=== PATIENT | male | born 1960 | race Caucasian/White ===

== ENCOUNTER → 2018-09-20 08:28 | Outpatient (CLI) | payer OTHER, SELFPAY ==
[2018-05-15 09:55] VITALS: BMI 28.8
[2018-09-20 12:30] LABS: Absolute Lymphocyte Count 1.45 X10^3/ul (0.83-4.51); Absolute Neutrophil Count 1.7 X10^3/uL (2.0-7.7); Basophil# 0.02 X10^3/uL; Basophil% 0.5 % (0-1); Eosinophil# 0.24 X10^3/uL; Lymphocyte # 1.45 X10^3/ul (4.0); Lymphocyte % 36.4 % (19-41); Mean Corp Hgb Conc 33.3 g/gl (32-36); Mean Corpuscular Hgb 28.1 pg (27.0-32.0); Mean Corpuscular Volume 84.2 fL (80-94); Mean Platelet Vol. 11.2 fl (6.2-12.0); Monocyte# 0.51 X10^3/uL; Monocyte% 12.8 % (0-10); Neutrophil # 1.74 X10^3/uL (2.7-7.7); Neutrophil % 43.8 % (47-70); Platelet Count 196 K/mm3 (150-450); RBC Distribution Width CV 12.9 % (11.6-14.6); RBC Distribution Width SD 39.2 fl (35.1-43.9); Red Blood Count 4.99 M/mm3 (4.6-6.2)
[2018-09-20 12:51] LABS: POSITIVE COUNT NO; POSITIVE DIFFERENTIAL NO; POSITIVE MORPHOLOGY NO
[2018-09-20 13:06] LABS: ALB/GLOB Ratio 1.2 RATIO (0.9-2.4); AST(SGOT) 30 U/L (15-37); Alanine Aminotransfer ALT/SGPT 55 U/L (16-61); Alkaline Phosphatase 87 U/L (45-117); Anion Gap 6 (5-15); BUN 15 mg/dL (7-18); BUN/Creat Ratio 17.2 RATIO (10-20); Chloride 107 mmol/L (98-107); Cholesterol 136 mg/dL (200); Creatinine, Serum 0.87 mg/dL (0.70-1.30); EST Glomerular Filtration Rate 95 mL/min (>60); Est Glom Filt Rate - Afr Amer 115 mL/min (>60); Free T3 2.6 pg/mL (2.18-3.98); Globulin 3.2 g/dL (2.2-4.2); Glucose 166 mg/dL (74-106); High Density Lipoprotein 31 mg/dL; Potassium 4.2 mmol/L (3.5-5.1); Protein, Total 7.2 g/dL (6.4-8.2); Sodium Level 139 mmol/L (136-145); Thyroid Stim Hormone (TSH) 2.05 uIU/mL (0.358-3.74); Triglycerides 223 mg/dL; Very Low Density Lipoprotein 45 mg/dL (5-40)
[2018-09-23 22:49] LABS: Hemoglobin A1c 8.3 % (4.2-6.3)
== END ==
PROVIDERS: Family Provider Family Medicine; PCP Family Medicine; Visit Provider Family Medicine
DX: I10 Essential (primary) hypertension (principal); E11.9 Type 2 diabetes mellitus without complications; E78.00 Pure hypercholesterolemia, unspecified; R53.83 Other fatigue
CPT/HCPCS: 36415; 80053; 80061; 83036; 84439; 84443; 84481; 85025

== ENCOUNTER → 2019-04-22 07:59 | Outpatient (CLI) | payer OTHER, SELFPAY ==
[2018-05-15 09:55] VITALS: BMI 28.8
[2019-04-22 13:06] LABS: Absolute Neutrophil Count 3.3 X10^3/uL (2.0-7.7); Basophil# 0.03 X10^3/uL; Basophil% 0.5 % (0-1); Eosinophil# 0.24 X10^3/uL; Eosinophils% 4.1 % (0-5); Hematocrit 45.8 % (40-54); Hemoglobin 14.8 g/dL (13.0-16.5); Lymphocyte % 25.9 % (19-41); Mean Corp Hgb Conc 32.3 g/dL (32-36); Mean Corpuscular Hgb 28.4 pg (27.0-32.0); Mean Corpuscular Volume 87.9 fL (80-94); Mean Platelet Vol. 10.4 fl (6.2-12.0); Monocyte# 0.71 X10^3/uL; Monocyte% 12.2 % (0-10); NRBC Flagged by Analyzer 0 % (0-5); Neutrophil # 3.29 X10^3/uL (2.7-7.7); Neutrophil % 56.8 % (47-70); Platelet Count 209 K/mm3 (150-450); RBC Distribution Width CV 12.8 % (11.6-14.6); RBC Distribution Width SD 41.3 fl (35.1-43.9); Red Blood Count 5.21 M/mm3 (4.6-6.2); White Blood Count 5.8 K/mm3 (4.4-11.0)
[2019-04-22 13:36] LABS: Hemoglobin A1c 8.1 % (4.2-6.3)
[2019-04-22 13:40] LABS: AST(SGOT) 29 U/L (15-37); Alanine Aminotransfer ALT/SGPT 62 U/L (16-61); Albumin, Serum 4.2 g/dL (3.2-5.0); Alkaline Phosphatase 85 U/L (45-117); Anion Gap 9 (5-15); BUN 22 mg/dL (7-18); BUN/Creat Ratio 23.1 RATIO (10-20); Calcium,Total 9.8 mg/dL (8.5-10.1); Chloride 107 mmol/L (98-107); Cholesterol 147 mg/dL (200); Creatinine, Serum 0.95 mg/dL (0.70-1.30); EST Glomerular Filtration Rate 86 mL/min (>60); Est Glom Filt Rate - Afr Amer 104 mL/min (>60); Glucose 159 mg/dL (74-106); High Density Lipoprotein 38 mg/dL; PSA,Total - Annual Screen 0.82 ng/mL (0.00-4.00); Potassium 4.5 mmol/L (3.5-5.1); Protein, Total 8.2 g/dL (6.4-8.2); Sodium Level 139 mmol/L (136-145); Triglycerides 209 mg/dL; Very Low Density Lipoprotein 42 mg/dL (5-40)
[2019-04-24 13:07] LABS: Microalbumin,Random Urine 22.3 mg/L (NO RANGE EST.); Microalbumin:Creatinine Ratio 18.9 mg/g CRE (<30 mg/g CRE)
== END ==
LOC: LAB.FUTURE 09:12 → BFHLAB 09:12
PROVIDERS: PCP Family Medicine; Visit Provider Family Medicine
DX: E78.00 Pure hypercholesterolemia, unspecified (principal); E11.9 Type 2 diabetes mellitus without complications; Z12.5 Encounter for screening for malignant neoplasm of prostate
CPT/HCPCS: 36415; 80053; 80061; 82043; 82570; 83036; 84153; 85025; G0103

== ENCOUNTER 2019-05-21 08:19 | Day surgery (SDC) | payer OTHER, SELFPAY ==
[2019-05-06 09:27] VITALS: BMI 27.8
--- NOTE | 2019-05-06 09:52 | HP_ITS ---
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 Is patient in pain?: Yes (abdominal pain) Allergies No Known Allergies Allergy (Verified 05/06/19 09:28) Medications calcium carbonate 200 mg calcium (500 mg) chewable tablet 200 mg PO BID tab 05/15/18 [History Confirmed 05/06/19] omeprazole 20 mg capsule,delayed release 20 mg PO DAILY 05/15/18 [History Confirmed 05/06/19] metformin 500 mg tablet,extended release 24hr 1,000 mg PO BID tab 05/06/19 [History Confirmed 05/06/19] rosuvastatin 40 mg tablet 40 mg PO DAILY 05/06/19 [History Confirmed 05/06/19] PFSH Medical History (Updated 05/06/19 @ 09:15 by Linda Samuels) Diabetes 1.5, managed as type 2 (Acute) Heart attack (Acute) High cholesterol (Acute) History of broken collarbone (Acute) History of torn meniscus of right knee (Acute) Hx of fracture of wrist (Acute) HTN (hypertension) (Chronic) Surgical History S/P right heart catheterization (Acute) Family History Other Breast cancer CVA (cerebral vascular accident) High cholesterol Social History (Updated 05/06/19 @ 09:[address] Andreia Hudson MD) Smoking Status: Never smoker alcohol intake: current alcohol intake frequency: a few times a month substance use type: does not use what type of physical activity do you participate in: walking frequency: 5-6 times per week HPI HPI HPI: IGNACIO ABREU is a 59 M who presents to the office today for HPI HPI Surgical H&P: Yes HPI: IGNACIO ABREU is a 59 M who presents to the office today for epigastric discomfort/bloating/tarry stools about once a month. Patient states she he had been put on metformin 1 pill twice a day once that were changed to 2 pills twice a day he started noticing more epigastric discomfort and abdominal bloating/gas pain rated the pain about 3/10. Patient states that about once a month he will have some tarry stools and it improves. However patient did state that he will occasionally also take Pepto-Bismol during this time. Patient states that he has not actually had any reflux and comes for the last month and thus has not been taking any omeprazole and only takes as needed. Patient last colonoscopy was in 2008- per patient, patient states that his first colonoscopy did have benign polyps which was when he was 40 as his mom had breast cancer and father had a history of polyps. Patient does not think his dad had large polyps warranting more aggressive screening. Patient denies any family history of colon cancer. Patient states he has bowel movements daily denies any blood other than the tarry stools once a month. ROS General General: No weight change or fatigue Gastro Gastrointestinal: Yes abdominal pain, No nausea or vomiting, Yes diarrhea, No constipation, No blood in stool, Yes acid reflux, No hemorrhoids, No ulcers, No gallbladder problem, Yes black,tarry stools Exam Const General: cooperative, comfortable, no acute distress Resp Effort & Inspection: normal respiratory effort Cardio Rate: regular rate GI Inspection: non-distended Palpation: soft, no guarding, nontender Assessment & Plan Problems 1. Epigastric discomfort R10.13 2. Bloating R14.0 3. Tarry stool K92.1 4. Screening for colon cancer Z12.11 Plan Discussed with patient that since he only has reflux symptoms may be couple times a month would recommend him trying Pepcid instead the omeprazole since omeprazole does not work for couple days and may need to take it daily. Did discuss with patient that if he does have reflux symptoms more often about 2-3 times a week would recommend omeprazole daily. I have discussed the above with the patient. I have offered the patient EGD and colonoscopy for evaluation. I have explained the risks/benefits of the procedure and described the procedure. I have discussed the risks with the patient, including but not limited to: infection, bleeding, perforation of the GI tract requiring emergency surgery, inability to complete the procedure, injury to any internal organs, complications of anesthesia, etc. - the patient understands and agrees to proceed. I have answered all the patient's questions to the patient's satisfaction and the patient has no further questions. The patient has been given instructions for the colon cleansing preparation. One day of clears, MiraLAX/Dulcolax split prep Andreia Hudson M.D. Pager: [phone] [facility] [address] [place] [address], [facility], [address] [place] [id number] Office: 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
[2019-05-21 08:47] VITALS: BP 140/79; PULSE 68; RESP 16; TEMP 36.8; O2SAT 97; BMI 28.3
[2019-05-21] MEDS: Lactated Ringers 1,000 ML 100 ML IV (08:58)
[2019-05-21 09:15] LABS: Bedside Glucose 154 mg/dL (70-110)
--- NOTE | 2019-05-21 09:30 | IMM_PTH ---
PATIENT: IGNACIO ABREU LOC: [facility] U#:[id number] AGE/SX: 59/M ROOM: RE05/21/[address]: Dr. Andreia Hudson MD : 1960 BED: DIS: 05/21/2019 SPEC #: [id number] RECD: 05/21/19 12:11 STATUS: DOMINIQUE RETere #: [id number] LEONARD: 05/21/19 09:[address]: Andreia Hudson DEPT: IMMUNOHISTOCHEMISTRY RECD BY: Asia Bridges ENTERED: 05/21/19 12:12 SP TYPE: IMMUNO OTHR DR: Dr. Dodie Bertrand, DO Tissues: A - Stomach, NOS Procedures: H Pylori (initial) PHYSICIAN & INSTITUTION [place] [address] SPECIMEN INFORMATION: Tissue Source: A - Antrum biopsy Clinical Info: Tarry stools, GERD Specimen Number: [id number] CPT code: 13911 METHODOLOGY: Deparaffinized sections of prefer/formalin-fixed tissue or PAP/DQ stained slides are incubated with monoclonal/polyclonal antibodies/oligonucleotide probes. Localization is made via biotin free immunoperoxidase method. Appropriate controls are performed and reacted as expected. Results on target cell population are indicated in the following table: RESULTS: ANTIBODY / CLONE RESULT Block A H Pylori (polyclonal) negative These tests were developed and their performance characteristics determined by [facility]. They may not have been cleared or approved by the U.S. Food and Drug Administration. The FDA has determined that such clearance or approval is not necessary. INTERPRETATION: A. Antrum biopsy: Negative for Helicobacter pylori organisms. AM:nadja 05/22/19
--- NOTE | 2019-05-21 09:30 | EGD_PTH ---
PATIENT: IGNACIO ABREU LOC: [facility] U#:[id number] AGE/SX: 59/M ROOM: RE05/21/[address]: Dr. Andreia Hudson MD : 1960 BED: DIS: 05/21/2019 SPEC #: [id number] RECD: 05/21/19 10:40 STATUS: DOMINIQUE SAURAV #: [id number] LEONARD: 05/21/19 09:[address]: Andreia Hudson DEPT: SURGICAL PATHOLOGY RECD BY: Flavio Camargo ENTERED: 05/21/19 12:06 SP TYPE: EGD BIOPSY FERNANDA DR: Dr. Dodie Bertrand DO Tissues: A - Gastric mucous membrane B - Gastric mucous membrane Procedures: Special Stain Group II Surgery Specimen Level IV Alcian Blue/PAS (control) HEADER OPERATION: Colonoscopy, EGD ([facility]) PRE-OP DIAGNOSIS: Tarry stools, GERD TISSUE SUBMITTED: A - Antrum biopsy for H. pylori and histo, B - GE junction MICROSCOPIC DIAGNOSIS A. Gastric antrum, biopsy: Chronic gastritis. See comment. B. Gastroesophageal junction, biopsy: Focal changes of reflux. Junctional mucosa with mild chronic inflammation. No evidence of intestinal metaplasia. See comment. AM:nadja 05/22/19 COMMENT A. The results of immunohistochemistry for Helicobacter pylori will be reported separately ([id number]). B. Alcian blue/PAS stain with matched control supports the above diagnosis. MICROSCOPIC DESCRIPTION Slides are reviewed. GROSS DESCRIPTION A - Received in fixative is one container labeled with the patient's name and designated antrum biopsy. The specimen consists of one irregular fragment of light garcia soft tissue that measures 0.8 x 0.3 x 0.1 cm. The specimen is totally submitted in one cassette. B - Received in fixative is one container labeled with the patient's name and designated GE junction biopsy. The specimen consists of two irregular fragments of light garcia soft tissue that in aggregate measure 0.5 x 0.3 x 0.1 cm. The specimen is totally submitted in one cassette. / SJ:nadja 05/21/19 TC:3 CPT: 87988 x2, 19457
[2019-05-21 10:10] VITALS: BP 121/79; BP 140/79; TEMP 36.5
--- NOTE | 2019-05-21 10:10 | OP.CCLET_ITS ---
05/21/2019 Dodie Bertrand [address] [facility] [place] [address] Re : Upper GI endoscopy procedure for Amos Larios Dear Dr. Bertrand This procedure was performed on Tuesday, May 21, 2019. My impressions and recommendations are as follows: Impressions : - Z-line irregular, 38 cm from the incisors. Biopsied. - Small hiatal hernia. - Normal examined duodenum. - Erythematous mucosa in the antrum. Biopsied. Recommendations : - Await pathology results. - Discharge patient to home. - Resume previous diet. - Continue present medications. My findings are described in the full procedure note, which is enclosed. If I can be of further assistance, please feel free to contact me at Doctor phone number(s): , Work: . Sincerely, MD Andreia Saldana MD 05/21/2019 10:10:05 AM This report has been signed electronically.
--- NOTE | 2019-05-21 10:10 | OP.EGD_ITS ---
Patient Name: Amos Larios Procedure Date: 05/21/2019 9:24 AM Date of : 1960 Age: 59 Procedure: Upper GI endoscopy Indications: Epigastric abdominal pain, Abdominal bloating Providers: Andreia Hudson MD Referring MD: Dodie Bertrand Medicines: Monitored Anesthesia Care Patient Profile: This is a 59 year old male. Complications: No immediate complications. Procedure: Pre-Anesthesia Assessment: - Prior to the procedure, a History and Physical was performed, and patient medications and allergies were reviewed. The patient's tolerance of previous anesthesia was also reviewed. The risks and benefits of the procedure and the sedation options and risks were discussed with the patient. All questions were answered, and informed consent was obtained. Prior Anticoagulants: The patient has taken no previous anticoagulant or antiplatelet agents. ASA Grade Assessment: II - A patient with mild systemic disease. After reviewing the risks and benefits, the patient was deemed in satisfactory condition to undergo the procedure. After obtaining informed consent, the endoscope was passed under direct vision. Throughout the procedure, the patient's blood pressure, pulse, and oxygen saturations were monitored continuously. The gastroscope was introduced through the mouth, and advanced to the second part of duodenum. The upper GI endoscopy was accomplished without difficulty. The patient tolerated the procedure well. Scope In: 9:36:24 AM Scope Out: 9:44:04 AM Total Procedure Duration Time 0 hours 7 minutes 40 seconds Findings: The Z-line was irregular and was found 38 cm from the incisors. Biopsies were taken with a cold forceps for histology. A small hiatal hernia was present. The examined duodenum was normal. Mildly erythematous mucosa without bleeding was found in the gastric antrum. Biopsies were taken with a cold forceps for histology. Biopsies were taken with a cold forceps for Helicobacter pylori cultures. Impression: - Z-line irregular, 38 cm from the incisors. Biopsied. - Small hiatal hernia. - Normal examined duodenum. - Erythematous mucosa in the antrum. Biopsied. Recommendation: - Await pathology results. - Discharge patient to home. - Resume previous diet. - Continue present medications. Procedure Code(s): --- Professional --- 56742, Esophagogastroduodenoscopy, flexible, transoral; with biopsy, single or multiple Diagnosis Code(s): --- Professional --- K22.8, Other specified diseases of esophagus K44.9, Diaphragmatic hernia without obstruction or gangrene K31.89, Other diseases of stomach and duodenum R10.13, Epigastric pain R14.0, Abdominal distension (gaseous) CPT copyright 2017 [employer]. All rights reserved. The codes documented in this report are preliminary and upon slipper maker review may be revised to meet current compliance requirements. MD Andreia Saldana MD 05/21/2019 10:10:05 AM This report has been signed electronically. Number of Addenda: 0 Note Initiated On: 05/21/2019 9:24 AM
--- NOTE | 2019-05-21 10:13 | OP.COLON_ITS ---
Patient Name: Amos Larios Procedure Date: 05/21/2019 9:44 AM Date of : 1960 Age: 59 Procedure: Colonoscopy Indications: Screening for colorectal malignant neoplasm Providers: Andreia Hudson MD Referring MD: Dodie Bertrand Medicines: Monitored Anesthesia Care Patient Profile: This is a 59 year old male. Last Colonoscopy: more than 10 years ago. Complications: No immediate complications. Procedure: Pre-Anesthesia Assessment: - Prior to the procedure, a History and Physical was performed, and patient medications and allergies were reviewed. The patient's tolerance of previous anesthesia was also reviewed. The risks and benefits of the procedure and the sedation options and risks were discussed with the patient. All questions were answered, and informed consent was obtained. Prior Anticoagulants: The patient has taken no previous anticoagulant or antiplatelet agents. ASA Grade Assessment: II - A patient with mild systemic disease. After reviewing the risks and benefits, the patient was deemed in satisfactory condition to undergo the procedure. After I obtained informed consent, the scope was passed under direct vision. Throughout the procedure, the patient's blood pressure, pulse, and oxygen saturations were monitored continuously. The colonoscope was introduced through the anus and advanced to the cecum, identified by the appendiceal orifice, ileocecal valve and palpation. The colonoscopy was performed without difficulty. The patient tolerated the procedure well. The quality of the bowel preparation was good. Scope In: 9:46:39 AM Scope Withdrawal Time 0 hours 12 minutes 38 seconds Scope Out: 10:05:15 AM Total Procedure Duration Time 0 hours 18 minutes 36 seconds Findings: The perianal and digital rectal examinations were normal. A few small-mouthed diverticula were found in the sigmoid colon and ascending colon. The entire examined colon appeared normal on direct and retroflexion views. Impression: - Diverticulosis in the sigmoid colon and in the ascending colon. - The entire examined colon is normal on direct and retroflexion views. - No specimens collected. Recommendation: - Discharge patient to home. - High fiber diet. - Continue present medications. - Repeat colonoscopy in 10 years for screening purposes. Procedure Code(s): --- Professional --- G0121, PT, Colorectal cancer screening; colonoscopy on individual not meeting criteria for high risk Diagnosis Code(s): --- Professional --- Z12.11, Encounter for screening for malignant neoplasm of colon K57.30, Diverticulosis of large intestine without perforation or abscess without bleeding CPT copyright 2017 [employer]. All rights reserved. The codes documented in this report are preliminary and upon junior manufacturing engineer review may be revised to meet current compliance requirements. MD Andreia Saldana MD 05/21/2019 10:13:26 AM This report has been signed electronically. Number of Addenda: 0 Note Initiated On: 05/21/2019 9:44 AM
--- NOTE | 2019-05-21 10:14 | OP.CCLET_ITS ---
05/21/2019 Dodie Bertrand [address] [place] [address] Re : Colonoscopy procedure for Amos Larios Dear Dr. Bertrand This procedure was performed on Tuesday, May 21, 2019. My impressions and recommendations are as follows: Impressions : - Diverticulosis in the sigmoid colon and in the ascending colon. - The entire examined colon is normal on direct and retroflexion views. - No specimens collected. Recommendations : - Discharge patient to home. - High fiber diet. - Continue present medications. - Repeat colonoscopy in 10 years for screening purposes. My findings are described in the full procedure note, which is enclosed. If I can be of further assistance, please feel free to contact me at Doctor phone number(s): , Work: . Sincerely, MD Andreia Saldana MD 05/21/2019 10:13:26 AM This report has been signed electronically.
[2019-05-21 10:15] VITALS: BP 110/86; BP 140/79; PULSE 70; RESP 16; O2SAT 95
[2019-05-21 10:20] VITALS: BP 115/83; BP 140/79; PULSE 65; RESP 16; O2SAT 96
[2019-05-21 10:25] VITALS: BP 122/80; BP 140/79; PULSE 65; RESP 16; TEMP 37.1; O2SAT 95
[2019-05-21 10:38] VITALS: BP 140/79
== END 2019-05-21 10:55 | disposition home or self-care (01) ==
LOC: EN 08:26 → AC 08:26
PROVIDERS: PCP Family Medicine; Referring Provider Family Medicine; Visit Provider Surgery
PROC: 0DJD8ZZ Inspection of Lower Intestinal Tract, Via Natural or Artificial Opening Endoscopic (ICD-10-PCS; CPT 45378; principal; 2019-05-21 09:25)
DX: Z12.11 Encounter for screening for malignant neoplasm of colon (principal); K57.30 Diverticulosis of large intestine without perforation or abscess without bleeding; K29.50 Unspecified chronic gastritis without bleeding; K44.9 Diaphragmatic hernia without obstruction or gangrene; K22.8 Other specified diseases of esophagus; K31.89 Other diseases of stomach and duodenum; K92.1 Melena; E13.9 Other specified diabetes mellitus without complications; I10 Essential (primary) hypertension; E78.00 Pure hypercholesterolemia, unspecified; K21.9 Gastro-esophageal reflux disease without esophagitis; I25.2 Old myocardial infarction; Z79.84 Long term (current) use of oral hypoglycemic drugs; Z79.899 Other long term (current) drug therapy
CPT/HCPCS: 43239; 45378; 82962; 88305; 88313; 88342; J7120; J2405

== ENCOUNTER → 2019-07-28 07:57 | Outpatient (CLI) | payer OTHER, SELFPAY ==
[2019-07-28 12:32] LABS: ALB/GLOB Ratio 1.2 RATIO (0.9-2.4); AST(SGOT) 28 U/L (15-37); Alanine Aminotransfer ALT/SGPT 60 U/L (16-61); Alkaline Phosphatase 63 U/L (45-117); Anion Gap 6 (5-15); BUN 15 mg/dL (7-18); Calcium,Total 9.2 mg/dL (8.5-10.1); Chloride 109 mmol/L (98-107); Creatinine, Serum 0.88 mg/dL (0.70-1.30); EST Glomerular Filtration Rate 94 mL/min (>60); Est Glom Filt Rate - Afr Amer 114 mL/min (>60); Globulin 3.2 g/dL (2.2-4.2); Glucose 140 mg/dL (74-106); Potassium 4.2 mmol/L (3.5-5.1); Protein, Total 7.2 g/dL (6.4-8.2); Sodium Level 140 mmol/L (136-145)
[2019-07-28 12:43] LABS: Hemoglobin A1c 7.9 % (4.2-6.3)
[2019-07-30 11:55] LABS: Cholesterol 136 mg/dL (200); High Density Lipoprotein 35 mg/dL; Triglycerides 117 mg/dL; Very Low Density Lipoprotein 23 mg/dL (5-40)
== END ==
PROVIDERS: PCP Family Medicine; Visit Provider Family Medicine
DX: E11.9 Type 2 diabetes mellitus without complications (principal); I10 Essential (primary) hypertension
CPT/HCPCS: 36415; 80053; 80061; 83036

== ENCOUNTER → 2019-12-04 08:13 | Outpatient (CLI) | payer OTHER, SELFPAY ==
[2019-12-04 13:30] LABS: Cholesterol 201 mg/dL (200); High Density Lipoprotein 37 mg/dL; Triglycerides 156 mg/dL; Very Low Density Lipoprotein 31 mg/dL (5-40)
== END ==
PROVIDERS: PCP Family Medicine; Visit Provider Family Medicine
DX: E78.00 Pure hypercholesterolemia, unspecified (principal)
CPT/HCPCS: 36415; 80061

== ENCOUNTER → 2019-12-08 10:32 | Outpatient (CLI) | payer OTHER, SELFPAY ==
[2019-12-08 12:45] LABS: Hemoglobin A1c 6.7 % (3.8-5.6)
== END ==
PROVIDERS: PCP Family Medicine; Visit Provider Family Medicine
DX: E11.9 Type 2 diabetes mellitus without complications (principal)
CPT/HCPCS: 36415; 83036

== ENCOUNTER → 2020-06-01 07:29 | Outpatient (CLI) | payer OTHER, SELFPAY ==
[2020-06-01 07:54] LABS: Absolute Neutrophil Count 2.5 X10^3/uL (2.0-7.7); Basophil# 0.04 X10^3/uL; Basophil% 0.7 % (0-1); Eosinophil# 0.16 X10^3/uL; Eosinophils% 2.9 % (0-5); Hematocrit 43.7 % (40-54); Lymphocyte % 36.6 % (19-41); Mean Corpuscular Hgb 28.9 pg (27.0-32.0); Mean Corpuscular Volume 90.1 fL (80-94); Monocyte# 0.73 X10^3/uL; Monocyte% 13.3 % (0-10); NRBC Flagged by Analyzer 0 % (0-5); Neutrophil # 2.52 X10^3/uL (2.7-7.7); Neutrophil % 46.1 % (47-70); Platelet Count 239 K/mm3 (150-450); RBC Distribution Width CV 12.8 % (11.6-14.6); RBC Distribution Width SD 41.8 fl (35.1-43.9); Red Blood Count 4.85 M/mm3 (4.6-6.2); White Blood Count 5.5 K/mm3 (4.4-11.0)
[2020-06-01 08:24] LABS: ALB/GLOB Ratio 1.1 RATIO (0.9-2.4); AST(SGOT) 26 U/L (15-37); Alanine Aminotransfer ALT/SGPT 58 U/L (16-61); Albumin, Serum 4.1 g/dL (3.2-5.0); Alkaline Phosphatase 105 U/L (45-117); Anion Gap 6 (5-15); BUN 24 mg/dL (7-18); BUN/Creat Ratio 26.6 RATIO (10-20); Chloride 106 mmol/L (98-107); Cholesterol 278 mg/dL (200); EST Glomerular Filtration Rate 91 mL/min (>60); Est Glom Filt Rate - Afr Amer 110 mL/min (>60); Globulin 3.8 g/dL (2.2-4.2); Glucose 153 mg/dL (74-106); High Density Lipoprotein 37 mg/dL; Potassium 4.1 mmol/L (3.5-5.1); Protein, Total 7.9 g/dL (6.4-8.2); Sodium Level 139 mmol/L (136-145); Triglycerides 130 mg/dL; Very Low Density Lipoprotein 26 mg/dL (5-40)
[2020-06-01 09:22] LABS: Hemoglobin A1c 7.3 % (3.8-5.6)
== END ==
PROVIDERS: PCP Family Medicine; Referring Provider Family Medicine; Visit Provider Family Medicine
DX: E11.9 Type 2 diabetes mellitus without complications (principal); I10 Essential (primary) hypertension; R53.83 Other fatigue; E78.5 Hyperlipidemia, unspecified
CPT/HCPCS: 36415; 80053; 80061; 83036; 85025

== ENCOUNTER → 2020-11-08 20:00 | Outpatient (CLI) | payer OTHER, SELFPAY | PROVIDERS: PCP Family Medicine; Visit Provider Family Medicine | DX: G47.33 Obstructive sleep apnea (adult) (pediatric) (principal) | CPT/HCPCS: 95811 ==

== ENCOUNTER → 2020-11-22 08:00 | Outpatient (CLI) | payer OTHER, SELFPAY | PROVIDERS: PCP Family Medicine; Referring Provider Family Medicine; Visit Provider Family Medicine | DX: Z46.89 Encounter for fitting and adjustment of other specified devices (principal) ==

== ENCOUNTER → 2021-02-17 12:08 | Outpatient (CLI) | payer OTHER, SELFPAY ==
--- NOTE | 2021-02-17 12:11 | RAD_ITS ---
STUDY: X-RAY - LEFT KNEE REASON FOR EXAM: Male, 60 years old. KNEE PAIN TECHNIQUE: 4 view(s) of the knee. COMPARISON: None. FINDINGS: Normal visualized distal femur. Normal visualized proximal tibia and fibula. Normal proximal tibiofibular articulation. Normal medial femorotibial compartment. Normal lateral femorotibial compartment. Normal patellofemoral articulation. There is no demonstrated joint effusion. The soft tissue structures are unremarkable. RAD/Knee 4 or More Views IMPRESSION: Normal x-ray examination of the knee. Electronically Signed: Dustin Cast MD ([place]) at 12:50 EST , Service support ,
--- NOTE | 2021-02-17 12:15 | RAD_ITS ---
STUDY: X-RAY - RIGHT KNEE REASON FOR EXAM: Male, 60 years old. KNEE PAIN TECHNIQUE: 4 view(s) of the knee. COMPARISON: None. FINDINGS: Normal visualized distal femur. Normal visualized proximal tibia and fibula. Normal proximal tibiofibular articulation. There is mild degenerative arthrosis of the medial femorotibial compartment. Normal lateral femorotibial compartment. Normal patellofemoral articulation. There is no demonstrated joint effusion. The soft tissue structures are unremarkable. RAD/Knee 4 or More Views IMPRESSION: Mild medial compartment degenerative changes. Electronically Signed: Dustin Cast MD ([place]) at 12:51 EST , Service support ,
== END ==
PROVIDERS: PCP Family Medicine; Referring Provider Family Medicine; Visit Provider Family Medicine
DX: M25.561 Pain in right knee (principal); M25.562 Pain in left knee
CPT/HCPCS: 73564

== ENCOUNTER 2021-04-28 06:29 | Outpatient (CLI) | payer OTHER, SELFPAY ==
[2021-04-28 07:38] LABS: Absolute Lymphocyte Count 1.69 X10^3/uL (0.83-4.51); Absolute Neutrophil Count 2.3 X10^3/uL (2.0-7.7); Basophil# 0.04 X10^3/uL; Basophil% 0.8 % (0-1); Eosinophil# 0.24 X10^3/uL; Eosinophils% 4.8 % (0-5); Hematocrit 45.3 % (40-54); Lymphocyte # 1.69 X10^3/ul (0.83-4.51); Lymphocyte % 33.5 % (19-41); Mean Corp Hgb Conc 33.1 g/dL (32-36); Mean Corpuscular Hgb 28.7 pg (27.0-32.0); Mean Corpuscular Volume 86.8 fL (80-94); Mean Platelet Vol. 10.4 fl (6.2-12.0); Monocyte# 0.73 X10^3/uL; Monocyte% 14.5 % (0-10); NRBC Flagged by Analyzer 0 % (0-5); Neutrophil % 45.6 % (47-70); Platelet Count 217 K/mm3 (150-450); RBC Distribution Width CV 12.8 % (11.6-14.6); RBC Distribution Width SD 40.1 fl (35.1-43.9); Red Blood Count 5.22 M/mm3 (4.6-6.2)
[2021-04-28 07:54] LABS: Hemoglobin A1c 7.7 % (3.8-5.6)
[2021-04-28 08:01] LABS: Microalbumin,Random Urine 19.2 mg/L (NO RANGE EST.); Microalbumin:Creatinine Ratio 13.6 mg/g CRE (<30 mg/g CRE)
[2021-04-28 08:10] LABS: ALB/GLOB Ratio 1.1 RATIO (0.9-2.4); AST(SGOT) 38 U/L (15-37); Alanine Aminotransfer ALT/SGPT 59 U/L (16-61); Alkaline Phosphatase 104 U/L (45-117); Anion Gap 5 (5-15); BUN 16 mg/dL (7-18); BUN/Creat Ratio 16.8 RATIO (10-20); Calcium,Total 8.9 mg/dL (8.5-10.1); Chloride 103 mmol/L (98-107); Cholesterol 236 mg/dL (200); Creatinine, Serum 0.96 mg/dL (0.70-1.30); EST Glomerular Filtration Rate 85 mL/min (>60); Est Glom Filt Rate - Afr Amer 103 mL/min (>60); Globulin 3.8 g/dL (2.2-4.2); Glucose 168 mg/dL (74-106); High Density Lipoprotein 35 mg/dL; PSA,Total - Annual Screen 1.21 ng/mL (0.00-4.00); Potassium 4.1 mmol/L (3.5-5.1); Protein, Total 7.8 g/dL (6.4-8.2); Sodium Level 136 mmol/L (136-145); Triglycerides 273 mg/dL; Very Low Density Lipoprotein 55 mg/dL (5-40)
== END 2021-04-28 23:59 | disposition home or self-care (01) ==
LOC: LAB 06:31
PROVIDERS: PCP Family Medicine; Referring Provider Family Medicine; Visit Provider Family Medicine
DX: Z12.5 Encounter for screening for malignant neoplasm of prostate (principal); E11.9 Type 2 diabetes mellitus without complications; E78.00 Pure hypercholesterolemia, unspecified; I10 Essential (primary) hypertension; Z51.81 Encounter for therapeutic drug level monitoring
CPT/HCPCS: 36415; 80053; 80061; 82043; 82570; 83036; 84153; 85025; G0103

== ENCOUNTER → 2021-07-20 | Outpatient (CLI) | payer OTHER, SELFPAY ==
[2021-07-20 08:04] LABS: Hemoglobin A1c 7.3 % (3.8-5.6)
[2021-07-20 08:10] LABS: Anion Gap 6 (5-15); BUN 19 mg/dL (7-18); BUN/Creat Ratio 20.5 RATIO (10-20); Calcium,Total 9.3 mg/dL (8.5-10.1); Chloride 105 mmol/L (98-107); Creatinine, Serum 0.92 mg/dL (0.70-1.30); EST Glomerular Filtration Rate 88 mL/min (>60); Est Glom Filt Rate - Afr Amer 107 mL/min (>60); Glucose 150 mg/dL (74-106); Potassium 4.1 mmol/L (3.5-5.1); Sodium Level 137 mmol/L (136-145); Thyroid Stim Hormone (TSH) 1.83 uIU/mL (0.358-3.74)
== END | disposition home or self-care (01) ==
LOC: LAB 07:03
PROVIDERS: PCP Family Medicine
DX: E11.65 Type 2 diabetes mellitus with hyperglycemia (principal); E04.9 Nontoxic goiter, unspecified
CPT/HCPCS: 36415; 80048; 83036; 84443

== ENCOUNTER → 2021-10-27 | Outpatient (CLI) | payer OTHER, SELFPAY ==
[2021-10-27 08:02] LABS: Anion Gap 5 (5-15); BUN 21 mg/dL (7-18); BUN/Creat Ratio 21.9 RATIO (10-20); Calcium,Total 9.4 mg/dL (8.5-10.1); Chloride 105 mmol/L (98-107); Cholesterol 169 mg/dL (200); Creatinine, Serum 0.96 mg/dL (0.70-1.30); EST Glomerular Filtration Rate 85 mL/min (>60); Est Glom Filt Rate - Afr Amer 103 mL/min (>60); Glucose 154 mg/dL (74-106); High Density Lipoprotein 41 mg/dL; Sodium Level 138 mmol/L (136-145); Triglycerides 99 mg/dL; Very Low Density Lipoprotein 20 mg/dL (5-40)
[2021-10-27 08:18] LABS: Hemoglobin A1c 7.5 % (3.8-5.6)
== END | disposition home or self-care (01) ==
PROVIDERS: PCP Family Medicine
DX: E11.65 Type 2 diabetes mellitus with hyperglycemia (principal); E78.2 Mixed hyperlipidemia
CPT/HCPCS: 36415; 80048; 80061; 83036

== ENCOUNTER → 2022-01-16 | Outpatient (CLI) | payer OTHER, SELFPAY ==
[2022-01-16 08:29] LABS: ALB/GLOB Ratio 1.2 RATIO (0.9-2.4); AST(SGOT) 19 U/L (15-37); Alanine Aminotransfer ALT/SGPT 38 U/L (16-61); Albumin, Serum 4.1 g/dL (3.2-5.0); Alkaline Phosphatase 76 U/L (45-117); Anion Gap 5 (5-15); BUN 14 mg/dL (7-18); BUN/Creat Ratio 16.7 RATIO (10-20); Calcium,Total 9.3 mg/dL (8.5-10.1); Chloride 105 mmol/L (98-107); Cholesterol 185 mg/dL (200); Creatinine, Serum 0.84 mg/dL (0.70-1.30); EST Glomerular Filtration Rate 99 mL/min (>60); Est Glom Filt Rate - Afr Amer 120 mL/min (>60); Globulin 3.5 g/dL (2.2-4.2); Glucose 151 mg/dL (74-106); High Density Lipoprotein 42 mg/dL; Potassium 4.2 mmol/L (3.5-5.1); Protein, Total 7.6 g/dL (6.4-8.2); Sodium Level 137 mmol/L (136-145); Triglycerides 159 mg/dL; Very Low Density Lipoprotein 32 mg/dL (5-40)
[2022-01-16 08:51] LABS: Hemoglobin A1c 6.9 % (3.8-5.6)
== END | disposition home or self-care (01) ==
LOC: LAB 06:48
PROVIDERS: PCP Family Medicine
DX: E11.65 Type 2 diabetes mellitus with hyperglycemia (principal); E78.2 Mixed hyperlipidemia
CPT/HCPCS: 36415; 80053; 80061; 83036

== ENCOUNTER → 2022-04-13 | Outpatient (CLI) | payer OTHER, SELFPAY ==
[2022-04-13 08:48] LABS: Anion Gap 6 (5-15); BUN 18 mg/dL (7-18); BUN/Creat Ratio 19.3 RATIO (10-20); Calcium,Total 9.1 mg/dL (8.5-10.1); Chloride 105 mmol/L (98-107); Creatinine, Serum 0.93 mg/dL (0.70-1.30); EST Glomerular Filtration Rate 87 mL/min (>60); Est Glom Filt Rate - Afr Amer 106 mL/min (>60); Glucose 143 mg/dL (74-106); Potassium 4.4 mmol/L (3.5-5.1); Sodium Level 138 mmol/L (136-145)
[2022-04-13 10:26] LABS: Hemoglobin A1c 7.3 % (3.8-5.6)
[2022-04-13 14:10] LABS: Microalbumin,Random Urine 18.7 mg/L (NO RANGE EST.); Microalbumin:Creatinine Ratio 15.7 mg/g CRE (<30 mg/g CRE)
== END | disposition home or self-care (01) ==
PROVIDERS: PCP Family Medicine; Referring Provider Internal Medicine Endocrinology, Diabetes & Metabolism; Visit Provider Internal Medicine Endocrinology, Diabetes & Metabolism
DX: E11.65 Type 2 diabetes mellitus with hyperglycemia (principal)
CPT/HCPCS: 36415; 80048; 82043; 82570; 83036

== ENCOUNTER → 2022-07-13 | Outpatient (CLI) | payer OTHER, SELFPAY ==
[2022-07-13 08:05] LABS: ALB/GLOB Ratio 1.2 RATIO (0.9-2.4); AST(SGOT) 22 U/L (15-37); Alanine Aminotransfer ALT/SGPT 44 U/L (16-61); Albumin, Serum 3.8 g/dL (3.2-5.0); Alkaline Phosphatase 63 U/L (45-117); Anion Gap 7 (5-15); BUN 18 mg/dL (7-18); Calcium,Total 8.9 mg/dL (8.5-10.1); Chloride 107 mmol/L (98-107); Cholesterol 170 mg/dL (200); EST Glomerular Filtration Rate 91 mL/min (>60); Est Glom Filt Rate - Afr Amer 110 mL/min (>60); Globulin 3.3 g/dL (2.2-4.2); Glucose 182 mg/dL (74-106); High Density Lipoprotein 39 mg/dL; Potassium 4.2 mmol/L (3.5-5.1); Protein, Total 7.1 g/dL (6.4-8.2); Sodium Level 139 mmol/L (136-145); Triglycerides 154 mg/dL; Very Low Density Lipoprotein 31 mg/dL (5-40)
[2022-07-13 09:32] LABS: Hemoglobin A1c 7.9 % (3.8-5.6)
== END | disposition home or self-care (01) ==
LOC: LAB 06:45
PROVIDERS: PCP Family Medicine; Referring Provider Internal Medicine Endocrinology, Diabetes & Metabolism; Visit Provider Internal Medicine Endocrinology, Diabetes & Metabolism
DX: E11.65 Type 2 diabetes mellitus with hyperglycemia (principal); E78.2 Mixed hyperlipidemia
CPT/HCPCS: 36415; 80053; 80061; 83036

== ENCOUNTER → 2022-10-12 | Outpatient (CLI) | payer OTHER, SELFPAY ==
[2022-10-12 08:03] LABS: Hemoglobin A1c 6.6 % (3.8-5.6)
[2022-10-12 08:07] LABS: ALB/GLOB Ratio 1.1 RATIO (0.9-2.4); AST(SGOT) 18 U/L (15-37); Alanine Aminotransfer ALT/SGPT 42 U/L (16-61); Albumin, Serum 3.9 g/dL (3.2-5.0); Alkaline Phosphatase 62 U/L (45-117); Anion Gap 6 (5-15); BUN 18 mg/dL (7-18); BUN/Creat Ratio 22.9 RATIO (10-20); Calcium,Total 9.1 mg/dL (8.5-10.1); Chloride 105 mmol/L (98-107); Creatinine, Serum 0.79 mg/dL (0.70-1.30); EST Glomerular Filtration Rate 106 mL/min (>60); Est Glom Filt Rate - Afr Amer 128 mL/min (>60); Globulin 3.5 g/dL (2.2-4.2); Glucose 146 mg/dL (74-106); Potassium 4.1 mmol/L (3.5-5.1); Protein, Total 7.4 g/dL (6.4-8.2); Sodium Level 138 mmol/L (136-145)
== END | disposition home or self-care (01) ==
LOC: LAB 06:31
PROVIDERS: PCP Family Medicine; Referring Provider Internal Medicine Endocrinology, Diabetes & Metabolism; Visit Provider Internal Medicine Endocrinology, Diabetes & Metabolism
DX: E11.65 Type 2 diabetes mellitus with hyperglycemia (principal)
CPT/HCPCS: 36415; 80053; 83036

== ENCOUNTER → 2023-01-10 | Outpatient (CLI) | payer OTHER, SELFPAY ==
[2023-01-10 09:36] LABS: ALB/GLOB Ratio 1.1 RATIO (0.9-2.4); AST(SGOT) 15 U/L (15-37); Alanine Aminotransfer ALT/SGPT 39 U/L (16-61); Albumin, Serum 3.9 g/dL (3.2-5.0); Alkaline Phosphatase 57 U/L (45-117); Anion Gap 5 (5-15); BUN 17 mg/dL (7-18); BUN/Creat Ratio 17.8 RATIO (10-20); Calcium,Total 9.9 mg/dL (8.5-10.1); Chloride 104 mmol/L (98-107); Creatinine, Serum 0.96 mg/dL (0.70-1.30); EST Glomerular Filtration Rate 85 mL/min (>60); Est Glom Filt Rate - Afr Amer 102 mL/min (>60); Globulin 3.6 g/dL (2.2-4.2); Glucose 167 mg/dL (74-106); Protein, Total 7.5 g/dL (6.4-8.2); Sodium Level 137 mmol/L (136-145)
[2023-01-10 10:45] LABS: Hemoglobin A1c 6.4 % (3.8-5.6)
== END | disposition home or self-care (01) ==
LOC: LAB 08:05
PROVIDERS: PCP Family Medicine; Referring Provider Internal Medicine Endocrinology, Diabetes & Metabolism; Visit Provider Internal Medicine Endocrinology, Diabetes & Metabolism
DX: E11.65 Type 2 diabetes mellitus with hyperglycemia (principal)
CPT/HCPCS: 36415; 80053; 83036

== ENCOUNTER → 2023-03-14 | Outpatient (CLI) | payer OTHER, SELFPAY ==
--- OUTSIDE RECORDS SUMMARY | 2023-03-14 08:17 | XMS RPT_ITS | CCD ---
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, Ora Primary Care Provider UnavailSerjio Tran Primary Care Provider Unavail able Results Test Name Value Interpretation Reference Range Facil ity Encounters Encounter Date Encounter Type Care Provider Facility Start: 10-16-2008 Documentation procedure Gibson Pelayo MD Work Phone: [facility] Start: 10-16-2008 Historic EMR Gibson Pelayo MD Work Phone: [facility] Procedures Date Procedure Procedure Detail Performing Clinician Start: 06-17-2016 Lipid 1996 panel - S brigido or Plasma Gibson Pelayo MD Work Phone: Start: 10-16-2008 SURGICAL PATHOLOGY, CONVERTED Gibson Pelayo MD Work Phone: Plan of Treatment Date Care Activity Detail Author Start: 11-10-2022 Influenza vaccination Influenza Vacc ine (#1) [facility] Start: 03-12-2022 Depression Assessment Depression Ass essment [facility] Start: 06-17-2021 Lipid 1996 panel - S brigido or Plasma Lipid Screening [facility] Start: 06-17-2021 Prostate Cancer Scre ening Discussion Prostate Cancer Screening Discussion [facility] Start: 06-18-2019 Diabetes Screening Diabetes Screenin g [facility] Start: 2010 Shingrix Vaccine (1 of 2) Shingrix V accine (1 of 2) [facility] Start: 2005 Cologuard (FIT-DNA) Cologuard (FIT-D NA) [facility] Start: 2005 Colonoscopy Colonoscopy [facility] Start: 2005 Colorectal Cancer Screening Colorectal Cancer Screening [facility] Start: [address] COLONOGRAPHY [facility] Start: 2005 Fecal Occult Blood Fecal Occult Bloo d [facility] Start: 2005 SIGMOIDOSCOPY SIGMOIDOSCOPY [facility] Start: 1979 Urine microalbumin profile DTa P,Tdap,Td Vaccine (1 - Tdap) [facility] Start: 1978 Hepatitis C Screening Hepatitis C Sc reening [facility] Start: 1978 HIV Screening HIV Screening [facility] Start: 1960 Covid-19 Vaccine (#1) Covid-19 Vacci ne (#1) [facility] Social History Date Type Detail Facility Tobacco smoking stat us NHIS Tobacco smoking consumption unknown [facility] Start: 02-19-2020 End: 05-27-2020 History of Social function [facility] Start: 02-19-2020 End: 05-27-2020 Tobacco use panel [facility] National Score (1-10 0), lower number is lower risk Not on file [facility] Start: 1960 Sex Assigned At Not on file [facility] Start: 04-27-2020 End: 05-27-2020 Exposure to SARS-CoV-2 (event) Not sure [facility] Progress note 05-27-2020 Note Date & Type Note Facility 05-27-2020 Note HNO ID: [id number] Author: Andrés (Code Number Stamper) Martin Service: ? Author Type: Nurse Practitioner Type: Progress Notes Filed: 05/27/2020 7:42 AM Note Text: Subjective HPI Nontoxic-appearing male presents urgent care chief complaint eye irritation. Duration of symptoms 2 to 3 days. Associated symptoms bilateral eye irritation, itching and drainage. Denies any OTC medication use. Patient states he did irrigate eyes few times of saline that did help for short amount of time. Denies any sick contacts. Denies any pain. Denies any trauma, visual changes, visual disturbances, floaters, foreign body sensation, headache, fevers, contact use or ocular history. .Patient presents with: Eye Problem: bilateral eye irritation x 2-3 days History reviewed. No pertinent past medical history. History reviewed. No pertinent surgical history. ALLERGIES Patient has no known allergies. MEDICATIONS metFORMIN (GLUCOPHAGE) 500 mg tablet Take 500 mg by mouth twice daily with meals. omeprazole (PRILOSEC) 20 mg capsule Take 20 mg by mouth once daily. albuterol HFA (PROAIR HFA) 90 mcg/actuation inhaler Inhale 2 Puffs as instructed every 4 hours as needed. ROSUVASTATIN CALCIUM (CRESTOR ORAL) Take by mouth. benzonatate (TESSALON PERLE) 100 mg capsule Take 1-2 capsules by mouth three times daily as needed. METOPROLOL SUCCINATE ORAL Take by mouth. LISINOPRIL ORAL Take by mouth. albuterol HFA (VENTOLIN HFA) 90 mcg/actuation inhaler Inhale 2 Puffs as instructed every 4 hours as needed for Wheezing/Shortness of Breath. fluticasone (FLONASE) 50 mcg/actuation nasal spray Use 2 Sprays in each nostril once daily. Rinse mouth after use. History reviewed. No pertinent family history. Social History Tobacco Use - Smoking status: Never Smoker - Smokeless tobacco: Never Used Substance Use Topics - Alcohol use: Not on file - Drug use: Not on file BP 138/80 Pulse 72 Temp 36.5 ?C (97.7 ?F) (Tympanic) Resp 16 Wt 94 kg (207 lb 3.2 oz) Review of Systems Constitutional: Negative for chills, fever and malaise/fatigue. HENT: Negative for congestion, ear discharge, ear pain, sinus pain and sore throat. Eyes: Positive for discharge and redness. Negative for blurred vision, double vision, photophobia and pain. Respiratory: Negative for cough, sputum production, shortness of breath and wheezing. Cardiovascular: Negative for chest pain. Gastrointestinal: Negative for abdominal pain, diarrhea, nausea and vomiting. Musculoskeletal: Negative for myalgias. Skin: Negative for itching and rash. Neurological: Negative for dizziness and headaches. Objective Physical Exam Constitutional: He is oriented to person, place, and time and well-developed, well-nourished, and in no distress. No distress. Eyes: Pupils are equal, round, and reactive to light. EOM are normal. Right eye exhibits discharge. Right eye exhibits no chemosis, no exudate and no hordeolum. No foreign body present in the right eye. Left eye exhibits discharge. Left eye exhibits no chemosis, no exudate and no hordeolum. No foreign body present in the left eye. Right conjunctiva is injected. Left conjunctiva is injected. Limbus is clear visual acuity unchanged via bedside examination. Cardiovascular: Normal rate and regular rhythm. Pulmonary/Chest: Effort normal and breath sounds normal. No accessory muscle usage. No tachypnea. No respiratory distress. Abdominal: Soft. There is no abdominal tenderness. Musculoskeletal: Cervical back: Normal range of motion and neck supple. Lymphadenopathy: He has no cervical adenopathy. Neurological: He is alert and oriented to person, place, and time. Gait normal. Skin: Skin is warm and dry. He is not diaphoretic. ASSESSMENT/PLAN: 1. Acute conjunctivitis of both eyes, unspecified acute conjunctivitis type - ICD9: 372.00, ICD10: H10.33 Symptoms suspicious of allergic conjunctivitis. Patient was instructed to use ocular antihistamine saline rinse. Safety net antibiotic sent to pharmacy. Patient will not fill this prescription until Sunday symptoms are not improving. 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 Patient was educated on supportive therapies. Patient will follow up with primary care provider as needed. Patient was instructed to immediately proceed to emergency room for any new, worsening, or symptoms lasting longer than anticipated. The patient's clinical presentation is otherwise unremarkable at this time. Based on exam and clinical finding, the patient is stable for discharge. Plan of care was discussed with patient. Patient verbalizes understanding and agrees to plan of care. This note was generated using [employer] software. It may contain errors in wording, punctuation, or spelling. Andrés Salazar APRN.[facility] Summary Purpose Family History No Family History Records Found Advance Directives No Advanced Directives Records Found Additional Source Comments (unrecognized sect ion and content) No Status Records Found INFORMATION SOURCE (unrecogn ized section and content) Source Comments (unrecognize d section and content) In the event this informatio n is protected by the Federal Confidentiality of Alcohol and Drug Abuse Patient Records regulations: The Federal rules restrict any use of the information to criminally investigate or prosecute any alcohol or drug abuse patient.[facility] Care Teams (unrecognized sec tion and content) FOR RECORDS PERTAINING TO PATIENTS WHO ARE OR HAVE BEEN ENROLLED IN A CHEMICAL DEPENDENCY/SUBSTANCEABUSE PROGRAM, SOME INFORMATION MAY BE OMITTED. This clinical summary was aggregated from multiple sources. Caution should be exercised in using it in the provision of clinical care. This summary normalizes information from multiple sources, and as a consequence, information in this document may materially change the coding, format and clinical context of patient data. In addition, data may be omitted in some cases. CLINICAL DECISIONS SHOULD BE BASED ON THE PRIMARY CLINICAL RECORDS. [facility]. provides no warranty or guarantee of the accuracy or completeness of information in this document.
[2023-03-14 09:58] LABS: ALB/GLOB Ratio 1.2 RATIO (0.9-2.4); AST(SGOT) 18 U/L (15-37); Alanine Aminotransfer ALT/SGPT 35 U/L (16-61); Albumin, Serum 3.8 g/dL (3.2-5.0); Alkaline Phosphatase 69 U/L (45-117); Anion Gap 5 (5-15); BUN 17 mg/dL (7-18); BUN/Creat Ratio 17.5 RATIO (10-20); Calcium,Total 9.6 mg/dL (8.5-10.1); Chloride 108 mmol/L (98-107); Creatinine, Serum 0.97 mg/dL (0.70-1.30); EST Glomerular Filtration Rate 83 mL/min (>60); Est Glom Filt Rate - Afr Amer 101 mL/min (>60); Globulin 3.3 g/dL (2.2-4.2); Glucose 221 mg/dL (74-106); Protein, Total 7.1 g/dL (6.4-8.2); Sodium Level 140 mmol/L (136-145)
[2023-03-14 10:13] LABS: Hemoglobin A1c 6.6 % (3.8-5.6)
[2023-03-14 11:49] LABS: Microalbumin:Creatinine Ratio 192.1 mg/g CRE (<30 mg/g CRE)
== END | disposition home or self-care (01) ==
LOC: LAB 07:56
PROVIDERS: PCP Family Medicine; Referring Provider Internal Medicine Endocrinology, Diabetes & Metabolism; Visit Provider Internal Medicine Endocrinology, Diabetes & Metabolism
DX: E11.65 Type 2 diabetes mellitus with hyperglycemia (principal)
CPT/HCPCS: 36415; 80053; 82043; 82570; 83036

== ENCOUNTER → 2023-06-13 | Outpatient (CLI) | payer OTHER, SELFPAY ==
[2023-06-13 08:02] LABS: ALB/GLOB Ratio 1.2 RATIO (0.9-2.4); AST(SGOT) 19 U/L (15-37); Alanine Aminotransfer ALT/SGPT 32 U/L (16-61); Albumin, Serum 4.1 g/dL (3.2-5.0); Alkaline Phosphatase 65 U/L (45-117); Anion Gap 6 (5-15); BUN 17 mg/dL (7-18); BUN/Creat Ratio 19.4 RATIO (10-20); Calcium,Total 9.3 mg/dL (8.5-10.1); Chloride 104 mmol/L (98-107); Creatinine, Serum 0.88 mg/dL (0.70-1.30); EST Glomerular Filtration Rate 93 mL/min (>60); Est Glom Filt Rate - Afr Amer 113 mL/min (>60); Globulin 3.4 g/dL (2.2-4.2); Glucose 139 mg/dL (74-106); Potassium 3.9 mmol/L (3.5-5.1); Protein, Total 7.5 g/dL (6.4-8.2); Sodium Level 137 mmol/L (136-145)
[2023-06-13 08:23] LABS: Hemoglobin A1c 6.9 % (3.8-5.6)
[2023-06-13 10:15] LABS: Microalbumin,Random Urine 9.9 mg/L (NO RANGE EST.); Microalbumin:Creatinine Ratio 15.9 mg/g CRE (<30 mg/g CRE)
== END | disposition home or self-care (01) ==
LOC: LAB 07:09
PROVIDERS: PCP Family Medicine; Referring Provider Internal Medicine Endocrinology, Diabetes & Metabolism; Visit Provider Internal Medicine Endocrinology, Diabetes & Metabolism
DX: E11.65 Type 2 diabetes mellitus with hyperglycemia (principal)
CPT/HCPCS: 36415; 80053; 82043; 82570; 83036

== ENCOUNTER → 2023-10-17 | Outpatient (CLI) | payer OTHER, SELFPAY ==
[2023-10-17 07:20] LABS: ALB/GLOB Ratio 1.1 RATIO (0.9-2.4); AST(SGOT) 20 U/L (15-37); Alanine Aminotransfer ALT/SGPT 32 U/L (16-61); Albumin, Serum 3.8 g/dL (3.2-5.0); Alkaline Phosphatase 74 U/L (45-117); Anion Gap 3 (5-15); BUN 16 mg/dL (7-18); BUN/Creat Ratio 19.2 RATIO (10-20); Chloride 112 mmol/L (98-107); Cholesterol 167 mg/dL (200); Creatinine, Serum 0.83 mg/dL (0.70-1.30); EST Glomerular Filtration Rate 99 mL/min (>60); Est Glom Filt Rate - Afr Amer 120 mL/min (>60); Globulin 3.4 g/dL (2.2-4.2); Glucose 140 mg/dL (74-106); High Density Lipoprotein 41 mg/dL; Potassium 4.3 mmol/L (3.5-5.1); Protein, Total 7.2 g/dL (6.4-8.2); Sodium Level 140 mmol/L (136-145); Triglycerides 161 mg/dL; Very Low Density Lipoprotein 32 mg/dL (5-40)
[2023-10-17 07:58] LABS: Hemoglobin A1c 6.7 % (3.8-5.6)
== END | disposition home or self-care (01) ==
LOC: LAB 06:29
PROVIDERS: PCP Family Medicine; Referring Provider Internal Medicine Endocrinology, Diabetes & Metabolism; Visit Provider Internal Medicine Endocrinology, Diabetes & Metabolism
DX: E11.65 Type 2 diabetes mellitus with hyperglycemia (principal); E78.2 Mixed hyperlipidemia
CPT/HCPCS: 36415; 80053; 80061; 83036

== ENCOUNTER 2024-02-18 06:27 | Outpatient (CLI) | payer OTHER, SELFPAY ==
--- NOTE | 2024-02-18 06:30 | EKG12_ITS ---
Test Reason : PRE OP Blood Pressure : */* mmHG Vent. Rate : 74 BPM Atrial Rate : 74 BPM P-R Int : 164 ms QRS Dur : 90 ms QT Int : 376 ms P-R-T Axes : 61 26 68 degrees QTcB Int : 417 ms Normal sinus rhythm Normal ECG Confirmed by RESHMA PINEDA, DEBBIE ([id number]), video effects editor BRIAN SPENCER ([id number]) on 02/18/2024 2:11:16 PM Referred By: Charles Peres Confirmed By: DEBBIE JUSTICE MD
[2024-02-18 07:56] LABS: ALB/GLOB Ratio 1.3 RATIO (0.9-2.4); AST(SGOT) 23 U/L (15-37); Alanine Aminotransfer ALT/SGPT 30 U/L (16-61); Albumin, Serum 4.3 g/dL (3.2-5.0); Alkaline Phosphatase 71 U/L (45-117); Anion Gap 6 (5-15); BUN 19 mg/dL (7-18); BUN/Creat Ratio 21.9 RATIO (10-20); Calcium,Total 9.9 mg/dL (8.5-10.1); Chloride 107 mmol/L (98-107); Cholesterol 190 mg/dL (200); Creatinine, Serum 0.87 mg/dL (0.70-1.30); EST Glomerular Filtration Rate 95 mL/min (>60); Est Glom Filt Rate - Afr Amer 114 mL/min (>60); Globulin 3.2 g/dL (2.2-4.2); Glucose 146 mg/dL (74-106); High Density Lipoprotein 41 mg/dL; Potassium 4.2 mmol/L (3.5-5.1); Protein, Total 7.5 g/dL (6.4-8.2); Sodium Level 140 mmol/L (136-145); Triglycerides 233 mg/dL; Very Low Density Lipoprotein 47 mg/dL (5-40)
[2024-02-18 09:49] LABS: Hemoglobin A1c 6.4 % (3.8-5.6)
[2024-02-18 10:39] LABS: Microalbumin,Random Urine 17.9 mg/L (NO RANGE EST.); Microalbumin:Creatinine Ratio 21.2 mg/g CRE (<30 mg/g CRE)
== END 2024-02-18 23:59 | disposition home or self-care (01) ==
PROVIDERS: Internal Medicine Endocrinology, Diabetes & Metabolism; PCP Family Medicine; Referring Provider Orthopaedic Surgery; Visit Provider Orthopaedic Surgery
DX: E11.65 Type 2 diabetes mellitus with hyperglycemia (principal); E78.2 Mixed hyperlipidemia
CPT/HCPCS: 36415; 80053; 80061; 82043; 82570; 83036; 93005

== ENCOUNTER → 2024-06-18 | Outpatient (CLI) | payer OTHER, SELFPAY ==
--- NOTE | 2024-06-18 06:07 | RAD_ITS ---
PROCEDURE: L/S SPINE W BEND MIN 6 VW 06/18/2024 REASON FOR EXAM: LOW BACK PAIN TECHNIQUE: 6 views of the lumbar spine COMPARISON: None available FINDINGS: Curvature: Preserved lordosis of the lumbar spine. Other findings: Vertebral body heights are well preserved. Mild loss of intervertebral disc height at L4-L5, and L5-S1. Facet arthropathy within the lower lumbar spine. Other: RAD/L/S Spine w Bend Min 6 Vw IMPRESSION: 1. Degenerative changes within the lower lumbar spine. 2. No acute fracture or traumatic malalignment. Reading Location: [id number]
== END | disposition home or self-care (01) ==
LOC: RAD 06:03
PROVIDERS: PCP Family Medicine; Referring Provider Family Medicine; Visit Provider Family Medicine
DX: M54.41 Lumbago with sciatica, right side (principal); M54.42 Lumbago with sciatica, left side
CPT/HCPCS: 72114

== ENCOUNTER → 2024-06-26 | Outpatient (CLI) | payer OTHER, SELFPAY ==
[2024-06-26 09:15] LABS: Hemoglobin A1c 7.2 % (<=5.6)
[2024-06-26 09:38] LABS: ALB/GLOB Ratio 1.6 RATIO (0.9-2.4); AST(SGOT) 22 U/L (<=37); Alanine Aminotransfer ALT/SGPT 25 U/L (<=46); Albumin, Serum 4.4 g/dL (3.4-4.8); Alkaline Phosphatase 75 U/L (40-129); Anion Gap 12 (5-15); BUN 16 mg/dL (4-19); BUN/Creat Ratio 19.2 RATIO (10-20); Calcium,Total 9.5 mg/dL (7.6-11.0); Carbon Dioxide 23.9 mmol/L (21.0-32.0); Chloride 103 mmol/L (98-108); Cholesterol 174 mg/dL (<=200); Creatinine, Serum 0.85 mg/dL (0.70-1.20); EST Glomerular Filtration Rate 97 (>60); Globulin 2.8 g/dL (2.2-4.2); Glucose 150 mg/dL (70-99); High Density Lipoprotein 44 mg/dL; Low Density Lipoprotein Calc. 106 mg/dL; Potassium 4.1 mmol/L (3.3-5.1); Protein, Total 7.2 g/dL (5.9-8.4); Sodium Level 140 mmol/L (133-145); Total Bilirubin 0.59 mg/dL (0.00-1.30); Triglycerides 118 mg/dL; Very Low Density Lipoprotein 24 mg/dL (5-40); cholesterol:hdl ratio screen 3.95
[2024-06-26 10:56] LABS: Iron 88 ug/dL (65-175); Vitamin B12 528 pg/mL (180-914); Vitamin D,25 Hydroxy 21.4 ng/mL (30-100)
== END | disposition home or self-care (01) ==
LOC: LAB 07:13
PROVIDERS: PCP Family Medicine; Referring Provider Internal Medicine Endocrinology, Diabetes & Metabolism; Visit Provider Internal Medicine Endocrinology, Diabetes & Metabolism
DX: E11.65 Type 2 diabetes mellitus with hyperglycemia (principal); E78.2 Mixed hyperlipidemia; E55.9 Vitamin D deficiency, unspecified; D50.9 Iron deficiency anemia, unspecified; D51.9 Vitamin B12 deficiency anemia, unspecified
CPT/HCPCS: 36415; 80053; 80061; 82306; 82607; 83036; 83540

== ENCOUNTER → 2024-09-26 | Outpatient (CLI) | payer OTHER, SELFPAY ==
--- OUTSIDE RECORDS SUMMARY | 2024-09-26 06:54 | XMS RPT_ITS | CCD ---
Author Organization [facility] Care Team Providers Care Access Control Officer Name Role Phone Pcp Ora SALDAÑA Primary Care Provider Unavailabl e Serjio Mitchell Primary Care Provider Unavail able Elza MAGANA, Dr. Stoll Primary Care Provider Elza MAGANA, Dr. Stoll Attending Provider Elza MAGANA, Dr. Stoll Referring Provider Miky PINEDA, Dr. Rush Attending Provider Miky PINEDA, Dr. Rush Referring Provider [phone] Adri Bolaños Consulting Unavailable Larisa, Charles Attending Unavailable Larisa, Charles Referring Unavailable Malys, Dodie Primary Care Unavailable Runer, Adri Attending Unavailable Runer, Adri Referring Unavailable Malys, Dodie Primary Care Unavailable RunerAdri Attending Unavailable Runer, Adri Referring Unavailable Malys, Dodie Primary Care Unavailable Malys, Dodie Attending Unavailable Malys, Dodie Referring Unavailable Malys, Dodie Primary Care Unavailable Silviano Lucero Attending Unavailable Larisa, Charles Referring Unavailable Malys, Dodie Primary Care Unavailable Serjio Mitchell Primary Care Provider Unavail able ROSO, HOMAR Referring Unavailable SERJIO MITCHELL Primary Care Unavailable YAZ ACUNA Attending Unavailable ROSO, HOMAR Referring Unavailable SERJIO MITCHELL Primary Care Unavailable YAZ ACUNA Attending Unavailable ROSO, HOMAR Referring Unavailable SERJIO MITCHELL Primary Care Unavailable YAZ ACUNA Attending Unavailable ROSO, HOMAR Referring Unavailable SERJIO MITCHELL Primary Care Unavailable YAZ ACUNA Attending Unavailable ROSO, HOMAR Referring Unavailable SERJIO MITCHELL Primary Care Unavailable YAZ ACUNA Attending Unavailable Medications Current Medications Medication Drug Class(es) Dates Sig (Normalized) Sig (Original) [id number] 200 actuat albuterol 0.09 mg/actuat metered dose inhaler (10 sources) beta2-Adrenergic Agonist Start: 01-30-2016 take 2 puff(s) by inhalation every four hours as needed albuterol HFA (PROAIR HFA) 90 mcg/actuation inhaler Inhale 2 Puffs as instructed every 4 hours as needed. 1 Inhaler 05/10/2018 Active benzonatate 100 mg oral capsule (5 sources) Non-narcotic Antitussive Start: 02-28-2017 take 1 capsule by mouth three times daily as needed benzonatate (TESSALON PERLE) 100 mg capsule Indications: Influenza-like illness Take 1-2 capsules by mouth three times daily as needed. 30 capsule 02/28/2017 Active calcium carbonate 500 mg chewable tablet (9 sources) Start: 05-15-2018 take 1 tablet by mouth twice daily Calcium Carbonate (Antacid (Calcium Carbonate)) 200 mg calcium (500 mg) tablet,chewable Active 200 mg PO TWICE A DAY May 15, 2018 1:00am cholecalciferol 0.025 mg oral tablet (9 sources) Vitamin D Start: 05-19-2019 take 1 tablet by mouth once daily Cholecalciferol (Vitamin D3) 1,000 UNIT tablet Active 1000 U PO DAILY May 19, 2019 12:00am fluticasone propionate 0.05 mg/actuat metered dose nasal spray (5 sources) Corticosteroid Start: 01-30-2016 take 2 spray(s) by mouth once daily fluticasone (FLONASE) 50 mcg/actuation nasal spray Use 2 Sprays in each nostril once daily. Rinse mouth after use. 1 Bottle 2 01/30/2016 Active Lisinopril (5 sources) Angiotensin Converting Enzyme Inhibitor LISINOPRIL ORAL Take by mouth. Active osmotic 24 hr metFORMIN hydrochloride 500 mg extended release oral tablet (20 sources) Biguanide Start: 05-06-2019 take 1 tablet by mouth twice daily Metformin 500 mg tablet extended release 24hr Active 1000 mg PO TWICE A DAY May 06, 2019 10:16am Start: 05-06-2019 take 1000 mg by mout h twice daily Metformin Active 1000 MG PO TWICE A DAY May 06, 2019 10:16am Start: 05-15-2018 End: 05-06-2019 take 1 tablet by mouth once daily in the evening Metformin 500 mg tablet extended release 24hr Discontinued 500 mg PO EVERY EVENING May 15, 2018 1:00am May 06, 2019 10:16am take 1 tablet by haroon th twice daily at mealtime metFORMIN (GLUCOPHAGE) 500 mg tablet Take 500 mg by mouth twice daily with meals. Active Metoprolol (5 sources) beta-Adrenergic Ryanne METOPROL OL SUCCINATE ORAL Take by mouth. Active omeprazole 20 mg delayed release oral capsule (14 sources) Proton Pump Inhibitor Start: 05-16-19 19 Omeprazole 20 mg capsule,delayed release(DR/EC) Active 20 mg PO NEEDED as needed for GERD May 15, 2018 1:00am rosuvastatin calcium 40 mg oral tablet (14 sources) HMG-CoA Reductase Inhibitor Start: 05-06-19 take 1 tablet by mouth once daily Rosuvastatin 40 mg tablet Active 40 mg PO DAILY May 06, 2019 1:00am ROSUVASTATIN MARIBETH CIUM (CRESTOR ORAL) Take by mouth. Active Problems Problem Classification Problem Date Documented Da te Episodic/Chronic Diabetes mellitus with complications (1 source) Type 2 diabetes mellitus with hyperglycemia; Translations: [Type 2 diabetes mellitus with hyperglycemia] Onset: 07-01-2024 Chronic Other bone disease and musculoskeletal deformities (20 sources) Segmental and somatic dysfunction; Translations: [Segmental and somatic dysfunction of cervical region] 05-23-2018 Episodic Spondylosis; intervertebral disc disorders; other back problems (9 sources) Degeneration of lumbar intervertebral disc; Translations: [Degeneration of intervertebral disc of lumbar region with discogenic back pain and lower extremity pain] Onset: 08-08-2024 08-08-2024 Chronic Spondylosis; intervertebral disc disorders; other back problems (20 sources) Lumbosacral radiculopathy; Translations: [Radiculopathy, lumbosacral region] Onset: 06-24-2024 01-22-2019 Episodic Unclassified (1 source) Degeneration of intervertebral disc of lumbar region with discogenic back pain and lower extremity pain; Translations: [Degeneration of intervertebral disc of lumbar region with discogenic back pain and lower extremity pain] Onset: 08-08-2024 Results Test Name Value Interpretation Reference Range Facility [facility] 09-09-2024 CNTHERAPY OT/PT/Speech Visit (PTWS) ---- IGNACIO LARIOS ([id number]) 1960 M Date Time Provider Department 09/09/24 7:45 AM YAZ ACUNA PTWS Date Time Provider Department [place] 09/09/2024 7:45 AM [id number], COREY PTWS Ladonna Aquino Reason for Visit: PT Discharge [752] Primary Visit Diagnosis:Lumbar radiculopathy [M54.16] Other Visit Diagnosis:Degenerat ion of intervertebral disc of lumbar region with discogenic back pain and lower extremity pain [M51.362] Allergies As of Date: 09/09/2024 (No Known Allergies) Date Reviewed: 05/27/2020 Reviewed by: Andrés Salazar ([facility]) - Fully Assessed Prescriptions as of 09/09/2024 - metFORMIN (GLUCOPHAGE) 500 mg tablet Take 500 mg by mouth twice daily with meals. - omeprazole (PRILOSEC) 20 mg capsule Take 20 mg by mouth once daily. - albuterol HFA (PROAIR HFA) 90 mcg/actuation inhaler Inhale 2 Puffs as instructed every 4 hours as needed. - benzonatate (TESSALON PERLE) 100 mg capsule Take 1-2 capsules by mouth three times daily as needed. - ROSUVASTATIN CALCIUM (CRESTOR ORAL) Take by mouth. - METOPROLOL SUCCINATE ORAL Take by mouth. - LISINOPRIL ORAL Take by mouth. - albuterol HFA (VENTOLIN HFA) 90 mcg/actuation inhaler Inhale 2 Puffs as instructed every 4 hours as needed for Wheezing/Shortness of Breath. - fluticasone (FLONASE) 50 mcg/actuation nasal spray Use 2 Sprays in each nostril once daily. Rinse mouth after use. Normal [facility] CNTHERAPYon 09-02-2024 CNTHERAPY OT/PT/Speech Visit (PTWS) ---- IGNACIO LARIOS ([id number]) 1960 M Date Time Provider Department 09/02/24 7:45 AM YAZ CAUNA PTWS Date Time Provider Department Center 09/02/2024 7:45 AM [id number], COREY PTWS Ladonna Aquino Reason for Visit: Physical Therapy [503] Primary Visit Diagnosis:Lumbar radiculopathy [M54.16] Allergies As of Date: 09/02/2024 (No Known Allergies) Date Reviewed: 05/27/2020 Reviewed by: Andrés Salazar ([facility]) - Fully Assessed Prescriptions as of 09/02/2024 - metFORMIN (GLUCOPHAGE) 500 mg tablet Take 500 mg by mouth twice daily with meals. - omeprazole (PRILOSEC) 20 mg capsule Take 20 mg by mouth once daily. - albuterol HFA (PROAIR HFA) 90 mcg/actuation inhaler Inhale 2 Puffs as instructed every 4 hours as needed. - benzonatate (TESSALON PERLE) 100 mg capsule Take 1-2 capsules by mouth three times daily as needed. - ROSUVASTATIN CALCIUM (CRESTOR ORAL) Take by mouth. - METOPROLOL SUCCINATE ORAL Take by mouth. - LISINOPRIL ORAL Take by mouth. - albuterol HFA (VENTOLIN HFA) 90 mcg/actuation inhaler Inhale 2 Puffs as instructed every 4 hours as needed for Wheezing/Shortness of Breath. - fluticasone (FLONASE) 50 mcg/actuation nasal spray Use 2 Sprays in each nostril once daily. Rinse mouth after use. Normal [facility] CNTHERAPYon 08-26-2024 CNTHERAPY OT/PT/Speech Visit (PTWS) ---- IGNACIO LARIOS ([id number]) 1960 M Date Time Provider Department 08/26/24 7:45 AM YAZ ACUNA PTWS Date Time Provider Department [place] 08/26/2024 7:45 AM [id number], COREY PTWS Ladonna Miles Reason for Visit: Physical Therapy [503] Primary Visit Diagnosis:Lumbar radiculopathy [M54.16] Other Visit Diagnosis:Degenerat ion of intervertebral disc of lumbar region with discogenic back pain and lower extremity pain [M51.362] Allergies As of Date: 08/26/2024 (No Known Allergies) Date Reviewed: 05/27/2020 Reviewed by: Andrés Salazar ([facility]) - Fully Assessed Prescriptions as of 08/26/2024 - metFORMIN (GLUCOPHAGE) 500 mg tablet Take 500 mg by mouth twice daily with meals. - omeprazole (PRILOSEC) 20 mg capsule Take 20 mg by mouth once daily. - albuterol HFA (PROAIR HFA) 90 mcg/actuation inhaler Inhale 2 Puffs as instructed every 4 hours as needed. - benzonatate (TESSALON PERLE) 100 mg capsule Take 1-2 capsules by mouth three times daily as needed. - ROSUVASTATIN CALCIUM (CRESTOR ORAL) Take by mouth. - METOPROLOL SUCCINATE ORAL Take by mouth. - LISINOPRIL ORAL Take by mouth. - albuterol HFA (VENTOLIN HFA) 90 mcg/actuation inhaler Inhale 2 Puffs as instructed every 4 hours as needed for Wheezing/Shortness of Breath. - fluticasone (FLONASE) 50 mcg/actuation nasal spray Use 2 Sprays in each nostril once daily. Rinse mouth after use. Normal [facility] CNTHERAPYon 08-19-2024 CNTHERAPY OT/PT/Speech Visit (PTWS) ---- IGNACIO LARIOS ([id number]) 1960 Date Time Provider Department 08/19/24 7:00 AM YAZ ACUNA PTWS Date Time Provider Department [place] 08/19/2024 7:00 AM [id number], COREY PTWS Ladonna Aquino Reason for Visit: Physical Therapy [503] Primary Visit Diagnosis:Degenerat ion of intervertebral disc of lumbar region with discogenic back pain and lower extremity pain [M51.362] Other Visit Diagnosis:Lumbar radiculopathy [M54.16] Allergies As of Date: 08/19/2024 (No Known Allergies) Date Reviewed: 05/27/2020 Reviewed by: Andrés Salazar ([facility]) - Fully Assessed Prescriptions as of 08/19/2024 - metFORMIN (GLUCOPHAGE) 500 mg tablet Take 500 mg by mouth twice daily with meals. - omeprazole (PRILOSEC) 20 mg capsule Take 20 mg by mouth once daily. - albuterol HFA (PROAIR HFA) 90 mcg/actuation inhaler Inhale 2 Puffs as instructed every 4 hours as needed. - benzonatate (TESSALON PERLE) 100 mg capsule Take 1-2 capsules by mouth three times daily as needed. - ROSUVASTATIN CALCIUM (CRESTOR ORAL) Take by mouth. - METOPROLOL SUCCINATE ORAL Take by mouth. - LISINOPRIL ORAL Take by mouth. - albuterol HFA (VENTOLIN HFA) 90 mcg/actuation inhaler Inhale 2 Puffs as instructed every 4 hours as needed for Wheezing/Shortness of Breath. - fluticasone (FLONASE) 50 mcg/actuation nasal spray Use 2 Sprays in each nostril once daily. Rinse mouth after use. Normal [facility] CNTHERAPYon 08-08-2024 CNTHERAPY OT/PT/Speech Visit (PTWS) ---- IGNACIO LARIOS ([id number]) 1960 M Date Time Provider Department 08/08/24 8:00 AM YAZ ACUNA PTWS Date Time Provider Department [place] 08/08/2024 8:00 AM [id number], COREY PTWS [facility] Reason for Visit: PT Bob [747] Primary Visit Diagnosis:Degenerat ion of intervertebral disc of lumbar region with discogenic back pain and lower extremity pain [M51.362] Other Visit Diagnosis:Lumbar radiculopathy [M54.16] Allergies As of Date: 08/08/2024 (No Known Allergies) Date Reviewed: 05/27/2020 Reviewed by: Andrés Salazar ([facility]) - Fully Assessed Prescriptions as of 08/08/2024 - metFORMIN (GLUCOPHAGE) 500 mg tablet Take 500 mg by mouth twice daily with meals. - omeprazole (PRILOSEC) 20 mg capsule Take 20 mg by mouth once daily. - albuterol HFA (PROAIR HFA) 90 mcg/actuation inhaler Inhale 2 Puffs as instructed every 4 hours as needed. - benzonatate (TESSALON PERLE) 100 mg capsule Take 1-2 capsules by mouth three times daily as needed. - ROSUVASTATIN CALCIUM (CRESTOR ORAL) Take by mouth. - METOPROLOL SUCCINATE ORAL Take by mouth. - LISINOPRIL ORAL Take by mouth. - albuterol HFA (VENTOLIN HFA) 90 mcg/actuation inhaler Inhale 2 Puffs as instructed every 4 hours as needed for Wheezing/Shortness of Breath. - fluticasone (FLONASE) 50 mcg/actuation nasal spray Use 2 Sprays in each nostril once daily. Rinse mouth after use. Normal [facility] Anion gap in Serum or Plasma Ordered By: Ardi Bolaños on 06-26-2024 Anion gap [Moles/Vol] 12 mmol/L 5-15 [facility] BUN/creatinine ratioOrdered By: Adri Bolaños on 06-26-2024 Urea nitrogen/Creatinine [Mass ratio] 19.2 mg/mg 10- Bilirubin, totalOrdered By: Adri Bolaños on 06-26-2024 Bilirubin [Mass/Vol] 0.59 mg/dL 0.00-1.30 [facility] Calculated very low density lipoprotein (VLDL) cholesterol measurementOrdered By: Adri Bolaños on 06-26-2024 VLDL Cholesterol 24 mg/dL 5-40 Carbon dioxide, total [Moles /volume] in Central venous bloodOrdered By: Adri Bolaños on 06-26-2024 CO2 [Moles/Vol] 23.9 mmol/L 21.0-32.0 Chloride assayOrdered By: Devora Bolaños on 06-26-2024 Chloride [Moles/Vol] 103 mmol/L 98-108 [facility] Comprehensive Metabolic Prof ilon 06-26-2024 Albumin [Mass/Vol] 4.4 g/dL Normal 3.4-4.8 [facility] Comment on above: Performed By: #### L 500.4050, L503.0106, L506.1001, L503.6150, L501.9985, L500.4100 #### Laboratory [address] [place], [address] Albumin/Globulin [Mass ratio] 1.6 {ratio} Normal 0.9-2.4 Comment on above: Performed By: #### L 500.4050, L503.0106, L506.1001, L503.6150, L501.9985, L500.4100 #### Laboratory [address] [place], [address] ALK PHOS 75 U/L Normal 40-129 Comment on above: Performed By: #### L 500.4050, L503.0106, L506.1001, L503.6150, L501.9985, L500.4100 #### Laboratory [address] [place], [address] ALT [Catalytic activity/Vol] 25 U/L Normal <=46 Comment on above: Performed By: #### L 500.4050, L503.0106, L506.1001, L503.6150, L501.9985, L500.4100 #### Laboratory [address] [place], [address] AST [Catalytic activity/Vol] 22 U/L Normal <=37 Comment on above: Performed By: #### L 500.4050, L503.0106, L506.1001, L503.6150, L501.9985, L500.4100 #### Laboratory [address] [place], [address] Bilirubin [Mass/Vol] 0.59 mg/dL Normal 0.00-1.30 [facility] Comment on above: Performed By: #### L 500.4050, L503.0106, L506.1001, L503.6150, L501.9985, L500.4100 #### Laboratory [address] [place], [address] BUN/CRE 19.2 RATIO Normal 10-20 Comment on above: Performed By: #### L 500.4050, L503.0106, L506.1001, L503.6150, L501.9985, L500.4100 #### Laboratory [address] [place], [address] Calcium [Mass/Vol] 9.5 mg/dL Normal 7.6-11.0 [facility] Comment on above: Performed By: #### L 500.4050, L503.0106, L506.1001, L503.6150, L501.9985, L500.4100 #### Laboratory [address] [place], [address] Chloride [Moles/Vol] 103 mmol/L Normal 98-108 [facility] Comment on above: Performed By: #### L 500.4050, L503.0106, L506.1001, L503.6150, L501.9985, L500.4100 #### Laboratory [address] [place], [address] CO2 [Moles/Vol] 23.9 mmol/L Normal 21.0-32.0 Comment on above: Performed By: #### L 500.4050, L503.0106, L506.1001, L503.6150, L501.9985, L500.4100 #### Laboratory [address] [place], [address] Creatinine [Mass/Vol] 0.85 mg/dL Normal 0.70-1.20 [facility] Comment on above: Performed By: #### L 500.4050, L503.0106, L506.1001, L503.6150, L501.9985, L500.4100 #### Laboratory [address] [place], [address] GAP 12 Normal 5-15 Comment on above: Performed By: #### L 500.4050, L503.0106, L506.1001, L503.6150, L501.9985, L500.4100 #### Laboratory [address] [place], [address] GFR/1.73 sq M.predicted among non-blacks MDRD (S/P/Bld) [Vol rate/Area] 97 mL/min/{1.73_m2} Normal >60 Comment on above: Result Comment: mL/m in/1.73m2 CKD-EPI Creatinine Equation (2020) Performed By: #### L 500.4050, L503.0106, L506.1001, L503.6150, L501.9985, L500.4100 #### Laboratory [address] [place], [address] Globulin (S) [Mass/Vol] 2.8 g/dL Normal 2.2-4.2 [facility] Comment on above: Performed By: #### L 500.4050, L503.0106, L506.1001, L503.6150, L501.9985, L500.4100 #### Laboratory [address] [place], [address] Glucose [Mass/Vol] 150 mg/dL High 70-99 [facility] Comment on above: Performed By: #### L 500.4050, L503.0106, L506.1001, L503.6150, L501.9985, L500.4100 #### Laboratory [address] [place], [address] Potassium [Moles/Vol] 4.1 mmol/L Normal 3.3-5.1 [facility] Comment on above: Performed By: #### L 500.4050, L503.0106, L506.1001, L503.6150, L501.9985, L500.4100 #### Laboratory [address] [place], [address] Sodium [Moles/Vol] 140 mmol/L Normal 133-145 [facility] Comment on above: Performed By: #### L 500.4050, L503.0106, L506.1001, L503.6150, L501.9985, L500.4100 #### Laboratory [address] [place], [address] T PROT 7.2 g/dL Normal 5.9-8.4 Comment on above: Performed By: #### L 500.4050, L503.0106, L506.1001, L503.6150, L501.9985, L500.4100 #### Laboratory [address] [place], [address] Urea nitrogen [Mass/Vol] 16 mg/dL Normal 4-19 Comment on above: Performed By: #### L 500.4050, L503.0106, L506.1001, L503.6150, L501.9985, L500.4100 #### Laboratory [address] [place], [address] GFR/1.73 sq M.predicted wolfgang g non-blacks MDRD (S/P/Bld) [Vol rate/Area]Ordered By: Adri Bolaños on 06-26-2024 Estimated GFR (MDRD) Non-Af Amer 97 >60 Comment on above: mL/min/1.73m2 CKD-EP I Creatinine Equation (2020) Hemoglobin A1con 06-26-2024 HbA1c (Bld) [Mass fraction] 7.2 % High <=5.6 Comment on above: Result Comment: Norm al < 5.7 % Prediabetic 5.7 - 6.4 % Diabetic >or= 6.5 % Please note range changes. Performed By: #### L 500.4050, L503.0106, L506.1001, L503.6150, L501.9985, L500.4100 #### Laboratory [address] [place], [address] Hemoglobin A1c percentageOrd ered By: Adri Bolañso on 06-26-2024 HbA1c (Bld) [Mass fraction] 7.2 % High <5.7 Comment on above: Normal < 5.7 % Predi abetic 5.7 - 6.4 % Diabetic >or= 6.5 % Please note range changes. Ironon 06-26-2024 Iron [Mass/Vol] 88 ug/dL Normal 65-175 Comment on above: Performed By: #### L 500.4050, L503.0106, L506.1001, L503.6150, L501.9985, L500.4100 #### Laboratory [address] [place], [address] Iron (Unsp spec) [Mass/Mass] Ordered By: Adri Bolaños on 06-26-2024 Iron [Mass/Vol] 88 ug/dL 65-175 LDL calc ser/plasOrdered By: Adri Bolaños on 06-26-2024 LDL Cholesterol, Calculated 106 mg/dL Comment on above: Etbdygoicv=097-969 m g/dL & Higher Egzz=001 mg/dL or greater Laboratory - Chemistry and C hemistry - challengeOrdered By: Adri Bolaños on 06-26-2024 AST [Catalytic activity/Vol] 22 U/L <38 Lipid Profileon 06-26-2024 CHOL:HDL 3.95 Normal Comment on above: Performed By: #### L 500.4050, L503.0106, L506.1001, L503.6150, L501.9985, L500.4100 #### Laboratory [address] [place], [address] Cholesterol [Mass/Vol] 174 mg/dL Normal <=200 [facility] Comment on above: Result Comment: Chol esterol level, Desirable <200 mg/dL Borderline high cholesterol 200-239 mg/dL High cholesterol >=240 mg/dL Recommendations of the NCEP Adult Treatment Panel for the following risk-cutoff thresholds for the [place] population. Performed By: #### L 500.4050, L503.0106, L506.1001, L503.6150, L501.9985, L500.4100 #### Laboratory [address] [place], [address] Cholesterol in HDL [Mass/Vol] 44 mg/dL Normal Comment on above: Result Comment: Karely onal Cholesterol Education Program (NCEP) guidelines: <40 mg/dL: Low HDL-cholesterol (major risk factor for CHD) >= 60 mg/dL: High HDL-cholesterol (negative risk factor for CHD) HDL-cholesterol is affected by a number of factors, e.g. smoking, exercise, hormones, sex and age. Performed By: #### L 500.4050, L503.0106, L506.1001, L503.6150, L501.9985, L500.4100 #### Laboratory [address] [place], [address] Cholesterol in LDL [Mass/Vol] 106 mg/dL Normal Comment on above: Result Comment: Bord gqjgjh=423-435 mg/dL Higher Lcmm=182 mg/dL or greater Performed By: #### L 500.4050, L503.0106, L506.1001, L503.6150, L501.9985, L500.4100 #### Laboratory [address] [place], [address] Cholesterol in VLDL [Mass/Vol] 24 mg/dL Normal 5-40 Comment on above: Performed By: #### L 500.4050, L503.0106, L506.1001, L503.6150, L501.9985, L500.4100 #### Laboratory [address] [place], [address] Triglyceride [Mass/Vol] 118 mg/dL Normal [facility] Comment on above: Result Comment: The drugs N-Acetylcysteine and Metamizole may falsely depress this assay. Normal range: <150 mg/dL Borderline High: 150-199 mg/dL High: 200-499 mg/dL Very High: >500 mg/dL Performed By: #### L 500.4050, L503.0106, L506.1001, L503.6150, L501.9985, L500.4100 #### Laboratory [address] [place], [address] Potassium (Unsp spec) [Mass/ Vol]Ordered By: Adri Bolaños on 06-26-2024 Potassium [Moles/Vol] 4.1 mmol/L 3.3-5.1 [facility] Screening total cholesterol/ high density lipoprotein (HDL) cholesterol ratioOrdered By: Adri Bolaños on 06-26-2024 Cholesterol.total/Korina sterol in HDL [Mass ratio] 3.95 {ratio} Serum creatinine measurement (mass/volume)Ordered By: Adri Bolaños on 06-26-2024 Creatinine [Mass/Vol] 0.85 mg/dL 0.70-1.20 [facility] Serum globulin measurementOr dered By: Adri Bolaños on 06-26-2024 Globulin (S) [Mass/Vol] 2.8 g/dL 2.2-4.2 [facility] Serum glucose measurement (m ass/volume)Ordered By: Adri Bolaños on 06-26-2024 Glucose [Mass/Vol] 150 mg/dL High 70-99 [facility] Serum or plasma alanine mandel otransferase (ALT) measurementOrdered By: Adri Bolaños on 06-26-2024 ALT [Catalytic activity/Vol] 25 U/L <47 Serum or plasma albumin nohemy urement (mass/volume)Ordered By: Adri Bolaños on 06-26-2024 Albumin [Mass/Vol] 4.4 g/dL 3.4-4.8 [facility] Serum or plasma albumin/glob ulin mass ratioOrdered By: Adri Bolaños on 06-26-2024 Albumin/Globulin [Mass ratio] 1.6 {ratio} 0.9-2.4 Serum or plasma alkaline gilma sphatase measurementOrdered By: Adri Bolaños on 06-26-2024 ALP [Catalytic activity/Vol] 75 U/L 40-129 Serum or plasma calcium nohemy urement (mass/volume)Ordered By: Adri Bolaños on 06-26-2024 Calcium [Mass/Vol] 9.5 mg/dL 7.6-11.0 [facility] Serum or plasma cholesterol in HDL measurement (mass/volume)Ordered By: Adri Bolaños on 06-26-2024 Cholesterol in HDL [Mass/Vol] 44 mg/dL >40 Comment on above: National Cholesterol Education Program (NCEP) guidelines:<40 mg/dL: Low HDL-cholesterol (major risk factor for CHD)>= 60 mg/dL: High HDL-cholesterol (negative risk factor for CHD)HDL-cholesterol is affected by a number of factors, e.g. smoking, exercise, hormones, sex and age. Serum or plasma cholesterol measurement (mass/volume)Ordered By: Adri Bolaños on 06-26-2024 Cholesterol [Mass/Vol] 174 mg/dL <201 [facility] Comment on above: Cholesterol level, D esirable <200 mg/dLBorderline high cholesterol 200-239 mg/dLHigh cholesterol >=240 mg/dLRecommendations of the NCEP Adult Treatment Panel for the following risk-cutoff thresholds for the [place] population. Serum or plasma urea nitroge n measurement (mass/volume)Ordered By: Adri Bolaños on 06-26-2024 Urea nitrogen [Mass/Vol] 16 mg/dL 4-19 Sodium levelOrdered By: Sea Bolaños on 06-26-2024 Sodium [Moles/Vol] 140 mmol/L 133-145 [facility] Total proteinOrdered By: Ivonne Bolaños on 06-26-2024 Protein [Mass/Vol] 7.2 g/dL 5.9-8.4 [facility] Triglycerides measurementOrd ered By: Adri Bolaños on 06-26-2024 Triglyceride [Mass/Vol] 118 mg/dL <199 [facility] Comment on above: The drugs N-Acetylcy steine and Metamizole may falsely depress this assay. Normal range: <150 mg/dLBorderline High: 150-199 mg/dLHigh: 200-499 mg/dLVery High: >500 mg/dL Vitamin B12on 06-26-2024 Cobalamin (Vitamin B12) [Mass/Vol] 528 pg/mL Normal 180-914 Comment on above: Performed By: #### L 500.4050, L503.0106, L506.1001, L503.6150, L501.9985, L500.4100 #### Laboratory [address] [place], [address] Vitamin B12 ser/plasOrdered By: Adri Bolaños on 06-26-2024 Cobalamin (Vitamin B12) [Mass/Vol] 528 pg/mL 180-914 Vitamin D, 25-hydroxyOrdered By: Adri Bolaños on 06-26-2024 Vitamin D 25-Hydroxy 21.4 ng/mL Low 30-100 [facility] Comment on above: Vitamin D StatusDefi ciency: <20 ng/mL (50nmol/L)Insufficiency: 20-30 ng/mL (50-75 nmol/L)Sufficiency: 30-100 ng/mL (75-250 nmol/L)Toxicity: >100 ng/mL (>250 nmol/L) Vitamin D,25 Hydroxyon 06-26 Vitamin D 25-OH 21.4 ng/mL Low 30-100 Comment on above: Result Comment: Carmen min D Status Deficiency: <20 ng/mL (50nmol/L) Insufficiency: 20-30 ng/mL (50-75 nmol/L) Sufficiency: 30-100 ng/mL (75-250 nmol/L) Toxicity: >100 ng/mL (>250 nmol/L) Performed By: #### L 500.4050, L503.0106, L506.1001, L503.6150, L501.9985, L500.4100 #### Laboratory [address] [facility] [place], [address] L/S Spine w Bend Min 6 Vwon 06-18-2024 L/S Spine w Bend Min 6 Vw [facility] [address] [place] [address] L/S Spine w Bend Min 6 Vw MR#: [id number] Acct: [id number] Name: IGNACIO LARIOS Rep #: [id number] : 1960 M 64 From: Jessica Fairbanks MD PCP: Dr. Dodie Bertrand DO Status: REG CLI Study: L/S Spine w Bend Min 6 Vw Date of Exam: Exam# [id number] Ordering Dr: Dodie Bertrand DO PROCEDURE: L/S SPINE W BEND MIN 6 VW 06/18/2024 REASON FOR EXAM: LOW BACK PAIN TECHNIQUE: 6 views of the lumbar spine COMPARISON: None available FINDINGS: Curvature: Preserved lordosis of the lumbar spine. Other findings: Vertebral body heights are well preserved. Mild loss of intervertebral disc height at L4-L5, and L5-S1. Facet arthropathy within the lower lumbar spine. Other: RAD/L/S Spine w Bend Min 6 Vw IMPRESSION: 1. Degenerative changes within the lower lumbar spine. 2. No acute fracture or traumatic malalignment. Reading Location: [facility] CC: Dr. Dodie Bertrand DO Casualty Claim Adjuster: Signed Normal 12 Lead EKGon 02-18-2024 12 Lead EKG [facility] [address] [place] [address] 12 Lead EKG 02/18/24 0649 MR#: [id number] Acct: [id number] Name: IGNACIO LARIOS Rep #: [id number] : 1960 63 From: Silviano Lucero MD Attending Dr: Dr. Charles Peres MD Status: REG CLI Ordering Dr: Charles Peres MD Date: 02/18/24 Location: PSN Sex: M C Admitted: Test Reason : PRE OP Blood Pressure : */* mmHG Vent. Rate : 74 BPM Atrial Rate : 74 BPM P-R Int : 164 ms QRS Dur : 90 ms QT Int : 376 ms P-R-T Axes : 61 26 68 degrees QTcB Int : 417 ms Normal sinus rhythm Normal ECG Confirmed by RESHMA PINEDA, SILVIANO ([id number]), editor department BRIAN SPENCER ([id number]) on 02/18/2024 2:11:16 PM Referred By: Charles Peres Confirmed By: SILVIANO LUCERO MD 02/18/24 1411 Date Silviano Lucero MD CC: Dr. Dodie Bertrand DO; Dr. Charles Peres MD Signed Normal Comprehensive Metabolic Prof ilon 02-18-2024 Albumin [Mass/Vol] 4.3 g/dL Normal 3.2-5.0 [facility] Comment on above: Order Comment: DR.SH FOSTER ORDERED A BMP Performed By: #### L 500.4050, L503.0106, L506.1001, L503.6150, L501.9985, L500.4100 #### Laboratory [address] [place], [address] Albumin/Globulin [Mass ratio] 1.3 {ratio} Normal 0.9-2.4 Comment on above: Order Comment: DR.SH FOSTER ORDERED A BMP Performed By: #### L 500.4050, L503.0106, L506.1001, L503.6150, L501.9985, L500.4100 #### Laboratory [address] [place], [address] ALK P 71 U/L Normal 45-117 Comment on above: Order Comment: DR.SH FOSTER ORDERED A BMP Performed By: #### L 500.4050, L503.0106, L506.1001, L503.6150, L501.9985, L500.4100 #### Laboratory [address] [place], [address] ALT [Catalytic activity/Vol] 30 U/L Normal 16-61 Comment on above: Order Comment: DR.SH FOSTER ORDERED A BMP Performed By: #### L 500.4050, L503.0106, L506.1001, L503.6150, L501.9985, L500.4100 #### Laboratory [address] [place], [address] AST [Catalytic activity/Vol] 23 U/L Normal 15-37 Comment on above: Order Comment: DR.SH FOSTER ORDERED A BMP Performed By: #### L 500.4050, L503.0106, L506.1001, L503.6150, L501.9985, L500.4100 #### Laboratory [address] [place], [address] Bilirubin [Mass/Vol] 0.60 mg/dL Normal 0.20-1.00 [facility] Comment on above: Order Comment: DR.SH FOSTER ORDERED A BMP Result Comment: For patients on eltrombopag therapy, use of Dimension [place] TBIL is not recommended. Performed By: #### L 500.4050, L503.0106, L506.1001, L503.6150, L501.9985, L500.4100 #### Laboratory [address] [place], [address] BUN/CRE 21.9 RATIO High 10-20 Comment on above: Order Comment: DR.SH FOSTER ORDERED A BMP Performed By: #### L 500.4050, L503.0106, L506.1001, L503.6150, L501.9985, L500.4100 #### Laboratory [address] [place], [address] CA,Total 9.9 mg/dL Normal 8.5-10.1 Comment on above: Order Comment: DR.SH FOSTER ORDERED A BMP Performed By: #### L 500.4050, L503.0106, L506.1001, L503.6150, L501.9985, L500.4100 #### Laboratory [address] [place], [address] Chloride [Moles/Vol] 107 mmol/L Normal 98-107 [facility] Comment on above: Order Comment: DR.SH FOSTER ORDERED A BMP Performed By: #### L 500.4050, L503.0106, L506.1001, L503.6150, L501.9985, L500.4100 #### Laboratory [address] [place], [address] CO2 [Moles/Vol] 27.0 mmol/L Normal 21.0-32.0 Comment on above: Order Comment: DR.SH FOSTER ORDERED A BMP Performed By: #### L 500.4050, L503.0106, L506.1001, L503.6150, L501.9985, L500.4100 #### Laboratory [address] [place], [address] Creatinine [Mass/Vol] 0.87 mg/dL Normal 0.70-1.30 [facility] Comment on above: Order Comment: DR.SH FOSTER ORDERED A BMP Result Comment: The validity of the calculated GFR GFRAA in patients over 70 years has not been determined. Clinical correlation is essential. Performed By: #### L 500.4050, L503.0106, L506.1001, L503.6150, L501.9985, L500.4100 #### Laboratory [address] [place], [address] EST GFR - AA 114 mL/min Normal >60 Comment on above: Order Comment: DR.SH FOSTER ORDERED A BMP Result Comment: Afri can Syrian GFR Calc Performed By: #### L 500.4050, L503.0106, L506.1001, L503.6150, L501.9985, L500.4100 #### Laboratory [address] [place], [address] GAP 6 Normal 5-15 Comment on above: Order Comment: DR.SH FOSTER ORDERED A BMP Performed By: #### L 500.4050, L503.0106, L506.1001, L503.6150, L501.9985, L500.4100 #### Laboratory [address] [place], [address] GFR/1.73 sq M.predicted among non-blacks MDRD (S/P/Bld) [Vol rate/Area] 95 mL/min/{1.73_m2} Normal >60 Comment on above: Order Comment: DR.SH FOSTER ORDERED A BMP Result Comment: Non- GFR Calc Performed By: #### L 500.4050, L503.0106, L506.1001, L503.6150, L501.9985, L500.4100 #### Laboratory [address] [place], [address] Globulin (S) [Mass/Vol] 3.2 g/dL Normal 2.2-4.2 [facility] Comment on above: Order Comment: DR.SH FOSTER ORDERED A BMP Performed By: #### L 500.4050, L503.0106, L506.1001, L503.6150, L501.9985, L500.4100 #### Laboratory [address] [place], [address] Glucose [Mass/Vol] 146 mg/dL High 74-106 [facility] Comment on above: Order Comment: DR.SH FOSTER ORDERED A BMP Result Comment: Fast ing Glucose result greater than or equal to 126 mg/dL suggests DIABETES MELLITUS per A.D.A. criteria. Performed By: #### L 500.4050, L503.0106, L506.1001, L503.6150, L501.9985, L500.4100 #### Laboratory [address] [place], [address] Potassium [Moles/Vol] 4.2 mmol/L Normal 3.5-5.1 [facility] Comment on above: Order Comment: DR.SH FOSTER ORDERED A BMP Performed By: #### L 500.4050, L503.0106, L506.1001, L503.6150, L501.9985, L500.4100 #### Laboratory [address] [place], [address] Sodium [Moles/Vol] 140 mmol/L Normal 136-145 [facility] Comment on above: Order Comment: DR.SH FOSTER ORDERED A BMP Performed By: #### L 500.4050, L503.0106, L506.1001, L503.6150, L501.9985, L500.4100 #### Laboratory [address] [place], [address] T PROT 7.5 g/dL Normal 6.4-8.2 Comment on above: Order Comment: DR.SH FOSTER ORDERED A BMP Performed By: #### L 500.4050, L503.0106, L506.1001, L503.6150, L501.9985, L500.4100 #### Laboratory [address] [place], [address] Urea nitrogen [Mass/Vol] 19 mg/dL High 7-18 Comment on above: Order Comment: DR.SH FOSTER ORDERED A BMP Performed By: #### L 500.4050, L503.0106, L506.1001, L503.6150, L501.9985, L500.4100 #### Laboratory [address] [place], [address] Hemoglobin A1con 02-18-2024 HbA1c (Bld) [Mass fraction] 6.4 % High 3.8-5.6 Comment on above: Result Comment: Norm al < 5.7 % Prediabetic 5.7 - 6.4 % Diabetic >or= 6.5 % Please note range changes. Performed By: #### L 500.4050, L503.0106, L506.1001, L503.6150, L501.9985, L500.4100 #### Laboratory [address] [place], [address] Lipid Profileon 02-18-2024 Cholesterol [Mass/Vol] 190 mg/dL Normal 200 [facility] Comment on above: Order Comment: DR.SH FOSTER ORDERED A BMP Result Comment: <200 mg/dL Desirable 200-240 mg/dL Borderline >240 mg/dL High Risk Performed By: #### L 500.4050, L503.0106, L506.1001, L503.6150, L501.9985, L500.4100 #### Laboratory [address] [place], [address] Cholesterol in HDL [Mass/Vol] 41 mg/dL Normal Comment on above: Order Comment: DR.SH FOSTER ORDERED A BMP Result Comment: The drugs N-Acetylcysteine and Metamizole may falsely depress this assay. Reference Range HDL <40 mg/dL Low HDL Cholesterol HDL >or= 60 mg/dL High HDL Cholesterol Performed By: #### L 500.4050, L503.0106, L506.1001, L503.6150, L501.9985, L500.4100 #### Laboratory [address] [place], [address] Cholesterol in LDL [Mass/Vol] 102 mg/dL Normal 0-130 Comment on above: Order Comment: DR.SH FOSTER ORDERED A BMP Performed By: #### L 500.4050, L503.0106, L506.1001, L503.6150, L501.9985, L500.4100 #### Laboratory [address] [place], [address] Cholesterol in VLDL [Mass/Vol] 47 mg/dL High 5-40 Comment on above: Order Comment: DR.SH FOSTER ORDERED A BMP Performed By: #### L 500.4050, L503.0106, L506.1001, L503.6150, L501.9985, L500.4100 #### Laboratory [address] [place], [address] Triglyceride [Mass/Vol] 233 mg/dL High [facility] Comment on above: Order Comment: DR.SH FOSTER ORDERED A BMP Result Comment: The drugs N-Acetylcysteine and Metamizole may falsely depress this assay. Serum Triglycerides Reference Interval Normal <150 mg/dL Borderline high 150 - 199 mg/dL High 200 - 499 mg/dL Very High > or = 500 mg/dL Performed By: #### L 500.4050, L503.0106, L506.1001, L503.6150, L501.9985, L500.4100 #### Laboratory [address] [place], [address] Microalb:Creat Ratio,Random URon 02-18-2024 Creatinine [Mass/Vol] 84.40 mg/dL Normal NO RANGE EST. Comment on above: Performed By: #### L 500.4050, L503.0106, L506.1001, L503.6150, L501.9985, L500.4100 #### Laboratory [address] [place], [address] MALB:CRE 21.2 mg/g CRE Normal <30 mg/g CRE Comment on above: Performed By: #### L 500.4050, L503.0106, L506.1001, L503.6150, L501.9985, L500.4100 #### Laboratory [address] [place], [address] MICROALBUMIN,UR 17.9 mg/L Normal NO RANGE EST. [facility] Comment on above: Performed By: #### L 500.4050, L503.0106, L506.1001, L503.6150, L501.9985, L500.4100 #### Laboratory [address] [place], [address] Comprehensive Metabolic Prof ilon 10-17-2023 Albumin [Mass/Vol] 3.8 g/dL Normal 3.2-5.0 [facility] Comment on above: Performed By: #### L 501.9985, L500.4050, L500.4100 #### Laboratory [address] [place], [address] Albumin/Globulin [Mass ratio] 1.1 {ratio} Normal 0.9-2.4 Comment on above: Performed By: #### L 501.9985, L500.4050, L500.4100 #### Laboratory [address] [place], [address] ALK P 74 U/L Normal 45-117 Comment on above: Performed By: #### L 501.9985, L500.4050, L500.4100 #### Laboratory [address] [place], [address] ALT [Catalytic activity/Vol] 32 U/L Normal 16-61 Comment on above: Performed By: #### L 501.9985, L500.4050, L500.4100 #### Laboratory [address] [place], [address] AST [Catalytic activity/Vol] 20 U/L Normal 15-37 Comment on above: Performed By: #### L 501.9985, L500.4050, L500.4100 #### Laboratory [address] [place], [address] Bilirubin [Mass/Vol] 0.40 mg/dL Normal 0.20-1.00 [facility] Comment on above: Result Comment: For patients on eltrombopag therapy, use of Dimension [place] TBIL is not recommended. Performed By: #### L 501.9985, L500.4050, L500.4100 #### Laboratory [address] [place], [address] BUN/CRE 19.2 RATIO Normal 10-20 Comment on above: Performed By: #### L 501.9985, L500.4050, L500.4100 #### Laboratory [address] [place], [address] CA,Total 9.0 mg/dL Normal 8.5-10.1 Comment on above: Performed By: #### L 501.9985, L500.4050, L500.4100 #### Laboratory [address] [place], [address] Chloride [Moles/Vol] 112 mmol/L High 98-107 [facility] Comment on above: Performed By: #### L 501.9985, L500.4050, L500.4100 #### Laboratory [address] [place], [address] CO2 [Moles/Vol] 25.0 mmol/L Normal 21.0-32.0 Comment on above: Performed By: #### L 501.9985, L500.4050, L500.4100 #### Laboratory [address] [place], [address] Creatinine [Mass/Vol] 0.83 mg/dL Normal 0.70-1.30 [facility] Comment on above: Result Comment: The validity of the calculated GFR GFRAA in patients over 70 years has not been determined. Clinical correlation is essential. Performed By: #### L 501.9985, L500.4050, L500.4100 #### Laboratory [address] [place], [address] EST GFR - AA 120 mL/min Normal >60 Comment on above: Result Comment: Afri can Syrian GFR Calc Performed By: #### L 501.9985, L500.4050, L500.4100 #### Laboratory [address] [place], [address] GAP 3 Low 5-15 Comment on above: Performed By: #### L 501.9985, L500.4050, L500.4100 #### Laboratory [address] [place], [address] GFR/1.73 sq M.predicted among non-blacks MDRD (S/P/Bld) [Vol rate/Area] 99 mL/min/{1.73_m2} Normal >60 Comment on above: Result Comment: Non- GFR Calc Performed By: #### L 501.9985, L500.4050, L500.4100 #### Laboratory [address] [place], [address] Globulin (S) [Mass/Vol] 3.4 g/dL Normal 2.2-4.2 [facility] Comment on above: Performed By: #### L 501.9985, L500.4050, L500.4100 #### Laboratory [address] [place], [address] Glucose [Mass/Vol] 140 mg/dL High 74-106 [facility] Comment on above: Result Comment: Fast ing Glucose result greater than or equal to 126 mg/dL suggests DIABETES MELLITUS per A.D.A. criteria. Performed By: #### L 501.9985, L500.4050, L500.4100 #### Laboratory [address] [place], [address] Potassium [Moles/Vol] 4.3 mmol/L Normal 3.5-5.1 [facility] Comment on above: Performed By: #### L 501.9985, L500.4050, L500.4100 #### Laboratory [address] [place], [address] Sodium [Moles/Vol] 140 mmol/L Normal 136-145 [facility] Comment on above: Performed By: #### L 501.9985, L500.4050, L500.4100 #### Laboratory [address] [place], [address] T PROT 7.2 g/dL Normal 6.4-8.2 Comment on above: Performed By: #### L 501.9985, L500.4050, L500.4100 #### Laboratory [address] [place], [address] Urea nitrogen [Mass/Vol] 16 mg/dL Normal 7-18 Comment on above: Performed By: #### L 501.9985, L500.4050, L500.4100 #### Laboratory [address] [place], [address] Hemoglobin A1con 10-17-2023 HbA1c (Bld) [Mass fraction] 6.7 % High 3.8-5.6 Comment on above: Result Comment: Norm al < 5.7 % Prediabetic 5.7 - 6.4 % Diabetic >or= 6.5 % Please note range changes. Performed By: #### L 501.9985, L500.4050, L500.4100 #### Laboratory [address] [place], [address] Lipid Profileon 10-17-2023 Cholesterol [Mass/Vol] 167 mg/dL Normal 200 [facility] Comment on above: Result Comment: <200 mg/dL Desirable 200-240 mg/dL Borderline >240 mg/dL High Risk Performed By: #### L 501.9985, L500.4050, L500.4100 #### Laboratory [address] [place], [address] Cholesterol in HDL [Mass/Vol] 41 mg/dL Normal Comment on above: Result Comment: The drugs N-Acetylcysteine and Metamizole may falsely depress this assay. Reference Range HDL <40 mg/dL Low HDL Cholesterol HDL >or= 60 mg/dL High HDL Cholesterol Performed By: #### L 501.9985, L500.4050, L500.4100 #### Laboratory [address] [place], [address] Cholesterol in LDL [Mass/Vol] 94 mg/dL Normal 0-130 Comment on above: Performed By: #### L 501.9985, L500.4050, L500.4100 #### Laboratory [address] [place], [address] Cholesterol in VLDL [Mass/Vol] 32 mg/dL Normal 5-40 Comment on above: Performed By: #### L 501.9985, L500.4050, L500.4100 #### Laboratory [address] [place], [place], [address] Triglyceride [Mass/Vol] 161 mg/dL Normal [facility] Comment on above: Result Comment: The drugs N-Acetylcysteine and Metamizole may falsely depress this assay. Serum Triglycerides Reference Interval Normal <150 mg/dL Borderline high 150 - 199 mg/dL High 200 - 499 mg/dL Very High > or = 500 mg/dL Performed By: #### L 501.9985, L500.4050, L500.4100 #### Laboratory [address] [facility] [address] [place], [place], [address] Basophil percentageOrdered B y: Adri Bolaños on 06-13-2023 Bilirubin [Mass/Vol] 0.60 mg/dL 0.20-1.00 [facility] Comment on above: For patients on eltr ombopag therapy, use of Dimension [place] TBIL is not recommended. Chloride [Moles/Vol] 104 mmol/L 98-107 [facility] Glucose [Mass/Vol] 139 mg/dL 74-106 [facility] Comment on above: Fasting Glucose resu lt greater than or equal to 126 mg/dL suggests DIABETES MELLITUS per A.D.A. criteria. Potassium [Moles/Vol] 3.9 mmol/L 3.5-5.1 [facility] Protein [Mass/Vol] 7.5 g/dL 6.4-8.2 [facility] Sodium [Moles/Vol] 137 mmol/L 136-145 [facility] Laboratory - Chemistry and C hemistry - challengeOrdered By: Adri Bolaños on 06-13-2023 Albumin/Globulin [Mass ratio] 1.2 {ratio} 0.9-2.4 ALP [Catalytic activity/Vol] 65 U/L 45-117 ALT [Catalytic activity/Vol] 32 U/L 16-61 CO2 [Moles/Vol] 27.0 mmol/L 21.0-32.0 Globulin (S) [Mass/Vol] 3.4 g/dL 2.2-4.2 [facility] Urea nitrogen/Creatinine [Mass ratio] 19.4 mg/mg 10-20 No Panel InformationOrdered By: Adri Bolaños on 06-13-2023 Estimated GFR (MDRD) Amer 113 mL/min >60 Comment on above: GFR Calc Estimated GFR (MDRD) Non-Af Amer 93 mL/min >60 Comment on above: Non- GFR Calc Urine Microalbumin/Creatinine Ratio 15.9 mg/g CRE <30 Serum or plasma calcium nohemy urement (mass/volume)Ordered By: Adri Bolaños on 06-13-2023 Calcium [Mass/Vol] 9.3 mg/dL 8.5-10.1 [facility] Serum or plasma creatinine m easurement (mass/volume)Ordered By: Adri Bolaños on 06-13-2023 Creatinine [Mass/Vol] 0.88 mg/dL 0.70-1.30 [facility] Comment on above: The validity of the calculated GFR & GFRAA in patients over 70 years has not been determined. Clinical correlation is essential. Serum or plasma urea nitroge n measurement (mass/volume)Ordered By: Adri Bolaños on 06-13-2023 Urea nitrogen [Mass/Vol] 17 mg/dL 7-18 Thin prep Papanicolaou smear with manual screeningOrdered By: Adri Bolaños on 06-13-2023 Thin prep Papanicolaou smear with manual screening 4.1 g/dL 3.2-5.0 Thin prep Papanicolaou smear with manual screening 19 U/L 15-37 Thin prep Papanicolaou smear with manual screening 6 5-15 Thin prep Papanicolaou smear with manual screening 9.9 mg/L NO RANGE EST. Urine creatinine measurement (mass/volume)Ordered By: Adri Bolaños on 06-13-2023 Creatinine (U) [Mass/Vol] 62.70 mg/dL NO RANGE EST. Whole blood hemoglobin A1c/t otal hemoglobin ratio (mass fraction)Ordered By: Adri Bolaños on 06-13-2023 HbA1c (Bld) [Mass fraction] 6.9 % 3.8-5.6 Comment on above: Normal < 5.7 % Predi abetic 5.7 - 6.4 % Diabetic >or= 6.5 % Please note range changes. Basophil percentageOrdered B y: Adri Bolaños on 03-14-2023 Bilirubin [Mass/Vol] 0.40 mg/dL 0.20-1.00 [facility] Comment on above: For patients on eltr ombopag therapy, use of Dimension [place] TBIL is not recommended. Chloride [Moles/Vol] 108 mmol/L 98-107 [facility] Glucose [Mass/Vol] 221 mg/dL 74-106 [facility] Comment on above: Glucose result great er than or equal to 200 mg/dLsuggests DIABETES MELLITUS per A.D.A. criteria. Potassium [Moles/Vol] 4.0 mmol/L 3.5-5.1 [facility] Protein [Mass/Vol] 7.1 g/dL 6.4-8.2 [facility] Sodium [Moles/Vol] 140 mmol/L 136-145 [facility] Laboratory - Chemistry and C hemistry - challengeOrdered By: Adri Bolaños on 03-14-2023 ALP [Catalytic activity/Vol] 69 U/L 45-117 ALT [Catalytic activity/Vol] 35 U/L 16-61 CO2 [Moles/Vol] 27.0 mmol/L 21.0-32.0 Globulin (S) [Mass/Vol] 3.3 g/dL 2.2-4.2 [facility] Urea nitrogen/Creatinine [Mass ratio] 17.5 mg/mg 10-20 No Panel InformationOrdered By: Adri Bolaños on 03-14-2023 Estimated GFR (MDRD) Amer 101 mL/min >60 Comment on above: GFR Calc Estimated GFR (MDRD) Non-Af Amer 83 mL/min >60 Comment on above: Non- GFR Calc Urine Microalbumin/Creatinine Ratio 192.1 mg/g CRE <30 Serum or plasma albumin nohemy urement (mass/volume)Ordered By: Adri Bolaños on 03-14-2023 Albumin [Mass/Vol] 3.8 g/dL 3.2-5.0 [facility] Serum or plasma albumin/glob ulin mass ratioOrdered By: Adri Bolaños on 03-14-2023 Albumin/Globulin [Mass ratio] 1.2 {ratio} 0.9-2.4 Serum or plasma calcium nohemy urement (mass/volume)Ordered By: Adri Bolaños on 03-14-2023 Calcium [Mass/Vol] 9.6 mg/dL 8.5-10.1 [facility] Serum or plasma creatinine m easurement (mass/volume)Ordered By: Adri Bolaños on 03-14-2023 Creatinine [Mass/Vol] 0.97 mg/dL 0.70-1.30 [facility] Comment on above: The validity of the calculated GFR & GFRAA in patients over 70 years has not been determined. Clinical correlation is essential. Serum or plasma urea nitroge n measurement (mass/volume)Ordered By: Adri Bolaños on 03-14-2023 Urea nitrogen [Mass/Vol] 17 mg/dL 7-18 Thin prep Papanicolaou smear with manual screeningOrdered By: Adri Bolaños on 03-14-2023 Thin prep Papanicolaou smear with manual screening 18 U/L 15-37 Thin prep Papanicolaou smear with manual screening 5 5-15 Thin prep Papanicolaou smear with manual screening 181.0 mg/L NO RANGE EST. Urine creatinine measurement (mass/volume)Ordered By: Adri Bolaños on 03-14-2023 Creatinine (U) [Mass/Vol] 94.20 mg/dL NO RANGE EST. Whole blood hemoglobin A1c/t otal hemoglobin ratio (mass fraction)Ordered By: Adri Bolaños on 03-14-2023 HbA1c (Bld) [Mass fraction] 6.6 % 3.8-5.6 Comment on above: Normal < 5.7 % Predi abetic 5.7 - 6.4 % Diabetic >or= 6.5 % Please note range changes. Basophil percentageOrdered B y: Adri Bolaños on 01-10-2023 Bilirubin [Mass/Vol] 0.50 mg/dL 0.20-1.00 [facility] Comment on above: For patients on eltr ombopag therapy, use of Dimension [place] TBIL is not recommended. Chloride [Moles/Vol] 104 mmol/L 98-107 [facility] Glucose [Mass/Vol] 167 mg/dL 74-106 [facility] Comment on above: Fasting Glucose resu lt greater than or equal to 126 mg/dL suggests DIABETES MELLITUS per A.D.A. criteria. Potassium [Moles/Vol] 4.0 mmol/L 3.5-5.1 [facility] Protein [Mass/Vol] 7.5 g/dL 6.4-8.2 [facility] Sodium [Moles/Vol] 137 mmol/L 136-145 [facility] Laboratory - Chemistry and C hemistry - challengeOrdered By: Adri Bolaños on 01-10-2023 ALP [Catalytic activity/Vol] 57 U/L 45-117 ALT [Catalytic activity/Vol] 39 U/L 16-61 CO2 [Moles/Vol] 28.0 mmol/L 21.0-32.0 Globulin (S) [Mass/Vol] 3.6 g/dL 2.2-4.2 [facility] Urea nitrogen/Creatinine [Mass ratio] 17.8 mg/mg 10-20 No Panel InformationOrdered By: Adri Bolaños on 01-10-2023 Estimated GFR (MDRD) Amer 102 mL/min >60 Comment on above: GFR Calc Estimated GFR (MDRD) Non-Af Amer 85 mL/min >60 Comment on above: Non- GFR Calc Serum or plasma albumin nohemy urement (mass/volume)Ordered By: Adri Bolaños on 01-10-2023 Albumin [Mass/Vol] 3.9 g/dL 3.2-5.0 [facility] Serum or plasma albumin/glob ulin mass ratioOrdered By: Adri Bolaños on 01-10-2023 Albumin/Globulin [Mass ratio] 1.1 {ratio} 0.9-2.4 Serum or plasma calcium nohemy urement (mass/volume)Ordered By: Adri Bolaños on 01-10-2023 Calcium [Mass/Vol] 9.9 mg/dL 8.5-10.1 [facility] Serum or plasma creatinine m easurement (mass/volume)Ordered By: Adri Bolaños on 01-10-2023 Creatinine [Mass/Vol] 0.96 mg/dL 0.70-1.30 [facility] Comment on above: The validity of the calculated GFR & GFRAA in patients over 70 years has not been determined. Clinical correlation is essential. Serum or plasma urea nitroge n measurement (mass/volume)Ordered By: Adri Bolaños on 01-10-2023 Urea nitrogen [Mass/Vol] 17 mg/dL 7-18 Thin prep Papanicolaou smear with manual screeningOrdered By: Adri Bolaños on 01-10-2023 Thin prep Papanicolaou smear with manual screening 15 U/L 15-37 Thin prep Papanicolaou smear with manual screening 5 5-15 Whole blood hemoglobin A1c/t otal hemoglobin ratio (mass fraction)Ordered By: Adri Bolaños on 01-10-2023 HbA1c (Bld) [Mass fraction] 6.4 % 3.8-5.6 Comment on above: Normal < 5.7 % Predi abetic 5.7 - 6.4 % Diabetic >or= 6.5 % Please note range changes. Basophil percentageOrdered B y: Adri Bolaños on 10-12-2022 Bilirubin [Mass/Vol] 0.50 mg/dL 0.20-1.00 [facility] Comment on above: For patients on eltr ombopag therapy, use of Dimension [place] TBIL is not recommended. Chloride [Moles/Vol] 105 mmol/L 98-107 [facility] Glucose [Mass/Vol] 146 mg/dL 74-106 [facility] Comment on above: Fasting Glucose resu lt greater than or equal to 126 mg/dL suggests DIABETES MELLITUS per A.D.A. criteria. Potassium [Moles/Vol] 4.1 mmol/L 3.5-5.1 [facility] Protein [Mass/Vol] 7.4 g/dL 6.4-8.2 [facility] Sodium [Moles/Vol] 138 mmol/L 136-145 [facility] Laboratory - Chemistry and C hemistry - challengeOrdered By: Adri Bolaños on 10-12-2022 ALP [Catalytic activity/Vol] 62 U/L 45-117 ALT [Catalytic activity/Vol] 42 U/L 16-61 CO2 [Moles/Vol] 27.0 mmol/L 21.0-32.0 Globulin (S) [Mass/Vol] 3.5 g/dL 2.2-4.2 [facility] Urea nitrogen/Creatinine [Mass ratio] 22.9 mg/mg 10-20 No Panel InformationOrdered By: Adri Bolaños on 10-12-2022 Estimated GFR (MDRD) Amer 128 mL/min >60 Comment on above: GFR Calc Estimated GFR (MDRD) Non-Af Amer 106 mL/min >60 Comment on above: Non- GFR Calc Serum or plasma albumin nohemy urement (mass/volume)Ordered By: Adri Bolaños on 10-12-2022 Albumin [Mass/Vol] 3.9 g/dL 3.2-5.0 [facility] Serum or plasma albumin/glob ulin mass ratioOrdered By: Adri Bolaños on 10-12-2022 Albumin/Globulin [Mass ratio] 1.1 {ratio} 0.9-2.4 Serum or plasma calcium nohemy urement (mass/volume)Ordered By: Adri Bolaños on 10-12-2022 Calcium [Mass/Vol] 9.1 mg/dL 8.5-10.1 [facility] Serum or plasma creatinine m easurement (mass/volume)Ordered By: Adri Bolaños on 10-12-2022 Creatinine [Mass/Vol] 0.79 mg/dL 0.70-1.30 [facility] Comment on above: The validity of the calculated GFR & GFRAA in patients over 70 years has not been determined. Clinical correlation is essential. Serum or plasma urea nitroge n measurement (mass/volume)Ordered By: Adri Bolaños on 10-12-2022 Urea nitrogen [Mass/Vol] 18 mg/dL 7-18 Thin prep Papanicolaou smear with manual screeningOrdered By: Adri Bolaños on 10-12-2022 Thin prep Papanicolaou smear with manual screening 18 U/L 15-37 Thin prep Papanicolaou smear with manual screening 6 5-15 Whole blood hemoglobin A1c/t otal hemoglobin ratio (mass fraction)Ordered By: Adri Bolaños on 10-12-2022 HbA1c (Bld) [Mass fraction] 6.6 % 3.8-5.6 Comment on above: Normal < 5.7 % Predi abetic 5.7 - 6.4 % Diabetic >or= 6.5 % Please note range changes. Basophil percentageOrdered B y: Dr. Bolaños on 07-13-2022 Bilirubin [Mass/Vol] 0.40 mg/dL 0.20-1.00 [facility] Comment on above: For patients on eltr ombopag therapy, use of Dim[place] TBIL is not recommended. Chloride [Moles/Vol] 107 mmol/L 98-107 [facility] Cholesterol [Mass/Vol] 170 mg/dL <200 [facility] Comment on above: <200 mg/dL Desirable 200-240 mg/dL Borderline >240 mg/dL High Risk Glucose [Mass/Vol] 182 mg/dL 74-106 [facility] Comment on above: Fasting Glucose resu lt greater than or equal to 126 mg/dL suggests DIABETES MELLITUS per A.D.A. criteria. Potassium [Moles/Vol] 4.2 mmol/L 3.5-5.1 [facility] Protein [Mass/Vol] 7.1 g/dL 6.4-8.2 [facility] Sodium [Moles/Vol] 139 mmol/L 136-145 [facility] Triglyceride [Mass/Vol] 154 mg/dL <199 [facility] Comment on above: The drugs N-Acetylcy steine and Metamizole may falsely depress this assay.Serum Triglycerides Reference Interval Normal <150 mg/dL Borderline high 150 - 199 mg/dL High 200 - 499 mg/dL Very High > or = 500 mg/dL Laboratory - Chemistry and C hemistry - challengeOrdered By: Dr. Bolaños on 07-13-2022 ALP [Catalytic activity/Vol] 63 U/L 45-117 ALT [Catalytic activity/Vol] 44 U/L 16-61 CO2 [Moles/Vol] 25.0 mmol/L 21.0-32.0 Globulin (S) [Mass/Vol] 3.3 g/dL 2.2-4.2 [facility] Urea nitrogen/Creatinine [Mass ratio] 20.0 mg/mg 10-20 No Panel InformationOrdered By: Dr. Bolaños on 07-13-2022 Estimated GFR (MDRD) Amer 110 mL/min >60 Comment on above: GFR Calc Estimated GFR (MDRD) Non-Af Amer 91 mL/min >60 Comment on above: Non- GFR Calc Serum or plasma albumin nohemy urement (mass/volume)Ordered By: Dr. Bolaños on 07-13-2022 Albumin [Mass/Vol] 3.8 g/dL 3.2-5.0 [facility] Serum or plasma albumin/glob ulin mass ratioOrdered By: Dr. Bolaños on 07-13-2022 Albumin/Globulin [Mass ratio] 1.2 {ratio} 0.9-2.4 Serum or plasma calcium nohemy urement (mass/volume)Ordered By: Dr. Bolaños on 07-13-2022 Calcium [Mass/Vol] 8.9 mg/dL 8.5-10.1 [facility] Serum or plasma cholesterol in HDL measurement (mass/volume)Ordered By: Dr. Bolaños on 07-13-2022 Cholesterol in HDL [Mass/Vol] 39 mg/dL >40 Comment on above: The drugs N-Acetylcy steine and Metamizole may falsely depress this assay. Reference Range HDL <40 mg/dL Low HDL Cholesterol HDL >or= 60 mg/dL High HDL Cholesterol Serum or plasma cholesterol in VLDL measurement (mass/volume)Ordered By: Dr. Bolaños on 07-13-2022 Cholesterol in VLDL [Mass/Vol] 31 mg/dL 5-40 Serum or plasma creatinine m easurement (mass/volume)Ordered By: Dr. Bolaños on 07-13-2022 Creatinine [Mass/Vol] 0.90 mg/dL 0.70-1.30 [facility] Comment on above: The validity of the calculated GFR & GFRAA in patients over 70 years has not been determined. Clinical correlation is essential. Serum or plasma low density lipoprotein (LDL) cholesterol measurement (mass/volume)Ordered By: Dr. Bolaños on 07-13-2022 Cholesterol in LDL [Mass/Vol] 100 mg/dL 0-130 Serum or plasma urea nitroge n measurement (mass/volume)Ordered By: Dr. Bolaños on 07-13-2022 Urea nitrogen [Mass/Vol] 18 mg/dL 7-18 Thin prep Papanicolaou smear with manual screeningOrdered By: Dr. Bolaños on 07-13-2022 Thin prep Papanicolaou smear with manual screening 22 U/L 15-37 Thin prep Papanicolaou smear with manual screening 7 5-15 Whole blood hemoglobin A1c/t otal hemoglobin ratio (mass fraction)Ordered By: Dr. Bolaños on 07-13-2022 HbA1c (Bld) [Mass fraction] 7.9 % 3.8-5.6 Comment on above: Normal < 5.7 % Predi abetic 5.7 - 6.4 % Diabetic >or= 6.5 % Please note range changes. Basophil percentageOrdered B y: Dr. Bolaños on 04-13-2022 Chloride [Moles/Vol] 105 mmol/L 98-107 [facility] Glucose [Mass/Vol] 143 mg/dL 74-106 [facility] Comment on above: Fasting Glucose resu lt greater than or equal to 126 mg/dL suggests DIABETES MELLITUS per A.D.A. criteria. Potassium [Moles/Vol] 4.4 mmol/L 3.5-5.1 [facility] Sodium [Moles/Vol] 138 mmol/L 136-145 [facility] Laboratory - Chemistry and C hemistry - challengeOrdered By: Dr. Bolaños on 04-13-2022 CO2 [Moles/Vol] 27.0 mmol/L 21.0-32.0 Urea nitrogen/Creatinine [Mass ratio] 19.3 mg/mg 10-20 No Panel InformationOrdered By: Dr. Bolaños on 04-13-2022 Estimated GFR (MDRD) Amer 106 mL/min >60 Comment on above: GFR Calc Estimated GFR (MDRD) Non-Af Amer 87 mL/min >60 Comment on above: Non- GFR Calc Urine Microalbumin/Creatinine Ratio 15.7 mg/g CRE <30 Serum or plasma calcium nohemy urement (mass/volume)Ordered By: Dr. Bolaños on 04-13-2022 Calcium [Mass/Vol] 9.1 mg/dL 8.5-10.1 [facility] Serum or plasma creatinine m easurement (mass/volume)Ordered By: Dr. Bolaños on 04-13-2022 Creatinine [Mass/Vol] 0.93 mg/dL 0.70-1.30 [facility] Comment on above: The validity of the calculated GFR & GFRAA in patients over 70 years has not been determined. Clinical correlation is essential. Serum or plasma urea nitroge n measurement (mass/volume)Ordered By: Dr. Bolaños on 04-13-2022 Urea nitrogen [Mass/Vol] 18 mg/dL 7-18 Thin prep Papanicolaou smear with manual screeningOrdered By: Dr. Bolaños on 04-13-2022 Thin prep Papanicolaou smear with manual screening 6 5-15 Thin prep Papanicolaou smear with manual screening 18.7 mg/L NO RANGE EST. Urine creatinine measurement (mass/volume)Ordered By: Dr. Bolaños on 04-13-2022 Creatinine (U) [Mass/Vol] 119.00 mg/dL NO RANGE EST. Whole blood hemoglobin A1c/t otal hemoglobin ratio (mass fraction)Ordered By: Dr. Bolaños on 04-13-2022 HbA1c (Bld) [Mass fraction] 7.3 % 3.8-5.6 Comment on above: Normal < 5.7 % Predi abetic 5.7 - 6.4 % Diabetic >or= 6.5 % Please note range changes. Basophil percentageon 2021 Bilirubin [Mass/Vol] 0.70 mg/dL 0.20-1.00 [facility] Work Phone: Comment on above: For patients on eltr ombopag therapy, use of Dimension [place] TBIL is not recommended. Chloride [Moles/Vol] 105 mmol/L 98-107 [facility] Work Phone: Cholesterol [Mass/Vol] 185 mg/dL <200 [facility] Work Phone: Comment on above: <200 mg/dL Desirable 200-240 mg/dL Borderline >240 mg/dL High Risk Glucose [Mass/Vol] 151 mg/dL 74-106 [facility] Work Phone: Comment on above: Fasting Glucose resu lt greater than or equal to 126 mg/dL suggests DIABETES MELLITUS per A.D.A. criteria. Potassium [Moles/Vol] 4.2 mmol/L 3.5-5.1 [facility] Work Phone: Protein [Mass/Vol] 7.6 g/dL 6.4-8.2 [facility] Work Phone: Sodium [Moles/Vol] 137 mmol/L 136-145 [facility] Work Phone: Triglyceride [Mass/Vol] 159 mg/dL <199 [facility] Work Phone: Comment on above: The drugs N-Acetylcy steine and Metamizole may falsely depress this assay.Serum Triglycerides Reference Interval Normal <150 mg/dL Borderline high 150 - 199 mg/dL High 200 - 499 mg/dL Very High > or = 500 mg/dL Laboratory - Chemistry and C hemistry - challengeon 01-16-2022 ALP [Catalytic activity/Vol] 76 U/L 45-117 Work Phone: ALT [Catalytic activity/Vol] 38 U/L 16-61 Work Phone: CO2 [Moles/Vol] 27.0 mmol/L 21.0-32.0 Work Phone: Globulin (S) [Mass/Vol] 3.5 g/dL 2.2-4.2 [facility] Work Phone: Urea nitrogen/Creatinine [Mass ratio] 16.7 mg/mg 10-20 Work Phone: No Panel Informationon 01-16 Estimated GFR (MDRD) Amer 120 mL/min >60 Work Phone: Comment on above: GFR Calc Estimated GFR (MDRD) Non-Af Amer 99 mL/min >60 Work Phone: Comment on above: Non- GFR Calc Serum or plasma albumin nohemy urement (mass/volume)on 01-16-2022 Albumin [Mass/Vol] 4.1 g/dL 3.2-5.0 [facility] Work Phone: Serum or plasma albumin/glob ulin mass ratioon 01-16-2022 Albumin/Globulin [Mass ratio] 1.2 {ratio} 0.9-2.4 Work Phone: Serum or plasma calcium nohemy urement (mass/volume)on 01-16-2022 Calcium [Mass/Vol] 9.3 mg/dL 8.5-10.1 [facility] Work Phone: Serum or plasma cholesterol in HDL measurement (mass/volume)on 01-16-2022 Cholesterol in HDL [Mass/Vol] 42 mg/dL >40 Work Phone: Comment on above: The drugs N-Acetylcy steine and Metamizole may falsely depress this assay. Reference Range HDL <40 mg/dL Low HDL Cholesterol HDL >or= 60 mg/dL High HDL Cholesterol Serum or plasma cholesterol in VLDL measurement (mass/volume)on 01-16-2022 Cholesterol in VLDL [Mass/Vol] 32 mg/dL 5-40 Work Phone: Serum or plasma creatinine m easurement (mass/volume)on 01-16-2022 Creatinine [Mass/Vol] 0.84 mg/dL 0.70-1.30 [facility] Work Phone: Comment on above: The validity of the calculated GFR & GFRAA in patients over 70 years has not been determined. Clinical correlation is essential. Serum or plasma low density lipoprotein (LDL) cholesterol measurement (mass/volume)on 01-16-2022 Cholesterol in LDL [Mass/Vol] 111 mg/dL 0-130 Work Phone: Serum or plasma urea nitroge n measurement (mass/volume)on 01-16-2022 Urea nitrogen [Mass/Vol] 14 mg/dL 7-18 Work Phone: Thin prep Papanicolaou smear with manual screeningon 01-16-2022 Thin prep Papanicolaou smear with manual screening 19 U/L 15-37 Work Phone: Thin prep Papanicolaou smear with manual screening 5 5-15 Work Phone: Whole blood hemoglobin A1c/t otal hemoglobin ratio (mass fraction)on 01-16-2022 HbA1c (Bld) [Mass fraction] 6.9 % 3.8-5.6 Work Phone: Comment on above: Normal < 5.7 % Predi abetic 5.7 - 6.4 % Diabetic >or= 6.5 % Please note range changes. Basophil percentageon 2021 Chloride [Moles/Vol] 105 mmol/L 98-107 [facility] Work Phone: Cholesterol [Mass/Vol] 169 mg/dL <200 [facility] Work Phone: Comment on above: <200 mg/dL Desirable 200-240 mg/dL Borderline >240 mg/dL High Risk Glucose [Mass/Vol] 154 mg/dL 74-106 [facility] Work Phone: Comment on above: Fasting Glucose resu lt greater than or equal to 126 mg/dL suggests DIABETES MELLITUS per A.D.A. criteria. Potassium [Moles/Vol] 4.0 mmol/L 3.5-5.1 [facility] Work Phone: Sodium [Moles/Vol] 138 mmol/L 136-145 [facility] Work Phone: Triglyceride [Mass/Vol] 99 mg/dL <199 [facility] Work Phone: Comment on above: The drugs N-Acetylcy steine and Metamizole may falsely depress this assay.Serum Triglycerides Reference Interval Normal <150 mg/dL Borderline high 150 - 199 mg/dL High 200 - 499 mg/dL Very High > or = 500 mg/dL Laboratory - Chemistry and C hemistry - challengeon 10-27-2021 CO2 [Moles/Vol] 28.0 mmol/L 21.0-32.0 Work Phone: Urea nitrogen/Creatinine [Mass ratio] 21.9 mg/mg 10-20 Work Phone: No Panel Informationon 10-27 Estimated GFR (MDRD) Amer 103 mL/min >60 Work Phone: Comment on above: GFR Calc Estimated GFR (MDRD) Non-Af Amer 85 mL/min >60 Work Phone: Comment on above: Non- GFR Calc Serum or plasma calcium nohemy urement (mass/volume)on 10-27-2021 Calcium [Mass/Vol] 9.4 mg/dL 8.5-10.1 [facility] Work Phone: Serum or plasma cholesterol in HDL measurement (mass/volume)on 10-27-2021 Cholesterol in HDL [Mass/Vol] 41 mg/dL >40 Work Phone: Comment on above: The drugs N-Acetylcy steine and Metamizole may falsely depress this assay. Reference Range HDL <40 mg/dL Low HDL Cholesterol HDL >or= 60 mg/dL High HDL Cholesterol Serum or plasma cholesterol in VLDL measurement (mass/volume)on 10-27-2021 Cholesterol in VLDL [Mass/Vol] 20 mg/dL 5-40 Work Phone: Serum or plasma creatinine m easurement (mass/volume)on 10-27-2021 Creatinine [Mass/Vol] 0.96 mg/dL 0.70-1.30 [facility] Work Phone: Comment on above: The validity of the calculated GFR & GFRAA in patients over 70 years has not been determined. Clinical correlation is essential. Serum or plasma low density lipoprotein (LDL) cholesterol measurement (mass/volume)on 10-27-2021 Cholesterol in LDL [Mass/Vol] 108 mg/dL 0-130 Work Phone: Serum or plasma urea nitroge n measurement (mass/volume)on 10-27-2021 Urea nitrogen [Mass/Vol] 21 mg/dL 7-18 Work Phone: Thin prep Papanicolaou smear with manual screeningon 10-27-2021 Thin prep Papanicolaou smear with manual screening 5 5-15 Work Phone: Whole blood hemoglobin A1c/t otal hemoglobin ratio (mass fraction)on 10-27-2021 HbA1c (Bld) [Mass fraction] 7.5 % 3.8-5.6 Work Phone: Comment on above: Normal < 5.7 % Predi abetic 5.7 - 6.4 % Diabetic >or= 6.5 % Please note range changes. SURGICAL PATHOLOGY, [place]VER[place] Don 10-16-2008 [facility] Encounters Encounter Date Encounter Type Care Provider Facility Start: 09-09-2024 End: 09-09-2024 ambulatory Yaz Acuna PT Work Phone: [facility] Comment on above: Lumbar radiculopathy (Primary Dx); Degeneration of intervertebral disc of lumbar region with discogenic back pain and lower extremity pain Start: 09-02-2024 End: 09-02-2024 ambulatory Yaz Acuna PT Work Phone: [facility] Comment on above: Lumbar radiculopathy (Primary Dx) Start: 08-26-2024 End: 08-26-2024 ambulatory Yaz Acuna PT Work Phone: [facility] Comment on above: Lumbar radiculopathy (Primary Dx); Degeneration of intervertebral disc of lumbar region with discogenic back pain and lower extremity pain Start: 08-19-2024 End: 08-19-2024 ambulatory Yaz Acuna PT Work Phone: [facility] Comment on above: Degeneration of inte rvertebral disc of lumbar region with discogenic back pain and lower extremity pain (Primary Dx); Lumbar radiculopathy Start: 08-08-2024 End: 08-08-2024 ambulatory Yaz Acuna PT Work Phone: [facility] Comment on above: Degeneration of inte rvertebral disc of lumbar region with discogenic back pain and lower extremity pain (Primary Dx); Lumbar radiculopathy Start: 06-26-2024 End: 06-26-[address] Dodie Bertrand DO Work Phone: Work Phone: Start: 06-26-2024 End: 06-26-[address] Adri Bolaños MD -Laboratory Work Phone: Start: 06-26-2024 End: 06-26-2024 ambulatory [facility] Facility: Start: 06-18-2024 End: 06-18-[address] Dodie Bertrand DO Work Phone: Work Phone: Start: 06-18-2024 End: 06-18-[address] Dodie Bertrand DO -Radiology, [facility] Work Phone: Start: 06-18-2024 End: 06-18-2024 ambulatory Dodie Bertrand Facility: Start: 02-18-2024 End: 02-18-2024 ambulatory Adri Bolaños Facility: Start: 10-17-2023 End: 10-17-2023 ambulatory Adri Runer Facility: Start: 06-13-2023 End: 06-13-2023 ambulatory Work Phone: Start: 06-13-2023 End: 06-13-2023 Patient encounter procedure [facility] Work Phone: Start: 03-14-2023 End: 03-14-2023 ambulatory Work Phone: Start: 03-14-2023 End: 03-14-2023 Patient encounter procedure -Laboratory Work Phone: Start: 01-10-2023 End: 01-10-2023 ambulatory Work Phone: Start: 01-10-2023 End: 01-10-2023 Patient encounter procedure -Laboratory Work Phone: Start: 10-12-2022 End: 10-12-2022 ambulatory Work Phone: Start: 10-12-2022 End: 10-12-2022 Patient encounter procedure -Laboratory Work Phone: Start: 07-13-2022 End: 07-13-2022 ambulatory Work Phone: Start: 07-13-2022 End: 07-13-2022 Patient encounter procedure [facility] Start: 04-13-2022 End: 04-13-2022 Patient encounter procedure -Laboratory Start: 01-16-2022 End: 01-16-2022 ambulatory Work Phone: Start: 01-16-2022 End: 01-16-2022 Patient encounter procedure [facility] Start: 10-27-2021 End: 10-27-2021 ambulatory Work Phone: Start: 10-27-2021 End: 10-27-2021 Patient encounter procedure -Laboratory Start: 10-16-2008 Documentation procedure Gibson Pelayo MD Work Phone: [facility] Start: 10-16-2008 Historic EMR Gibson Pelayo MD Work Phone: [facility] Procedures Date Procedure Procedure Detail Performing Clinician Start: 06-18-2024 Complete x-ray serie s of lumbar spine with bending views Dr. Dodie Bertrand DO Work Phone: Start: 06-17-2016 Lipid 1996 panel - S brigido or Plasma Gibson Pelayo MD Work Phone: Start: 10-16-2008 SURGICAL PATHOLOGY, CONVERTED Gibson Pelayo MD Work Phone: Plan of Treatment Date Care Activity Detail Author Start: 2035 RSV Vaccine (1 - 1-d ose 75+ series) RSV Vaccine (1 - 1-dose 75+ series) [facility] Start: 10-24-2025 Urine microalbumin profile DTaP,Tdap,Td Vaccine (2 - Td or Tdap) [facility] Start: 11-10-2024 Influenza vaccination [facility] Start: 09-09-2024 End: 09-09-2024 ambulatory 09/09/2024 7:45 AM EDT OT/PT/Speech Visit [facility] [address] [place] [address] Yaz Acuna, PT [address] [place], [place] [phone] BACK PAIN [facility] Comment on above: BACK PAIN Start: 09-02-2024 End: 09-02-2024 ambulatory 09/02/2024 7:45 AM EDT OT/PT/Speech Visit [facility] [address] [place] [address] Yaz Acuna, PT [address], [place] [phone] BACK PAIN [facility] Comment on above: BACK PAIN Start: 08-26-2024 End: 08-26-2024 ambulatory 08/26/2024 7:45 AM EDT OT/PT/Speech Visit [facility] [address] [place] [address] Yaz Acuna, PT [address] [place] [address] BACK PAIN [facility] Comment on above: BACK PAIN Start: 08-19-2024 End: 08-19-2024 ambulatory 08/19/2024 7:00 AM EDT OT/PT/Speech Visit [facility] [address] [place] [address] Yaz Acuna, PT [address] [place] [id number] BACK PAIN [facility] Comment on above: BACK PAIN Start: 11-11-2023 Covid-19 Vaccine () Covid-19 Vaccine () [facility] Start: 11-10-2022 Influenza vaccination Influenza Vacc ine (#1) [facility] Start: 03-12-2022 Depression Assessment Depression Ass essment [facility] Start: 06-17-2021 Lipid 1996 panel - S brigido or Plasma Lipid Screening [facility] Start: 06-17-2021 Lipid panel Lipid Screening [facility] Start: 06-17-2021 Prostate Cancer Screening Discussion Prostate Cancer Screening Discussion [facility] Start: 06-17-2021 Prostate specific antigen measurement Prostate Cancer Screening Discussion [facility] Start: 06-18-2019 Diabetes Screening Diabetes Screenin g [facility] Start: 2010 Pneumococcal Vaccine : 50+ (1 of 1 - PCV) Pneumococcal Vaccine: 50+ (1 of 1 - PCV) [facility] Start: 2010 Shingrix Vaccine (1 of 2) Shingrix Vaccine (1 of 2) [facility] Start: 2005 Cologuard (FIT-DNA) Cologuard (FIT-D NA) [facility] Start: 2005 Colonoscopy Colonoscopy [facility] Start: 2005 Colorectal Cancer Screening Colorectal Cancer Screening [facility] Start: [address] [facility] Start: 2005 Fecal Occult Blood Fecal Occult Bloo d [facility] Start: 2005 Screening for malign ant neoplasm of colon [facility] Start: 2005 SIGMOIDOSCOPY SIGMOIDOSCOPY [facility] Start: 1979 Urine microalbumin profile DTaP,Tdap,Td Vaccine (1 - Tdap) [facility] Start: 1978 Anxiety Screening Anxiety Screening [facility] Start: 1978 Depression Screening Depression Scre leenaing [facility] Start: 1978 Hepatitis C Screening Hepatitis C [facility] Start: 1978 Hepatitis C screening Hepatitis C [facility] Start: 1978 HIV Screening HIV Screening [facility] Start: 1978 HIV screening HIV Screening [facility] Start: 1960 Covid-19 Vaccine (#1) Covid-19 Vacci ne (#1) [facility] Immunizations Immunization Date Immunization Notes Care Provider Fa vicente 02-20-2022 influenza virus vacc ine, unspecified formulation Yaz Acuna PT Work Phone: [facility] Payers Date Payer Category Payer Self-pay [id number] 2021 Private Health Insurance M[employer] PPO [id number] 2021 Unknown [id number] Unknown [employer] [id number] Unknown [id number] Unknown [id number] Unknown [id number] Unknown [id number] Social History Date Type Detail Facility Start: 05-19-2019 End: 05-19-2019 Tobacco smoking status [facility] Unknown if ever smoked Start: 05-19-2019 Non-smoker [facility] Start: 1960 Sex Assigned At Male [facility] Start: 05-27-2020 End: 08-19-2024 History of Social function [facility] Start: 05-27-2020 End: 08-19-2024 Tobacco use panel [facility] National Score (1-10 0), lower number is lower risk Not on file [facility] Start: 1960 Sex Assigned At Not on file [facility] Start: 04-27-2020 End: 05-27-2020 Exposure to SARS-CoV-2 (event) Not sure [facility] Start: 02-28-2017 End: 05-19-2019 Tobacco smoking status NHIS Never smoked tobacco (finding) Start: 06-24-2024 End: 07-01-2024 Sex Male (finding) Start: 02-28-2017 Tobacco use and exposure Smokeless tobacco non-user [facility] Start: 05-27-2020 Alcoholic beverage intake Not Asked [facility] Goals Date Patient Goal Desired Activity /State Clinical Notes 06-19-2024 to 09-09-2024 Yaz Acuna, PT - 09/09/2024 7:56 AM Yaz Jain PT - 09/02/2024 7:46 AM Yaz Jain, PT - 08/26/2024 7:43 AM Yaz Jain, PT - 08/19/2024 7:03 AM EDT Note Date & Type Note Facility 09-09-2024 Note HNO ID: [id number] Author: ARMAND, YAZ, PT Service: ? Author Type: Physical Therapist Type: Progress Notes Filed: 09/09/2024 08:19 Note Text: Episode Visit Count: 5 Therapist That Will Accept/Oversee The Plan Of Care: Yaz Acuna PT Start of Care Date: 08/08/24 Onset Date: 03/21/24 REHABILITATION AND SPORTS THERAPY PHYSICAL THERAPY DISCONTINUANCE OF CARE PLAN OF CARE UPDATE: Assessment: Ignacio Larios is discontinued from Physical Therapy services due to maximal benefit.. Patient was seen for 5 visits from Start of Care Date: 08/08/24 to 09/09/2024 and treatment included: Therapeutic exercise and Manual therapy. Goals for Episode of Care: established 08/08/24 Independent in home exercises. - Met Patient will decrease pain rating by 2 points to meet minimal clinical important difference for numeric pain rating scale. - Met Pt will be able to stay bend over at work without pain for 2 hours or greater in 4 weeks - Met Sit 2 hours without pain/symptoms to allow for ease of driving and getting out of the car after long trips- progressed Pt Patient Goals: Get rid of the symptoms SUBJECTIVE: Pt feels 80% better. Still has some stiffness. stiffness in the knee right now. Stiffness in the back is worse in the mornings. Prior Level of Function: Independent without limitations Intake Information: Prescription present Pain: Pain Pain Location: Low Back/Lumbar Spine - Right, Low Back/Lumbar Spine - Left PROMIS Scales 08/08/2024 Higher is Better Self-Eff Symptom - T Score 48 (Average) Self-Eff Symptom - Percentile 42 08/08/2024 Lower is Better Pain Interference - T Score 57 (mild) Pain Interference - Percentile 24 T-scores: mean of general population = 50. 5 points is clinically meaningfully difference Percentiles provide an indication of how the patient's score ranks in relation to the general population. Higher percentile rankings indicate better function/quality of life. 50th percentile is the average of the general population and indicates half of respondents had a worse score. OBJECTIVE MEASURES WITH LEVEL OF FUNCTION: Lumbar Spine AROM Lumbar Flexion: Normal Lumbar Extension: Normal Lumbar R Side-Bend: Normal Lumbar L Side-Bend: Normal Lumbar R Rotation: Normal Lumbar L Rotation: Normal Thoracic Spine AROM Thoracic Rotation Right: Normal Thoracic Rotation Left: Normal LE Flexibility Flexibility: Hamstring Flexibility R Hamstring Flexibility: WNL L Hamstring Flexibility: WNL Gait Gait Observation: WNL TREATMENT: Therapeutic Exercise: 1: All objective measures taken 2: Standing Lat stretch on wall x 30 sec 3: Seated Lat stretch bilaterally, on stool 3 x 30 sec Skilled Intervention: Patient was educated in proper exercise technique and purpose for exercises. Correct performance of therapeutic exercises was facilitated with verbal cuing. Billing Therapeutic Exercise Treatment Minutes: 27 Skilled Treatment Time Minutes (timed and untimed codes): 27 Total Session Time (minutes): 27 Session Start Time : 750 Session Stop Time : 817 Yaz Acuna PT [facility] 09-09-2024 History of Present illness Narrative Images from the original note were not included. Episode Visit Count: 5 Therapist That Will Accept/Oversee The Plan Of Care: Yaz Acuna PT Start of Care Date: 08/08/24 Onset Date: 03/21/24 REHABILITATION AND SPORTS THERAPY PHYSICAL THERAPY DISCONTINUANCE OF CARE PLAN OF CARE UPDATE: Assessment: Ignacio Larios is discontinued from Physical Therapy services due to maximal benefit.. Patient was seen for 5 visits from Start of Care Date: 08/08/24 to 09/09/2024 and treatment included: Therapeutic exercise and Manual therapy. Goals for Episode of Care: established 08/08/24 Independent in home exercises. - Met Patient will decrease pain rating by 2 points to meet minimal clinical important difference for numeric pain rating scale. - Met Pt will be able to stay bend over at work without pain for 2 hours or greater in 4 weeks - Met Sit 2 hours without pain/symptoms to allow for ease of driving and getting out of the car after long trips- progressed Pt Patient Goals: Get rid of the symptoms SUBJECTIVE: Pt feels 80% better. Still has some stiffness. stiffness in the knee right now. Stiffness in the back is worse in the mornings. Prior Level of Function: Independent without limitations Intake Information: Prescription present Pain: Pain Pain Location: Low Back/Lumbar Spine - Right, Low Back/Lumbar Spine - Left PROMIS Scales 08/08/2024 Higher is Better Self-Eff Symptom - T Score 48 (Average) Self-Eff Symptom - Percentile 42 08/08/2024 Lower is Better Pain Interference - T Score 57 (mild) Pain Interference - Percentile 24 T-scores: mean of general population = 50. 5 points is clinically meaningfully difference Percentiles provide an indication of how the patient's score ranks in relation to the general population. Higher percentile rankings indicate better function/quality of life. 50th percentile is the average of the general population and indicates half of respondents had a worse score. OBJECTIVE MEASURES WITH LEVEL OF FUNCTION: Lumbar Spine AROM Lumbar Flexion: Normal Lumbar Extension: Normal Lumbar R Side-Bend: Normal Lumbar L Side-Bend: Normal Lumbar R Rotation: Normal Lumbar L Rotation: Normal Thoracic Spine AROM Thoracic Rotation Right: Normal Thoracic Rotation Left: Normal LE Flexibility Flexibility: Hamstring Flexibility R Hamstring Flexibility: WNL L Hamstring Flexibility: WNL Gait Gait Observation: WNL TREATMENT: Therapeutic Exercise: 1: All objective measures taken 2: Standing Lat stretch on wall x 30 sec 3: Seated Lat stretch bilaterally, on stool 3 x 30 sec Skilled Intervention: Patient was educated in proper exercise technique and purpose for exercises. Correct performance of therapeutic exercises was facilitated with verbal cuing. Billing Therapeutic Exercise Treatment Minutes: 27 Skilled Treatment Time Minutes (timed and untimed codes): 27 Total Session Time (minutes): Session Start Time : 750 Session Stop Time : 817 Yaz Acuna PT documented in this encounter [facility] 09-02-2024 Note HNO ID: [id number] Author: YAZ ACUNA PT Service: ? Author Type: Physical Therapist Type: Progress Notes Filed: 09/02/2024 08:26 Note Text: Episode Visit Count: 4 Therapist That Will Accept/Oversee The Plan Of Care: Yaz Acuna PT Start of Care Date: 08/08/24 Onset Date: 03/21/24 Patient Identified by Name and Date of : Yes REHABILITATION AND SPORTS THERAPY PHYSICAL THERAPY TREATMENT NOTE ASSESSMENT: Ignacio Larios tolerated the session with expected muscle soreness. He demonstrated good form with all therapeutic exercises. The patient will continue to benefit from ongoing skilled physical therapy to progress toward set goals. PLAN FOR NEXT VISIT: Possible DC SUBJECTIVE: Dug footers and has been outside in the heat. Still stiff in the mornings. Overall it is better. Pain: Pain Pain Location: Low Back/Lumbar Spine - Right, Low Back/Lumbar Spine - Left OBJECTIVE MEASURES WITH LEVEL OF FUNCTION: TREATMENT: Therapeutic Exercise: 1: Stationary bike x 5 min (1:1 time spent and continuous motion encouraged) 2: Standing thoracic rotation against wall x 10 R and x 10 L 3: Seated figure 4 glute stretch 3 x 30 sec RLE and 3 x 30 sec LLE 4: Seated RLE Hs stretch 3 x 30 sec and LLE 3 x 30 sec 5: Child's pose x 30 sec x 5 Skilled Intervention: Patient was educated in proper exercise technique and purpose for exercises. Correct performance of therapeutic exercises was facilitated with verbal and visual cuing. Billing Therapeutic Exercise Treatment Minutes: 40 Skilled Treatment Time Minutes (timed and untimed codes): 40 Total Session Time (minutes): 40 Session Start Time : 745 Session Stop Time : 825 Yaz Acuna PT [facility] 09-02-2024 History of Present illness Narrative Episode Visit Count: 4 Therapist That Will Accept/Oversee The Plan Of Care: Yaz Acuna PT Start of Care Date: 08/08/24 Onset Date: 03/21/24 Patient Identified by Name and Date of : Yes REHABILITATION AND SPORTS THERAPY PHYSICAL THERAPY TREATMENT NOTE ASSESSMENT: Ignacio Larios tolerated the session with expected muscle soreness. He demonstrated good form with all therapeutic exercises. The patient will continue to benefit from ongoing skilled physical therapy to progress toward set goals. PLAN FOR NEXT VISIT: Possible DC SUBJECTIVE: Dug footers and has been outside in the heat. Still stiff in the mornings. Overall it is better. Pain: Pain Pain Location: Low Back/Lumbar Spine - Right, Low Back/Lumbar Spine - Left OBJECTIVE MEASURES WITH LEVEL OF FUNCTION: TREATMENT: Therapeutic Exercise: 1: Stationary bike x 5 min (1:1 time spent and continuous motion encouraged) 2: Standing thoracic rotation against wall x 10 R and x 10 L 3: Seated figure 4 glute stretch 3 x 30 sec RLE and 3 x 30 sec LLE 4: Seated RLE Hs stretch 3 x 30 sec and LLE 3 x 30 sec 5: Child's pose x 30 sec x 5 Skilled Intervention: Patient was educated in proper exercise technique and purpose for exercises. Correct performance of therapeutic exercises was facilitated with verbal and visual cuing. Billing Therapeutic Exercise Treatment Minutes: 40 Skilled Treatment Time Minutes (timed and untimed codes): 40 Total Session Time (minutes): 40 Session Start Time : 745 Session Stop Time : 825 Yaz Acuna PT documented in this encounter [facility] 08-26-2024 Note HNO ID: [id number] Author: YAZ ACUAN PT Service: ? Author Type: Physical Therapist Type: Progress Notes Filed: 08/26/2024 08:24 Note Text: Episode Visit Count: 3 Therapist That Will Accept/Oversee The Plan Of Care: Yaz Aucna PT Start of Care Date: 08/08/24 Onset Date: 03/21/24 Patient Identified by Name and Date of : Yes REHABILITATION AND SPORTS THERAPY PHYSICAL THERAPY TREATMENT NOTE ASSESSMENT: Ignacio Larios tolerated the session with expected muscle soreness. He demonstrated good form with all therapeutic exercises. The patient will continue to benefit from ongoing skilled physical therapy to progress toward set goals. PLAN FOR NEXT VISIT: HS stretching, lumbar paraspinal stretching. SUBJECTIVE: The knees and back feel great, but he is dealing with a lot. His brother passed very recently. Pain: Pain Pain Level: 0 Pain Location: Low Back/Lumbar Spine - Right, Low Back/Lumbar Spine - Left Post Treatment Pain Post Treatment Pain Level: No Change Post Treatment Pain Location: Low Back/Lumbar Spine - Left, Low Back/Lumbar Spine - Right OBJECTIVE MEASURES WITH LEVEL OF FUNCTION: TREATMENT: Therapeutic Exercise: 1: Child's pose x 10 2: Child's pose offset to the L x 10 3: Child's pose offset to the R x 10 4: DKTC x 10 5: Hooklying LTR x 10 R and x 10 L 6: Seated R HS stretch 4 x 30 sec 7: Seated L HS stretch 4 x 30 sec 8: Seated figure 4 glute stretch 4 x 30 sec RLE then 4 x 30 sec LLE Skilled Intervention: Patient was educated in proper exercise technique and purpose for exercises. Correct performance of therapeutic exercises was facilitated with verbal cuing. Billing Therapeutic Exercise Treatment Minutes: 41 Skilled Treatment Time Minutes (timed and untimed codes): 41 Total Session Time (minutes): 41 Session Start Time : 742 Session Stop Time : 823 Yaz Acuna PT [facility] 08-26-2024 History of Present illness Narrative Episode Visit Count: 3 Therapist That Will Accept/Oversee The Plan Of Care: Yaz Acuna PT Start of Care Date: 08/08/24 Onset Date: 03/21/24 Patient Identified by Name and Date of : Yes REHABILITATION AND SPORTS THERAPY PHYSICAL THERAPY TREATMENT NOTE ASSESSMENT: Ignacio Larios tolerated the session with expected muscle soreness. He demonstrated good form with all therapeutic exercises. The patient will continue to benefit from ongoing skilled physical therapy to progress toward set goals. PLAN FOR NEXT VISIT: HS stretching, lumbar paraspinal stretching. SUBJECTIVE: The knees and back feel great, but he is dealing with a lot. His brother passed very recently. Pain: Pain Pain Level: 0 Pain Location: Low Back/Lumbar Spine - Right, Low Back/Lumbar Spine - Left Post Treatment Pain Post Treatment Pain Level: No Change Post Treatment Pain Location: Low Back/Lumbar Spine - Left, Low Back/Lumbar Spine - Right OBJECTIVE MEASURES WITH LEVEL OF FUNCTION: TREATMENT: Therapeutic Exercise: 1: Child's pose x 10 2: Child's pose offset to the L x 10 3: Child's pose offset to the R x 10 4: DKTC x 10 5: Hooklying LTR x 10 R and x 10 L 6: Seated R HS stretch 4 x 30 sec 7: Seated L HS stretch 4 x 30 sec 8: Seated figure 4 glute stretch 4 x 30 sec RLE then 4 x 30 sec LLE Skilled Intervention: Patient was educated in proper exercise technique and purpose for exercises. Correct performance of therapeutic exercises was facilitated with verbal cuing. Billing Therapeutic Exercise Treatment Minutes: 41 Skilled Treatment Time Minutes (timed and untimed codes): 41 Total Session Time (minutes): 41 Session Start Time : 742 Session Stop Time : 823 Yaz Acuna PT documented in this encounter [facility] 08-19-2024 Note HNO ID: [id number] Author: YAZ ACUNA PT Service: ? Author Type: Physical Therapist Type: Progress Notes Filed: 08/19/2024 07:48 Note Text: Episode Visit Count: 2 Therapist That Will Accept/Oversee The Plan Of Care: Yaz Acuna PT Start of Care Date: 08/08/24 Onset Date: 03/21/24 Patient Identified by Name and Date of : Yes REHABILITATION AND SPORTS THERAPY PHYSICAL THERAPY TREATMENT NOTE ASSESSMENT: Ignacio Larios tolerated the session with no issues. He demonstrated good form with all therapeutic exercises. The patient will continue to benefit from ongoing skilled physical therapy to progress toward set goals. PLAN FOR NEXT VISIT: Assess lumbar extensor strength SUBJECTIVE: Pt has been very busy. The knees get sore in the back after the stretches. Pain: Pain Pain Level: 0 Pain Location: Low Back/Lumbar Spine - Right, Low Back/Lumbar Spine - Left Post Treatment Pain Post Treatment Pain Level: No Change Post Treatment Pain Location: Low Back/Lumbar Spine - Left, Low Back/Lumbar Spine - Right OBJECTIVE MEASURES WITH LEVEL OF FUNCTION: Lumbar flexion WNL without pain Lumbar extension ROM WNL without pain Lumbar SB stiff in the muscles per pt report PA of L1-5 is WNL TREATMENT: Therapeutic Exercise: 1: Hooklying LTR x 10 to the R 2: Hooklying LTR to L x 10 3: DKTC x 10 Skilled Intervention: Patient was educated in proper exercise technique and purpose for exercises. Correct performance of therapeutic exercises was facilitated with verbal cuing. Manual Therapy: 1: IASTM over lumbar paraspinals 2: Bowstringing paraspinals of the lumbar spine Skilled Intervention: Manual skills to improve joint mobility, ROM, and decrease pain. Utilized anatomy knowledge of the clinician, and assessment of patient's response to intervention. Billing Therapeutic Exercise Treatment Minutes: 15 Manual TherapyTreatment Minutes: 25 Skilled Treatment Time Minutes (timed and untimed codes): 40 Total Session Time (minutes): 40 Session Start Time : 702 Session Stop Time : 742 Yaz Acuna PT [facility] 08-19-2024 History of Present illness Narrative Episode Visit Count: 2 Therapist That Will Accept/Oversee The Plan Of Care: Yaz Acuna PT Start of Care Date: 08/08/24 Onset Date: 03/21/24 Patient Identified by Name and Date of : Yes REHABILITATION AND SPORTS THERAPY PHYSICAL THERAPY TREATMENT NOTE ASSESSMENT: Ignacio Larios tolerated the session with no issues. He demonstrated good form with all therapeutic exercises. The patient will continue to benefit from ongoing skilled physical therapy to progress toward set goals. PLAN FOR NEXT VISIT: Assess lumbar extensor strength SUBJECTIVE: Pt has been very busy. The knees get sore in the back after the stretches. Pain: Pain Pain Level: 0 Pain Location: Low Back/Lumbar Spine - Right, Low Back/Lumbar Spine - Left Post Treatment Pain Post Treatment Pain Level: No Change Post Treatment Pain Location: Low Back/Lumbar Spine - Left, Low Back/Lumbar Spine - Right OBJECTIVE MEASURES WITH LEVEL OF FUNCTION: Lumbar flexion WNL without pain Lumbar extension ROM WNL without pain Lumbar SB stiff in the muscles per pt report PA of L1-5 is WNL TREATMENT: Therapeutic Exercise: 1: Hooklying LTR x 10 to the R 2: Hooklying LTR to L x 10 3: DKTC x 10 Skilled Intervention: Patient was educated in proper exercise technique and purpose for exercises. Correct performance of therapeutic exercises was facilitated with verbal cuing. Manual Therapy: 1: IASTM over lumbar paraspinals 2: Bowstringing paraspinals of the lumbar spine Skilled Intervention: Manual skills to improve joint mobility, ROM, and decrease pain. Utilized anatomy knowledge of the clinician, and assessment of patient's response to intervention. Billing Therapeutic Exercise Treatment Minutes: 15 Manual TherapyTreatment Minutes: 25 Skilled Treatment Time Minutes (timed and untimed codes): 40 Total Session Time (minutes): 40 Session Start Time : 702 Session Stop Time : 742 Yaz Acuna PT documented in this encounter [facility] 08-08-2024 Note HNO ID: [id number] Author: YAZ ACUNA PT Service: ? Author Type: Physical Therapist Type: Progress Notes Filed: 08/08/2024 10:24 Note Text: Episode Visit Count: Visit count could not be calculated. Make sure you are using a visit which is associated with an episode. Therapist That Will Accept/Oversee The Plan Of Care: Yaz Acuna PT Start of Care Date: 08/08/24 Onset Date: 03/21/24 Patient Identified by Name and Date of : Yes REHABILITATION AND SPORTS THERAPY PHYSICAL THERAPY EVALUATION PLAN OF CARE: Assessment: Ignacio Larios presents with chief complaint of LBP that interferes with bending . The patient presents with impairments in ADL's, flexibility, independence in exercise, and tissue tenderness. PROMIS? (Patient-Reported Outcomes Measurement Information System) scores were reviewed and identified as a rehabilitation concern. Prognosis for therapy is Good due to: current objective clinical presentation . The patient will benefit from skilled therapy services to meet the goals established for this plan of care as noted below. Classification Pain Mechanism Classification: Nociceptive Low Back Pain Classification: Functional Optimization Goals for Episode of Care: established 08/08/24 Independent in home exercises. Patient will decrease pain rating by 2 points to meet minimal clinical important difference for numeric pain rating scale. Pt will be able to stay bend over at work without pain for 2 hours or greater in 4 weeks Sit 2 hours without pain/symptoms to allow for ease of driving and getting out of the car after long trips Pt Patient Goals: Get rid of the symptoms Time Frame for Goals and Treatment : 09/05/24 Planned Interventions, Frequency, and Duration: Current Frequency: 1x/week Duration: 4 weeks Total Number of Visits Planned: 4 Planned Treatment Interventions: Therapeutic exercise (31897), Neuromuscular re-education (32045), Manual therapy (20382), Therapeutic activities (35729), Patient/Family/Caregiver Education PLAN FOR NEXT VISIT: Increase Lumbar extensor flexibility Patient demonstrates good understanding of plan of care and treatment. The above goals and plan of care were discussed and agreed upon by patient/family. 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 Broke bones in the hands, the L clavicle, and has had some strains. Pt has a difficult time sitting still. Has a [employer]. 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 Goes to the chiropractor who said that it is better that he see a specialist for his back. Took some steroids and the back is getting better. Does have a gym in the basement. Uses and inversion table and TENS unit. When he wakes up he feels stiff and it feels like a lower back ache across the low back. If he is on his knees for awhile the back gets stiff and aches. Initially he had pain down both legs to the knees but that is gone now. Patient Goals: Get rid of the symptoms Functional Limitations: bending Prior Level of Function: Independent without limitations Relevant History Past Relevant Surgical Conditions: Comments (Meniscal surgery on the L knee) Intake Information: Prescription present Previous Treatment: NSAIDs Pain: Pain Pain Level: 1 (4/10 on average) Pain Location: Low Back/Lumbar Spine - Right, Low Back/Lumbar Spine - Left Description: Aching OBJECTIVE MEASURES WITH LEVEL OF FUNCTION: Posture / Alignment Posture: Rounded shoulders, Forward head (Min to mod in degree) Lumbar Spine AROM Lumbar Flexion: Minimal limitation (stretching felt in the lower lumbar spinal muscles) Lumbar Extension: Normal (cacking audible once) Lumbar R Side-Bend: Normal Lumbar L Side-Bend: Normal LE Flexibility Flexibility: Hamstring Flexibility R Hamstring Flexibility: WNL L Hamstring Flexibility: WNL Spine Joint Mobility Spine Joint Mobility : Lumbar/Thoracic Joint Mobility - T12: WNL Joint Mobility - L1: WNL Joint Mobility - L2: WNL Joint Mobility - L3: WNL Joint Mobility - L4: WNL Joint Mobility - L5: WNL Joint Mobility - S1: WNL Gait Gait Observation: WNL Education: Education Learning Preferences: Demonstration, Explanation, Performance, Printed Materials Barriers: None Learning/educational needs: Home exercise program, Plan of Care, Changes in Plan of Care Education Provided: Yes, see treatment interventions for education provided Education Provided To: Patient Education Mode/Type: Demonstration, Explanation/Discussion, Literature/Printed Materials, Performance Response to Education/Teach Back: States/Identifies, Return Demonstration TREATMENT: PT Treatment Interventions: Therapeutic Exercise Evaluation Therapeutic Exercise: 1: Discussed exam findings, purpose of the HEP and the HEP handout was provided to the pt. HEP discussed in detail with how to safely and properly perform each therapeutic exercise. 2: Mishel pose down F 3 x 30 sec 3: (more content not included)... [facility] 08-08-2024 History of Present illness Narrative Episode Visit Count: Visit count could not be calculated. Make sure you are using a visit which is associated with an episode. Therapist That Will Accept/Oversee The Plan Of Care: Yaz Acuna PT Start of Care Date: 08/08/24 Onset Date: 03/21/24 Patient Identified by Name and Date of : Yes REHABILITATION AND SPORTS THERAPY PHYSICAL THERAPY EVALUATION PLAN OF CARE: Assessment: Ignacio Larios presents with chief complaint of LBP that interferes with bending . The patient presents with impairments in ADL's, flexibility, independence in exercise, and tissue tenderness. PROMIS (Patient-Reported Outcomes Measurement Information System) scores were reviewed and identified as a rehabilitation concern. Prognosis for therapy is Good due to: current objective clinical presentation . The patient will benefit from skilled therapy services to meet the goals established for this plan of care as noted below. Classification Pain Mechanism Classification: Nociceptive Low Back Pain Classification: Functional Optimization Goals for Episode of Care: established 08/08/24 Independent in home exercises. Patient will decrease pain rating by 2 points to meet minimal clinical important difference for numeric pain rating scale. Pt will be able to stay bend over at work without pain for 2 hours or greater in 4 weeks Sit 2 hours without pain/symptoms to allow for ease of driving and getting out of the car after long trips Pt Patient Goals: Get rid of the symptoms Time Frame for Goals and Treatment : 09/05/24 Planned Interventions, Frequency, and Duration: Current Frequency: 1x/week Duration: 4 weeks Total Number of Visits Planned: 4 Planned Treatment Interventions: Therapeutic exercise (34991), Neuromuscular re-education (67161), Manual therapy (72510), Therapeutic activities (07880), Patient/Family/Caregiver Education PLAN FOR NEXT VISIT: Increase Lumbar extensor flexibility Patient demonstrates good understanding of plan of care and treatment. The above goals and plan of care were discussed and agreed upon by patient/family. 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 Broke bones in the hands, the L clavicle, and has had some strains. Pt has a difficult time sitting still. Has a ReplyBuy. 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 Goes to the chiropractor who said that it is better that he see a specialist for his back. Took some steroids and the back is getting better. Does have a gym in the basement. Uses and inversion table and TENS unit. When he wakes up he feels stiff and it feels like a lower back ache across the low back. If he is on his knees for awhile the back gets stiff and aches. Initially he had pain down both legs to the knees but that is gone now. Patient Goals: Get rid of the symptoms Functional Limitations: bending Prior Level of Function: Independent without limitations Relevant History Past Relevant Surgical Conditions: Comments (Meniscal surgery on the L knee) Intake Information: Prescription present Previous Treatment: NSAIDs Pain: Pain Pain Level: 1 (4/10 on average) Pain Location: Low Back/Lumbar Spine - Right, Low Back/Lumbar Spine - Left Description: Aching OBJECTIVE MEASURES WITH LEVEL OF FUNCTION: Posture / Alignment Posture: Rounded shoulders, Forward head (Min to mod in degree) Lumbar Spine AROM Lumbar Flexion: Minimal limitation (stretching felt in the lower lumbar spinal muscles) Lumbar Extension: Normal (cacking audible once) Lumbar R Side-Bend: Normal Lumbar L Side-Bend: Normal LE Flexibility Flexibility: Hamstring Flexibility R Hamstring Flexibility: WNL L Hamstring Flexibility: WNL Spine Joint Mobility Spine Joint Mobility : Lumbar/Thoracic Joint Mobility - T12: WNL Joint Mobility - L1: WNL Joint Mobility - L2: WNL Joint Mobility - L3: WNL Joint Mobility - L4: WNL Joint Mobility - L5: WNL Joint Mobility - S1: WNL Gait Gait Observation: WNL Education: Education Learning Preferences: Demonstration, Explanation, Performance, Printed Materials Barriers: None Learning/educational needs: Home exercise program, Plan of Care, Changes in Plan of Care Education Provided: Yes, see treatment interventions for education provided Education Provided To: Patient Education Mode/Type: Demonstration, Explanation/Discussion, Literature/Printed Materials, Performance Response to Education/Teach Back: States/Identifies, Return Demonstration TREATMENT: PT Treatment Interventions: Therapeutic Exercise Evaluation Therapeutic Exercise: 1: Discussed exam findings, purpose of the HEP and the HEP handout was provided to the pt. HEP discussed in detail with how to safely and properly perform each therapeutic exercise. 2: Mishel pose down F 3 x 30 sec 3: Child's pose offset to R 3 x 30 sec 4: Mishel pose offset to the L 3 x 30 Skilled Intervention: Patient was educated in proper exercise technique and purpose for exercises. Correct performance of therapeutic exercises was facilitated with verbal and visual cuing. Billing * Evaluation Low Complexity: 1 Unit Therapeutic Exercise Treatment Minutes: 24 Total Session Time (minutes): 49 Session Start Time : 0750 Session Stop Time : 0839 Yaz Acuna PT documented in this encounter [facility] 06-19-2024 Radiology Diagnostic study note [facility] [address] [place], [place] [id number] L/S Spine w Bend Min 6 Vw MR#: [id number] Acct: [id number] Name: IGNACIO LARIOS Rep #: [id number] : [id number] M [id number] From: Ethan Miranda MD PCP: Dr. Dodie Bertrand DO Status: REG CLI Study:L/S Spine w Bend Min 6 Vw Date of Exam: 06/18/24 Exam# [id number] Ordering Dr: Stefani Bertrand sa, DO PROCEDURE: L/S SPINE W BEND MIN 6 VW 06/18/2024 REASON FOR EXAM: LOW BACK PAIN TECHNIQUE: 6 views of the lumbar spine COMPARISON: None available FINDINGS: Curvature: Preserved lordosis of the lumbar spine. Other findings: Vertebral body heights are well preserved. Mild loss of intervertebral disc height at L4-L5, and L5-S1. Facet arthropathy within the lower lumbar spine. Other: RAD/L/S Spine w Bend Min 6 Vw IMPRESSION: 1. Degenerative changes within the lower lumbar spine. 2. No acute fracture or traumatic malalignment. Reading Location: [facility] CC: Dr. Dodie Bertrand, DO ~ Casualty Claim Adjuster: Signed Evaluation note No assessment inform ation available Work Phone: Evaluation note Diagnosis Degeneration of intervertebral disc of lumbar region with discogenic back pain and lower extremity pain- Primary Lumbar radiculopathy Thoracic or lumbosacral neuritis or radiculitis, unspecified documented [facility] Diagnosis Degeneration of intervertebral disc of lumbar region with discogenic back pain and lower extremity pain- Primary Lumbar radiculopathy Thoracic or lumbosacral neuritis or radiculitis, unspecified [facility] Diagnosis Lumbar radiculopathy- Primary Thoracic or lumbosacral neuritis or radiculitis, unspecified Degeneration of intervertebral disc of lumbar region with discogenic back pain and lower extremity pain [facility] Diagnosis Lumbar radiculopathy- Primary Thoracic or lumbosacral neuritis or radiculitis, unspecified [facility] Diagnosis Lumbar radiculopathy- Primary Thoracic or lumbosacral neuritis or radiculitis, unspecified Degeneration of intervertebral disc of lumbar region with discogenic back pain and lower extremity pain documented in this encounter [facility] (narrative)No reason for referral information availableWOhioHealth Work Phone: Family History No Family History Records Found Relationship Condition Age at Onset Recorded Date/T danny Not Specified High blood cholesterol Unknown Malignant neoplasm of breast Unknown Cerebrovascular accident (CVA) Unknown Advance Directives No Advanced Directives Records Found Advance Directive Response Recorded Date/ Time Living Will Yes May 19, 2019 8:36am Power of [employer] Yes May 18 0 8:36am Advance Directive Response Recorded Date/ Time Living Will Yes May 19, 2019 9:36am Power of [employer] Yes May 18 9:36am Summary Purpose Additional Source Comments Care Teams (unrecognized sec tion and content) Team Status: Active Member Role Status Dates Dr. Dodie Bertrand DO Family Provider Active Dr. Dodie Bertrand DO Primary Care Provider Active Team Status: Inactive Member Role Status Dates Dr. Dodie Bertrand DO Primary Care Provider Active Dr. Adri Bolaños MD Attending Provider, Referring Pr ovider Active Access Control Officer Relationship Specialty Start Date End Date Pcp, No, [employer] PCP - General 01/30/16 08/09/16 Serjio Mitchell PCP - General Family Medicine 01/22/17 Team Status: Inactive Member Role Status Dates Dr. Dodie Bertrand DO Primary Care Provider Active Start: June 18, 2024 End: June 18, 2024 Dr. Dodie Bertrand DO Attending Provider Active St art: June 18, 2024 End: June 18, 2024 Dr. Dodie Bertrand DO Referring Provider Active St art: June 18, 2024 End: June 18, 2024 Team Status: Inactive Member Role Status Dates Dr. Dodie Bertrand DO Primary Care Provider Active Start: June 26, 2024 End: June 26, 2024 Dr. Adri Bolaños MD Attending Provider Active Start: June 26, 2024 End: June 26, 2024 Dr. Adri Bolaños MD Referring Provider Active Start: June 26, 2024 End: June 26, 2024 Access Control Officer Relationship Specialty Start Date End Date Serjio Mitchell PCP - General Family Medicine 01/22/17 Access Control Officer Relationship Specialty Start Date End Date Serjio Mitchell PCP - General Family Medicine 01/22/17 Access Control Officer Relationship Specialty Start Date End Date Serjio Mitchell PCP - General Family Medicine 01/22/17 Access Control Officer Relationship Specialty Start Date End Date Serjio Mitchell PCP - General Family Medicine 01/22/17 Source Comments (unrecognize d section and content) In the event this informatio n is protected by the [facility] Confidentiality of Alcohol and Drug Abuse Patient Records regulations: The Federal rules restrict any use of the information to criminally investigate or prosecute any alcohol or drug abuse patient.[facility] the event this information is protected by the Federal Confidentiality of Alcohol and Drug Abuse Patient Records regulations: The Federal rules restrict any use of the information to criminally investigate or prosecute any alcohol or drug abuse patient.[facility] the event this information is protected by the Federal Confidentiality of Alcohol and Drug Abuse Patient Records regulations: The Federal rules restrict any use of the information to criminally investigate or prosecute any alcohol or drug abuse patient.[facility] the event this information is protected by the Federal Confidentiality of Alcohol and Drug Abuse Patient Records regulations: The Federal rules restrict any use of the information to criminally investigate or prosecute any alcohol or drug abuse patient.[facility] the event this information is protected by the Federal Confidentiality of Alcohol and Drug Abuse Patient Records regulations: The Federal rules restrict any use of the information to criminally investigate or prosecute any alcohol or drug abuse patient.[facility] the event this information is protected by the Federal Confidentiality of Alcohol and Drug Abuse Patient Records regulations: The Federal rules restrict any use of the information to criminally investigate or prosecute any alcohol or drug abuse patient.[facility] (unrecognized sect ion and content) No Status Records FoundNo Status Records Found INFORMATION SOURCE (unrecogn ized section and content) DATE CREATED AUTHOR 07/04/2024 [facility] DATE CREATED AUTHOR AUTHOR'S ORGANIZ ATION 09/10/2024 [facility] Reason for Visit (unrecogniz ed section and content) Reason Comments PT Discharge Specialty Diagnoses / Procedures Referred By Nayla t Referred To Contact Physical Therapy / PHYSICAL THERAPY Diagnoses BACK PAIN Procedures PHYSICAL THERAPY EVALUATION HIGH COMPLEX 45 MINS NEW RS PT SPINE Homar Latif PA-C [address] [place] [address] Phone: tel: fax: Yaz Acuna, PT [address] [place] [address] Phone: tel: Referral ID Status Reason Start Date Expiration Date V isits Requested Visits Authorized [id number] Authorized 03/12/2024 03/11/2025 99 99 Reason Comments Physical Therapy Reason Comments PT Eval FOR RECORDS PERTAINING TO PATIENTS WHO ARE [...] BE BASED ON THE PRIMARY CLINICAL RECORDS. [facility]. provides no warranty or guarantee of the accuracy or completeness of information in this document.
[2024-09-26 08:07] LABS: AST(SGOT) 23 U/L (<=37); Alanine Aminotransfer ALT/SGPT 26 U/L (<=46); Albumin, Serum 4.4 g/dL (3.4-4.8); Alkaline Phosphatase 66 U/L (40-129); Anion Gap 11 (5-15); BUN 15 mg/dL (4-19); BUN/Creat Ratio 21.0 RATIO (10-20); Calcium,Total 9.4 mg/dL (7.6-11.0); Carbon Dioxide 22.3 mmol/L (21.0-32.0); Chloride 106 mmol/L (98-108); Cholesterol 138 mg/dL (<=200); Globulin 2.6 g/dL (2.2-4.2); Glucose 109 mg/dL (70-99); Low Density Lipoprotein Calc. 70 mg/dL; Potassium 4.1 mmol/L (3.3-5.1); Triglycerides 71 mg/dL; Very Low Density Lipoprotein 14 mg/dL (5-40); cholesterol:hdl ratio screen 2.56
== END | disposition home or self-care (01) ==
LOC: LAB 06:46
PROVIDERS: PCP Family Medicine; Referring Provider Internal Medicine Endocrinology, Diabetes & Metabolism; Visit Provider Internal Medicine Endocrinology, Diabetes & Metabolism
DX: E11.65 Type 2 diabetes mellitus with hyperglycemia (principal); E78.2 Mixed hyperlipidemia
CPT/HCPCS: 36415; 80053; 80061; 83036

== ENCOUNTER → 2024-10-24 | Outpatient (CLI) | payer OTHER, SELFPAY ==
--- OUTSIDE RECORDS SUMMARY | 2024-10-24 07:20 | XMS RPT_ITS | CCD ---
Author Organization [facility] Care Team Providers Care Coach Operator Name Role Phone Pcp FINE ARTIST, No Primary Care Provider Unavailabl e Serjio Mitchell Primary Care Provider Unavail able Elza MAGANA, Dr. Stoll Primary Care Provider Elza MAGANA, Dr. Stoll Attending Provider Elza MAGANA, Dr. Stoll Referring Provider Miky PINEDA, Dr. Rush Attending Provider Miky PINEDA, Dr. Rush Referring Provider Serjio Mitchell Primary Care Provider Unavail able ROSO, HOMAR Referring Unavailable STEPHEN, SERJIO Mendoza Primary Care Unavailable ARMAND, YAZ Attending Unavailable ROSO, HOMAR Referring Unavailable SERJIO MITCHELL Primary Care Unavailable ARMAND, YAZ Attending Unavailable ROSO, HOMAR Referring Unavailable STEPHEN, SERJIO Mendoza Primary Care Unavailable ARMAND, YAZ Attending Unavailable ROSO, HOMAR Referring Unavailable SERJIO MITCHELL Primary Care Unavailable ARMAND, YAZ Attending Unavailable ROSO, HOMAR Referring Unavailable STEPHEN, SERJIO Mendoza Primary Care Unavailable ARMAND, YAZ Attending Unavailable Runer, Adri Attending Unavailable Malys, Dodie Primary Care Unavailable Runer, Adri Referring Unavailable Malys, Dodie Primary Care Unavailable Malys, Dodie Referring Unavailable Malys, Dodie Attending Unavailable Runer, Adri Attending Unavailable Malys, Dodie Primary Care Unavailable Runer, Adri Referring Unavailable Malys, Dodie Primary Care Unavailable Malys, Dodie Referring Unavailable Malys, Dodie Attending Unavailable Malys, Dodie Primary Care Unavailable Larisa, Charles Referring Unavailable Silviano Lucero Attending Unavailable Larisa, Charles Referring Unavailable Larisa, Charles Attending Unavailable Runer, Adri Consulting Unavailable Malys, Dodie Primary Care Unavailable Dodie Bertrand Primary Care Unavailable Adri Bolaños Referring Unavailable Adri Bolaños Attending Unavailable Medications Current Medications Medication Drug Class(es) Dates Sig (Normalized) Sig (Original) [id number] 200 actuat albuterol 0.09 mg/actuat metered dose [...] Active calcium carbonate 500 mg chewable tablet (10 sources) Start: 05-15-2018 take 1 tablet by mouth twice daily Calcium Carbonate (Antacid (Calcium Carbonate)) 200 mg calcium (500 mg) tablet,chewable Active 200 mg PO TWICE A DAY May 15, 2018 1:00am cholecalciferol 0.025 mg oral tablet (10 sources) Vitamin D Start: 05-19-2019 take 1 [...] omeprazole 20 mg delayed release oral capsule (15 sources) Proton Pump Inhibitor Start: 05-16-19 19 Omeprazole 20 mg capsule,delayed release(DR/EC) Active 20 mg PO NEEDED as needed for GERD May 15, 2018 1:00am rosuvastatin calcium 40 mg oral tablet (15 sources) HMG-CoA Reductase Inhibitor Start: 05-06-19 take 1 tablet by mouth once daily Rosuvastatin 40 mg tablet Active 40 mg PO DAILY May 06, 2019 1:00am ROSUVASTATIN MARIBETH CIUM (CRESTOR ORAL) Take by mouth. Active Problems Active Problems Problem Classification Problem Date Documented Da te Episodic/Chronic Diabetes mellitus with complications (1 source) Type 2 diabetes mellitus with hyperglycemia; Translations: [Type 2 diabetes mellitus with hyperglycemia] Onset: 10-02-2024 Chronic Other bone disease and musculoskeletal deformities (20 sources) Segmental and somatic dysfunction; Translations: [Segmental and somatic dysfunction of cervical region] 05-23-2018 Episodic Residual codes; unclassified (1 source) Family history of ischemic heart disease and other diseases of the circulatory system; Translations: [Family history of ischemic heart disease and other diseases of the circulatory system] Onset: 10-10-2024 Episodic Spondylosis; intervertebral disc disorders; other back problems (9 sources) Degeneration of lumbar intervertebral disc; Translations: [Degeneration of intervertebral disc of lumbar region with discogenic back pain and lower extremity pain] Onset: 08-08-2024 08-08-2024 Chronic Unclassified (1 source) Degeneration of intervertebral disc of lumbar region with discogenic back pain and lower extremity pain; Translations: [Degeneration of intervertebral disc of lumbar region with discogenic back pain and lower extremity pain] Onset: 08-08-2024 Past or Other Problems Problem Classification Problem Date Documented Da te Episodic/Chronic Spondylosis; intervertebral disc disorders; other back problems (20 sources) Lumbosacral radiculopathy; Translations: [Radiculopathy, lumbosacral region] Onset: 06-24-2024 01-22-2019 Episodic Results Test Name Value Interpretation Reference Range Facility Anion gap in Serum or Plasma Ordered By: Adri Bolaños on 09-26-2024 Anion gap [Moles/Vol] 11 mmol/L 5-15 [facility] BUN/creatinine ratioOrdered By: Adri Bolaños on 09-26-2024 Urea nitrogen/Creatinine [Mass ratio] 21.0 mg/mg High 10-20 [facility] Bilirubin, totalOrdered By: Adri Bolaños on 09-26-2024 Bilirubin [Mass/Vol] 0.38 mg/dL 0.00-1.30 [facility] Calculated very low density lipoprotein (VLDL) cholesterol measurementOrdered By: Adri Bolaños on 09-26-2024 Calculated very low density lipoprotein (VLDL) cholesterol measurement 14 mg/dL 5-40 [facility] Carbon dioxide, total [Moles /volume] in Central venous bloodOrdered By: Adri Bolaños on 09-26-2024 CO2 [Moles/Vol] 22.3 mmol/L 21.0-32.0 [facility] Chloride assayOrdered By: Devora Bolaños on 09-26-2024 Chloride [Moles/Vol] 106 mmol/L 98-108 [facility] Comprehensive Metabolic Prof ilon 09-26-2024 Albumin [Mass/Vol] 4.4 g/dL Normal 3.4-4.8 [facility] Comment on above: Order Comment: LIPID Performed By: #### L 500.4100, L501.9985, L500.4050 #### [facility] Laboratory [address] [place], [place], [id number] Albumin/Globulin [Mass ratio] 1.7 {ratio} Normal 0.9-2.4 [facility] Comment on above: Order Comment: LIPID Performed By: #### L 500.4100, L501.9985, L500.4050 #### [facility] Laboratory [address] [place], [address] ALK PHOS 66 U/L Normal 40-129 [facility] Comment on above: Order Comment: LIPID Performed By: #### L 500.4100, L501.9985, L500.4050 #### [facility] Laboratory [address] [place], [address] ALT [Catalytic activity/Vol] 26 U/L Normal <=46 [facility] Comment on above: Order Comment: LIPID Performed By: #### L 500.4100, L501.9985, L500.4050 #### [facility] Laboratory [address] [place], [address] AST [Catalytic activity/Vol] 23 U/L Normal <=37 [facility] Comment on above: Order Comment: LIPID Performed By: #### L 500.4100, L501.9985, L500.4050 #### [facility] Laboratory [address] [place], [address] Bilirubin [Mass/Vol] 0.38 mg/dL Normal 0.00-1.30 [facility] Comment on above: Order Comment: LIPID Performed By: #### L 500.4100, L501.9985, L500.4050 #### [facility] Laboratory [address] [place], [address] BUN/CRE 21.0 RATIO High 10-20 [facility] Comment on above: Order Comment: LIPID Performed By: #### L 500.4100, L501.9985, L500.4050 #### [facility] Laboratory [address] [place], [address] Calcium [Mass/Vol] 9.4 mg/dL Normal 7.6-11.0 [facility] Comment on above: Order Comment: LIPID Performed By: #### L 500.4100, L501.9985, L500.4050 #### [facility] Laboratory [address] [place], [address] Chloride [Moles/Vol] 106 mmol/L Normal 98-108 [facility] Comment on above: Order Comment: LIPID Performed By: #### L 500.4100, L501.9985, L500.4050 #### [facility] Laboratory [address] [place], [address] CO2 [Moles/Vol] 22.3 mmol/L Normal 21.0-32.0 [facility] Comment on above: Order Comment: LIPID Performed By: #### L 500.4100, L501.9985, L500.4050 #### [facility] Laboratory [address] [place], [address] Creatinine [Mass/Vol] 0.72 mg/dL Normal 0.70-1.20 [facility] Comment on above: Order Comment: LIPID Performed By: #### L 500.4100, L501.9985, L500.4050 #### [facility] Laboratory [address] [place], [address] GAP 11 Normal 5-15 [facility] Comment on above: Order Comment: LIPID Performed By: #### L 500.4100, L501.9985, L500.4050 #### [facility] Laboratory [address] [place], [address] GFR/1.73 sq M.predicted among non-blacks MDRD (S/P/Bld) [Vol rate/Area] 102 mL/min/{1.73_m2} Normal >60 [facility] Comment on above: Order Comment: LIPID Result Comment: mL/m in/1.73m2 CKD-EPI Creatinine Equation (2020) Performed By: #### L 500.4100, L501.9985, L500.4050 #### [facility] Laboratory [address] [place], [address] Globulin (S) [Mass/Vol] 2.6 g/dL Normal 2.2-4.2 [facility] Comment on above: Order Comment: LIPID Performed By: #### L 500.4100, L501.9985, L500.4050 #### [facility] Laboratory [address] [place], [address] Glucose [Mass/Vol] 109 mg/dL High 70-99 [facility] Comment on above: Order Comment: LIPID Performed By: #### L 500.4100, L501.9985, L500.4050 #### [facility] Laboratory [address] [place], [address] Potassium [Moles/Vol] 4.1 mmol/L Normal 3.3-5.1 [facility] Comment on above: Order Comment: LIPID Performed By: #### L 500.4100, L501.9985, L500.4050 #### [facility] Laboratory [address] [place], [address] Sodium [Moles/Vol] 140 mmol/L Normal 133-145 [facility] Comment on above: Order Comment: LIPID Performed By: #### L 500.4100, L501.9985, L500.4050 #### [facility] Laboratory [address] [place], [address] T PROT 7.0 g/dL Normal 5.9-8.4 [facility] Comment on above: Order Comment: LIPID Performed By: #### L 500.4100, L501.9985, L500.4050 #### [facility] Laboratory [address] [place], [address] Urea nitrogen [Mass/Vol] 15 mg/dL Normal 4-19 [facility] Comment on above: Order Comment: LIPID Performed By: #### L 500.4100, L501.9985, L500.4050 #### [facility] Laboratory [address] [place], [address] Glomerular filtration rate ( GFR) estimation/1.73 sq m using serum, plasma, or whole bOrdered By: Adri Bolaños on 09-26-2024 GFR/1.73 sq M.predicted among non-blacks MDRD (S/P/Bld) [Vol rate/Area] 102 mL/min/{1.73_m2} >60 [facility] Comment on above: mL/min/1.73m2 CKD-EP I Creatinine Equation (2020) Hemoglobin A1con 09-26-2024 HbA1c (Bld) [Mass fraction] 6.3 % High <=5.6 [facility] Comment on above: Result Comment: Norm al < 5.7 % Prediabetic 5.7 - 6.4 % Diabetic >or= 6.5 % Please note range changes. Performed By: #### L 500.4100, L501.9985, L500.4050 #### [facility] Laboratory [address] [place], [place], [id number] Hemoglobin A1c percentageOrd ered By: Adri Bolaños on 09-26-2024 HbA1c (Bld) [Mass fraction] 6.3 % High <5.7 [facility] Comment on above: Normal < 5.7 % Predi abetic 5.7 - 6.4 % Diabetic >or= 6.5 % Please note range changes. LDL calc ser/plasOrdered By: Adri Bolaños on 09-26-2024 Cholesterol in LDL [Mass/Vol] 70 mg/dL [facility] Comment on above: Deysbqsmvg=293-895 m g/dL & Higher Tiur=394 mg/dL or greater Laboratory - Chemistry and C hemistry - challengeOrdered By: Adri Bolaños on 09-26-2024 AST [Catalytic activity/Vol] 23 U/L <38 [facility] Lipid Profileon 09-26-2024 CHOL:HDL 2.56 Normal [facility] Comment on above: Performed By: #### L 500.4100, L501.9985, L500.4050 #### [facility] Laboratory [address] [place], [place], [id number] Cholesterol [Mass/Vol] 138 mg/dL Normal <=200 [facility] Comment on above: Result Comment: Chol esterol level, Desirable <200 mg/dL Borderline high cholesterol 200-239 mg/dL High cholesterol >=240 mg/dL Recommendations of the NCEP Adult Treatment Panel for the following risk-cutoff thresholds for the [place] population. Performed By: #### L 500.4100, L501.9985, L500.4050 #### [facility] Laboratory [address] [place], [address] Cholesterol in HDL [Mass/Vol] 54 mg/dL Normal [facility] Comment on above: Result Comment: Karely onal Cholesterol Education Program (NCEP) guidelines: <40 mg/dL: Low HDL-cholesterol (major risk factor for CHD) >= 60 mg/dL: High HDL-cholesterol (negative risk factor for CHD) HDL-cholesterol is affected by a number of factors, e.g. smoking, exercise, hormones, sex and age. Performed By: #### L 500.4100, L501.9985, L500.4050 #### [facility] Laboratory [address] [place], [address] Cholesterol in LDL [Mass/Vol] 70 mg/dL Normal [facility] Comment on above: Result Comment: Bord debqvb=259-681 mg/dL Higher Bsqt=708 mg/dL or greater Performed By: #### L 500.4100, L501.9985, L500.4050 #### [facility] Laboratory [address] [place], [address] Cholesterol in VLDL [Mass/Vol] 14 mg/dL Normal 5-40 [facility] Comment on above: Performed By: #### L 500.4100, L501.9985, L500.4050 #### [facility] Laboratory [address] [place], [address] Triglyceride [Mass/Vol] 71 mg/dL Normal [facility] Comment on above: Result Comment: The drugs N-Acetylcysteine and Metamizole may falsely depress this assay. Normal range: <150 mg/dL Borderline High: 150-199 mg/dL High: 200-499 mg/dL Very High: >500 mg/dL Performed By: #### L 500.4100, L501.9923, L500.4050 #### [facility] Laboratory [address] [place], [address] Potassium measurement (mass/ volume)Ordered By: Adri Bolaños on 09-26-2024 Potassium (Unsp spec) [Mass/Vol] 4.1 mmol/L 3.3-5.1 [facility] Screening total cholesterol/ high density lipoprotein (HDL) cholesterol ratioOrdered By: Adir Bolaños on 09-26-2024 Cholesterol.total/Korina sterol in HDL [Mass ratio] 2.56 {ratio} [facility] Serum creatinine measurement (mass/volume)Ordered By: Adri Bolaños on 09-26-2024 Creatinine [Mass/Vol] 0.72 mg/dL 0.70-1.20 [facility] Serum globulin measurementOr dered By: Adri Bolaños on 09-26-2024 Globulin (S) [Mass/Vol] 2.6 g/dL 2.2-4.2 [facility] Serum glucose measurement (m ass/volume)Ordered By: Adri Bolaños on 09-26-2024 Glucose [Mass/Vol] 109 mg/dL High 70-99 [facility] Serum or plasma alanine mandel otransferase (ALT) measurementOrdered By: Adri Bolaños on 09-26-2024 ALT [Catalytic activity/Vol] 26 U/L <47 [facility] Serum or plasma albumin nohemy urement (mass/volume)Ordered By: Adri Bolaños on 09-26-2024 Albumin [Mass/Vol] 4.4 g/dL 3.4-4.8 [facility] Serum or plasma albumin/glob ulin mass ratioOrdered By: Adri Bolaños on 09-26-2024 Albumin/Globulin [Mass ratio] 1.7 {ratio} 0.9-2.4 [facility] Serum or plasma alkaline gilma sphatase measurementOrdered By: Adri Bolaños on 09-26-2024 ALP [Catalytic activity/Vol] 66 U/L 40-129 [facility] Serum or plasma calcium nohemy urement (mass/volume)Ordered By: Adri Bolaños on 09-26-2024 Calcium [Mass/Vol] 9.4 mg/dL 7.6-11.0 [facility] Serum or plasma cholesterol in HDL measurement (mass/volume)Ordered By: Adri Bolaños on 09-26-2024 Cholesterol in HDL [Mass/Vol] 54 mg/dL >40 [facility] Comment on above: National Cholesterol Education Program (NCEP) guidelines:<40 mg/dL: Low HDL-cholesterol (major risk factor for CHD)>= 60 mg/dL: High HDL-cholesterol (negative risk factor for CHD)HDL-cholesterol is affected by a number of factors, e.g. smoking, exercise, hormones, sex and age. Serum or plasma cholesterol measurement (mass/volume)Ordered By: Adri Bolaños on 09-26-2024 Cholesterol [Mass/Vol] 138 mg/dL <201 [facility] Comment on above: Cholesterol level, D esirable <200 mg/dLBorderline high cholesterol 200-239 mg/dLHigh cholesterol >=240 mg/dLRecommendations of the NCEP Adult Treatment Panel for the following risk-cutoff thresholds for the [place] population. Serum or plasma urea nitroge n measurement (mass/volume)Ordered By: Adri Bolaños on 09-26-2024 Urea nitrogen [Mass/Vol] 15 mg/dL 4-19 [facility] Sodium levelOrdered By: Sea Bolaños on 09-26-2024 Sodium [Moles/Vol] 140 mmol/L 133-145 [facility] Total proteinOrdered By: Ivonne Bolaños on 09-26-2024 Protein [Mass/Vol] 7.0 g/dL 5.9-8.4 [facility] Triglycerides measurementOrd ered By: Adri Bolaños on 09-26-2024 Triglyceride [Mass/Vol] 71 mg/dL <199 [facility] Comment on above: The drugs N-Acetylcy steine and Metamizole may falsely depress this assay. Normal range: <150 mg/dLBorderline High: 150-199 mg/dLHigh: 200-499 mg/dLVery High: >500 mg/dL CNTHERAPYon 09-09-2024 CNTHERAPY OT/PT/Speech Visit (PTWS) ---- IGNACIO LARIOS ([id number]) 1960 M Date Time Provider Department 09/09/24 7:45 AM YAZ ACUNA PTWS Date Time Provider Department Center 09/09/2024 7:45 AM [id number], COREY PTWS [place] Aquino Reason for Visit: PT Discharge [752] Primary Visit Diagnosis:Lumbar radiculopathy [M54.16] Other Visit Diagnosis:Degenerat ion of intervertebral disc of lumbar region with discogenic back pain and lower extremity pain [M51.362] Allergies As of Date: 09/09/2024 (No Known Allergies) Date Reviewed: 05/27/2020 Reviewed by: Andrés Salazar ([facility]) - Fully Assessed Prescriptions as of [...] once daily. Rinse mouth after use. Normal [facility] CNTHERAPYon 09-02-2024 CNTHERAPY OT/PT/Speech Visit (PTWS) ---- IGNACIO LARIOS ([id number]) 1960 M Date Time Provider Department 09/02/24 7:45 AM YAZ ACUNA PTMARIA VICTORIA Date Time Provider Department [place] 09/02/2024 7:45 AM [id number], COREY PTMARIA VICTORIA Aquino Reason for Visit: Physical Therapy [503] Primary Visit Diagnosis:Lumbar radiculopathy [M54.16] Allergies As of Date: 09/02/2024 (No Known Allergies) Date Reviewed: 05/27/2020 Reviewed by: Andrés Salazar ([facility]) - Fully Assessed Prescriptions as of [...] once daily. Rinse mouth after use. Normal [facility] CNTHERAPYon 08-26-2024 CNTHERAPY OT/PT/Speech Visit (PTWS) ---- IGNACIO LARIOS ([id number]) 1960 M Date Time Provider Department 08/26/24 7:45 AM YAZ ACUNA PTWS Date Time Provider Department Center 08/26/2024 7:45 AM [id number], COREY PTWS [place] Aquino Reason for Visit: Physical Therapy [503] Primary Visit Diagnosis:Lumbar radiculopathy [M54.16] Other Visit Diagnosis:Degenerat ion of intervertebral disc of lumbar region with discogenic back pain and lower extremity pain [M51.362] Allergies As of Date: 08/26/2024 (No Known Allergies) Date Reviewed: 05/27/2020 Reviewed by: Andrés Salazar ([facility]) - Fully Assessed Prescriptions as of [...] once daily. Rinse mouth after use. Normal [facility] CNTHERAPYon 08-19-2024 CNTHERAPY OT/PT/Speech Visit (PTWS) ---- IGNACIO LARIOS ([id number]) 1960 M Date Time Provider Department 08/19/24 7:00 AM YAZ ACUNA PTWS Date Time Provider Department [place] 08/19/2024 7:00 AM [id number], COREY PTWS [place] Aquino Reason for Visit: Physical Therapy [503] Primary Visit Diagnosis:Degenerat ion of intervertebral disc of lumbar region with discogenic back pain and lower extremity pain [M51.362] Other Visit Diagnosis:Lumbar radiculopathy [M54.16] Allergies As of Date: 08/19/2024 (No Known Allergies) Date Reviewed: 05/27/2020 Reviewed by: Andrés Salazar ([facility]) - Fully Assessed Prescriptions as of [...] once daily. Rinse mouth after use. Normal [facility] CNTHERAPYon 08-08-2024 CNTHERAPY OT/PT/Speech Visit (PTWS) ---- IGNACIO LARIOS ([id number]) 1960 M Date Time Provider Department 08/08/24 8:00 AM YAZ ACUNA PTWS Date Time Provider Department Center 08/08/2024 8:00 AM [id number], COREY PTWS [facility] Reason for Visit: PT Eval [747] Primary Visit Diagnosis:Degenerat ion of intervertebral disc of lumbar region with discogenic back pain and lower extremity pain [M51.362] Other Visit Diagnosis:Lumbar radiculopathy [M54.16] Allergies As of Date: 08/08/2024 (No Known Allergies) Date Reviewed: 05/27/2020 Reviewed by: Andrés Salazar ([facility]) - Fully Assessed Prescriptions as of [...] once daily. Rinse mouth after use. Normal [facility] Anion gap in Serum or Plasma Ordered By: Adri Bolaños on 06-26-2024 Anion gap [Moles/Vol] 12 mmol/L - [facility] BUN/creatinine ratioOrdered By: Adri Bolaños on 06-26-2024 Urea nitrogen/Creatinine [Mass ratio] 19.2 mg/mg 12-29 [facility] Bilirubin, totalOrdered By: Adri Bolaños on 06-26-2024 Bilirubin [Mass/Vol] 0.59 mg/dL 0.00-1.30 [facility] Calculated very low density lipoprotein (VLDL) cholesterol measurementOrdered By: Adri Bolaños on 06-26-2024 Calculated very low density lipoprotein (VLDL) cholesterol measurement 24 mg/dL 5-40 [facility] VLDL Cholesterol 24 mg/dL 5-40 [facility] Carbon dioxide, total [Moles /volume] in Central venous bloodOrdered By: Adri Bolaños on 06-26-2024 CO2 [Moles/Vol] 23.9 mmol/L 21.0-32.0 [facility] Chloride assayOrdered By: Devora Bolaños on 06-26-2024 Chloride [Moles/Vol] 103 mmol/L 98-108 [facility] Comprehensive Metabolic Prof ilon 06-26-2024 Albumin [Mass/Vol] 4.4 g/dL Normal 3.4-4.8 [facility] Comment on above: Performed By: #### L 500.4100, L501.9985, L500.4050 #### [facility] [facility] [place] [facility] [address] [place], [address] Albumin/Globulin [Mass ratio] 1.6 {ratio} Normal 0.9-2.4 [facility] [place] Comment on above: Performed By: #### L 500.4100, L501.9985, L500.4050 #### [facility] [place] [facility] [address] [place], [address] ALK PHOS 75 U/L Normal 40-129 [facility] [place] Comment on above: Performed By: #### L 500.4100, L501.9985, L500.4050 #### [facility] [place] [facility] [address] [place], [address] ALT [Catalytic activity/Vol] 25 U/L Normal <=46 [facility] [place] Comment on above: Performed By: #### L 500.4100, L501.9985, L500.4050 #### [facility] [place] [facility] [address] [place], [address] AST [Catalytic activity/Vol] 22 U/L Normal <=37 [facility] [place] Comment on above: Performed By: #### L 500.4100, L501.9985, L500.4050 #### [facility] [place] [facility] [address] [place], [address] Bilirubin [Mass/Vol] 0.59 mg/dL Normal 0.00-1.30 [facility] Comment on above: Performed By: #### L 500.4100, L501.9985, L500.4050 #### [facility] [place] [facility] [address] [place], [address] BUN/CRE 19.2 RATIO Normal 10-20 [facility] [place] Comment on above: Performed By: #### L 500.4100, L501.9985, L500.4050 #### [facility] [place] [facility] [address] [place], [address] Calcium [Mass/Vol] 9.5 mg/dL Normal 7.6-11.0 [facility] Comment on above: Performed By: #### L 500.4100, L501.9985, L500.4050 #### [facility] [place] [facility] [address] [place], [address] Chloride [Moles/Vol] 103 mmol/L Normal 98-108 [facility] Comment on above: Performed By: #### L 500.4100, L501.9985, L500.4050 #### [facility] [place] [address] [place], [address] CO2 [Moles/Vol] 23.9 mmol/L Normal 21.0-32.0 [facility] [place] Comment on above: Performed By: #### L 500.4100, L501.9985, L500.4050 #### [facility] [place] [facility] [address] [place], [address] Creatinine [Mass/Vol] 0.85 mg/dL Normal 0.70-1.20 [facility] Comment on above: Performed By: #### L 500.4100, L501.9985, L500.4050 #### [facility] [place] [facility] [address] [place], [address] GAP 12 Normal 5-15 [facility] [place] Comment on above: Performed By: #### L 500.4100, L501.9985, L500.4050 #### [facility] [place] [facility] [address] [place], [address] GFR/1.73 sq M.predicted among non-blacks MDRD (S/P/Bld) [Vol rate/Area] 97 mL/min/{1.73_m2} Normal >60 [facility] [place] Comment on above: Result Comment: mL/m in/1.73m2 CKD-EPI Creatinine Equation (2020) Performed By: #### L 500.4100, L501.9985, L500.4050 #### [facility] [place] [facility] [address] [place], [address] Globulin (S) [Mass/Vol] 2.8 g/dL Normal 2.2-4.2 [facility] Comment on above: Performed By: #### L 500.4100, L501.9985, L500.4050 #### [facility] [place] [facility] [address] [place], [address] Glucose [Mass/Vol] 150 mg/dL High 70-99 [facility] Comment on above: Performed By: #### L 500.4100, L501.9985, L500.4050 #### [facility] [place] [facility] [address] [place], [address] Potassium [Moles/Vol] 4.1 mmol/L Normal 3.3-5.1 [facility] Comment on above: Performed By: #### L 500.4100, L501.9985, L500.4050 #### [facility] [place] [facility] [address] [place], [address] Sodium [Moles/Vol] 140 mmol/L Normal 133-145 [facility] Comment on above: Performed By: #### L 500.4100, L501.9985, L500.4050 #### [facility] [place] [facility] [address] [place], [address] T PROT 7.2 g/dL Normal 5.9-8.4 [facility] [place] Comment on above: Performed By: #### L 500.4100, L501.9985, L500.4050 #### [facility] [place] [facility] [address] [place], [address] Urea nitrogen [Mass/Vol] 16 mg/dL Normal 4-19 [facility] [place] Comment on above: Performed By: #### L 500.4100, L501.9985, L500.4050 #### [facility] [place] [facility] [address] [place], [address] GFR/1.73 sq M.predicted wolfgang g non-blacks MDRD (S/P/Bld) [Vol rate/Area]Ordered By: Adri Bolaños on 06-26-2024 Estimated GFR (MDRD) Non-Af Amer 97 >60 [facility] [place] Comment on above: mL/min/1.73m2 CKD-EP I Creatinine Equation (2020) Glomerular filtration rate ( GFR) estimation/1.73 sq m using serum, plasma, or whole bOrdered By: Adri Bolaños on 06-26-2024 GFR/1.73 sq M.predicted among non-blacks MDRD (S/P/Bld) [Vol rate/Area] 97 mL/min/{1.73_m2} >60 [facility] [place] Comment on above: mL/min/1.73m2 CKD-EP I Creatinine Equation (2020) Hemoglobin A1con 06-26-2024 HbA1c (Bld) [Mass fraction] 7.2 % High <=5.6 [facility] [place] Comment on above: Result Comment: Norm al < 5.7 % Prediabetic 5.7 - 6.4 % Diabetic >or= 6.5 % Please note range changes. Performed By: #### L 500.4100, L501.9985, L500.4050 #### [facility] [place] [facility] [address] [place], [place], [address] Hemoglobin A1c percentageOrd ered By: Adri Bolaños on 06-26-2024 HbA1c (Bld) [Mass fraction] 7.2 % High <5.7 [facility] [place] Comment on above: Normal < 5.7 % Predi abetic 5.7 - 6.4 % Diabetic >or= 6.5 % Please note range changes. Ironon 06-26-2024 Iron [Mass/Vol] 88 ug/dL Normal 65-175 [facility] [place] Comment on above: Performed By: #### L 500.4100, L501.9985, L500.4050 #### [facility] [address] [place], [place], [address] Iron (Unsp spec) [Mass/Mass] Ordered By: Adri Bolaños on 06-26-2024 Iron [Mass/Vol] 88 ug/dL 65-175 [facility] [place] Iron measurement (mass/mass) Ordered By: Adri Bolaños on 06-26-2024 Iron (Unsp spec) [Mass/Mass] 88 ug/dL 65-175 [facility] [place] LDL calc ser/plasOrdered By: Adri Bolaños on 06-26-2024 Cholesterol in LDL [Mass/Vol] 106 mg/dL [facility] [place] Comment on above: Hgymxuhffb=747-137 m g/dL & Higher Vflf=736 mg/dL or greater LDL Cholesterol, Calculated 106 mg/dL [facility] [place] Comment on above: Bjcigedksm=751-082 m g/dL & Higher Urpg=803 mg/dL or greater Laboratory - Chemistry and C hemistry - challengeOrdered By: Adri Bolaños on 06-26-2024 AST [Catalytic activity/Vol] 22 U/L <38 [facility] [place] Lipid Profileon 06-26-2024 CHOL:HDL 3.95 Normal [facility] [place] Comment on above: Performed By: #### L 500.4100, L501.9985, L500.4050 #### [facility] [place] [facility] [address] [place], [address] Cholesterol [Mass/Vol] 174 mg/dL Normal <=200 [facility] Comment on above: Result Comment: Chol esterol level, Desirable <200 mg/dL Borderline high cholesterol 200-239 mg/dL High cholesterol >=240 mg/dL Recommendations of the NCEP Adult Treatment Panel for the following risk-cutoff thresholds for the [place] population. Performed By: #### L 500.4100, L501.9985, L500.4050 #### [facility] [place] [address] [place], [address] Cholesterol in HDL [Mass/Vol] 44 mg/dL Normal [facility] [place] Comment on above: Result Comment: Karely onal Cholesterol Education Program (NCEP) guidelines: <40 mg/dL: Low HDL-cholesterol (major risk factor for CHD) >= 60 mg/dL: High HDL-cholesterol (negative risk factor for CHD) HDL-cholesterol is affected by a number of factors, e.g. smoking, exercise, hormones, sex and age. Performed By: #### L 500.4100, L501.9985, L500.4050 #### [facility] [address] [place], [address] Cholesterol in LDL [Mass/Vol] 106 mg/dL Normal [facility] [place] Comment on above: Result Comment: Bord tayndu=326-213 mg/dL Higher Jmga=573 mg/dL or greater Performed By: #### L 500.4100, L501.9985, L500.4050 #### [facility] [place] [facility] [address] [place], [address] Cholesterol in VLDL [Mass/Vol] 24 mg/dL Normal 5-40 [facility] [place] Comment on above: Performed By: #### L 500.4100, L501.9985, L500.4050 #### [facility] [place] [address] [place], [address] Triglyceride [Mass/Vol] 118 mg/dL Normal [facility] Comment on above: Result Comment: The drugs N-Acetylcysteine and Metamizole may falsely depress this assay. Normal range: <150 mg/dL Borderline High: 150-199 mg/dL High: 200-499 mg/dL Very High: >500 mg/dL Performed By: #### L 500.4100, L501.9985, L500.4050 #### [facility] [address] [place], [place], [address] Potassium (Unsp spec) [Mass/ Vol]Ordered By: Adri Bolaños on 06-26-2024 Potassium [Moles/Vol] 4.1 mmol/L 3.3-5.1 [facility] Potassium measurement (mass/ volume)Ordered By: Adri Bolaños on 06-26-2024 Potassium (Unsp spec) [Mass/Vol] 4.1 mmol/L 3.3-5.1 [facility] [place] Screening total cholesterol/ high density lipoprotein (HDL) cholesterol ratioOrdered By: Adri Bolaños on 06-26-2024 Cholesterol.total/Korina sterol in HDL [Mass ratio] 3.95 {ratio} [facility] [place] Serum creatinine measurement (mass/volume)Ordered By: Adri Bolaños on 06-26-2024 Creatinine [Mass/Vol] 0.85 mg/dL 0.70-1.20 [facility] Serum globulin measurementOr dered By: Adri Bolaños on 06-26-2024 Globulin (S) [Mass/Vol] 2.8 g/dL 2.2-4.2 [facility] Serum glucose measurement (m ass/volume)Ordered By: Adri Bolaños on 06-26-2024 Glucose [Mass/Vol] 150 mg/dL High 70-99 [facility] Serum or plasma alanine mandel otransferase (ALT) measurementOrdered By: Adri Bolaños on 06-26-2024 ALT [Catalytic activity/Vol] 25 U/L <47 [facility] [place] Serum or plasma albumin nohemy urement (mass/volume)Ordered By: Adri Bolaños on 06-26-2024 Albumin [Mass/Vol] 4.4 g/dL 3.4-4.8 [facility] Serum or plasma albumin/glob ulin mass ratioOrdered By: Adri Bolaños on 06-26-2024 Albumin/Globulin [Mass ratio] 1.6 {ratio} 0.9-2.4 [facility] [place] Serum or plasma alkaline gilma sphatase measurementOrdered By: Adri Bolaños on 06-26-2024 ALP [Catalytic activity/Vol] 75 U/L 40-129 [facility] [place] Serum or plasma calcium nohemy urement (mass/volume)Ordered By: Adri Bolaños on 06-26-2024 Calcium [Mass/Vol] 9.5 mg/dL 7.6-11.0 [facility] Serum or plasma cholesterol in HDL measurement (mass/volume)Ordered By: Adri Bolaños on 06-26-2024 Cholesterol in HDL [Mass/Vol] 44 mg/dL >40 [facility] [place] Comment on above: National Cholesterol Education Program (NCEP) guidelines:<40 mg/dL: Low HDL-cholesterol (major risk factor for CHD)>= 60 mg/dL: High HDL-cholesterol (negative risk factor for CHD)HDL-cholesterol is affected by a number of factors, e.g. smoking, exercise, hormones, sex and age. Serum or plasma cholesterol measurement (mass/volume)Ordered By: Adri Bolaños on 06-26-2024 Cholesterol [Mass/Vol] 174 mg/dL <201 [facility] Comment on above: Cholesterol level, D esirable <200 mg/dLBorderline high cholesterol 200-239 mg/dLHigh cholesterol >=240 mg/dLRecommendations of the NCEP Adult Treatment Panel for the following risk-cutoff thresholds for the [place] population. Serum or plasma urea nitroge n measurement (mass/volume)Ordered By: Adri Bolaños on 06-26-2024 Urea nitrogen [Mass/Vol] 16 mg/dL 4-19 [facility] [place] Sodium levelOrdered By: Sea Bolaños on 06-26-2024 Sodium [Moles/Vol] 140 mmol/L 133-145 [facility] Total proteinOrdered By: Ivonne Bolaños on 06-26-2024 Protein [Mass/Vol] 7.2 g/dL 5.9-8.4 [facility] Triglycerides measurementOrd ered By: Adri Bolaños on 06-26-2024 Triglyceride [Mass/Vol] 118 mg/dL <199 [facility] Comment on above: The drugs N-Acetylcy steine and Metamizole may falsely depress this assay. Normal range: <150 mg/dLBorderline High: 150-199 mg/dLHigh: 200-499 mg/dLVery High: >500 mg/dL Vitamin B12on 06-26-2024 Cobalamin (Vitamin B12) [Mass/Vol] 528 pg/mL Normal 180-914 [facility] [place] Comment on above: Performed By: #### L 500.4100, L501.9985, L500.4050 #### [facility] [place] [facility] [address] [place], [address] Vitamin B12 ser/plasOrdered By: Adri Bolaños on 06-26-2024 Cobalamin (Vitamin B12) [Mass/Vol] 528 pg/mL 180-914 [facility] [place] Vitamin D, 25-hydroxyOrdered By: Adri Bolaños on 06-26-2024 Vitamin D 25-Hydroxy 21.4 ng/mL Low 30-100 [facility] Comment on above: Vitamin D StatusDefi ciency: <20 ng/mL (50nmol/L)Insufficiency: 20-30 ng/mL (50-75 nmol/L)Sufficiency: 30-100 ng/mL (75-250 nmol/L)Toxicity: >100 ng/mL (>250 nmol/L) Vitamin D,25 Hydroxyon 06-26 Vitamin D 25-OH 21.4 ng/mL Low 30-100 [facility] [place] Comment on above: Result Comment: Carmen min D Status Deficiency: <20 ng/mL (50nmol/L) Insufficiency: 20-30 ng/mL (50-75 nmol/L) Sufficiency: 30-100 ng/mL (75-250 nmol/L) Toxicity: >100 ng/mL (>250 nmol/L) Performed By: #### L 500.4100, L501.9985, L500.4050 #### [facility] [address] [place], [address] L/S Spine w Bend Min 6 Vwon 06-18-2024 L/S Spine w Bend Min 6 Vw [facility] Services [address] [place] [address] L/S Spine w Bend Min 6 Vw MR#: [id number] Acct: [id number] Name: IGNACIO LARIOS Rep #: [id number] : 1960 M 64 From: Jessica Fairbanks MD PCP: Dr. Dodie Bertrand DO Status: REG CLI Study: L/S Spine w Bend Min 6 Vw Date of Exam: Exam# [id number] Ordering Dr: Dodie Bertrand DO PROCEDURE: L/S [...] acute fracture or traumatic malalignment. Reading Location: [facility] CC: Dr. 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 Charles Peres MD Status: REG CLI Ordering Dr: Charles Peres MD Date: 02/18/24 Location: N Sex: M C Admitted: Test Reason : PRE OP Blood Pressure : */* mmHG Vent. Rate : 74 BPM Atrial Rate : 74 BPM P-R Int : 164 ms QRS Dur : 90 ms QT Int : 376 ms P-R-T Axes : 61 26 68 degrees QTcB Int : 417 ms Normal sinus rhythm Normal ECG Confirmed by RESHMA PINEDA, SILVIANO ([id number]), loan expeditor BRIAN SPENCER ([id number]) on 02/18/2024 2:11:16 PM Referred By: Charles Peres Confirmed By: SILVIANO LUCERO MD 02/18/24 1411 Date Silviano Lucero MD CC: Dr. Dodie Bertrand DO; Dr. Charles Peres MD Signed Normal [facility] [place] Comprehensive Metabolic Prof ilon 02-18-2024 Albumin [Mass/Vol] 4.3 g/dL Normal 3.2-5.0 [facility] Comment on above: Order Comment: DR.SH FOSTER ORDERED A BMP Performed By: #### L 500.4050, L502.0250, L501.9985, L500.4100 #### [facility] [place] [facility] [address] [place], [address] Albumin/Globulin [Mass ratio] 1.3 {ratio} Normal 0.9-2.4 [facility] [place] Comment on above: Order Comment: DR.SH FOSTER ORDERED A BMP Performed By: #### L 500.4050, L502.0250, L501.9985, L500.4100 #### [facility] [place] [facility] [address] [place], [address] ALK P 71 U/L Normal 45-117 [facility] [place] Comment on above: Order Comment: DR.SH FOSTER ORDERED A BMP Performed By: #### L 500.4050, L502.0250, L501.9985, L500.4100 #### [facility] [place] [facility] [address] [place], [address] ALT [Catalytic activity/Vol] 30 U/L Normal 16-61 [facility] [place] Comment on above: Order Comment: DR.SH FOSTER ORDERED A BMP Performed By: #### L 500.4050, L502.0250, L501.9985, L500.4100 #### [facility] [place] [facility] [address] [place], [address] AST [Catalytic activity/Vol] 23 U/L Normal 15-37 [facility] [place] Comment on above: Order Comment: DR.SH FOSTER ORDERED A BMP Performed By: #### L 500.4050, L502.0250, L501.9985, L500.4100 #### [facility] [facility] [address] [place], [address] Bilirubin [Mass/Vol] 0.60 mg/dL Normal 0.20-1.00 [facility] Comment on above: Order Comment: DR.SH FOSTER ORDERED A BMP Result Comment: For patients on eltrombopag therapy, use of Dimension [place] TBIL is not recommended. Performed By: #### L 500.4050, L502.0250, L501.9985, L500.4100 #### [facility] [address] [place], [address] BUN/CRE 21.9 RATIO High 10-20 [facility] [place] Comment on above: Order Comment: DR.SH FOSTER ORDERED A BMP Performed By: #### L 500.4050, L502.0250, L501.9985, L500.4100 #### [facility] [place] [facility] [address] [place], [address] CA,Total 9.9 mg/dL Normal 8.5-10.1 [facility] [place] Comment on above: Order Comment: DR.SH FOSTER ORDERED A BMP Performed By: #### L 500.4050, L502.0250, L501.9985, L500.4100 #### [facility] [address] [place], [address] Chloride [Moles/Vol] 107 mmol/L Normal 98-107 [facility] Comment on above: Order Comment: DR.SH FOSTER ORDERED A BMP Performed By: #### L 500.4050, L502.0250, L501.9985, L500.4100 #### [facility] [place] [address] [place], [address] CO2 [Moles/Vol] 27.0 mmol/L Normal 21.0-32.0 [facility] [place] Comment on above: Order Comment: DR.SH FOSTER ORDERED A BMP Performed By: #### L 500.4050, L502.0250, L501.9985, L500.4100 #### [facility] [facility] [address] [place], [address] Creatinine [Mass/Vol] 0.87 mg/dL Normal 0.70-1.30 [facility] Comment on above: Order Comment: DR.SH FOSTER ORDERED A BMP Result Comment: The validity of the calculated GFR GFRAA in patients over 70 years has not been determined. Clinical correlation is essential. Performed By: #### L 500.4050, L502.0250, L501.9985, L500.4100 #### [facility] [address] [place], [address] EST GFR - AA 114 mL/min Normal >60 [facility] [place] Comment on above: Order Comment: DR.SH FOSTER ORDERED A BMP Result Comment: Afri can [place] GFR Calc Performed By: #### L 500.4050, L502.0250, L501.9985, L500.4100 #### [facility] [address] [place], [address] GAP 6 Normal 5-15 [facility] [place] Comment on above: Order Comment: DR.SH FOSTER ORDERED A BMP Performed By: #### L 500.4050, L502.0250, L501.9985, L500.4100 #### [facility] [facility] [address] [place], [address] GFR/1.73 sq M.predicted among non-blacks MDRD (S/P/Bld) [Vol rate/Area] 95 mL/min/{1.73_m2} Normal >60 [facility] Comment on above: Order Comment: DR.SH FOSTER ORDERED A BMP Result Comment: Non- GFR Calc Performed By: #### L 500.4050, L502.0250, L501.9985, L500.4100 #### [facility] [place] [facility] [address] [place], [address] Globulin (S) [Mass/Vol] 3.2 g/dL Normal 2.2-4.2 [facility] Comment on above: Order Comment: DR.SH FOSTER ORDERED A BMP Performed By: #### L 500.4050, L502.0250, L501.9985, L500.4100 #### [facility] [facility] [address] [place], [address] Glucose [Mass/Vol] 146 mg/dL High 74-106 [facility] Comment on above: Order Comment: DR.SH FOSTER ORDERED A BMP Result Comment: Fast ing Glucose result greater than or equal to 126 mg/dL suggests DIABETES MELLITUS per A.D.A. criteria. Performed By: #### L 500.4050, L502.0250, L501.9985, L500.4100 #### [facility] [place] [facility] [address] [place], [address] Potassium [Moles/Vol] 4.2 mmol/L Normal 3.5-5.1 [facility] Comment on above: Order Comment: DR.SH FOSTER ORDERED A BMP Performed By: #### L 500.4050, L502.0250, L501.9985, L500.4100 #### [facility] [place] [facility] [address] [place], [address] Sodium [Moles/Vol] 140 mmol/L Normal 136-145 [facility] Comment on above: Order Comment: DR.SH FOSTER ORDERED A BMP Performed By: #### L 500.4050, L502.0250, L501.9985, L500.4100 #### [facility] [address] [place], [address] T PROT 7.5 g/dL Normal 6.4-8.2 [facility] Comment on above: Order Comment: DR.SH FOSTER ORDERED A BMP Performed By: #### L 500.4050, L502.0250, L501.9985, L500.4100 #### [facility] [facility] [place] [facility] [address] [place], [address] Urea nitrogen [Mass/Vol] 19 mg/dL High 7-18 [facility] [place] Comment on above: Order Comment: DR.SH FOSTER ORDERED A BMP Performed By: #### L 500.4050, L502.0250, L501.9985, L500.4100 #### [facility] [address] [place], [address] Hemoglobin A1con 02-18-2024 HbA1c (Bld) [Mass fraction] 6.4 % High 3.8-5.6 [facility] Comment on above: Result Comment: Norm al < 5.7 % Prediabetic 5.7 - 6.4 % Diabetic >or= 6.5 % Please note range changes. Performed By: #### L 500.4100, L501.9985, L500.4050 #### [facility] [address] [place], [address] Lipid Profileon 02-18-2024 Cholesterol [Mass/Vol] 190 mg/dL Normal 200 [facility] Comment on above: Order Comment: DR.SH FOSTER ORDERED A BMP Result Comment: <200 mg/dL Desirable 200-240 mg/dL Borderline >240 mg/dL High Risk Performed By: #### L 500.4050, L502.0250, L501.9985, L500.4100 #### [facility] [address] [place], [address] Cholesterol in HDL [Mass/Vol] 41 mg/dL Normal [facility] Comment on above: Order Comment: DR.SH FOSTER ORDERED A BMP Result Comment: The drugs N-Acetylcysteine and Metamizole may falsely depress this assay. Reference Range HDL <40 mg/dL Low HDL Cholesterol HDL >or= 60 mg/dL High HDL Cholesterol Performed By: #### L 500.4050, L502.0250, L501.9985, L500.4100 #### [facility] [address] [place], [address] Cholesterol in LDL [Mass/Vol] 102 mg/dL Normal 0-130 [facility] [place] Comment on above: Order Comment: DR.SH FOSTER ORDERED A BMP Performed By: #### L 500.4050, L502.0250, L501.9985, L500.4100 #### [facility] [address] [place], [address] Cholesterol in VLDL [Mass/Vol] 47 mg/dL High 5-40 [facility] Comment on above: Order Comment: DR.SH FOSTER ORDERED A BMP Performed By: #### L 500.4050, L502.0250, L501.9985, L500.4100 #### [facility] [address] [place], [address] Triglyceride [Mass/Vol] 233 mg/dL High [facility] Comment on above: Order Comment: DR.SH FOSTER ORDERED A BMP Result Comment: The drugs N-Acetylcysteine and Metamizole may falsely depress this assay. Serum Triglycerides Reference Interval Normal <150 mg/dL Borderline high 150 - 199 mg/dL High 200 - 499 mg/dL Very High > or = 500 mg/dL Performed By: #### L 500.4050, L502.0250, L501.9985, L500.4100 #### [facility] [address] [place], [address] Microalb:Creat Ratio,Random URon 12-09-2024 Creatinine [Mass/Vol] 84.40 mg/dL Normal NO RANGE EST. [facility] Comment on above: Performed By: #### L 500.4100, L501.9985, L500.4050 #### [facility] [address] [place], [address] MALB:CRE 21.2 mg/g CRE Normal <30 mg/g CRE [facility] Comment on above: Performed By: #### L 500.4100, L501.9985, L500.4050 #### [facility] [address] [place], [address] MICROALBUMIN,UR 17.9 mg/L Normal NO RANGE EST. [facility] Comment on above: Performed By: #### L 500.4100, L501.9985, L500.4050 #### [facility] [address] [place], [address] Comprehensive Metabolic [facility] 10-17-2023 Albumin [Mass/Vol] 3.8 g/dL Normal 3.2-5.0 [facility] Comment on above: Performed By: #### L 501.9985, L500.4050, L500.4100 #### [facility] [address] [place], [address] Albumin/Globulin [Mass ratio] 1.1 {ratio} Normal 0.9-2.4 [facility] Comment on above: Performed By: #### L 501.9985, L500.4050, L500.4100 #### [facility] [address] [place], [address] ALK P 74 U/L Normal 45-117 [facility] Comment on above: Performed By: #### L 501.9985, L500.4050, L500.4100 #### [facility] [address] [place], [address] ALT [Catalytic activity/Vol] 32 U/L Normal 16-61 [facility] Comment on above: Performed By: #### L 501.9985, L500.4050, L500.4100 #### [facility] [address] [place], [address] AST [Catalytic activity/Vol] 20 U/L Normal 15-37 [facility] Comment on above: Performed By: #### L 501.9985, L500.4050, L500.4100 #### [facility] [address] [place], [address] Bilirubin [Mass/Vol] 0.40 mg/dL Normal 0.20-1.00 [facility] Comment on above: Result Comment: For patients on eltrombopag therapy, use of Dimension [place] TBIL is not recommended. Performed By: #### L 501.9985, L500.4050, L500.4100 #### [facility] [address] [place], [address] BUN/CRE 19.2 RATIO Normal 10-20 [facility] Comment on above: Performed By: #### L 501.9985, L500.4050, L500.4100 #### [facility] [address] [place], [address] CA,Total 9.0 mg/dL Normal 8.5-10.1 [facility] Comment on above: Performed By: #### L 501.9985, L500.4050, L500.4100 #### [facility] [address] [place], [address] Chloride [Moles/Vol] 112 mmol/L High 98-107 [facility] Comment on above: Performed By: #### L 501.9985, L500.4050, L500.4100 #### [facility] [address] [place], [address] CO2 [Moles/Vol] 25.0 mmol/L Normal 21.0-32.0 [facility] Comment on above: Performed By: #### L 501.9985, L500.4050, L500.4100 #### [facility] [address] [place], [address] Creatinine [Mass/Vol] 0.83 mg/dL Normal 0.70-1.30 [facility] Comment on above: Result Comment: The validity of the calculated GFR GFRAA in patients over 70 years has not been determined. Clinical correlation is essential. Performed By: #### L 501.9985, L500.4050, L500.4100 #### [facility] [address] [place], [address] EST GFR - AA 120 mL/min Normal >60 [facility] Comment on above: Result Comment: Afri can [place] GFR Calc Performed By: #### L 501.9985, L500.4050, L500.4100 #### [facility] [address] [place], [address] GAP 3 Low 5-15 [facility] Comment on above: Performed By: #### L 501.9985, L500.4050, L500.4100 #### [facility] [address] [place], [address] GFR/1.73 sq M.predicted among non-blacks MDRD (S/P/Bld) [Vol rate/Area] 99 mL/min/{1.73_m2} Normal >60 [facility] Comment on above: Result Comment: Non- GFR Calc Performed By: #### L 501.9985, L500.4050, L500.4100 #### [facility] [address] [place], [address] Globulin (S) [Mass/Vol] 3.4 g/dL Normal 2.2-4.2 [facility] Comment on above: Performed By: #### L 501.9985, L500.4050, L500.4100 #### [facility] [address] [place], [address] Glucose [Mass/Vol] 140 mg/dL High 74-106 [facility] Comment on above: Result Comment: Fast ing Glucose result greater than or equal to 126 mg/dL suggests DIABETES MELLITUS per A.D.A. criteria. Performed By: #### L 501.9985, L500.4050, L500.4100 #### [facility] [address] [place], [address] Potassium [Moles/Vol] 4.3 mmol/L Normal 3.5-5.1 [facility] Comment on above: Performed By: #### L 501.9985, L500.4050, L500.4100 #### [facility] [address] [place], [address] Sodium [Moles/Vol] 140 mmol/L Normal 136-145 [facility] Comment on above: Performed By: #### L 501.9985, L500.4050, L500.4100 #### [facility] [address] [place], [address] T PROT 7.2 g/dL Normal 6.4-8.2 [facility] Comment on above: Performed By: #### L 501.9985, L500.4050, L500.4100 #### [facility] [address] [place], [address] Urea nitrogen [Mass/Vol] 16 mg/dL Normal 7-18 [facility] Comment on above: Performed By: #### L 501.9985, L500.4050, L500.4100 #### [facility] [address] [place], [address] Hemoglobin A1con 10-17-2023 HbA1c (Bld) [Mass fraction] 6.7 % High 3.8-5.6 [facility] Comment on above: Result Comment: Norm al < 5.7 % Prediabetic 5.7 - 6.4 % Diabetic >or= 6.5 % Please note range changes. Performed By: #### L 501.9985, L500.4050, L500.4100 #### [facility] [address] [place], [address] Lipid Profileon 10-17-2023 Cholesterol [Mass/Vol] 167 mg/dL Normal 200 [facility] Comment on above: Result Comment: <200 mg/dL Desirable 200-240 mg/dL Borderline >240 mg/dL High Risk Performed By: #### L 501.9985, L500.4050, L500.4100 #### [facility] [address] [place], [address] Cholesterol in HDL [Mass/Vol] 41 mg/dL Normal [facility] Comment on above: Result Comment: The drugs N-Acetylcysteine and Metamizole may falsely depress this assay. Reference Range HDL <40 mg/dL Low HDL Cholesterol HDL >or= 60 mg/dL High HDL Cholesterol Performed By: #### L 501.9985, L500.4050, L500.4100 #### [facility] [address] [place], [address] Cholesterol in LDL [Mass/Vol] 94 mg/dL Normal 0-130 [facility] Comment on above: Performed By: #### L 501.9985, L500.4050, L500.4100 #### [facility] [address] [place], [address] Cholesterol in VLDL [Mass/Vol] 32 mg/dL Normal 5-40 [facility] Comment on above: Performed By: #### L 501.9985, L500.4050, L500.4100 #### [facility] [address] [place], [address] Triglyceride [Mass/Vol] 161 mg/dL Normal [facility] Comment on above: Result Comment: The drugs N-Acetylcysteine and Metamizole may falsely depress this assay. Serum Triglycerides Reference Interval Normal <150 mg/dL Borderline high 150 - 199 mg/dL High 200 - 499 mg/dL Very High > or = 500 mg/dL Performed By: #### L 501.9993, L500.4050, L500.4100 #### [facility] [address] [place], [address] Basophil percentageOrdered B y: Adri Bolaños on 06-13-2023 Bilirubin [Mass/Vol] 0.60 mg/dL 0.20-1.00 [facility] Comment on above: For patients on eltr ombopag therapy, use of Dimension [place] TBIL is not recommended. Chloride [Moles/Vol] 104 mmol/L 98-107 [facility] Glucose [Mass/Vol] 139 mg/dL 74-106 [facility] Comment on above: Fasting Glucose resu lt greater than or equal to 126 mg/dL suggests DIABETES MELLITUS per A.D.A. criteria. Potassium [Moles/Vol] 3.9 mmol/L 3.5-5.1 [facility] Protein [Mass/Vol] 7.5 g/dL 6.4-8.2 [facility] Sodium [Moles/Vol] 137 mmol/L 136-145 [facility] Laboratory - Chemistry and C hemistry - challengeOrdered By: Adri Bolaños on 06-13-2023 Albumin/Globulin [Mass ratio] 1.2 {ratio} 0.9-2.4 [facility] ALP [Catalytic activity/Vol] 65 U/L 45-117 [facility] ALT [Catalytic activity/Vol] 32 U/L 16-61 [facility] CO2 [Moles/Vol] 27.0 mmol/L 21.0-32.0 [facility] Globulin (S) [Mass/Vol] 3.4 g/dL 2.2-4.2 [facility] Urea nitrogen/Creatinine [Mass ratio] 19.4 mg/mg 10-20 [facility] No Panel InformationOrdered By: Adri Bolaños on 06-13-2023 Estimated GFR (MDRD) Amer 113 mL/min >60 [facility] Comment on above: GFR Calc Estimated GFR (MDRD) Non-Af Amer 93 mL/min >60 [facility] Comment on above: Non- GFR Calc Urine Microalbumin/Creatinine Ratio 15.9 mg/g CRE <30 [facility] Serum or plasma calcium nohemy urement (mass/volume)Ordered By: Adri Bolaños on 06-13-2023 Calcium [Mass/Vol] 9.3 mg/dL 8.5-10.1 [facility] Serum or plasma creatinine m easurement (mass/volume)Ordered By: Adri Bolaños on 06-13-2023 Creatinine [Mass/Vol] 0.88 mg/dL 0.70-1.30 [facility] Comment on above: The validity of the calculated GFR & GFRAA in patients over 70 years has not been determined. Clinical correlation is essential. Serum or plasma urea nitroge n measurement (mass/volume)Ordered By: Adri Bolaños on 06-13-2023 Urea nitrogen [Mass/Vol] 17 mg/dL 7-18 [facility] Thin prep Papanicolaou smear with manual screeningOrdered By: Adri Bolaños on 06-13-2023 Thin prep Papanicolaou smear with manual screening 4.1 g/dL 3.2-5.0 [facility] Thin prep Papanicolaou smear with manual screening 19 U/L 15-37 [facility] [place] Thin prep Papanicolaou smear with manual screening 6 5-15 [facility] Thin prep Papanicolaou smear with manual screening 9.9 mg/L NO RANGE EST. [facility] Urine creatinine measurement (mass/volume)Ordered By: Adri Boalños on 06-13-2023 Creatinine (U) [Mass/Vol] 62.70 mg/dL NO RANGE EST. [facility] Whole blood hemoglobin A1c/t otal hemoglobin ratio (mass fraction)Ordered By: Adri Bolaños on 06-13-2023 HbA1c (Bld) [Mass fraction] 6.9 % 3.8-5.6 [facility] Comment on above: Normal < 5.7 % Predi abetic 5.7 - 6.4 % Diabetic >or= 6.5 % Please note range changes. Basophil percentageOrdered B y: Adri Bolaños on 03-14-2023 Bilirubin [Mass/Vol] 0.40 mg/dL 0.20-1.00 [facility] Comment on above: For patients on eltr ombopag therapy, use of Dimension [place] TBIL is not recommended. Chloride [Moles/Vol] 108 mmol/L 98-107 [facility] Glucose [Mass/Vol] 221 mg/dL 74-106 [facility] Comment on above: Glucose result great er than or equal to 200 mg/dLsuggests DIABETES MELLITUS per A.D.A. criteria. Potassium [Moles/Vol] 4.0 mmol/L 3.5-5.1 [facility] Protein [Mass/Vol] 7.1 g/dL 6.4-8.2 [facility] Sodium [Moles/Vol] 140 mmol/L 136-145 [facility] Laboratory - Chemistry and C hemistry - challengeOrdered By: Adri Bolaños on 03-14-2023 ALP [Catalytic activity/Vol] 69 U/L 45-117 [facility] ALT [Catalytic activity/Vol] 35 U/L 16-61 [facility] CO2 [Moles/Vol] 27.0 mmol/L 21.0-32.0 [facility] Globulin (S) [Mass/Vol] 3.3 g/dL 2.2-4.2 [facility] Urea nitrogen/Creatinine [Mass ratio] 17.5 mg/mg 10-20 [facility] No Panel InformationOrdered By: Adri Bolaños on 03-14-2023 Estimated GFR (MDRD) Amer 101 mL/min >60 [facility] Comment on above: GFR Calc Estimated GFR (MDRD) Non-Af Amer 83 mL/min >60 [facility] Comment on above: Non- GFR Calc Urine Microalbumin/Creatinine Ratio 192.1 mg/g CRE <30 [facility] Serum or plasma albumin nohemy urement (mass/volume)Ordered By: Adri Bolaños on 03-14-2023 Albumin [Mass/Vol] 3.8 g/dL 3.2-5.0 [facility] Serum or plasma albumin/glob ulin mass ratioOrdered By: Adri Bolaños on 03-14-2023 Albumin/Globulin [Mass ratio] 1.2 {ratio} 0.9-2.4 [facility] Serum or plasma calcium nohemy urement (mass/volume)Ordered By: Adri Bolaños on 03-14-2023 Calcium [Mass/Vol] 9.6 mg/dL 8.5-10.1 [facility] Serum or plasma creatinine m easurement (mass/volume)Ordered By: Adri Bolaños on 03-14-2023 Creatinine [Mass/Vol] 0.97 mg/dL 0.70-1.30 [facility] Comment on above: The validity of the calculated GFR & GFRAA in patients over 70 years has not been determined. Clinical correlation is essential. Serum or plasma urea nitroge n measurement (mass/volume)Ordered By: Adri Bolaños on 03-14-2023 Urea nitrogen [Mass/Vol] 17 mg/dL 7-18 [facility] Thin prep Papanicolaou smear with manual screeningOrdered By: Adri Bolaños on 03-14-2023 Thin prep Papanicolaou smear with manual screening 18 U/L 15-37 [facility] Thin prep Papanicolaou smear with manual screening 5 5-15 [facility] Thin prep Papanicolaou smear with manual screening 181.0 mg/L NO RANGE EST. [facility] Urine creatinine measurement (mass/volume)Ordered By: Adri Bolaños on 03-14-2023 Creatinine (U) [Mass/Vol] 94.20 mg/dL NO RANGE EST. [facility] Whole blood hemoglobin A1c/t otal hemoglobin ratio (mass fraction)Ordered By: Adri Bolaños on 03-14-2023 HbA1c (Bld) [Mass fraction] 6.6 % 3.8-5.6 [facility] Comment on above: Normal < 5.7 % Predi abetic 5.7 - 6.4 % Diabetic >or= 6.5 % Please note range changes. Basophil percentageOrdered B y: Adri Bolaños on 01-10-2023 Bilirubin [Mass/Vol] 0.50 mg/dL 0.20-1.00 [facility] Comment on above: For patients on eltr ombopag therapy, use of Dimension [place] TBIL is not recommended. Chloride [Moles/Vol] 104 mmol/L 98-107 [facility] Glucose [Mass/Vol] 167 mg/dL 74-106 [facility] Comment on above: Fasting Glucose resu lt greater than or equal to 126 mg/dL suggests DIABETES MELLITUS per A.D.A. criteria. Potassium [Moles/Vol] 4.0 mmol/L 3.5-5.1 [facility] Protein [Mass/Vol] 7.5 g/dL 6.4-8.2 [facility] Sodium [Moles/Vol] 137 mmol/L 136-145 [facility] Laboratory - Chemistry and C hemistry - challengeOrdered By: Adri Bolaños on 01-10-2023 ALP [Catalytic activity/Vol] 57 U/L 45-117 [facility] ALT [Catalytic activity/Vol] 39 U/L 16-61 [facility] CO2 [Moles/Vol] 28.0 mmol/L 21.0-32.0 [facility] Globulin (S) [Mass/Vol] 3.6 g/dL 2.2-4.2 [facility] Urea nitrogen/Creatinine [Mass ratio] 17.8 mg/mg 10-20 [facility] No Panel InformationOrdered By: Adri Bolaños on 01-10-2023 Estimated GFR (MDRD) Amer 102 mL/min >60 [facility] Comment on above: GFR Calc Estimated GFR (MDRD) Non-Af Amer 85 mL/min >60 [facility] Comment on above: Non- GFR Calc Serum or plasma albumin nohemy urement (mass/volume)Ordered By: Adri Bolaños on 01-10-2023 Albumin [Mass/Vol] 3.9 g/dL 3.2-5.0 [facility] Serum or plasma albumin/glob ulin mass ratioOrdered By: Adri Bolaños on 01-10-2023 Albumin/Globulin [Mass ratio] 1.1 {ratio} 0.9-2.4 [facility] Serum or plasma calcium nohemy urement (mass/volume)Ordered By: Adri Bolaños on 01-10-2023 Calcium [Mass/Vol] 9.9 mg/dL 8.5-10.1 [facility] Serum or plasma creatinine m easurement (mass/volume)Ordered By: Adri Bolaños on 01-10-2023 Creatinine [Mass/Vol] 0.96 mg/dL 0.70-1.30 [facility] Comment on above: The validity of the calculated GFR & GFRAA in patients over 70 years has not been determined. Clinical correlation is essential. Serum or plasma urea nitroge n measurement (mass/volume)Ordered By: Adri Bolaños on 01-10-2023 Urea nitrogen [Mass/Vol] 17 mg/dL 7-18 [facility] Thin prep Papanicolaou smear with manual screeningOrdered By: Adri Bolaños on 01-10-2023 Thin prep Papanicolaou smear with manual screening 15 U/L 15-37 [facility] Thin prep Papanicolaou smear with manual screening 5 5-15 [facility] Whole blood hemoglobin A1c/t otal hemoglobin ratio (mass fraction)Ordered By: Adri Bolaños on 01-10-2023 HbA1c (Bld) [Mass fraction] 6.4 % 3.8-5.6 [facility] Comment on above: Normal < 5.7 % Predi abetic 5.7 - 6.4 % Diabetic >or= 6.5 % Please note range changes. Basophil percentageOrdered B y: Adri Bolaños on 10-12-2022 Bilirubin [Mass/Vol] 0.50 mg/dL 0.20-1.00 [facility] Comment on above: For patients on eltr ombopag therapy, use of Dimension [place] TBIL is not recommended. Chloride [Moles/Vol] 105 mmol/L 98-107 [facility] Glucose [Mass/Vol] 146 mg/dL 74-106 [facility] Comment on above: Fasting Glucose resu lt greater than or equal to 126 mg/dL suggests DIABETES MELLITUS per A.D.A. criteria. Potassium [Moles/Vol] 4.1 mmol/L 3.5-5.1 [facility] Protein [Mass/Vol] 7.4 g/dL 6.4-8.2 [facility] Sodium [Moles/Vol] 138 mmol/L 136-145 [facility] Laboratory - Chemistry and C hemistry - challengeOrdered By: Adri Bolaños on 10-12-2022 ALP [Catalytic activity/Vol] 62 U/L 45-117 [facility] [place] ALT [Catalytic activity/Vol] 42 U/L 16-61 [facility] [place] CO2 [Moles/Vol] 27.0 mmol/L 21.0-32.0 [facility] [place] Globulin (S) [Mass/Vol] 3.5 g/dL 2.2-4.2 [facility] Urea nitrogen/Creatinine [Mass ratio] 22.9 mg/mg 10-20 [facility] [place] No Panel InformationOrdered By: Adri Bolaños on 10-12-2022 Estimated GFR (MDRD) Amer 128 mL/min >60 [facility] [place] Comment on above: GFR Calc Estimated GFR (MDRD) Non-Af Amer 106 mL/min >60 [facility] [place] Comment on above: Non- GFR Calc Serum or plasma albumin nohemy urement (mass/volume)Ordered By: Adri Bolaños on 10-12-2022 Albumin [Mass/Vol] 3.9 g/dL 3.2-5.0 [facility] Serum or plasma albumin/glob ulin mass ratioOrdered By: Adri Bolaños on 10-12-2022 Albumin/Globulin [Mass ratio] 1.1 {ratio} 0.9-2.4 [facility] [place] Serum or plasma calcium nohemy urement (mass/volume)Ordered By: Adri Bolaños on 10-12-2022 Calcium [Mass/Vol] 9.1 mg/dL 8.5-10.1 [facility] Serum or plasma creatinine m easurement (mass/volume)Ordered By: Adri Bolaños on 10-12-2022 Creatinine [Mass/Vol] 0.79 mg/dL 0.70-1.30 [facility] Comment on above: The validity of the calculated GFR & GFRAA in patients over 70 years has not been determined. Clinical correlation is essential. Serum or plasma urea nitroge n measurement (mass/volume)Ordered By: Adri Bolaños on 10-12-2022 Urea nitrogen [Mass/Vol] 18 mg/dL 7-18 [facility] [place] Thin prep Papanicolaou smear with manual screeningOrdered By: Adri Bolaños on 10-12-2022 Thin prep Papanicolaou smear with manual screening 18 U/L 15-37 [facility] [place] Thin prep Papanicolaou smear with manual screening 6 5-15 [facility] [place] Whole blood hemoglobin A1c/t otal hemoglobin ratio (mass fraction)Ordered By: Adri Bolaños on 10-12-2022 HbA1c (Bld) [Mass fraction] 6.6 % 3.8-5.6 [facility] [place] Comment on above: Normal < 5.7 % Predi abetic 5.7 - 6.4 % Diabetic >or= 6.5 % Please note range changes. Basophil percentageOrdered B y: Dr. Bolaños on 07-13-2022 Bilirubin [Mass/Vol] 0.40 mg/dL 0.20-1.00 [facility] Comment on above: For patients on eltr ombopag therapy, use of Dimension [place] TBIL is not recommended. Chloride [Moles/Vol] 107 mmol/L 98-107 [facility] Cholesterol [Mass/Vol] 170 mg/dL <200 [facility] Comment on above: <200 mg/dL Desirable 200-240 mg/dL Borderline >240 mg/dL High Risk Glucose [Mass/Vol] 182 mg/dL 74-106 [facility] Comment on above: Fasting Glucose resu lt greater than or equal to 126 mg/dL suggests DIABETES MELLITUS per A.D.A. criteria. Potassium [Moles/Vol] 4.2 mmol/L 3.5-5.1 [facility] Protein [Mass/Vol] 7.1 g/dL 6.4-8.2 [facility] Sodium [Moles/Vol] 139 mmol/L 136-145 [facility] Triglyceride [Mass/Vol] 154 mg/dL <199 [facility] Comment on above: The drugs N-Acetylcy steine and Metamizole may falsely depress this assay.Serum Triglycerides Reference Interval Normal <150 mg/dL Borderline high 150 - 199 mg/dL High 200 - 499 mg/dL Very High > or = 500 mg/dL Laboratory - Chemistry and C hemistry - challengeOrdered By: Dr. Bolaños on 07-13-2022 ALP [Catalytic activity/Vol] 63 U/L 45-117 [facility] [place] ALT [Catalytic activity/Vol] 44 U/L 16-61 [facility] [place] CO2 [Moles/Vol] 25.0 mmol/L 21.0-32.0 [facility] [place] Globulin (S) [Mass/Vol] 3.3 g/dL 2.2-4.2 [facility] Urea nitrogen/Creatinine [Mass ratio] 20.0 mg/mg 10-20 [facility] [place] No Panel InformationOrdered By: Dr. Bolaños on 07-13-2022 Estimated GFR (MDRD) Amer 110 mL/min >60 [facility] [place] Comment on above: GFR Calc Estimated GFR (MDRD) Non-Af Amer 91 mL/min >60 [facility] [place] Comment on above: Non- GFR Calc Serum or plasma albumin nohemy urement (mass/volume)Ordered By: Dr. Bolaños on 07-13-2022 Albumin [Mass/Vol] 3.8 g/dL 3.2-5.0 [facility] Serum or plasma albumin/glob ulin mass ratioOrdered By: Dr. Bolaños on 07-13-2022 Albumin/Globulin [Mass ratio] 1.2 {ratio} 0.9-2.4 [facility] [place] Serum or plasma calcium nohemy urement (mass/volume)Ordered By: Dr. Bolaños on 07-13-2022 Calcium [Mass/Vol] 8.9 mg/dL 8.5-10.1 [facility] Serum or plasma cholesterol in HDL measurement (mass/volume)Ordered By: Dr. Bolaños on 07-13-2022 Cholesterol in HDL [Mass/Vol] 39 mg/dL >40 [facility] [place] Comment on above: The drugs N-Acetylcy steine and Metamizole may falsely depress this assay. Reference Range HDL <40 mg/dL Low HDL Cholesterol HDL >or= 60 mg/dL High HDL Cholesterol Serum or plasma cholesterol in VLDL measurement (mass/volume)Ordered By: Dr. Bolaños on 07-13-2022 Cholesterol in VLDL [Mass/Vol] 31 mg/dL 5-40 [facility] [place] Serum or plasma creatinine m easurement (mass/volume)Ordered By: Dr. Bolaños on 07-13-2022 Creatinine [Mass/Vol] 0.90 mg/dL 0.70-1.30 [facility] Comment on above: The validity of the calculated GFR & GFRAA in patients over 70 years has not been determined. Clinical correlation is essential. Serum or plasma low density lipoprotein (LDL) cholesterol measurement (mass/volume)Ordered By: Dr. Bolaños on 07-13-2022 Cholesterol in LDL [Mass/Vol] 100 mg/dL 0-130 [facility] [place] Serum or plasma urea nitroge n measurement (mass/volume)Ordered By: Dr. Bolaños on 07-13-2022 Urea nitrogen [Mass/Vol] 18 mg/dL 7-18 [facility] [place] Thin prep Papanicolaou smear with manual screeningOrdered By: Dr. Bolaños on 07-13-2022 Thin prep Papanicolaou smear with manual screening 22 U/L 15-37 [facility] [place] Thin prep Papanicolaou smear with manual screening 7 5-15 [facility] [place] Whole blood hemoglobin A1c/t otal hemoglobin ratio (mass fraction)Ordered By: Dr. Bolaños on 07-13-2022 HbA1c (Bld) [Mass fraction] 7.9 % 3.8-5.6 [facility] [place] Comment on above: Normal < 5.7 % Predi abetic 5.7 - 6.4 % Diabetic >or= 6.5 % Please note range changes. Basophil percentageOrdered B y: Dr. Bolaños on 04-13-2022 Chloride [Moles/Vol] 105 mmol/L 98-107 [facility] Glucose [Mass/Vol] 143 mg/dL 74-106 [facility] Comment on above: Fasting Glucose resu lt greater than or equal to 126 mg/dL suggests DIABETES MELLITUS per A.D.A. criteria. Potassium [Moles/Vol] 4.4 mmol/L 3.5-5.1 [facility] Sodium [Moles/Vol] 138 mmol/L 136-145 [facility] Laboratory - Chemistry and C hemistry - challengeOrdered By: Dr. Bolaños on 04-13-2022 CO2 [Moles/Vol] 27.0 mmol/L 21.0-32.0 [facility] [place] Urea nitrogen/Creatinine [Mass ratio] 19.3 mg/mg 10-20 [facility] [place] No Panel InformationOrdered By: Dr. Bolaños on 04-13-2022 Estimated GFR (MDRD) Amer 106 mL/min >60 [facility] [place] Comment on above: GFR Calc Estimated GFR (MDRD) Non-Af Amer 87 mL/min >60 [facility] [place] Comment on above: Non- GFR Calc Urine Microalbumin/Creatinine Ratio 15.7 mg/g CRE <30 [facility] [place] Serum or plasma calcium nohemy urement (mass/volume)Ordered By: Dr. Bolaños on 04-13-2022 Calcium [Mass/Vol] 9.1 mg/dL 8.5-10.1 [facility] Serum or plasma creatinine m easurement (mass/volume)Ordered By: Dr. Bolaños on 04-13-2022 Creatinine [Mass/Vol] 0.93 mg/dL 0.70-1.30 [facility] Comment on above: The validity of the calculated GFR & GFRAA in patients over 70 years has not been determined. Clinical correlation is essential. Serum or plasma urea nitroge n measurement (mass/volume)Ordered By: Dr. Bolaños on 04-13-2022 Urea nitrogen [Mass/Vol] 18 mg/dL 7-18 [facility] [place] Thin prep Papanicolaou smear with manual screeningOrdered By: Dr. Bolaños on 04-13-2022 Thin prep Papanicolaou smear with manual screening 6 5-15 [facility] [place] Thin prep Papanicolaou smear with manual screening 18.7 mg/L NO RANGE EST. [facility] [place] Urine creatinine measurement (mass/volume)Ordered By: Dr. Bolaños on 04-13-2022 Creatinine (U) [Mass/Vol] 119.00 mg/dL NO RANGE EST. [facility] [place] Whole blood hemoglobin A1c/t otal hemoglobin ratio (mass fraction)Ordered By: Dr. Bolaños on 04-13-2022 HbA1c (Bld) [Mass fraction] 7.3 % 3.8-5.6 [facility] [place] Comment on above: Normal < 5.7 % Predi abetic 5.7 - 6.4 % Diabetic >or= 6.5 % Please note range changes. Basophil percentageon 2021 Bilirubin [Mass/Vol] 0.70 mg/dL 0.20-1.00 [facility] Work Phone: Comment on above: For patients on eltr ombopag therapy, use of Dimension [place] TBIL is not recommended. Chloride [Moles/Vol] 105 mmol/L 98-107 [facility] Work Phone: Cholesterol [Mass/Vol] 185 mg/dL <200 [facility] Work Phone: Comment on above: <200 mg/dL Desirable 200-240 mg/dL Borderline >240 mg/dL High Risk Glucose [Mass/Vol] 151 mg/dL 74-106 [facility] Work Phone: Comment on above: Fasting Glucose resu lt greater than or equal to 126 mg/dL suggests DIABETES MELLITUS per A.D.A. criteria. Potassium [Moles/Vol] 4.2 mmol/L 3.5-5.1 [facility] Work Phone: Protein [Mass/Vol] 7.6 g/dL 6.4-8.2 [facility] Work Phone: Sodium [Moles/Vol] 137 mmol/L 136-145 [facility] Work Phone: Triglyceride [Mass/Vol] 159 mg/dL <199 [facility] Work Phone: Comment on above: The drugs N-Acetylcy steine and Metamizole may falsely depress this assay.Serum Triglycerides Reference Interval Normal <150 mg/dL Borderline high 150 - 199 mg/dL High 200 - 499 mg/dL Very High > or = 500 mg/dL Laboratory - Chemistry and C hemistry - challengeon 01-16-2022 ALP [Catalytic activity/Vol] 76 U/L 45-117 [facility] [place] Work Phone: ALT [Catalytic activity/Vol] 38 U/L 16-61 [facility] [place] Work Phone: CO2 [Moles/Vol] 27.0 mmol/L 21.0-32.0 [facility] [place] Work Phone: Globulin (S) [Mass/Vol] 3.5 g/dL 2.2-4.2 [facility] Work Phone: Urea nitrogen/Creatinine [Mass ratio] 16.7 mg/mg 10-20 [facility] [place] Work Phone: No Panel Informationon 01-16 Estimated GFR (MDRD) Amer 120 mL/min >60 [facility] [place] Work Phone: Comment on above: GFR Calc Estimated GFR (MDRD) Non-Af Amer 99 mL/min >60 [facility] [place] Work Phone: Comment on above: Non- GFR Calc Serum or plasma albumin nohemy urement (mass/volume)on 01-16-2022 Albumin [Mass/Vol] 4.1 g/dL 3.2-5.0 [facility] Work Phone: Serum or plasma albumin/glob ulin mass ratioon 01-16-2022 Albumin/Globulin [Mass ratio] 1.2 {ratio} 0.9-2.4 [facility] [place] Work Phone: Serum or plasma calcium nohemy urement (mass/volume)on 01-16-2022 Calcium [Mass/Vol] 9.3 mg/dL 8.5-10.1 [facility] Work Phone: Serum or plasma cholesterol in HDL measurement (mass/volume)on 01-16-2022 Cholesterol in HDL [Mass/Vol] 42 mg/dL >40 [facility] [place] Work Phone: Comment on above: The drugs N-Acetylcy steine and Metamizole may falsely depress this assay. Reference Range HDL <40 mg/dL Low HDL Cholesterol HDL >or= 60 mg/dL High HDL Cholesterol Serum or plasma cholesterol in VLDL measurement (mass/volume)on 01-16-2022 Cholesterol in VLDL [Mass/Vol] 32 mg/dL 5-40 [facility] [place] Work Phone: Serum or plasma creatinine m easurement (mass/volume)on 01-16-2022 Creatinine [Mass/Vol] 0.84 mg/dL 0.70-1.30 [facility] Work Phone: Comment on above: The validity of the calculated GFR & GFRAA in patients over 70 years has not been determined. Clinical correlation is essential. Serum or plasma low density lipoprotein (LDL) cholesterol measurement (mass/volume)on 01-16-2022 Cholesterol in LDL [Mass/Vol] 111 mg/dL 0-130 [facility] [place] Work Phone: Serum or plasma urea nitroge n measurement (mass/volume)on 01-16-2022 Urea nitrogen [Mass/Vol] 14 mg/dL 7-18 [facility] [place] Work Phone: Thin prep Papanicolaou smear with manual screeningon 01-16-2022 Thin prep Papanicolaou smear with manual screening 19 U/L 15-37 [facility] [place] Work Phone: Thin prep Papanicolaou smear with manual screening 5 5-15 [facility] [place] Work Phone: Whole blood hemoglobin A1c/t otal hemoglobin ratio (mass fraction)on 01-16-2022 HbA1c (Bld) [Mass fraction] 6.9 % 3.8-5.6 [facility] [place] Work Phone: Comment on above: Normal < 5.7 % Predi abetic 5.7 - 6.4 % Diabetic >or= 6.5 % Please note range changes. Basophil percentageon 2021 Chloride [Moles/Vol] 105 mmol/L 98-107 [facility] Work Phone: Cholesterol [Mass/Vol] 169 mg/dL <200 [facility] Work Phone: Comment on above: <200 mg/dL Desirable 200-240 mg/dL Borderline >240 mg/dL High Risk Glucose [Mass/Vol] 154 mg/dL 74-106 [facility] Work Phone: Comment on above: Fasting Glucose resu lt greater than or equal to 126 mg/dL suggests DIABETES MELLITUS per A.D.A. criteria. Potassium [Moles/Vol] 4.0 mmol/L 3.5-5.1 [facility] Work Phone: Sodium [Moles/Vol] 138 mmol/L 136-145 [facility] Work Phone: Triglyceride [Mass/Vol] 99 mg/dL <199 [facility] Work Phone: Comment on above: The drugs N-Acetylcy steine and Metamizole may falsely depress this assay.Serum Triglycerides Reference Interval Normal <150 mg/dL Borderline high 150 - 199 mg/dL High 200 - 499 mg/dL Very High > or = 500 mg/dL Laboratory - Chemistry and C hemistry - challengeon 10-27-2021 CO2 [Moles/Vol] 28.0 mmol/L 21.0-32.0 [facility] [place] Work Phone: Urea nitrogen/Creatinine [Mass ratio] 21.9 mg/mg 10-20 [facility] [place] Work Phone: No Panel Informationon 10-27 Estimated GFR (MDRD) Amer 103 mL/min >60 [facility] [place] Work Phone: Comment on above: GFR Calc Estimated GFR (MDRD) Non-Af Amer 85 mL/min >60 [facility] [place] Work Phone: Comment on above: Non- GFR Calc Serum or plasma calcium nohemy urement (mass/volume)on 10-27-2021 Calcium [Mass/Vol] 9.4 mg/dL 8.5-10.1 [facility] Work Phone: Serum or plasma cholesterol in HDL measurement (mass/volume)on 10-27-2021 Cholesterol in HDL [Mass/Vol] 41 mg/dL >40 [facility] [place] Work Phone: Comment on above: The drugs N-Acetylcy steine and Metamizole may falsely depress this assay. Reference Range HDL <40 mg/dL Low HDL Cholesterol HDL >or= 60 mg/dL High HDL Cholesterol Serum or plasma cholesterol in VLDL measurement (mass/volume)on 10-27-2021 Cholesterol in VLDL [Mass/Vol] 20 mg/dL 5-40 [facility] [place] Work Phone: Serum or plasma creatinine m easurement (mass/volume)on 10-27-2021 Creatinine [Mass/Vol] 0.96 mg/dL 0.70-1.30 [facility] Work Phone: Comment on above: The validity of the calculated GFR & GFRAA in patients over 70 years has not been determined. Clinical correlation is essential. Serum or plasma low density lipoprotein (LDL) cholesterol measurement (mass/volume)on 10-27-2021 Cholesterol in LDL [Mass/Vol] 108 mg/dL 0-130 [facility] [place] Work Phone: Serum or plasma urea nitroge n measurement (mass/volume)on 10-27-2021 Urea nitrogen [Mass/Vol] 21 mg/dL - [facility] [place] Work Phone: Thin prep Papanicolaou smear with manual screeningon 10-27-2021 Thin prep Papanicolaou smear with manual screening 5 5-15 [facility] [place] Work Phone: Whole blood hemoglobin A1c/t otal hemoglobin ratio (mass fraction)on 10-27-2021 HbA1c (Bld) [Mass fraction] 7.5 % 3.8-5.6 [facility] [place] Work Phone: Comment on above: Normal < 5.7 % Predi abetic 5.7 - 6.4 % Diabetic >or= 6.5 % Please note range changes. SURGICAL PATHOLOGY, [place] Don 10-16-2008 [facility] Encounters Encounter Date Encounter Type Care Provider Facility Start: 10-24-2024 ambulatory Dodie Bertrand Facility:[facility] Start: 09-26-2024 End: 09-26-[address] Dodie Bertrand DO Work Phone: -Laboratory Start: 09-26-2024 End: 09-26-[address] Adri Bolaños MD -Laboratory Work Phone: Start: 09-26-2024 End: 09-26-2024 ambulatory Adri Bolaños Facility:[facility] [place] Start: 09-09-2024 End: 09-09-2024 ambulatory Yaz Acuna PT Work Phone: [facility] Comment on above: Lumbar radiculopathy (Primary Dx); Degeneration of intervertebral disc of lumbar region with discogenic back pain and lower extremity pain Start: 09-02-2024 End: 09-02-2024 ambulatory Yaz Acuna PT Work Phone: [facility] Comment on above: Lumbar radiculopathy (Primary Dx) Start: 08-26-2024 End: 08-26-2024 ambulatory Yaz Acuna PT Work Phone: [facility] Comment on above: Lumbar radiculopathy (Primary Dx); Degeneration of intervertebral disc of lumbar region with discogenic back pain and lower extremity pain Start: 08-19-2024 End: 08-19-2024 ambulatory Yaz Acuna PT Work Phone: [facility] Comment on above: Degeneration of inte rvertebral disc of lumbar region with discogenic back pain and lower extremity pain (Primary Dx); Lumbar radiculopathy Start: 08-08-2024 End: 08-08-2024 ambulatory Yaz Acuna PT Work Phone: [facility] Comment on above: Degeneration of inte rvertebral disc of lumbar region with discogenic back pain and lower extremity pain (Primary Dx); Lumbar radiculopathy Start: 06-26-2024 End: 06-26-[address] Dodie Bertrand DO Work Phone: [facility] [place] Work Phone: Start: 06-26-2024 End: 06-26-[address] Adri Bolaños MD -Laboratory Work Phone: Start: 06-26-2024 End: 06-26-2024 ambulatory Adri Bolaños Facility:[facility] [place] Start: 06-18-2024 End: 06-18-[address] Dodie Bertrand DO Work Phone: [facility] [place] Work Phone: Start: 06-18-2024 End: 06-18-[address] Dodie Bertrand DO -Radiology, [facility] Work Phone: Start: 06-18-2024 End: 06-18-2024 ambulatory Dodie Bertrand Facility:[facility] [place] Start: 02-18-2024 End: 02-18-2024 ambulatory Charles Peres Facility:[facility] [place] Start: 10-17-2023 End: 10-17-2023 ambulatory Dodie Bertrand Facility:[facility] [place] Start: 06-13-2023 End: 06-13-2023 ambulatory [facility] [place] Work Phone: Start: 06-13-2023 End: 06-13-2023 Patient encounter procedure [facility] [place]-Laboratory Work Phone: Start: 03-14-2023 End: 03-14-2023 ambulatory [facility] [place] Work Phone: Start: 03-14-2023 End: 03-14-2023 Patient encounter procedure [facility] [place]-Laboratory Work Phone: Start: 01-10-2023 End: 01-10-2023 ambulatory [facility] [place] Work Phone: Start: 01-10-2023 End: 01-10-2023 Patient encounter procedure [facility] [place]-Laboratory Work Phone: Start: 10-12-2022 End: 10-12-2022 ambulatory [facility] [place] Work Phone: Start: 10-12-2022 End: 10-12-2022 Patient encounter procedure [facility] [place]-Laboratory Work Phone: Start: 07-13-2022 End: 07-13-2022 ambulatory [facility] [place] Work Phone: Start: 07-13-2022 End: 07-13-2022 Patient encounter procedure [facility] [place]-Laboratory Start: 04-13-2022 End: 04-13-2022 Patient encounter procedure [facility] [place]-Laboratory Start: 01-16-2022 End: 01-16-2022 ambulatory [facility] [place] Work Phone: Start: 01-16-2022 End: 01-16-2022 Patient encounter procedure [facility] [place]-Laboratory Start: 10-27-2021 End: 10-27-2021 ambulatory [facility] [place] Work Phone: Start: 10-27-2021 End: 10-27-2021 Patient encounter procedure [facility] [place]-Laboratory Start: 10-16-2008 Documentation procedure Gibson Pelayo MD Work Phone: [facility] Start: 10-16-2008 Historic EMR Gibson Pelayo MD Work Phone: [facility] Procedures Date Procedure Procedure Detail Performing Clinician Start: 06-26-2024 Vitamin D, 25-hydrox y measurement Dr. Dodie Bertrand DO Work Phone: Comment on above: Vitamin D StatusDefi ciency: <20 ng/mL (50nmol/L)Insufficiency: 20-30 ng/mL (50-75 nmol/L)Sufficiency: 30-100 ng/mL (75-250 nmol/L)Toxicity: >100 ng/mL (>250 nmol/L) Start: 06-18-2024 Complete x-ray serie s of [...] RSV Vaccine (1 - 1-dose 75+ series) [facility] Start: 10-24-2025 Urine microalbumin profile DTaP,Tdap,Td Vaccine (2 - Td or Tdap) [facility] Start: 11-10-2024 Influenza vaccination C [facility] Start: 09-09-2024 End: 09-09-2024 ambulatory 09/09/2024 7:45 AM EDT OT/PT/Speech Visit [facility] [address] [place] [address] Yaz Acuna, PT [address] [facility] [place] [place] [id number] BACK PAIN [facility] Comment on above: BACK PAIN Start: 09-02-2024 End: 09-02-2024 ambulatory 09/02/2024 7:45 AM EDT OT/PT/Speech Visit [facility] [address] [place] [address] Yaz Acuna, PT [address] [facility] [place] [address] BACK PAIN [facility] Comment on above: BACK PAIN Start: 08-26-2024 End: 08-26-2024 ambulatory 08/26/2024 7:45 AM EDT OT/PT/Speech Visit [facility] [address] [place] [address] Yaz Acuna, PT [address] [facility] [place] [address] BACK PAIN [facility] Comment on above: BACK PAIN Start: 08-19-2024 End: 08-19-2024 ambulatory 08/19/2024 7:00 AM EDT OT/PT/Speech Visit [facility] [address] [place] [address] Yaz Acuna, PT [address] [facility] [place] [address] BACK PAIN [facility] Comment on above: BACK PAIN Start: 11-11-2023 Covid-19 Vaccine ( season) Covid-19 Vaccine () [facility] Start: 11-10-2022 Influenza vaccination Influenza Vacc ine (#1) [facility] Start: 03-12-2022 Depression Assessment Depression Ass essment [facility] Start: 06-17-2021 Lipid 1996 panel - S brigido or Plasma Lipid Screening [facility] Start: 06-17-2021 Lipid panel Lipid Screening [facility] Start: 06-17-2021 Prostate Cancer Screening Discussion Prostate Cancer Screening Discussion [facility] Start: 06-17-2021 Prostate specific antigen measurement Prostate Cancer Screening Discussion [facility] Start: 06-18-2019 Diabetes Screening Diabetes Screenin g [facility] Start: 2010 Pneumococcal Vaccine : 50+ (1 of 1 - PCV) Pneumococcal Vaccine: 50+ (1 of 1 - PCV) [facility] Start: 2010 Shingrix Vaccine (1 of 2) Shingrix Vaccine (1 of 2) [facility] Start: 2005 Cologuard (FIT-DNA) Cologuard (FIT-D NA) [facility] Start: 2005 Colonoscopy Colonoscopy [facility] Start: 2005 Colorectal Cancer Screening Colorectal Cancer Screening [facility] Start: [address] COLONOGRAPHY [facility] Start: 2005 Fecal Occult Blood Fecal Occult Bloo d [facility] Start: 2005 Screening for malign ant neoplasm of colon [facility] Start: 2005 SIGMOIDOSCOPY SIGMOIDOSCOPY [facility] Start: 1979 Urine microalbumin profile DTaP,Tdap,Td Vaccine (1 - Tdap) [facility] Start: 1978 Anxiety Screening Anxiety Screening [facility] Start: 1978 Depression Screening Depression Scre ening [facility] Start: 1978 Hepatitis C Screening Hepatitis C [facility] Start: 1978 Hepatitis C screening Hepatitis C [facility] Start: 1978 HIV Screening HIV Screening [facility] Start: 1978 HIV screening HIV Screening [facility] Start: 1960 Covid-19 Vaccine (#1) Covid-19 Vacci ne (#1) [facility] Immunizations Immunization Date Immunization Notes Care Provider Fa vicente 02-20-2022 influenza virus vacc ine, unspecified formulation Yaz Acuna PT Work Phone: [facility] Payers Date Payer Category Payer Self-pay [id number] 2021 Private Health Insurance MMO [employer] PPO [id number] 2021 [id number] Unknown [id number] Unknown [id number] Unknown [id number] Unknown [id number] Unknown [id number] Unknown [id number] Unknown [id number] Social History Date Type Detail Facility Start: 05-19-2019 End: 05-19-2019 Tobacco smoking status NJIS Unknown if ever smoked [facility] Start: 05-19-2019 Non-smoker [facility] Start: 1960 Sex Assigned At Male [facility] Start: 05-27-2020 End: 08-19-2024 History of Social function [facility] Start: 05-27-2020 End: 08-19-2024 Tobacco use panel [facility] National Score (1-10 0), lower number is lower risk Not on file [facility] Start: 1960 Sex Assigned At Not on file [facility] Start: 04-27-2020 End: 05-27-2020 Exposure to SARS-CoV-2 (event) Not sure [facility] Start: 02-28-2017 End: 05-19-2019 Tobacco smoking status NHIS Never smoked tobacco (finding) [facility] Start: 06-24-2024 End: 07-01-2024 Sex Male (finding) [facility] Start: 02-28-2017 Tobacco use and exposure Smokeless tobacco non-user [facility] Start: 05-27-2020 Alcoholic beverage intake Not Asked [facility] Goals Date Patient Goal Desired Activity /State Clinical Notes 06-19-2024 to 09-09-2024 Yaz Acuna, PT - 09/09/2024 7:56 AM Yaz Jain, PT - 09/02/2024 7:46 AM Yaz Jain, PT - 08/26/2024 7:43 AM EDYaz Sandoval, PT - 08/19/2024 7:03 AM EDT Note Date & Type Note Facility 09-09-2024 Note HNO ID: [id number] Author: YAZ ACUNA PT Service: ? Author [...] Time (minutes): 27 Session Start Time : 075 Session Stop Time : 817 Yaz Acuna PT [facility] 09-09-2024 History of Present illness Narrative [...] Yaz Acuna PT documented in this encounter [facility] 09-02-2024 Note HNO ID: [id number] Author: YAZ ACUNA PT Service: ? Author [...] Stop Time : 825 Yaz Acuna PT [facility] 09-02-2024 History of Present illness Narrative [...] Yaz Acuna PT documented in this encounter [facility] 08-26-2024 Note HNO ID: [id number] Author: YAZ ACUNA PT Service: ? Author [...] Stop Time : 823 Yaz Acuna PT [facility] 08-26-2024 History of Present illness Narrative [...] Yaz Acuna PT documented in this encounter [facility] 08-19-2024 Note HNO ID: [id number] Author: YAZ ACUNA PT Service: ? Author [...] Stop Time : 742 Yaz Acuna PT [facility] 08-19-2024 History of Present illness Narrative [...] Yaz Acuna PT documented in this encounter [facility] 08-08-2024 Note HNO ID: [id number] Author: YAZ ACUNA PT Service: ? Author [...] Planned: 4 Planned Treatment Interventions: Therapeutic exercise (83427), Neuromuscular re-education (41164), Manual therapy (70856), Therapeutic activities (87342), Patient/Family/Caregiver Education PLAN FOR NEXT VISIT: Increase Lumbar extensor flexibility Patient demonstrates good understanding of plan of care and treatment. The above goals and plan of care were discussed and agreed upon by patient/family. 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 Broke bones in the hands, the L clavicle, and has had some strains. Pt has a difficult time sitting still. Has a [employer] company. X-rays showed some degeneration of the [...] 30 sec 3: (more content not included)... [facility] 08-08-2024 History of Present illness Narrative [...] Planned: 4 Planned Treatment Interventions: Therapeutic exercise (48724), Neuromuscular re-education (35499), Manual therapy (59046), Therapeutic activities (35981), Patient/Family/Caregiver Education PLAN FOR NEXT VISIT: Increase Lumbar extensor flexibility Patient demonstrates good understanding of plan of care and treatment. The above goals and plan of care were discussed and agreed upon by patient/family. 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 Broke bones in the hands, the L clavicle, and has had some strains. Pt has a difficult time sitting still. Has a [employer] company. X-rays showed some degeneration of the [...] Time : 0750 Session Stop Time : 08 Yaz Acuna PT documented in this encounter [facility] 06-19-2024 Radiology Diagnostic study note [facility] Imaging Services [address] [place] [address] L/S Spine w Bend Min 6 Vw MR#: [id number] Acct: [id number] Name: IGNACIO LARIOS Rep #: [id number] : [id number] M 64 From: Ethan Miranda MD PCP: Dr. Dodie Bertrand DO Status: REG CLI Study:L/S Spine w Bend Min 6 Vw Date of Exam: 06/18/24 Exam# [id number] Ordering Dr: Stefani Bertrand sa, DO PROCEDURE: [...] acute fracture or traumatic malalignment. Reading Location: [facility] CC: Dr. 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 [facility] Evaluation note No assessment inform ation available [facility] Work Phone: Evaluation note Diagnosis Degeneration of intervertebral disc of lumbar region with discogenic back pain and lower extremity pain- Primary Lumbar radiculopathy Thoracic or lumbosacral neuritis or radiculitis, unspecified [facility] Diagnosis Degeneration of intervertebral disc of lumbar region with discogenic back pain and lower extremity pain- Primary Lumbar radiculopathy Thoracic or lumbosacral neuritis or radiculitis, unspecified [facility] Diagnosis Lumbar radiculopathy- Primary Thoracic or lumbosacral neuritis or radiculitis, unspecified Degeneration of intervertebral disc of lumbar region with discogenic back pain and lower extremity pain documented [facility]* Diagnosis Lumbar radiculopathy- Primary Thoracic or lumbosacral neuritis or radiculitis, unspecified [facility]* Diagnosis Lumbar radiculopathy- Primary Thoracic or lumbosacral neuritis or radiculitis, unspecified Degeneration of intervertebral disc of lumbar region with discogenic back pain and lower extremity pain documented in this encounter [facility] (narrative)No reason for [facility] Work Phone: Family History No Family History Records Found Relationship Condition Age at Onset Recorded Date/T danny Not Specified High blood cholesterol Unknown Malignant neoplasm of breast Unknown Cerebrovascular accident (CVA) Unknown Advance Directives No Advanced Directives Records Found Advance Directive Response Recorded Date/ Time Living Will Yes May 19, 2019 8:36am Power of Prn Physical Therapist Yes May 18 0 8:36am Advance Directive Response Recorded Date/ Time Living Will Yes May 19, 2019 9:36am Power of Prn Physical Therapist Yes May 18 0 9:36am Summary Purpose Additional Source Comments Care Teams (unrecognized sec tion and content) Team Status: Active Member Role Status Dates Dr. Dodie Bertrand DO Family Provider Active Dr. Dodie Bertrand DO Primary Care Provider Active Team Status: Inactive Member Role Status Dates Dr. Dodie Bertrand DO Primary Care Provider Active Dr. Adri Bolaños MD Attending Provider, Referring Pr [facility] Active Coach Operator Relationship Specialty Start Date End Date Pcp, PIPER Payan PCP - General 01/30/16 08/09/16 Serjio Mitchell [...] June 26, 2024 End: June 26, 2024 Coach Operator Relationship Specialty Start Date End Date Serjio Mitchell PCP - General [facility] Medicine 01/22/17 Coach Operator Relationship Specialty Start Date End Date Serjio Mitchell PCP - [facility] Medicine 01/22/17 Coach Operator Relationship Specialty Start Date End Date Serjio Mitchell PCP - General [facility] Medicine 01/22/17 Coach Operator Relationship Specialty Start Date End Date Serjio Mitchell PCP - [facility] Medicine 01/22/17 Team Status: Active Member Role/Relationship Status Dates Dr. Dodie Bertrand DO Family Provider Active Dr. Dodie Bertrand DO Primary Care Provider Active Team Status: Inactive Member Role/Relationship Status Dates Dr. Dodie Bertrand DO Primary Care Provider Active Start: June 18, 2024 End: June 18, 2024 Dr. Dodei Bertrand DO Attending Provider Active St art: June 18, 2024 End: June 18, 2024 Dr. Dodie Bertrand DO Referring Provider Active St art: June 18, 2024 End: June 18, 2024 Team Status: Inactive Member Role/Relationship Status Dates Dr. Dodie Bertrand DO Primary Care Provider Active Start: June 26, 2024 End: June 26, 2024 Dr. Adri Bolaños MD Attending Provider Active Start: June 26, 2024 End: June 26, 2024 Dr. Adri Bolaños MD Referring Provider Active Start: June 26, 2024 End: June 26, 2024 Team Status: Inactive Member Role/Relationship Status Dates Dr. Dodie Bertrand DO Primary Care Provider Active Start: September 26, 2024 End: September 26, 2024 Dr. Adri Bolaños MD Attending Provider Active Start: September 26, 2024 End: September 26, 2024 Dr. Adri Bolaños MD Referring Provider Active Start: September 26, 2024 End: September 26, 2024 Source Comments (unrecognize d section and content) In the event this informatio n is protected by the [facility] Confidentiality of Alcohol and Drug Abuse Patient Records regulations: The Federal rules restrict any use of the information to criminally investigate or prosecute any alcohol or drug abuse patient.[facility] the event this information is protected by the Federal Confidentiality of Alcohol and Drug Abuse Patient Records regulations: The Federal rules restrict any use of the information to criminally investigate or prosecute any alcohol or drug abuse patient.[facility] Hospital[facility] the event this information is protected by the Federal Confidentiality of Alcohol and Drug Abuse Patient Records regulations: The Federal rules restrict any use of the information to criminally investigate or prosecute any alcohol or drug abuse patient.[facility] Hospital[facility] the event this information is protected by the Federal Confidentiality of Alcohol and Drug Abuse Patient Records regulations: The Federal rules restrict any use of the information to criminally investigate or prosecute any alcohol or drug abuse patient.[facility] Hospital[facility] the event this information is protected by the Federal Confidentiality of Alcohol and Drug Abuse Patient Records regulations: The Federal rules restrict any use of the information to criminally investigate or prosecute any alcohol or drug abuse patient.[facility] Hospital[facility] the event this information is protected by the Federal Confidentiality of Alcohol and Drug Abuse Patient Records regulations: The Federal rules restrict any use of the information to criminally investigate or prosecute any alcohol or drug abuse patient.[facility] Reason for Visit (unrecogniz ed section and content) Reason Comments PT Discharge Specialty Diagnoses / Procedures Referred By Contac t Referred To Contact Physical Therapy / PHYSICAL THERAPY Diagnoses BACK PAIN Procedures PHYSICAL THERAPY EVALUATION HIGH COMPLEX 45 MINS NEW RS PT SPINE Homar Latif PA-C [address] [place] [address] Phone: tel: fax: Yaz Acuna, PT [address] [place] [address] Phone: tel: Referral ID Status Reason Start Date Expiration Date V isits Requested Visits Authorized [id number] Authorized 03/12/2024 03/11/2025 99 99 Reason Comments Physical Therapy Reason Comments PT Eval (unrecognized sect ion and content) No Status Records FoundNo Status Records Found INFORMATION SOURCE (unrecogn ized section and content) DATE CREATED AUTHOR 09/10/2024 [facility] DATE CREATED AUTHOR AUTHOR'S ORGANIZ ATION 10/13/2024 [facility] FOR RECORDS PERTAINING TO PATIENTS WHO ARE [...] BE BASED ON THE PRIMARY CLINICAL RECORDS. [facility], [facility]. provides no warranty or guarantee of the accuracy or completeness of information in this document.
[2024-10-24 07:50] LABS: Free T3 2.9 pg/mL (2.18-3.98)
== END | disposition home or self-care (01) ==
LOC: LAB 07:02
PROVIDERS: PCP Family Medicine; Referring Provider Family Medicine; Visit Provider Family Medicine
DX: E03.9 Hypothyroidism, unspecified (principal)
CPT/HCPCS: 36415; 84439; 84443; 84481

== ENCOUNTER → 2024-12-04 | Outpatient (CLI) | payer OTHER, SELFPAY ==
--- NOTE | 2024-12-04 09:56 | AAAS_ITS ---
Reason For Study Reason For Study: HTN, FH AAA Aorta Measurements Aorta Doppler Measurements Proximal aorta measures1.90x1.71cm. in cross-sectional axis.Peak systolic flow velocities within the proximal aorta Proximal aorta measures1.95cm. in longitudinal axis. measure 68.7 cm/sec. Mid aorta measures1.69x1.72cm. in cross-sectional axis. Peak systolic flow velocities within the mid aorta measure Mid aorta measures1.88cm. in longitudinal axis. 94.1 cm/sec. Distal aorta measures1.72x1.89cm. in cross-sectional axis. Peak systolic flow velocities within the distal aorta Distal aorta measures1.58cm. in longitudinal axis. measure 108.6 cm/sec. Left Iliac Artery Left iliac artery measures 1.19x1.23 cm. in the cross-sectional axis. Left iliac artery measures 1.14 cm. in the longitudinal axis. Peak systolic velocity in the left iliac artery measures 95.9 cm/sec. Right Iliac Artery Right iliac artery measures 1.26x1.27 cm. in the cross-sectional axis. Right iliac artery measures 1.08 cm. in the longitudinal axis. Peak systolic velocity in the right iliac artery measures 90.4 cm/sec. Procedure Aorta IVC Iliac vasculature or bypass grafts 90828. Exam performed in department. VL/AAA Screening Interpretation Summary Aorta patent, normal caliber Right iliac artery patent with ectasia to 1.27 cm Left iliac artery patent with ectasia to 1.23 cm Ordering Physician: Mika Ross Referring Physician: Dodie Bertrand DO Performed By: Magalis Camara RVT
--- NOTE | 2024-12-04 13:14 | STRESSREP ---
Stress Test Report Date: 12/04/2024 Procedure: Exercise tolerance test Indications: Dyspnea Consent: Per the patient Procedure: The patient exercised on a Du protocol for 9 minutes achieving a peak heart rate of 151 bpm (96% predicted maximal heart rate) with a peak blood pressure 200/82 mmHg and a peak MET capacity of approximately 10.1 MET's. The baseline ECG demonstrated sinus rhythm. The peak exercise ECG showed sinus tachycardia with flat ST depressions in inferior and lateral leads, suggestive of ischemia. These persisted into recovery. There were no cardiac dysrhythmias pretest, during exercise, or recovery. The functional capacity was considered very good. The patient had no complaints of chest discomfort during exercise or recovery. He did complain of shortness of breath with exercise. The examination was discontinued secondary to target heart rate being achieved. Impression: 1. Technically adequate (percent predicted maximal heart rate greater than 85%) exercise tolerance test. Exaggerated blood pressure response to exercise. 2. Peak exercise ECG with ischemic ST changes in inferolateral leads. 3. There were no cardiac dysrhythmias during exercise or recovery This note was generated with [employer] software. It may contain incorrect words, spelling, and punctuation that were not noted in checking the note before signing.
== END | disposition home or self-care (01) ==
LOC: CVS 09:45
PROVIDERS: PCP Family Medicine; Referring Provider Internal Medicine Cardiovascular Disease; Visit Provider Internal Medicine Cardiovascular Disease
DX: R06.09 Other forms of dyspnea (principal); R06.02 Shortness of breath; I10 Essential (primary) hypertension
CPT/HCPCS: 76706; 93017

== ENCOUNTER 2024-12-26 10:07 | Observation (INO) | payer OTHER, SELFPAY ==
--- NOTE | 2024-12-15 07:45 | RAD_ITS ---
PROCEDURE: CHEST PA AND LATERAL 12/15/2024 REASON FOR EXAM: PRE OP HEART CATH TECHNIQUE: Procedure Code: RADCXR Modality: DX Procedure: CHEST PA AND LATERAL COMPARISON: None FINDINGS: The lungs are clear. The heart borders mediastinum and pulmonary vascular pattern are normal. The upper abdominal bowel gas pattern is normal. There are no significant bony abnormalities of the chest. RAD/Chest PA and Lateral IMPRESSION: No evidence of acute cardiopulmonary pathology. Reading Location: [id number]
[2024-12-15 08:55] LABS: Hematocrit 42.3 % (40-54); Hemoglobin 14.0 g/dL (13.0-16.5); Immature Granulocytes Count 0.020 X10^3/uL (0.0-0.0); Mean Corp Hgb Conc 33.1 g/dL (32-36); Mean Corpuscular Volume 91.0 fL (80-94); Mean Platelet Vol. 9.9 fl (6.2-12.0); NRBC Flagged by Analyzer 0 % (0-5); Platelet Count 190 K/mm3 (150-450); RBC Distribution Width CV 13.2 % (11.6-14.6); RBC Distribution Width SD 43.8 fl (35.1-43.9); Red Blood Count 4.65 M/mm3 (4.6-6.2); White Blood Count 5.4 K/mm3 (4.4-11.0)
[2024-12-15 09:09] LABS: Prothrombin Time (Protime)PT. 12.6 SECONDS (11.7-14.9)
[2024-12-15 09:38] LABS: Anion Gap 13 (5-15); BUN 17 mg/dL (4-19); BUN/Creat Ratio 23.8 RATIO (10-20); Calcium,Total 9.6 mg/dL (7.6-11.0); Carbon Dioxide 23.1 mmol/L (21.0-32.0); Chloride 106 mmol/L (98-108); Glucose 133 mg/dL (70-99); Potassium 4.0 mmol/L (3.3-5.1)
[2024-12-25 13:50] VITALS: BMI 26.4
[2024-12-26] VITALS (11 sets, daily range): BP systolic 113–156; BP diastolic 73–101; PULSE 64–78; RESP 14–18; TEMP 36.5–36.7; O2SAT 97–99
--- OUTSIDE RECORDS SUMMARY | 2024-12-26 06:52 | XMS RPT_ITS | CCD ---
Author Organization [facility] Care Team Providers Care Tetryl Wringer Operator Name Role Phone Pcp PIPER, Ora Primary Care Provider Unavailabl e Serjio Mitchell Primary Care Provider Unavail able Elza MAGANA, Dr. Stoll Primary Care Provider Elza MAGANA, Dr. Stoll Attending Provider Elza MAGANA, Dr. Stoll Referring Provider Miky PINEDA, Dr. Rush Attending Provider [phone] Miky PINEDA, Dr. Rush Referring Provider [phone] Serjio Mitchell Primary Care Provider Unavail able Elza MAGANA, Dr. Stoll Primary Care Provider Dr. Adri Bolaños MD Attending Provider [phone] Adri Bolaños MD Referring Provider Dr. Dodie Bertrand DO Attending Provider Dr. Dodie Bertrand DO Referring Provider Dodie Bertrand DO Primary Care Provider [phone] RIGOBERTO ACUNA Attending Unavailable SERJIO MITCHELL Primary Care Unavailable ROSO, CLAYTON Referring Unavailable DODIE BERTRAND Primary Care Unavailable JENNIFER CATALAN Attending Unavailable ROSO, CLAYTON Referring Unavailable RIGOBERTO ACUNA Attending Unavailable SERJIO MITCHELL Primary Care Unavailable ROSO, CLAYTON Referring Unavailable RIGOBERTO ACUNA Attending Unavailable SERJIO MITCHELL Primary Care Unavailable ROSO, CLAYTON Referring Unavailable RIGOBERTO ACUNA Attending Unavailable SERJIO MITCHELL Primary Care Unavailable RIGOBERTO ACUNA Attending Unavailable SERJIO MITCHELL Primary Care Unavailable ROSO, CLAYTON Referring Unavailable Nic PINEDA, Dr. Shore Attending Provider Vandana PINEDA, Dr. Brennan Attending Provider Elza MAGANA, Dr. Stoll Primary Care Physician Miky PINEDA, Dr. Rush Attending Physician Elza MAGANA, Dr. Stoll Attending Physician Nic PINEDA, Dr. Shore Attending Physician Vandana PINEDA, Dr. Brennan Attending Physician Vandana PINEDA, Dr. Brennan Referring Provider Marek PINEDA, Dr. Chavez Attending Physician [phone] Vandana PINEDA, Dr. Brennan Nurse Practitioner Rigo PINEDA, Dr. Ng Attending Physician Malys, Dodie Primary Care Unavailable Hernandez Sierra Attending Unavailable Mika Ross Consulting Unavailable Mika Ross Referring Unavailable Malys, Dodie Primary Care Unavailable Malys, Dodie Referring Unavailable Mika Ross Attending Unavailable Malys, Dodie Primary Care Unavailable Nic, Silviano Referring Unavailable Nic, Silviano Attending Unavailable Malys, Dodie Primary Care Unavailable Mika Ross Referring Unavailable Mika Ross Attending Unavailable Malys, Dodie Primary Care Unavailable Mika Ross Referring Unavailable Vandana, Mika Attending Unavailable Larisa, Charles Referring Unavailable Larisa, Charles Attending Unavailable Runer, Ardi Consulting Unavailable Malys, Dodie Primary Care Unavailable Malys, Dodie Primary Care Unavailable Malys, Dodie Referring Unavailable Malys, Dodie Attending Unavailable Malys, Dodie Primary Care Unavailable Malys, Dodie Referring Unavailable Malys, Dodie Attending Unavailable Malys, Dodie Primary Care Unavailable Runer, Adri Attending Unavailable Runer, Adri Referring Unavailable Larisa, Charles Referring Unavailable Nic, Silviano Attending Unavailable Malys, Dodie Primary Care Unavailable Malys, Dodie Primary Care Unavailable Malys, Dodie Referring Unavailable Ross, Mika Attending Unavailable Malys, Dodie Primary Care Unavailable Malys, Dodie Referring Unavailable Nic, Silviano Attending Unavailable Malys, Dodie Primary Care Unavailable Runer, Adri Referring Unavailable Runer, Adri Attending Unavailable Malys, Dodie Primary Care Unavailable Malys, Dodie Referring Unavailable Dodie Bertrand Attending Unavailable Dodie Bertrand Primary Care Unavailable Scott Jara Attending Unavailable Medications Current Medications Medication Drug Class(es) Dates Sig (Normalized) Sig (Original) [id number] 200 actuat albuterol 0.09 mg/actuat metered dose inhaler (12 sources) beta2-Adrenergic Agonist Start: 01-30-2016 take 2 puff(s) by inhalation every four hours as needed albuterol HFA (PROAIR HFA) 90 mcg/actuation inhaler Inhale 2 Puffs as instructed every 4 hours as needed. 1 Inhaler 05/10/2018 Active aspirin 81 mg chewable tablet (2 sources) Platelet Aggregation Inhibitor, Nonsteroidal Anti-inflammatory Drug Start: 12-10-2024 take 1 tablet by mouth once daily Aspirin 81 mg tablet,chewable Active 81 mg PO daily 08 02December 10, 2024 12:00am Complies with drug therapy atorvastatin 20 mg oral tablet (4 sources) HMG-CoA Reductase Inhibitor Start: 11-17-2024 take 1 tablet by mouth once daily Atorvastatin (Lipitor) 20 mg tablet Active 20 mg PO daily November 17, 2024 12:00am Complies with drug therapy atorvastatin (LI PITOR) 20 mg tablet Active benzonatate 100 mg oral capsule (6 sources) Non-narcotic Antitussive Start: 02-28-2017 take 1 capsule by mouth three times daily as needed benzonatate (TESSALON PERLE) 100 mg capsule Indications: Influenza-like illness Take 1-2 capsules by mouth three times daily as needed. 30 capsule 02/28/2017 Active cefdinir 300 mg oral capsule (1 source) Cephalosporin Antibacterial Start: 11-05-2024 End: 11-12-2024 take 1 capsule by mouth twice daily cefdinir (OMNICEF) 300 mg capsule Take 1 capsule by mouth two times a day for 7 days. 14 capsule 11/05/2024 11/12/2024 Active cholecalciferol 0.025 mg oral tablet (15 sources) Vitamin D Start: 05-19-2019 cholecalciferol (VITAMIN D3) 1,000 unit tab tablet Cholecalciferol (Vitamin D3) 1,000 UNIT tablet Active 1000 U PO DAILY May 19, 2019 12:00am 05/19/2019 Active Start: 05-19-2019 take 1 tablet by haroon th once daily Cholecalciferol (Vitamin D3) 1,000 UNIT tablet Active 1000 U PO DAILY May 19, 2019 12:00am Complies with drug therapy empagliflozin 25 mg oral tablet (4 sources) Sodium-Glucose Cotransporter 2 Inhibitor Start: 11-17-2024 take 1 tablet by mouth once daily Empagliflozin (Jardiance) 25 mg tablet Active 25 mg PO daily November 17, 2024 12:00am Complies with drug therapy JARDIANCE 25 mg tablet Active fluticasone propionate 0.05 mg/actuat metered dose nasal spray (6 sources) Corticosteroid Start: 01-30-2016 take 2 spray(s) by mouth once daily fluticasone (FLONASE) 50 mcg/actuation nasal spray Use 2 Sprays in each nostril once daily. Rinse mouth after use. 1 Bottle 2 01/30/2016 Active Lisinopril (6 sources) Angiotensin Converting Enzyme Inhibitor LISINOPRIL ORAL Take by mouth. Active Metoprolol (6 sources) beta-Adrenergic Ryanne METOPROLOL SUCCINATE ORAL Take by mouth. Active metroNIDAZOLE 500 mg oral tablet (1 source) Nitroimidazole Antimicrobial Start: 11-05-2024 End: 11-12-2024 take 1 tablet by mouth every eight hours metroNIDAZOLE (FLAGYL) 500 mg tablet Take 1 tablet by mouth every 8 hours for 7 days. 21 tablet 11/05/2024 11/12/2024 Active OZEMPIC 2 mg/dose (8 mg/3 mL) pen injector (1 source) Start: 10-27-2024 inject 2 mg by subcutaneous injection every week OZEMPIC 2 mg/dose (8 mg/3 mL) pen injector inject 2mg subcutaneously once weekly 10/27/2024 Active pioglitazone 15 mg oral tablet (4 sources) Peroxisome Proliferator Receptor alpha Agonist, Peroxisome Proliferator Receptor gamma Agonist, Thiazolidinedione Start: 11-17-2024 take 1 tablet by mouth once daily Pioglitazone 15 mg tablet Active 15 mg PO daily November 17, 2024 12:00am Complies with drug therapy pioglitazone (AC TOS) 15 mg tablet Active Semaglutide (3 sources) Start: 11-17-2024 Semaglutide (O zempic) 1 mg/dose (4 mg/3 mL) pen injector Active 1 mg SC EVERY WEEK November 17, 2024 12:00am Complies with drug therapy Start: 11-17-2024 Semaglutide (O zempic) 1 mg/dose (4 mg/3 mL) pen injector Active 1 mg SC EVERY WEEK November 17, 2024 12:00am Completed/Discontinued Medications Medication Drug Class(es) Dates Sig (Normalized) Sig (Original) calcium carbonate 500 mg chewable tablet (14 sources) Start: 05-15-2018 End: 11-20-2024 take 1 tablet by mouth twice daily Calcium Carbonate (Antacid (Calcium Carbonate)) 200 mg calcium (500 mg) tablet,chewable Discontinued 200 mg PO TWICE A DAY May 15, 2018 1:00am November 20, 2024 1:13pm celecoxib 200 mg oral capsule (4 sources) Nonsteroidal Anti-inflammatory Drug Start: 11-17-2024 End: 11-20-2024 take 1 capsule by mouth twice daily Celecoxib (Celebrex) 200 mg capsule Discontinued 200 mg PO TWICE A DAY November 17, 2024 12:00am November 20, 2024 1:13pm Start: 10-09-2024 take 1 capsule by [facility] twice daily at mealtime celecoxib (CELEBREX) 200 mg capsule take 1 capsule by mouth 2 times a day with food 10/09/2024 Active diclofenac sodium 0.01 mg/mg topical gel (3 sources) Nonsteroidal Anti-inflammatory Drug Start: 11-17-2024 End: 11-20-2024 apply 4 g topically four times daily Diclofenac Sodium 1 % gel Discontinued 4 g TOPICAL 4 TIMES DAILY November 17, 2024 12:00am November 20, 2024 1:13pm apply to single knee, ankle, foot; for foot includes sole/toes/top of foot meloxicam 15 mg oral tablet (3 sources) Nonsteroidal Anti-inflammatory Drug Start: 11-20-2024 End: 12-10-2024 take 1 tablet by mouth once daily Meloxicam 15 mg tablet Discontinued 15 mg PO daily November 20, 2024 12:00am December 10, 2024 9:53am osmotic 24 hr metFORMIN hydrochloride 500 mg extended release oral tablet (20 sources) Biguanide Start: 05-06-2019 End: 11-20-2024 take 1 tablet by mouth twice daily Metformin 500 mg tablet extended release 24hr Discontinued 1000 mg PO TWICE A DAY May 06, 2019 10:16am November 20, 2024 1:11pm Start: 05-06-2019 take 1000 mg by mout [...] by mouth twice daily with meals. Active omeprazole 20 mg delayed release oral capsule (20 sources) Proton Pump Inhibitor Start: 05-15-2018 End: 11-20-2024 take 1 capsule by mouth once daily Omeprazole 20 mg capsule,delayed release(DR/EC) Discontinued 20 mg PO daily November 17, 2024 8:36am November 20, 2024 1:11pm GERD rosuvastatin calcium 40 mg oral tablet (20 sources) HMG-CoA Reductase Inhibitor Start: 05-06-2019 End: 11-20-2024 take 1 tablet by mouth once daily Rosuvastatin 40 mg tablet Discontinued 40 mg PO DAILY May 06, 2019 1:00am November 20, 2024 1:11pm ROSUVASTATIN MARIBETH CIUM (CRESTOR ORAL) Take by mouth. Active Problems Active Problems Problem Classification Problem Date Documented Da te Episodic/Chronic Abdominal pain (2 sources) Lower abdominal pain; Translations: [Lower abdominal pain, unspecified] Onset: 11-05-2024 11-05-2024 Episodic Coronary atherosclerosis and other heart disease (10 sources) Calcification of coronary artery; Translations: [Atherosclerotic heart disease of [place] coronary artery without angina pectoris] Onset: 12-10-2024 11-20-2024 Chronic Diabetes mellitus with complications (1 source) Type 2 diabetes mellitus with hyperglycemia; Translations: [Type 2 diabetes mellitus with hyperglycemia] Onset: 10-02-2024 Chronic Diabetes mellitus without complication (6 sources) Latent autoimmune diabetes mellitus in adult; Translations: [Other specified diabetes mellitus without complications] 11-20-2024 Chronic Disorders of lipid metabolism (4 sources) Hypercholesterolemia ; Translations: [Pure hypercholesterolemia , unspecified] 11-20-2024 Chronic Essential hypertension (10 sources) Hypertensive disorder; Translations: [Essential (primary) hypertension] Onset: 11-20-2024 11-20-2024 Chronic Other bone disease and musculoskeletal deformities (20 sources) Segmental and somatic dysfunction; Translations: [Segmental and somatic dysfunction of cervical region] 05-23-2018 Episodic Other gastrointestinal disorders (1 source) Diarrhea; Translations: [Diarrhea, unspecified] 11-05-2024 Episodic Other gastrointestinal disorders (1 source) Diarrhea, unspecified; Translations: [Diarrhea, unspecified type] Onset: 11-05-2024 Episodic Other lower respiratory disease (2 sources) Other forms of dyspnea; Translations: [Other forms of dyspnea] Onset: 12-16-2024 Episodic Other screening for suspected conditions (not mental disorders or infectious disease) (5 sources) Echocardiogram abnormal; Translations: [Abnormal result of other cardiovascular function study] Onset: 12-10-2024 12-10-2024 Episodic Residual codes; unclassified (1 source) Family history of ischemic heart disease and other diseases of the circulatory system; Translations: [Family history of ischemic heart disease and other diseases of the circulatory system] Onset: 10-24-2024 Episodic Spondylosis; intervertebral disc disorders; other back problems (10 sources) Degeneration of lumbar intervertebral disc; Translations: [Degeneration of intervertebral disc of lumbar region with discogenic back pain and lower extremity pain] Onset: 08-08-2024 08-08-2024 Chronic Thyroid disorders (1 source) Hypothyroidism, unspecified; Translations: [Hypothyroidism, unspecified] Onset: 11-05-2024 Chronic Unclassified (1 source) Degeneration of intervertebral [...] Test Name Value Interpretation Reference Range Facility Basic Metabolic Profile (BMP )on 12-15-2024 BUN/CRE 23.8 RATIO High 12-29 [facility] Comment on above: Performed By: #### L 500.2500, L100.0100, L300.3900 ####[facility] [address] [place], [address] Calcium [Mass/Vol] 9.6 mg/dL Normal 7.6-11.0 [facility] Comment on above: Performed By: #### L 500.2500, L100.0100, L300.3900 ####[facility] [address] [place], [address] Chloride [Moles/Vol] 106 mmol/L Normal 98-108 [facility] Comment on above: Performed By: #### L 500.2500, L100.0100, L300.3900 ####[facility] [address] [place], [address] CO2 [Moles/Vol] 23.1 mmol/L Normal 21.0-32.0 [facility] Comment on above: Performed By: #### L 500.2500, L100.0100, L300.3900 ####[facility] [address] [place], [address] Creatinine [Mass/Vol] 0.71 mg/dL Normal 0.70-1.20 [facility] Comment on above: Performed By: #### L 500.2500, L100.0100, L300.3900 ####[facility] [address] [place], [address] GAP 13 Normal 5-15 [facility] Comment on above: Performed By: #### L 500.2500, L100.0100, L300.3900 ####[facility] [address] [place], [address] GFR/1.73 sq M.predicted among non-blacks MDRD (S/P/Bld) [Vol rate/Area] 102 mL/min/{1.73_m2} Normal >60 [facility] Comment on above: Result Comment: mL/m in/1.73m2 CKD-EPI Creatinine Equation (2020) Performed By: #### L 500.2500, L100.0100, L300.3900 ####[facility] [address] [place], [address] Glucose [Mass/Vol] 133 mg/dL High 70-99 [facility] Comment on above: Performed By: #### L 500.2500, L100.0100, L300.3900 ####[facility] [address] [place], [address] Potassium [Moles/Vol] 4.0 mmol/L Normal 3.3-5.1 [facility] Comment on above: Performed By: #### L 500.2500, L100.0100, L300.3900 ####[facility] [address] [place], [address] Sodium [Moles/Vol] 141 mmol/L Normal 133-145 [facility] Comment on above: Performed By: #### L 500.2500, L100.0100, L300.3900 ####[facility] [address] [place], [address] Urea nitrogen [Mass/Vol] 17 mg/dL Normal 4-19 [facility] Comment on above: Performed By: #### L 500.2500, L100.0100, L300.3900 ####[facility] [address] [place], [address] CBC W/Diff, Automatedon 10-0 -2024 Absolute Lymph 1.49 X10 3/uL Normal 0.83-4.51 [facility] Comment on above: Performed By: #### L 500.2500, L100.0100, L300.3900 ####[facility] [address] [place], [address] Absolute Neut 2.8 X10 3/uL Normal 2.0-7.7 [facility] Comment on above: Performed By: #### L 500.2500, L100.0100, L300.3900 ####[facility] [address] [place], [address] Basophils/100 WBC (Bld) 0.6 % Normal 0-1 [facility] Comment on above: Performed By: #### L 500.2500, L100.0100, L300.3900 ####[facility] [address] [place], [address] Eosinophils/100 WBC (Bld) 4.7 % Normal 0-5 [facility] Comment on above: Performed By: #### L 500.2500, L100.0100, L300.3900 ####[facility] [address] [place], [address] Erythrocyte distribution width (RBC) [Ratio] 13.2 % Normal 11.6-14.6 [facility] Comment on above: Performed By: #### L 500.2500, L100.0100, L300.3900 ####[facility] [address] [place], [address] Hematocrit (Bld) [Volume fraction] 42.3 % Normal 40-54 [facility] Comment on above: Performed By: #### L 500.2500, L100.0100, L300.3900 ####[facility] [address] [place], [address] Hemoglobin (Bld) [Mass/Vol] 14.0 g/dL Normal 13.0-16.5 [facility] Comment on above: Performed By: #### L 500.2500, L100.0100, L300.3900 ####[facility] [address] [place], [address] IG% 0.400 Normal 0.0-0.9 [facility] Comment on above: Result Comment: IG% - Immature Granulocytes (promyelocytes, myelocytes and metamyelocytes) > 1% indicates that a LEFT SHIFT is Present. Performed By: #### L 500.2500, L100.0100, L300.3900 ####[facility] [address] [place], [address] Lymphocytes/100 WBC (Bld) 27.7 % Normal 19-41 [facility] Comment on above: Performed By: #### L 500.2500, L100.0100, L300.3900 ####[facility] [address] [place], [address] MCH (RBC) [Entitic mass] 30.1 pg Normal 27.0-32.0 [facility] Comment on above: Performed By: #### L 500.2500, L100.0100, L300.3900 ####[facility] [address] [place], [address] MCHC (RBC) [Mass/Vol] 33.1 g/dL Normal 32-36 [facility] Comment on above: Performed By: #### L 500.2500, L100.0100, L300.3900 ####[facility] [address] [place], [address] MCV (RBC) [Entitic vol] 91.0 fL Normal 80-94 [facility] Comment on above: Performed By: #### L 500.2500, L100.0100, L300.3900 ####[facility] [address] [place], [address] Monocytes/100 WBC (Bld) 14.2 % High 0-10 [facility] Comment on above: Performed By: #### L 500.2500, L100.0100, L300.3900 ####[facility] [address] [place], [address] Neutrophils/100 WBC (Bld) 52.4 % Normal 47-70 [facility] Comment on above: Performed By: #### L 500.2500, L100.0100, L300.3900 ####[facility] [address] [place], [address] Nucleated RBC (Bld) [#/Vol] 0 10*3/uL Normal 0-5 [facility] Comment on above: Performed By: #### L 500.2500, L100.0100, L300.3900 ####[facility] [address] [place], [address] Platelet mean volume (Bld) [Entitic vol] 9.9 fL Normal 6.2-12.0 [facility] Comment on above: Performed By: #### L 500.2500, L100.0100, L300.3900 ####[facility] [address] [place], [address] Platelets (Bld) [#/Vol] 190 10*3/uL Normal 150-450 [facility] Comment on above: Performed By: #### L 500.2500, L100.0100, L300.3900 ####[facility] [address] [place], [address] RBC (Bld) [#/Vol] 4.65 10*6/uL Normal 4.6-6.2 [facility] Comment on above: Performed By: #### L 500.2500, L100.0100, L300.3900 ####[facility] [address] [place], [address] RDW SD 43.8 fl Normal 35.1-43.9 [facility] Comment on above: Performed By: #### L 500.2500, L100.0100, L300.3900 ####[facility] [address] [place], [address] WBC (Bld) [#/Vol] 5.4 10*3/uL Normal 4.4-11.0 [facility] Comment on above: Performed By: #### L 500.2500, L100.0100, L300.3900 ####[facility] [address] [place], [address] Chest PA and Lateralon 12-15 Chest PA and Lateral [facility] Imaging Services [address] [place] [address] Chest PA and Lateral MR#: [id number] Acct: [id number] Name: AMOS LARIOS Rep #: [id number] : 1960 M 64 From: Arnold Rose MD PCP: Dr. Dodie Bertrand DO Status: PRE [facility] Study: Chest PA and Lateral Date of Exam: 12/15/24 Exam# [id number] Ordering Dr: Mika Ross MD PROCEDURE: CHEST PA AND LATERAL 12/15/2024 REASON FOR EXAM: PRE OP HEART CATH TECHNIQUE: Procedure Code: RADCXR Modality: DX Procedure: CHEST PA AND LATERAL COMPARISON: None FINDINGS: The lungs are clear. The heart borders mediastinum and pulmonary vascular pattern are normal. The upper abdominal bowel gas pattern is normal. There are no significant bony abnormalities of the chest. RAD/Chest PA and Lateral IMPRESSION: No evidence of acute cardiopulmonary pathology. Reading Location: [id number] CC: Dr. Dodie Bertrand DO; Dr. Mika Ross MD Tumbler Plater: Signed Normal [facility] Prothrombin Time w/INRon INR Coag (PPP) [Relative time] 0.9 {INR} Normal [facility] Comment on above: Performed By: #### L 500.2500, L100.0100, L300.3900 ####[facility] [address] [place], [address] PT Coag (PPP) [Time] 12.6 s Normal 11.7-14.9 [facility] Comment on above: Performed By: #### L 500.2500, L100.0100, L300.3900 ####[facility] [address] [place], [address] Cardiology Visit Reporton Cardiology Visit Report [facility] [address] [place] [address] OFFICE VISIT Date of Service: 12/10/24 MR#: [id number] Acct: [id number] Name: AMOS LARIOS Rep #: [id number] : [id number] Provider: Dr. Mika colindres MD Age/Sex: 64/M Location: [facility] [place] Status: Signed HPI HPI History of Present Illness Details: Patient is a very pleasant 64-year-old white male that comes in today to discuss results of his stress test. The patient did a good level of exercise on his ECG stress he got greater than 85% of age-predicted heart rate his blood pressure did go up and was exaggerated with exercise at peak exercise ECG had ischemic ST changes in the inferior lateral leads there was no cardiac arrhythmias during exercise or recovery. The patient had normal ECG at rest. The stress test was done due to the patient complaining of fatigability that occurs daily after noon time. He denied any chest tightness or squeezing denied any syncope or near syncope denies any significant dyspnea on exertion he is just wiped out afternoon. 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 This has been going on for the last 6 months. He had a calcium score done October 24, 2024 which the total score was 468 LAD was 309 circumflex 76 and right coronary 82. He also had abdominal aortic screening done the aorta was normal in caliber there was mild ectasia in both iliac arteries. Given the patient's abnormal stress test and his high calcium score along with his history of diabetes hypertension and hyperlipidemia I feel that he should undergo left heart catheterization to definitively rule out significant coronary disease. The patient is in agreement he wants to be certain what is going on because he wants to continue working his construction job it is his livelihood and his own business. Intake Vital Signs 11/20/24 13:04 12/10/24 09:49 Height 5 ft 10 in 5 ft 10 in Weight: 184 lb BMI 26.4 BP 131/81 H Blood Pressure Location Lt brachial Position Sitting Respiration 18 Pulse 73 Pulse Source Monitor Pulse Oximetry (%) 96 Oxygen Delivery Method room air Intake Visit Reasons: DISCUSS RECENT TESTING PER Joint Supervisor Required: No Accompanied by: Self Is patient in pain?: No Allergies No Known Allergies Allergy (Verified 12/10/24 09:49) Medications ???Medication ???Instructions ???Recorded ???Confirmed ???Type cholecalciferol (vitamin D3) 25 1,000 unit PO DAILY 05/19/1912/10 History mcg (1,000 unit) tablet atorvastatin 20 mg tablet (Lipitor) 20 mg PO QDAY 11/17/24 12/10/24 History empagliflozin 25 mg tablet 25 mg PO QDAY 11/17/24 12/10/24 Hi story (Jardiance) pioglitazone 15 mg tablet 15 mg PO QDAY 11/17/24 12/10/24 Hi story semaglutide 1 mg/dose (4 mg/3 mL) 1 mg subcut QWEEK 11/17/24 History subcutaneous pen injector (Ozempic) aspirin 81 mg chewable tablet 81 mg PO QDAY #30 tabs 12/10/24 Rx Have you fallen in the past year?: No PFSH Medical History Heart attack Diabetes 1.5, managed as type 2 HTN (hypertension) Hx of fracture of wrist History of broken collarbone History of torn meniscus of right knee High cholesterol Surgical History S/P right heart catheterization Family History Other Breast cancer CVA (cerebral vascular accident) High cholesterol Social History Smoking Status: Never smoker alcohol intake: current alcohol intake frequency: a few times a month substance use type: does not use what type of physical activity do you participate in: walking frequency: 5-6 times per week ROS Const Const: Positive for fatigue; Negative for weakness ENT ENT: Negative for dizziness or balance problems Cardio Chest Pain: No Palpitations: No Edema: None Muscle aches with walking: None Resp Respiratory: Negative for SOB with activity, SOB at rest or SOB orthopnea SOB lying down GI GI: Negative nausea, vomiting or heartburn Musc Musc: Negative for muscle weakness or balance problems Neuro Neuro: Negative for dizziness, lightheadedness, near syncope, syncope or weakness Endo Endo: Positive for fatigue Cardiology Exam Const Appearance: cooperative, healthy appearing, comfortable, no acute distress and well developed Head Head: normal to inspection Eyes General: appearance normal, both eyes and all related structures Neck Neck: normal visual inspection and no JVD Carotids: Negative bruit Chest Chest inspection: normal inspection of the chest Auscultation: Bilateral: Clear to Auscultation Cardio R (more content not included)... Normal [facility] AAA Screeningon 12-04-2024 AAA Screening [facility] [address] [place] [address] AAA Screening 12/04/24 1039 MR#: [id number] Acct: [id number] Name: AMOS LARIOS Rep #: [id number] : 1960 64 From: Scott Jara MD Attending Dr: Dr. Mika Ross MD Status: RE G CLI Ordering Dr: Mika Ross MD Date: 12/04/24 Location: CVS Sex: M C Admitted: Reason For Study Reason For Study: HTN, FH AAA Aorta Measurements Aorta Doppler Measurements Proximal aorta measures1.90x1.71cm. in cross-sectional axis.Peak systolic flow velocities within the proximal aorta Proximal aorta measures1.95cm. in longitudinal axis. measure 68.7 cm/sec. Mid aorta measures1.69x1.72cm. in cross-sectional axis. Peak systolic flow velocities within the mid aorta measure Mid aorta measures1.88cm. in longitudinal axis. 94.1 cm/sec. Distal aorta measures1.72x1.89cm. in cross-sectional axis. Peak systolic flow velocities within the distal aorta Distal aorta measures1.58cm. in longitudinal axis. measure 108.6 cm/sec. Left Iliac Artery Left iliac artery measures 1.19x1.23 cm. in the cross-sectional axis. Left iliac artery measures 1.14 cm. in the longitudinal axis. Peak systolic velocity in the left iliac artery measures 95.9 cm/sec. Right Iliac Artery Right iliac artery measures 1.26x1.27 cm. in the cross-sectional axis. Right iliac artery measures 1.08 cm. in the longitudinal axis. Peak systolic velocity in the right iliac artery measures 90.4 cm/sec. Procedure Aorta IVC Iliac vasculature or bypass grafts [id number]. Exam performed in department. VL/AAA Screening Interpretation Summary Aorta patent, normal caliber Right iliac artery patent with ectasia to 1.27 cm Left iliac artery patent with ectasia to 1.23 cm Ordering Physician: Mika Ross Referring Physician: Dodie Bertrand DO Performed By: Magalis Camara, RVT 12/04/24 1643 Date Scott Jara MD CC: Dr. Dodie Bertrand DO; Dr. Mika Ross MD Date Dictated: 12/04/24 1039 Date Transcribed: 12/04/241642 Tumbler Plater: Signed Normal [facility] Cardiovascular stress test r eportOrdered By: Hernandez Sierra on 12-04-2024 Study report [facility] [address] [place] [address] MR#: [id number] Acct: [id number] Name: AMOS LARIOS Rep #: [id number] : 1960 64 From: Hernandez Sierra MD Primary Care: Dr. Dodie Bertrand DO Status: REG CLI Referring Dr: Mika Ross MD Sex: M C Stress Test Report Date: 12/04/2024 Procedure: Exercise tolerance test Indications: Dyspnea Consent: Per the patient Procedure: The patient exercised on a Du protocol for 9 minutes achieving a peak heart rate of 151 bpm (96% predicted maximal heart rate) with a peak blood pressure 200/82 mmHg and a peak MET capacity of approximately 10.1 MET's. The baseline ECG demonstrated sinus rhythm. The peak exercise ECG showed sinus tachycardia with flat ST depressions in inferior and lateral leads, suggestive of ischemia. These persisted into recovery. There were no cardiac dysrhythmias pretest, during exercise, or recovery. The functional capacity was considered very good. The patient had no complaints of chest discomfort during exercise or recovery. He did complain of shortness of breath with exercise. The examination was discontinued secondary to target heart rate being achieved. Impression: 1. Technically adequate (percent predicted maximal heart rate greater than 85%)exercise tolerance test. Exaggerated blood pressure response to exercise. 2. Peak exercise ECG with ischemic ST changes in inferolateral leads. 3. There were no cardiac dysrhythmias during exercise or recovery This note was generated with [employer] Advergamingation software. It may contain incorrectwords, spelling, and punctuation that were not noted in checking the note beforesigning. 12/04/248 Date _ Hernandez Sierra MD CC: Dr. Dodie Bertrand DO; Dr. Mika Ross MD ~ Date Dictated: 12/04/241313 Date Transcribed: 12/04/241313 Tumbler Plater: ADAMS Larsen [facility] Work Phone: Cardiovascular ultrasound re portOrdered By: Scott Jara on 12-04-2024 Study report [facility] [address] [place] [address] AAA Screening 12/04/24 1039 MR#: [id number] Acct: [id number] Name: AMOS LARIOS Rep #:[id number] : 1960 64 From: Scott Campos Attending Dr: Dr. Mika Ross MD Status: REG CLI Ordering Dr: Mika Ross MD Date: 12/04/24 Location: CVS Sex: M C Admitted: Reason For Study Reason For Study: HTN, FH AAA Aorta Measurements Aorta Doppler Measurements Proximal aorta measures1.90x1.71cm. in cross-sectional axis.Peak systolic flow velocities within the proximal aorta Proximal aorta measures1.95cm. in longitudinal axis. measure 68.7 cm/sec. Mid aorta measures1.69x1.72cm. in cross-sectional axis. Peak systolic flow velocities within the mid aorta measure Mid aorta measures1.88cm. in longitudinal axis. 94.1 cm/sec. Distal aorta measures1.72x1.89cm. in cross-sectional axis. Peak systolic flow velocities within the distal aorta Distal aorta measures1.58cm. in longitudinal axis. measure 108.6 cm/sec. Left Iliac Artery Left iliac artery measures 1.19x1.23 cm. in the cross-sectional axis. Left iliacartery measures 1.14 cm. in the longitudinal axis. Peak systolic velocity in the left iliac artery measures 95.9cm/sec. Right Iliac Artery Right iliac artery measures 1.26x1.27 cm. in the cross-sectional axis. Right iliac artery measures 1.08 cm. in the longitudinal axis. Peak systolic velocity in the right iliac artery measures 90.4 cm/sec. Procedure Aorta IVC Iliac vasculature or bypass grafts [id number]. Exam performed in department. VL/AAA Screening Interpretation Summary Aorta patent, normal caliber Right iliac artery patent with ectasia to 1.27 cm Left iliac artery patent with ectasia to 1.23 cm Ordering Physician: Mika Ross Referring Physician: Dodie Bertrand DO Performed By: Magalis Camara, NAVEEN 12/04/241642 Date _ Scott Jara MD CC: Dr. Dodie Bertrand DO; Dr. Mika Ross MD ~ Date Dictated: 12/04/24 1039 Date Transcribed: 12/04/241642 Tumbler Plater: Signed [facility] Work Phone: Stress Reporton 12-04-2024 Stress Report [facility] [address] [place] [address] MR#: [id number] Acct: [id number] Name: AMOS LARIOS Rep #: [id number] : 1960 64 From: Hernandez Sierra MD Primary Care: Dr. Dodie Bertrand DO Status: R EG CLI Referring Dr: Mika Ross MD Sex: M C Stress Test Report Date: 12/04/2024 Procedure: Exercise tolerance test Indications: Dyspnea Consent: Per the patient Procedure: The patient exercised on a Du protocol for 9 minutes achieving a peak heart rate of 151 bpm (96% predicted maximal heart rate) with a peak blood pressure 200/82 mmHg and a peak MET capacity of approximately 10.1 MET's. The baseline ECG demonstrated sinus rhythm. The peak exercise ECG showed sinus tachycardia with flat ST depressions in inferior and lateral leads, suggestive of ischemia. These persisted into recovery. There were no cardiac dysrhythmias pretest, during exercise, or recovery. The functional capacity was considered very good. The patient had no complaints of chest discomfort during exercise or recovery. He did complain of shortness of breath with exercise. The examination was discontinued secondary to target heart rate being achieved. Impression: 1. Technically adequate (percent predicted maximal heart rate greater than 85%) exercise tolerance test. Exaggerated blood pressure response to exercise. 2. Peak exercise ECG with ischemic ST changes in inferolateral leads. 3. There were no cardiac dysrhythmias during exercise or recovery This note was generated with PureLiFi dictation software. It may contain incorrect words, spelling, and punctuation that were not noted in checking the note before signing. 12/04/241317 Date Hernandez Sierra MD CC: Dr. Dodie Bertrand DO; Dr. Mika Ross MD Date Dictated: 12/04/241313 Date Transcribed: 12/04/241313 Tumbler Plater: ADAMS Signed Normal [facility] Cardiology Visit Reporton Cardiology Visit Report [facility] [address] [place] [address] OFFICE VISIT Date of Service: 11/20/24 MR#: [id number] Acct: [id number] Name: AMOS LARIOS Rep #: [id number] : 1960 Provider: Dr. Mika colindres MD Age/Sex: 64/M Location: [facility] Status: Signed HPI HPI History of Present Illness Details: Patient is a pleasant 64-year-old white male that comes in today for new patient visit for evaluation of an elevated coronary calcium score. Patient has been having fatigue for the last 6 months that preceded the hot summer weather. He described this is kind of running out of energy after lunchtime. 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 He goes normal pace in the morning hours but then after lunchtime has to slow down to complete his jobs. He denies any chest pain denies any syncope or near syncope denies any lower extremity edema. He had a calcium score done by his primary care physician that came back 468. Majority of the calcium was in the LAD at 309. Patient does have a history of diabetes mellitus hemoglobin A1c 6.1 on his last check he has a history of hypertension blood pressure is 124/82 in the office today. Any history history of hyperlipidemia lipids September 2024 LDL was 70. The patient has never smoked. The patient did have what was described as a stress-induced myocardial infarction in 2005 when he was served custody papers during a divorce dispute. He was cathed in [place] by Dr. Locke and his coronaries were normal at that time. This sounds like Takotsubo syndrome. The patient's had no recurrence of anything like that to his knowledge. ECG in the office today shows normal sinus rhythm at 76 bpm and is normal. Intake Vital Signs 11/20/24 13:04 11/20/24 13:40 Height 5 ft 10 in BP 124/82 H Blood Pressure Location Rt brachial Position Sitting Respiration 18 Pulse 80 Pulse Source NIBP Intake Visit Reasons: ABN CCTA (MALYS) Joint Supervisor Required: No Accompanied by: Is patient in pain?: No Allergies No Known Allergies Allergy (Verified 11/20/24 13:04) Medications ???Medication ???Instructions ???Recorded ???Confirmed ???Type cholecalciferol (vitamin D3) 25 1,000 unit PO DAILY 05/19/1911/20 History mcg (1,000 unit) tablet atorvastatin 20 mg tablet (Lipitor) 20 mg PO QDAY 11/17/24 11/20/24 History empagliflozin 25 mg tablet 25 mg PO QDAY 11/17/24 11/20/24 Hi story (Jardiance) pioglitazone 15 mg tablet 15 mg PO QDAY 11/17/24 11/20/24 Hi story semaglutide 1 mg/dose (4 mg/3 mL) 1 mg subcut QWEEK 11/17/24 History subcutaneous pen injector (Ozempic) meloxicam 15 mg tablet 15 mg PO QDAY 11/20/24 11/20/24 Hi story Have you fallen in the past year?: Yes PFSH Medical History (Updated 11/20/24 @ 13:[address] Mika Ross MD) Heart attack Diabetes 1.5, managed as type 2 HTN (hypertension) Hx of fracture of wrist History of broken collarbone History of torn meniscus of right knee High cholesterol Surgical History S/P right heart catheterization Family History Other Breast cancer CVA (cerebral vascular accident) High cholesterol Social History Smoking Status: Never smoker alcohol intake: current alcohol intake frequency: a few times a month substance use type: does not use what type of physical activity do you participate in: walking frequency: 5-6 times per week ROS Const Const: Positive for fatigue; Negative for weakness ENT ENT: Negative for dizziness or balance problems Cardio Chest Pain: No Palpitations: Yes Edema: None Muscle aches with walking: None Resp Respiratory: Negative for SOB with activity, SOB at rest or SOB orthopnea SOB lying down GI GI: Positive for heartburn; Negative nausea or vomiting Musc Musc: Negative for muscle weakness or balance problems Neuro Neuro: Negative for dizziness, lightheadedness, near syncope, syncope or weakness Endo Endo: Positive for fatigue Cardiology Exam Const Appearance: cooperative, healthy appearing, comfortable, no acute distress and well developed Head Head: normal to inspection Eyes General: appearance normal, both eyes and all related structures Neck Neck: normal visual inspection and no JVD Carotids: Negative bruit Chest Chest inspection: normal inspection of the chest Auscultation: Bilateral: Clear to Auscultation Cardio Rate: regular rate Rhythm: regular rhythm Heart sounds: S1 normal and S2 normal; Negative rub, gallop or murmur GI GI: normal to inspection and soft Neuro General: patient alert and patient oriented x3 Ski (more content not included)... [facility] Office Visit ([facility]) AMOS LARIOS ([id number]) 1960 M Date Time Provider Department 11/05/24 9:00 AM JENNIFER CATALAN During your visit today, we recorded the following information about you: Temperature Pulse Respiration Blood pressure 98.6 degrees 80/minute 16/minute 122/72 Weight 82.2 kg Jennifer Catalan APRN.MEMBERSHIP ASSISTANT 11/05/2024 9:22 AM Signed What are diverticulosis and diverticulitis? Many people have small pouches in their colons that bulge outward through weak spots, like an inner tube that pokes through weak places in a tire. Each pouch is called a diverticulum. Pouches (plural) are called diverticula. The condition of having diverticula is called diverticulosis. About 10 percent of Americans over the age of 40 have diverticulosis. The condition becomes more common as people age. About half of all people over the age of 60 have diverticulosis. When the pouches become infected or inflamed, the condition is called diverticulitis. This happens in 10 to 25 percent of people with diverticulosis. Diverticulosis and diverticulitis are also called diverticular disease. What are the symptoms? Diverticulosis Most people with diverticulosis do not have any discomfort or symptoms. However, symptoms may include mild cramps, bloating, and constipation. Other diseases such as irritable bowel syndrome (IBS) and stomach ulcers cause similar problems, so these symptoms do not always mean a person has diverticulosis. You should visit your doctor if you have these troubling symptoms. Diverticulitis The most common symptom of diverticulitis is abdominal pain. The most common sign is tenderness around the left side of the lower abdomen. If infection is the cause, fever, nausea, vomiting, chills, cramping, and constipation may occur as well. The severity of symptoms depends on the extent of the infection and complications. What are the complications? Diverticulitis can lead to bleeding, infections, perforations or tears, or blockages. These complications always require treatment to prevent them from progressing and causing serious illness. Bleeding Bleeding from diverticula is a rare complication. When diverticula bleed, blood may appear in the toilet or in your stool. Bleeding can be severe, but it may stop by itself and not require treatment. Doctors believe bleeding diverticula are caused by a small blood vessel in a diverticulum that weakens and finally bursts. If you have bleeding from the rectum, you should see your doctor. If the bleeding does not stop, surgery may be necessary. Abscess, Perforation, and Peritonitis The infection causing diverticulitis often clears up after a few days of treatment with antibiotics. If the condition gets worse, an abscess may form in the colon. An abscess is an infected area with pus that may cause swelling and destroy tissue. Sometimes the infected diverticula may develop small holes, called perforations. These perforations allow pus to leak out of the colon into the abdominal area. If the abscess is small and remains in the colon, it may clear up after treatment with antibiotics. If the abscess does not clear up with antibiotics, the doctor may need to drain it. To drain the abscess, the doctor uses a needle and a small tube called a catheter. The doctor inserts the needle through the skin and drains the fluid through the catheter. This procedure is called percutaneous catheter drainage. Sometimes surgery is needed to clean the abscess and, if necessary, remove part of the colon. A large abscess can become a serious problem if the infection leaks out and contaminates areas outside the colon. Infection that spreads into the abdominal cavity is called peritonitis. Peritonitis requires immediate surgery to clean the abdominal cavity and remove the damaged part of the colon. Without surgery, peritonitis can be fatal. Fistula A fistula is an abnormal connection of tissue between two organs or between an organ and the skin. When damaged tissues come into contact with each other during infection, they sometimes stick together. If they heal that way, a fistula forms. When diverticulitis-relat ed infection spreads outside the colon, the colon's tissue may stick to nearby tissues. The organs usually involved are the bladder, small intestine, and skin. The most common type of fistula occurs between the bladder and the colon. It affects men more than women. This type of fistula can result in a severe, long-lasting infection of the urinary tract. The problem can be corrected with surgery to remove the fistula and the affected part of the colon. Intestinal Obstruction The scarring caused by infection may cause partial or total blockage of the large intestine. When this happens, the colon is unable to move bowel contents normally. When the obstruction totally b (more content not included)... Normal [facility] Coronary Angiography CTon Coronary Angiography CT [facility] Services [address] [place] [address] 10/24/24 1820 MR#: [id number] Acct: [id number] Name: AMOS LARIOS Rep #: [id number] : 1960 64 From: Silviano Lucero MD PCP: Dr. Dodie Bertrand, DO Status:REG REF Y Location: CT Calcium Scoring Date of Study:: 10/24/24 Indications Indications: Family history Coronary Calcium Scoring: High-resolution Computed Tomographic imaging of the chest was performed on [10/24/2024], with particular attention paid to the coronary arteries. Images from the examination were analyzed for the presence and extent of coronary artery calcification , using coronary calcium quantification software. The patient tolerated the procedure well and there were no complications. The results of the coronary calcification analysis are provided below. Findings Coronary Artery Left Main (LM): 0 Left Anterior Descending (LAD): 309 Left Circumflex (LCX): 76 Right Coronary Artery (RCA): 82.3 Total Agatston Score: 467.3 Percentile Rankinth to 90th percentile Calcium Scoring Interpretation: Different methods to categorize the overall amount of coronary plaque. Overall amount CAC SIS Visual of coronary plaque P1 Mild -100 <2 1-2 vessels with mild amount of plaque P2 Moderate 101-300 3-4 1-2 vessels with moderate amount, 3 vessels with mild amount of plaque P3 Severe 301-999 5-7 3 vessels with moderate amount, 1 vessel with severe amount of plaque P4 Extensive >1000 >8 2-3 vessels with severe amount of plaque Calcium Score: Moderate: 1-2 vessels w/moderate amt, 3 vessels w/mild amt of plaque Conclusion: Mild to moderate three-vessel plaquing noted 10/24/24 1821 Date Silviano Lucero MD Cosigner Signature (if applicable): Date CC: Dr. Silviano Lucero MD; Dr. Dodie Bertrand DO Signed Normal [facility] Free T3on 10-24-2024 Free T3 [Mass/Vol] 2.9 pg/mL Normal 2.18-3.98 [facility] Comment on above: Performed By: #### L [id number], L501.9520, L506.0400 ####[facility] [id number] [place], [place], [address] Free [id number] By: Dodie jenkins on 10-24-2024 Free T3 [Mass/Vol] 2.9 pg/mL 2.18-3.98 [facility] Limited Chest CT Cardiac Onl yon 10-24-[address] Cardiac Only [facility] Imaging Services [address] [place], [place] [address] Limited Chest CT Cardiac Only MR#: [id number] Acct: [id number] Name: AMOS LARIOS Rep #: [id number] : 1960 M 64 From: Tommy palma MD PCP: Dr. Dodie Bertrand DO Status: REG REF Study: Limited Chest CT Cardiac Only Date of Exam: Exam# [id number] Ordering Dr: Dodie Bertrand DO PROCEDURE: LIMITED CHEST CT CARDIAC ONLY 10/24/2024 REASON FOR EXAM: FAMILY HX CAD Hypercholesterolemia . TECHNIQUE: LIMITED CHEST CT CARDIAC ONLY CONTRAST: None One or more dose reduction techniques were used (e.g., Automated exposure control, adjustment of the mA and/or kV according to patient size, use of iterative reconstruction technique). RADIATION DOSE SUMMARY: CTDlvol: 12.19 mGy DLP: 219.42 mGycm COMPARISON: None FINDINGS: Atherosclerotic plaque formation of the aortic arch. Coronary artery calcification. The lungs are clear. CT/Limited Chest CT Cardiac Only IMPRESSION: Coronary artery calcification. Reading Location: [place] [address] CC: Dr. Dodie Bertrand DO Tumbler Plater: Signed Normal [facility] T4 Free Directon 10-24-2024 T4 FREE DIRECT 1.00 ng/dL Normal 0.76-1.46 [facility] Comment on above: Performed By: #### L [id number], L501.9520, L506.0400 ####[facility] [address] [place], [place], [id number] T4 freeOrdered By: Dodie jenkins on 10-24-2024 Free T4 [Mass/Vol] 1.00 ng/dL 0.76-1.46 [facility] TSH DL <= 0.005 mIU/L QnOrde red By: Dodie Bertrand on 10-24-2024 TSH Qn 1.870 uIU/mL 0.300-4.200 [facility] Thyroid Stim Hormone (TSH)on 10-24-2024 TSH 1.870 uIU/mL Normal 0.300-4.200 [facility] Comment on above: Performed By: #### L 501.69097, L501.9520, L506.0400 ####[facility] [address] [place], [place], [id number] Anion gap in Serum or Plasma Ordered By: Adri Bolaños on 09-26-2024 Anion gap [Moles/Vol] 11 mmol/L 07-24 [facility] BUN/creatinine ratioOrdered By: Adri Bolaños on 09-26-2024 Urea nitrogen/Creatinine [Mass ratio] 21.0 mg/mg High 10-20 [facility] Bilirubin, totalOrdered By: Adri Bolaños on 09-26-2024 Bilirubin [Mass/Vol] 0.38 mg/dL 0.00-1.30 [facility] Calculated very low density lipoprotein (VLDL) cholesterol measurementOrdered By: Adri Bolaños on 09-26-2024 Calculated very low density lipoprotein (VLDL) cholesterol measurement 14 mg/dL 5-40 [facility] Carbon dioxide, total [Moles /volume] in Central venous bloodOrdered By: Adri Bolaños on 09-26-2024 CO2 [Moles/Vol] 22.3 mmol/L 21.0-32.0 [facility] Chloride assayOrdered By: Devora Bolaños on 09-26-2024 Chloride [Moles/Vol] 106 mmol/L 98-108 [facility] Comprehensive Metabolic Prof ilon 09-26-2024 Albumin [Mass/Vol] 4.4 g/dL Normal 3.4-4.8 [facility] Comment on above: Order Comment: LIPID Performed By: #### L 500.4100, L501.9985, L500.4050 #### [facility] [address] [place], [address] Albumin/Globulin [Mass ratio] 1.7 {ratio} Normal 0.9-2.4 [facility] Comment on above: Order Comment: LIPID Performed By: #### L 500.4100, L501.9985, L500.4050 #### [facility] [address] [place], [address] ALK PHOS 66 U/L Normal 40-129 [facility] Comment on above: Order Comment: LIPID Performed By: #### L 500.4100, L501.9985, L500.4050 #### [facility] [address] [place], [address] ALT [Catalytic activity/Vol] 26 U/L Normal <=46 [facility] Comment on above: Order Comment: LIPID Performed By: #### L 500.4100, L501.9985, L500.4050 #### [facility] [address] [place], [address] AST [Catalytic activity/Vol] 23 U/L Normal <=37 [facility] Comment on above: Order Comment: LIPID Performed By: #### L 500.4100, L501.9985, L500.4050 #### [facility] [address] [place], [address] Bilirubin [Mass/Vol] 0.38 mg/dL Normal 0.00-1.30 [facility] Comment on above: Order Comment: LIPID Performed By: #### L 500.4100, L501.9985, L500.4050 #### [facility] [address] [place], [address] BUN/CRE 21.0 RATIO High 10-20 [facility] Comment on above: Order Comment: LIPID Performed By: #### L 500.4100, L501.9985, L500.4050 #### [facility] [address] [place], [address] Calcium [Mass/Vol] 9.4 mg/dL Normal 7.6-11.0 [facility] Comment on above: Order Comment: LIPID Performed By: #### L 500.4100, L501.9985, L500.4050 #### [facility] [address] [place], [address] Chloride [Moles/Vol] 106 mmol/L Normal 98-108 [facility] Comment on above: Order Comment: LIPID Performed By: #### L 500.4100, L501.9985, L500.4050 #### [facility] [address] [place], [address] CO2 [Moles/Vol] 22.3 mmol/L Normal 21.0-32.0 [facility] Comment on above: Order Comment: LIPID Performed By: #### L 500.4100, L501.9985, L500.4050 #### [facility] [address] [place], [address] Creatinine [Mass/Vol] 0.72 mg/dL Normal 0.70-1.20 [facility] Comment on above: Order Comment: LIPID Performed By: #### L 500.4100, L501.9985, L500.4050 #### [facility] [address] [place], [address] GAP 11 Normal 5-15 [facility] Comment on above: Order Comment: LIPID Performed By: #### L 500.4100, L501.9985, L500.4050 #### [facility] [address] [place], [address] GFR/1.73 sq M.predicted among non-blacks MDRD (S/P/Bld) [Vol rate/Area] 102 mL/min/{1.73_m2} Normal >60 [facility] Comment on above: Order Comment: LIPID Result Comment: mL/m in/1.73m2 CKD-EPI Creatinine Equation (2020) Performed By: #### L 500.4100, L501.9985, L500.4050 #### [facility] [address] [place], [address] Globulin (S) [Mass/Vol] 2.6 g/dL Normal 2.2-4.2 [facility] Comment on above: Order Comment: LIPID Performed By: #### L 500.4100, L501.9985, L500.4050 #### [facility] [address] [place], [address] Glucose [Mass/Vol] 109 mg/dL High 70-99 [facility] Comment on above: Order Comment: LIPID Performed By: #### L 500.4100, L501.9985, L500.4050 #### [facility] [address] [place], [address] Potassium [Moles/Vol] 4.1 mmol/L Normal 3.3-5.1 [facility] Comment on above: Order Comment: LIPID Performed By: #### L 500.4100, L501.9985, L500.4050 #### [facility] [address] [place], [address] Sodium [Moles/Vol] 140 mmol/L Normal 133-145 [facility] Comment on above: Order Comment: LIPID Performed By: #### L 500.4100, L501.9985, L500.4050 #### [facility] [address] [place], [address] T PROT 7.0 g/dL Normal 5.9-8.4 [facility] Comment on above: Order Comment: LIPID Performed By: #### L 500.4100, L501.9985, L500.4050 #### [facility] [address] [place], [address] Urea nitrogen [Mass/Vol] 15 mg/dL Normal 4-19 [facility] Comment on above: Order Comment: LIPID Performed By: #### L 500.4100, L501.9985, L500.4050 #### [facility] [address] [place], [address] Glomerular filtration rate ( GFR) estimation/1.73 sq m using serum, plasma, or whole bOrdered By: Adri Bolaños on 09-26-2024 GFR/1.73 sq M.predicted among non-blacks MDRD (S/P/Bld) [Vol rate/Area] 102 mL/min/{1.73_m2} >60 [facility] Comment on above: mL/min/1.73m2 CKD-EP I Creatinine Equation (2020) Hemoglobin A1con 09-26-2024 HbA1c (Bld) [Mass fraction] 6.3 % High <=5.6 [facility] Comment on above: Result Comment: Norm al < 5.7 % Prediabetic 5.7 - 6.4 % Diabetic >or= 6.5 % Please note range changes. Performed By: #### L 500.4100, L501.9985, L500.4050 #### [facility] [address] [place], [address] Hemoglobin A1c percentageOrd ered By: Adri Bolaños on 09-26-2024 HbA1c (Bld) [Mass fraction] 6.3 % High <5.7 [facility] Comment on above: Normal < 5.7 % Predi abetic 5.7 - 6.4 % Diabetic >or= 6.5 % Please note range changes. LDL calc ser/plasOrdered By: Adri Bolaños on 09-26-2024 Cholesterol in LDL [Mass/Vol] 70 mg/dL [facility] Comment on above: Etjgzedbfb=255-118 m g/dL & Higher Xuac=704 mg/dL or greater Laboratory - Chemistry and C hemistry - challengeOrdered By: Adri Bolaños on 09-26-2024 AST [Catalytic activity/Vol] 23 U/L <38 [facility] Lipid Profileon 09-26-2024 CHOL:HDL 2.56 Normal [facility] Comment on above: Performed By: #### L 500.4100, L501.9985, L500.4050 #### [facility] [address] [place], [address] Cholesterol [Mass/Vol] 138 mg/dL Normal <=200 [facility] Comment on above: Result Comment: Chol esterol level, Desirable <200 mg/dL Borderline high cholesterol 200-239 mg/dL High cholesterol >=240 mg/dL Recommendations of the NCEP Adult Treatment Panel for the following risk-cutoff thresholds for the [place] population. Performed By: #### L 500.4100, L501.9985, L500.4050 #### [facility] [address] [place], [address] Cholesterol in HDL [Mass/Vol] 54 mg/dL Normal [facility] Comment on above: Result Comment: Karely onal Cholesterol Education Program (NCEP) guidelines: <40 mg/dL: Low HDL-cholesterol (major risk factor for CHD) >= 60 mg/dL: High HDL-cholesterol (negative risk factor for CHD) HDL-cholesterol is affected by a number of factors, e.g. smoking, exercise, hormones, sex and age. Performed By: #### L 500.4100, L501.9985, L500.4050 #### [facility] [address] [place], [address] Cholesterol in LDL [Mass/Vol] 70 mg/dL Normal [facility] Comment on above: Result Comment: Bord nlgjvc=002-700 mg/dL Higher Itvk=311 mg/dL or greater Performed By: #### L 500.4100, L501.9985, L500.4050 #### [facility] [address] [place], [address] Cholesterol in VLDL [Mass/Vol] 14 mg/dL Normal 5-40 [facility] Comment on above: Performed By: #### L 500.4100, L501.9985, L500.4050 #### [facility] [address] [place], [address] Triglyceride [Mass/Vol] 71 mg/dL Normal [facility] Comment on above: Result Comment: The drugs N-Acetylcysteine and Metamizole may falsely depress this assay. Normal range: <150 mg/dL Borderline High: 150-199 mg/dL High: 200-499 mg/dL Very High: >500 mg/dL Performed By: #### L 500.4100, L501.9985, L500.4050 #### [facility] [address] [place], [address] Potassium measurement (mass/ volume)Ordered By: Adri Bolaños on 09-26-2024 Potassium (Unsp spec) [Mass/Vol] 4.1 mmol/L 3.3-5.1 [facility] Screening total cholesterol/ high density lipoprotein (HDL) cholesterol ratioOrdered By: Adri Bolaños on 09-26-2024 Cholesterol.total/Korina sterol in HDL [Mass ratio] 2.56 {ratio} [facility] Serum creatinine measurement (mass/volume)Ordered By: Adri Bolaños on 09-26-2024 Creatinine [Mass/Vol] 0.72 mg/dL 0.70-1.20 [facility] Serum globulin measurementOr dered By: Adri Bolaños on 09-26-2024 Globulin (S) [Mass/Vol] 2.6 g/dL 2.2-4.2 [facility] Serum glucose measurement (m ass/volume)Ordered By: Adri Bolaños on 09-26-2024 Glucose [Mass/Vol] 109 mg/dL High 70-99 [facility] Serum or plasma alanine mandel otransferase (ALT) measurementOrdered By: Adri Bolaños on 09-26-2024 ALT [Catalytic activity/Vol] 26 U/L <47 [facility] Serum or plasma albumin nohemy urement (mass/volume)Ordered By: Adri Bolaños on 09-26-2024 Albumin [Mass/Vol] 4.4 g/dL 3.4-4.8 [facility] Serum or plasma albumin/glob ulin mass ratioOrdered By: Adri Bolaños on 09-26-2024 Albumin/Globulin [Mass ratio] 1.7 {ratio} 0.9-2.4 [facility] Serum or plasma alkaline gilma sphatase measurementOrdered By: Adri Bolaños on 09-26-2024 ALP [Catalytic activity/Vol] 66 U/L 40-129 [facility] Serum or plasma calcium nohemy urement (mass/volume)Ordered By: Adri Bolaños on 09-26-2024 Calcium [Mass/Vol] 9.4 mg/dL 7.6-11.0 [facility] Serum or plasma cholesterol in HDL measurement (mass/volume)Ordered By: Adri Bolaños on 09-26-2024 Cholesterol in HDL [Mass/Vol] 54 mg/dL >40 [facility] Comment on above: National Cholesterol Education Program (NCEP) guidelines:<40 mg/dL: Low HDL-cholesterol (major risk factor for CHD)>= 60 mg/dL: High HDL-cholesterol (negative risk factor for CHD)HDL-cholesterol is affected by a number of factors, e.g. smoking, exercise, hormones, sex and age. Serum or plasma cholesterol measurement (mass/volume)Ordered By: Adri Bolaños on 09-26-2024 Cholesterol [Mass/Vol] 138 mg/dL <201 [facility] Comment on above: Cholesterol level, D esirable <200 mg/dLBorderline high cholesterol 200-239 mg/dLHigh cholesterol >=240 mg/dLRecommendations of the NCEP Adult Treatment Panel for the following risk-cutoff thresholds for the [place] population. Serum or plasma urea nitroge n measurement (mass/volume)Ordered By: Adri Bolaños on 09-26-2024 Urea nitrogen [Mass/Vol] 15 mg/dL 4-19 [facility] Sodium levelOrdered By: Sea Bolaños on 09-26-2024 Sodium [Moles/Vol] 140 mmol/L 133-145 [facility] Total proteinOrdered By: Ivonne Bolaños on 09-26-2024 Protein [Mass/Vol] 7.0 g/dL 5.9-8.4 [facility] Triglycerides measurementOrd ered By: Adri Bolaños on 09-26-2024 Triglyceride [Mass/Vol] 71 mg/dL <199 [facility] Comment on above: The drugs N-Acetylcy steine and Metamizole may falsely depress this assay. 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 Rinse mouth after use. Normal [facility] CNTHERAPYon 09-02-2024 CNTHERAPY OT/PT/Speech Visit (PTWS) AMOS LARIOS ([id number]) 1960 M Date Time Provider Department 09/02/24 7:45 AM RIGOBERTO ACUNA Date Time Provider Department Center 09/02/2024 7:45 AM [id number] OLIVA Reason for Visit: Physical Therapy [503] Primary Visit Diagnosis:Lumbar radiculopathy [M54.16] Allergies As of Date: 09/02/2024 (No Known Allergies) Date Reviewed: 05/27/2020 Reviewed by: Andrés Salazar ([facility]) - Fully Assessed Prescriptions as of 09/02/2024 [...] once daily. Rinse mouth after use. 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 Rinse mouth after use. 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 Rinse mouth after use. 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 Rinse mouth after use. Normal [facility] Anion gap in Serum or Plasma Ordered By: Adri Bolaños on 06-26-2024 Anion gap [Moles/Vol] 12 mmol/L 5-15 [facility] BUN/creatinine ratioOrdered By: Adri Bolaños on 06-26-2024 Urea nitrogen/Creatinine [Mass ratio] 19.2 mg/mg 10-20 [facility] Bilirubin, totalOrdered By: Adri Bolaños on 06-26-2024 Bilirubin [Mass/Vol] 0.59 mg/dL 0.00-1.30 [facility] Calculated very low density lipoprotein (VLDL) cholesterol measurementOrdered By: Adri Bolaños on 06-26-2024 Calculated very low density lipoprotein (VLDL) cholesterol measurement 24 mg/dL 5-40 [facility] VLDL Cholesterol 24 mg/dL 5-40 [facility] Carbon dioxide, total [Moles /volume] in Central venous bloodOrdered By: Adri Bolaños on 06-26-2024 CO2 [Moles/Vol] 23.9 mmol/L 21.0-32.0 [facility] Chloride assayOrdered By: Devora Bolaños on 06-26-2024 Chloride [Moles/Vol] 103 mmol/L 98-108 [facility] Comprehensive Metabolic Prof ilon 06-26-2024 Albumin [Mass/Vol] 4.4 g/dL Normal 3.4-4.8 [facility] Comment on above: Performed By: #### L 500.4100, L500.4050, L503.0106, L506.1001, L503.6150, L501.9985 ####[facility] [address] [place], [address] Albumin/Globulin [Mass ratio] 1.6 {ratio} Normal 0.9-2.4 [facility] Comment on above: Performed By: #### L 500.4100, L500.4050, L503.0106, L506.1001, L503.6150, L501.9985 ####[facility] [address] [place], [address] ALK PHOS 75 U/L Normal 40-129 [facility] Comment on above: Performed By: #### L 500.4100, L500.4050, L503.0106, L506.1001, L503.6150, L501.9985 ####[facility] [address] [place], [address] ALT [Catalytic activity/Vol] 25 U/L Normal <=46 [facility] Comment on above: Performed By: #### L 500.4100, L500.4050, L503.0106, L506.1001, L503.6150, L501.9985 ####[facility] [address] [place], [address] AST [Catalytic activity/Vol] 22 U/L Normal <=37 [facility] Comment on above: Performed By: #### L 500.4100, L500.4050, L503.0106, L506.1001, L503.6150, L501.9985 ####[facility] [address] [place], [address] Bilirubin [Mass/Vol] 0.59 mg/dL Normal 0.00-1.30 [facility] Comment on above: Performed By: #### L 500.4100, L500.4050, L503.0106, L506.1001, L503.6150, L501.9985 ####[facility] [address] [place], [address] BUN/CRE 19.2 RATIO Normal 10-20 [facility] Comment on above: Performed By: #### L 500.4100, L500.4050, L503.0106, L506.1001, L503.6150, L501.9985 ####[facility] [address] [place], [address] Calcium [Mass/Vol] 9.5 mg/dL Normal 7.6-11.0 [facility] Comment on above: Performed By: #### L 500.4100, L500.4050, L503.0106, L506.1001, L503.6150, L501.9985 ####[facility] [address] [place], [address] Chloride [Moles/Vol] 103 mmol/L Normal 98-108 [facility] Comment on above: Performed By: #### L 500.4100, L500.4050, L503.0106, L506.1001, L503.6150, L501.9985 ####[facility] [address] [place], [address] CO2 [Moles/Vol] 23.9 mmol/L Normal 21.0-32.0 [facility] Comment on above: Performed By: #### L 500.4100, L500.4050, L503.0106, L506.1001, L503.6150, L501.9985 ####[facility] [address] [place], [address] Creatinine [Mass/Vol] 0.85 mg/dL Normal 0.70-1.20 [facility] Comment on above: Performed By: #### L 500.4100, L500.4050, L503.0106, L506.1001, L503.6150, L501.9985 ####[facility] [address] [place], [address] GAP 12 Normal 5-15 [facility] Comment on above: Performed By: #### L 500.4100, L500.4050, L503.0106, L506.1001, L503.6150, L501.9985 ####[facility] [address] [place], [address] GFR/1.73 sq M.predicted among non-blacks MDRD (S/P/Bld) [Vol rate/Area] 97 mL/min/{1.73_m2} Normal >60 [facility] Comment on above: Result Comment: mL/m in/1.73m2 CKD-EPI Creatinine Equation (2020) Performed By: #### L 500.4100, L500.4050, L503.0106, L506.1001, L503.6150, L501.9985 ####[facility] [address] [place], [address] Globulin (S) [Mass/Vol] 2.8 g/dL Normal 2.2-4.2 [facility] Comment on above: Performed By: #### L 500.4100, L500.4050, L503.0106, L506.1001, L503.6150, L501.9985 ####[facility] [address] [place], [address] Glucose [Mass/Vol] 150 mg/dL High 70-99 [facility] Comment on above: Performed By: #### L 500.4100, L500.4050, L503.0106, L506.1001, L503.6150, L501.9985 ####[facility] [address] [place], [address] Potassium [Moles/Vol] 4.1 mmol/L Normal 3.3-5.1 [facility] Comment on above: Performed By: #### L 500.4100, L500.4050, L503.0106, L506.1001, L503.6150, L501.9985 ####[facility] [address] [place], [address] Sodium [Moles/Vol] 140 mmol/L Normal 133-145 [facility] Comment on above: Performed By: #### L 500.4100, L500.4050, L503.0106, L506.1001, L503.6150, L501.9985 ####[facility] [address] [place], [address] T PROT 7.2 g/dL Normal 5.9-8.4 [facility] Comment on above: Performed By: #### L 500.4100, L500.4050, L503.0106, L506.1001, L503.6150, L501.9985 ####[facility] [address] [place], [address] Urea nitrogen [Mass/Vol] 16 mg/dL Normal 4-19 [facility] Comment on above: Performed By: #### L 500.4100, L500.4050, L503.0106, L506.1001, L503.6150, L501.9985 ####[facility] [address] [place], [address] GFR/1.73 sq M.predicted wolfgang g non-blacks MDRD (S/P/Bld) [Vol rate/Area]Ordered By: Adri Bolaños on 06-26-2024 Estimated GFR (MDRD) Non-Af Amer 97 >60 [facility] Comment on above: mL/min/1.73m2 CKD-EP I Creatinine Equation (2020) Glomerular filtration rate ( GFR) estimation/1.73 sq m using serum, plasma, or whole bOrdered By: Adri Bolaños on 06-26-2024 GFR/1.73 sq M.predicted among non-blacks MDRD (S/P/Bld) [Vol rate/Area] 97 mL/min/{1.73_m2} >60 [facility] Comment on above: mL/min/1.73m2 CKD-EP I Creatinine Equation (2020) Hemoglobin A1con 06-26-2024 HbA1c (Bld) [Mass fraction] 7.2 % High <=5.6 [facility] Comment on above: Result Comment: Norm al < 5.7 % Prediabetic 5.7 - 6.4 % Diabetic >or= 6.5 % Please note range changes. Performed By: #### L 500.4100, L500.4050, L503.0106, L506.1001, L503.6150, L501.9985 ####[facility] [address] [place], [address] Hemoglobin A1c percentageOrd ered By: Adri Bolaños on 06-26-2024 HbA1c (Bld) [Mass fraction] 7.2 % High <5.7 [facility] Comment on above: Normal < 5.7 % Predi abetic 5.7 - 6.4 % Diabetic >or= 6.5 % Please note range changes. Ironon 06-26-2024 Iron [Mass/Vol] 88 ug/dL Normal 65-175 [facility] Comment on above: Performed By: #### L 500.4100, L500.4050, L503.0106, L506.1001, L503.6150, L501.9985 ####[facility] [address] [place], [place], [phone] Iron (Unsp spec) [Mass/Mass] Ordered By: Adrijuanita Bolaños on 06-26-2024 Iron [Mass/Vol] 88 ug/dL 65-175 [facility] Iron measurement (mass/mass) Ordered By: Adri Paulleonel on 06-26-2024 Iron (Unsp spec) [Mass/Mass] 88 ug/dL 65-175 [facility] LDL calc ser/plasOrdered By: Adri Bolaños on 06-26-2024 Cholesterol in LDL [Mass/Vol] 106 mg/dL [facility] Comment on above: Ckmamseurb=393-988 m g/dL & Higher Bqqm=259 mg/dL or greater LDL Cholesterol, Calculated 106 mg/dL [facility] Comment on above: Brdubmipgc=772-668 m g/dL & Higher Giit=438 mg/dL or greater Laboratory - Chemistry and C hemistry - challengeOrdered By: Adri Bolaños on 06-26-2024 AST [Catalytic activity/Vol] 22 U/L <38 [facility] Lipid Profileon 06-26-2024 CHOL:HDL 3.95 Normal [facility] Comment on above: Performed By: #### L 500.4100, L500.4050, L503.0106, L506.1001, L503.6150, L501.9985 ####[facility] [address] [place], [address] Cholesterol [Mass/Vol] 174 mg/dL Normal <=200 [facility] Comment on above: Result Comment: Chol esterol level, Desirable <200 mg/dL Borderline high cholesterol 200-239 mg/dL High cholesterol >=240 mg/dL Recommendations of the NCEP Adult Treatment Panel for the following risk-cutoff thresholds for the [place] population. Performed By: #### L 500.4100, L500.4050, L503.0106, L506.1001, L503.6150, L501.9985 ####[facility] [address] [place], [address] Cholesterol in HDL [Mass/Vol] 44 mg/dL Normal [facility] Comment on above: Result Comment: Karely onal Cholesterol Education Program (NCEP) guidelines: <40 mg/dL: Low HDL-cholesterol (major risk factor for CHD) >= 60 mg/dL: High HDL-cholesterol (negative risk factor for CHD) HDL-cholesterol is affected by a number of factors, e.g. smoking, exercise, hormones, sex and age. Performed By: #### L 500.4100, L500.4050, L503.0106, L506.1001, L503.6150, L501.9985 ####[facility] [address] [place], [address] Cholesterol in LDL [Mass/Vol] 106 mg/dL Normal [facility] Comment on above: Result Comment: Bord udtehh=287-956 mg/dL Higher Mwvi=605 mg/dL or greater Performed By: #### L 500.4100, L500.4050, L503.0106, L506.1001, L503.6150, L501.9985 ####[facility] [address] [place], [address] Cholesterol in VLDL [Mass/Vol] 24 mg/dL Normal 5-40 [facility] Comment on above: Performed By: #### L 500.4100, L500.4050, L503.0106, L506.1001, L503.6150, L501.9985 ####[facility] [address] [place], [address] Triglyceride [Mass/Vol] 118 mg/dL Normal [facility] Comment on above: Result Comment: The drugs N-Acetylcysteine and Metamizole may falsely depress this assay. Normal range: <150 mg/dL Borderline High: 150-199 mg/dL High: 200-499 mg/dL Very High: >500 mg/dL Performed By: #### L 500.4100, L500.4050, L503.0106, L506.1001, L503.6150, L501.9985 ####[facility] [address] [place], [address] Potassium (Unsp spec) [Mass/ Vol]Ordered By: Adri Bolaños on 06-26-2024 Potassium [Moles/Vol] 4.1 mmol/L 3.3-5.1 [facility] Potassium measurement (mass/ volume)Ordered By: Adri Bolaños on 06-26-2024 Potassium (Unsp spec) [Mass/Vol] 4.1 mmol/L 3.3-5.1 [facility] Screening total cholesterol/ high density lipoprotein (HDL) cholesterol ratioOrdered By: Adri Bolaños on 06-26-2024 Cholesterol.total/Korina sterol in HDL [Mass ratio] 3.95 {ratio} [facility] Serum creatinine measurement (mass/volume)Ordered By: Adri Bolaños on 06-26-2024 Creatinine [Mass/Vol] 0.85 mg/dL 0.70-1.20 [facility] Serum globulin measurementOr dered By: Adri Bolaños on 06-26-2024 Globulin (S) [Mass/Vol] 2.8 g/dL 2.2-4.2 [facility] Serum glucose measurement (m ass/volume)Ordered By: Adri Bolaños on 06-26-2024 Glucose [Mass/Vol] 150 mg/dL High 70-99 [facility] Serum or plasma alanine madnel otransferase (ALT) measurementOrdered By: Adri Bolaños on 06-26-2024 ALT [Catalytic activity/Vol] 25 U/L <47 [facility] Serum or plasma albumin nohemy urement (mass/volume)Ordered By: Adri Bolaños on 06-26-2024 Albumin [Mass/Vol] 4.4 g/dL 3.4-4.8 [facility] Serum or plasma albumin/glob ulin mass ratioOrdered By: Adri Bolaños on 06-26-2024 Albumin/Globulin [Mass ratio] 1.6 {ratio} 0.9-2.4 [facility] Serum or plasma alkaline gilma sphatase measurementOrdered By: Adri Bolaños on 06-26-2024 ALP [Catalytic activity/Vol] 75 U/L 40-129 [facility] Serum or plasma calcium nohemy urement (mass/volume)Ordered By: Adri Bolaños on 06-26-2024 Calcium [Mass/Vol] 9.5 mg/dL 7.6-11.0 [facility] Serum or plasma cholesterol in HDL measurement (mass/volume)Ordered By: Adri Bolaños on 06-26-2024 Cholesterol in HDL [Mass/Vol] 44 mg/dL >40 [facility] Comment on above: National Cholesterol Education Program (NCEP) guidelines:<40 mg/dL: Low HDL-cholesterol (major risk factor for CHD)>= 60 mg/dL: High HDL-cholesterol (negative risk factor for CHD)HDL-cholesterol is affected by a number of factors, e.g. smoking, exercise, hormones, sex and age. Serum or plasma cholesterol measurement (mass/volume)Ordered By: Adri Bolaños on 06-26-2024 Cholesterol [Mass/Vol] 174 mg/dL <201 [facility] Comment on above: Cholesterol level, D esirable <200 mg/dLBorderline high cholesterol 200-239 mg/dLHigh cholesterol >=240 mg/dLRecommendations of the NCEP Adult Treatment Panel for the following risk-cutoff thresholds for the [place] population. Serum or plasma urea nitroge n measurement (mass/volume)Ordered By: Adri Bolaños on 06-26-2024 Urea nitrogen [Mass/Vol] 16 mg/dL 4-19 [facility] Sodium levelOrdered By: Sea Bolaños on 06-26-2024 Sodium [Moles/Vol] 140 mmol/L 133-145 [facility] Total proteinOrdered By: Ivonne Bolaños on 06-26-2024 Protein [Mass/Vol] 7.2 g/dL 5.9-8.4 [facility] Triglycerides measurementOrd ered By: Adri Bolaños on 06-26-2024 Triglyceride [Mass/Vol] 118 mg/dL <199 [facility] Comment on above: The drugs N-Acetylcy steine and Metamizole may falsely depress this assay. Normal range: <150 mg/dLBorderline High: 150-199 mg/dLHigh: 200-499 mg/dLVery High: >500 mg/dL Vitamin B12on 06-26-2024 Cobalamin (Vitamin B12) [Mass/Vol] 528 pg/mL Normal 180-914 [facility] Comment on above: Performed By: #### L 500.4100, L500.4050, L503.0106, L506.1001, L503.6150, L501.9985 ####[facility] [address] [place], [address] Vitamin B12 ser/plasOrdered By: Adri Bolaños on 06-26-2024 Cobalamin (Vitamin B12) [Mass/Vol] 528 pg/mL 180-914 [facility] Vitamin D, 25-hydroxyOrdered By: Adri Bolaños on 06-26-2024 Vitamin D 25-Hydroxy 21.4 ng/mL Low 30-100 [facility] Comment on above: Vitamin D StatusDefi ciency: <20 ng/mL (50nmol/L)Insufficiency: 20-30 ng/mL (50-75 nmol/L)Sufficiency: 30-100 ng/mL (75-250 nmol/L)Toxicity: >100 ng/mL (>250 nmol/L) Vitamin D,25 Hydroxyon 06-26 Vitamin D 25-OH 21.4 ng/mL Low 30-100 [facility] Comment on above: Result Comment: Carmen min D Status Deficiency: <20 ng/mL (50nmol/L) Insufficiency: 20-30 ng/mL (50-75 nmol/L) Sufficiency: 30-100 ng/mL (75-250 nmol/L) Toxicity: >100 ng/mL (>250 nmol/L) Performed By: #### L 500.4100, L500.4050, L503.0106, L506.1001, L503.6150, L501.9985 ####[facility] [address] [place], [address] L/S Spine w Bend Min 6 Vwon 06-18-2024 L/S Spine w Bend Min 6 [facility] [address] [place] [address] L/S Spine w Bend Min 6 Vw MR#: [id number] Acct: [id number] Name: AMOS LARIOS Rep #: [id number] : 1960 M 64 From: Jessica Fairbanks MD PCP: Dr. Dodie Bertrand DO Status: REG CLI Study: L/S Spine w Bend Min 6 Vw Date of Exam: Exam# [id number] Ordering Dr: Dodie Bertrand DO PROCEDURE: L/S [...] acute fracture or traumatic malalignment. Reading Location: [facility] CC: Dr. Dodie Bertrand DO Tumbler Plater: Signed Normal [facility] 12 Lead EKGon 02-18-2024 12 Lead EKG [facility] [address] [place] [address] 12 Lead EKG 02/18/24 0649 MR#: [id number] Acct: [id number] Name: AMOS LARIOS Rep #: [id number] : 1960 63 From: Silviano Lucero MD Attending Dr: Dr. Charles Peres MD Status: REG CLI Ordering Dr: Charles Peres MD Date: 02/18/24 Location: [facility] Sex: M C Admitted: Test Reason : PRE OP Blood Pressure : */* mmHG Vent. Rate : 74 BPM Atrial Rate : 74 BPM P-R Int : 164 ms QRS Dur : 90 ms QT Int : 376 ms P-R-T Axes : 61 26 68 degrees QTcB Int : 417 ms Normal sinus rhythm Normal ECG Confirmed by NIC PINEDA, SILVIANO ([id number]), sports editor BRIAN SPENCER ([id number]) on 02/18/2024 2:11:16 PM Referred By: Charles Peres Confirmed By: SILVIANO LUCERO MD 02/18/24 1411 Date Silviano Lucero MD CC: Dr. Dodie Bertrand DO; Dr. Charles Peres MD Signed Normal [facility] Comprehensive Metabolic Prof ilon 02-18-2024 Albumin [Mass/Vol] 4.3 g/dL Normal 3.2-5.0 [facility] Comment on above: Order Comment: DR.SH FOSTER ORDERED A BMP Performed By: #### L 500.4050, L502.0250, L501.9985, L500.4100 #### [facility] [address] [place], [address] Albumin/Globulin [Mass ratio] 1.3 {ratio} Normal 0.9-2.4 [facility] Comment on above: Order Comment: DR.SH FOSTER ORDERED A BMP Performed By: #### L 500.4050, L502.0250, L501.9985, L500.4100 #### [facility] [address] [place], [address] ALK P 71 U/L Normal 45-117 [facility] Comment on above: Order Comment: DR.SH FOSTER ORDERED A BMP Performed By: #### L 500.4050, L502.0250, L501.9985, L500.4100 #### [facility] [address] [place], [address] ALT [Catalytic activity/Vol] 30 U/L Normal 16-61 [facility] Comment on above: Order Comment: DR.SH FOSTER ORDERED A BMP Performed By: #### L 500.4050, L502.0250, L501.9985, L500.4100 #### [facility] [address] [place], [address] AST [Catalytic activity/Vol] 23 U/L Normal 15-37 [facility] Comment on above: Order Comment: DR.SH FOSTER ORDERED A BMP Performed By: #### L 500.4050, L502.0250, L501.9985, L500.4100 #### [facility] [address] [place], [address] Bilirubin [Mass/Vol] 0.60 mg/dL Normal 0.20-1.00 [facility] Comment on above: Order Comment: DR.SH FOSTER ORDERED A BMP Result Comment: For patients on eltrombopag therapy, use of Dimension [place] TBIL is not recommended. Performed By: #### L 500.4050, L502.0250, L501.9985, L500.4100 #### [facility] [address] [place], [address] BUN/CRE 21.9 RATIO High 10-20 [facility] Comment on above: Order Comment: DR.SH FOSTER ORDERED A BMP Performed By: #### L 500.4050, L502.0250, L501.9985, L500.4100 #### [facility] [address] [place], [address] CA,Total 9.9 mg/dL Normal 8.5-10.1 [facility] Comment on above: Order Comment: DR.SH FOSTER ORDERED A BMP Performed By: #### L 500.4050, L502.0250, L501.9985, L500.4100 #### [facility] [address] [place], [address] Chloride [Moles/Vol] 107 mmol/L Normal 98-107 [facility] Comment on above: Order Comment: DR.SH FOSTER ORDERED A BMP Performed By: #### L 500.4050, L502.0250, L501.9985, L500.4100 #### [facility] [address] [place], [address] CO2 [Moles/Vol] 27.0 mmol/L Normal 21.0-32.0 [facility] Comment on above: Order Comment: DR.SH FOSTER ORDERED A BMP Performed By: #### L 500.4050, L502.0250, L501.9985, L500.4100 #### [facility] [address] [place], [address] Creatinine [Mass/Vol] 0.87 mg/dL Normal 0.70-1.30 [facility] Comment on above: Order Comment: DR.SH FOSTER ORDERED A BMP Result Comment: The validity of the calculated GFR GFRAA in patients over 70 years has not been determined. Clinical correlation is essential. Performed By: #### L 500.4050, L502.0250, L501.9985, L500.4100 #### [facility] [address] [place], [address] EST GFR - AA 114 mL/min Normal >60 [facility] Comment on above: Order Comment: DR.SH FOSTER ORDERED A BMP Result Comment: Afri can [place] GFR Calc Performed By: #### L 500.4050, L502.0250, L501.9985, L500.4100 #### [facility] [address] [place], [address] GAP 6 Normal 5-15 [facility] Comment on above: Order Comment: DR.SH FOSTER ORDERED A BMP Performed By: #### L 500.4050, L502.0250, L501.9985, L500.4100 #### [facility] [address] [place], [address] GFR/1.73 sq M.predicted among non-blacks MDRD (S/P/Bld) [Vol rate/Area] 95 mL/min/{1.73_m2} Normal >60 [facility] Comment on above: Order Comment: DR.SH FOSTER ORDERED A BMP Result Comment: Non- GFR Calc Performed By: #### L 500.4050, L502.0250, L501.9985, L500.4100 #### [facility] [address] [place], [address] Globulin (S) [Mass/Vol] 3.2 g/dL Normal 2.2-4.2 [facility] Comment on above: Order Comment: DR.SH FOSTER ORDERED A BMP Performed By: #### L 500.4050, L502.0250, L501.9985, L500.4100 #### [facility] [address] [place], [address] Glucose [Mass/Vol] 146 mg/dL High 74-106 [facility] Comment on above: Order Comment: DR.SH FOSTER ORDERED A BMP Result Comment: Fast ing Glucose result greater than or equal to 126 mg/dL suggests DIABETES MELLITUS per A.D.A. criteria. Performed By: #### L 500.4050, L502.0250, L501.9985, L500.4100 #### [facility] [address] [place], [address] Potassium [Moles/Vol] 4.2 mmol/L Normal 3.5-5.1 [facility] Comment on above: Order Comment: DR.SH FOSTER ORDERED A BMP Performed By: #### L 500.4050, L502.0250, L501.9985, L500.4100 #### [facility] [address] [place], [address] Sodium [Moles/Vol] 140 mmol/L Normal 136-145 [facility] Comment on above: Order Comment: DR.SH FOSTER ORDERED A BMP Performed By: #### L 500.4050, L502.0250, L501.9985, L500.4100 #### [facility] [address] [place], [address] T PROT 7.5 g/dL Normal 6.4-8.2 [facility] Comment on above: Order Comment: DR.SH FOSTER ORDERED A BMP Performed By: #### L 500.4050, L502.0250, L501.9985, L500.4100 #### [facility] [address] [place], [address] Urea nitrogen [Mass/Vol] 19 mg/dL High 7-18 [facility] Comment on above: Order Comment: DR.SH FOSTER ORDERED A BMP Performed By: #### L 500.4050, L502.0250, L501.9985, L500.4100 #### [facility] [address] [place], [address] Hemoglobin A1con 02-18-2024 HbA1c (Bld) [Mass fraction] 6.4 % High 3.8-5.6 [facility] Comment on above: Result Comment: Norm al < 5.7 % Prediabetic 5.7 - 6.4 % Diabetic >or= 6.5 % Please note range changes. Performed By: #### L 500.4050, L502.0250, L501.9985, L500.4100 #### [facility] [address] [place], [address] Lipid Profileon 02-18-2024 Cholesterol [Mass/Vol] 190 mg/dL Normal 200 [facility] Comment on above: Order Comment: DR.SH FOSTER ORDERED A BMP Result Comment: <200 mg/dL Desirable 200-240 mg/dL Borderline >240 mg/dL High Risk Performed By: #### L 500.4050, L502.0250, L501.9985, L500.4100 #### [facility] [address] [place], [address] Cholesterol in HDL [Mass/Vol] 41 mg/dL Normal [facility] Comment on above: Order Comment: DR.SH FOSTER ORDERED A BMP Result Comment: The drugs N-Acetylcysteine and Metamizole may falsely depress this assay. Reference Range HDL <40 mg/dL Low HDL Cholesterol HDL >or= 60 mg/dL High HDL Cholesterol Performed By: #### L 500.4050, L502.0250, L501.9985, L500.4100 #### [facility] [address] [place], [address] Cholesterol in LDL [Mass/Vol] 102 mg/dL Normal 0-130 [facility] Comment on above: Order Comment: DR.SH FOSTER ORDERED A BMP Performed By: #### L 500.4050, L502.0250, L501.9985, L500.4100 #### [facility] [address] [place], [address] Cholesterol in VLDL [Mass/Vol] 47 mg/dL High 5-40 [facility] Comment on above: Order Comment: DR.SH FOSTER ORDERED A BMP Performed By: #### L 500.4050, L502.0250, L501.9985, L500.4100 #### [facility] [address] [place], [address] Triglyceride [Mass/Vol] 233 mg/dL High [facility] Comment on above: Order Comment: DR.SH FOSTER ORDERED A BMP Result Comment: The drugs N-Acetylcysteine and Metamizole may falsely depress this assay. Serum Triglycerides Reference Interval Normal <150 mg/dL Borderline high 150 - 199 mg/dL High 200 - 499 mg/dL Very High > or = 500 mg/dL Performed By: #### L 500.4050, L502.0250, L501.9985, L500.4100 #### [facility] [address] [place], [address] Microalb:Creat Ratio,Random URon 02-18-2024 Creatinine [Mass/Vol] 84.40 mg/dL Normal NO RANGE EST. [facility] Comment on above: Performed By: #### L 500.4050, L502.0250, L501.9985, L500.4100 ####[facility] [address] [place], [address] MALB:CRE 21.2 mg/g CRE Normal <30 mg/g CRE [facility] Comment on above: Performed By: #### L 500.4050, L502.0250, L501.9985, L500.4100 ####[facility] [address] [place], [address] MICROALBUMIN,UR 17.9 mg/L Normal NO RANGE EST. [facility] Comment on above: Performed By: #### L 500.4050, L502.0250, L501.9985, L500.4100 ####[facility] [address] [place], [place], [address] Basophil percentageOrdered B y: Adri Bolaños on 06-13-2023 Bilirubin [Mass/Vol] 0.60 mg/dL 0.20-1.00 [facility] Comment on above: For patients on eltr ombopag therapy, use of Dimension [place] TBIL is not recommended. Chloride [Moles/Vol] 104 mmol/L 98-107 [facility] Glucose [Mass/Vol] 139 mg/dL 74-106 [facility] Comment on above: Fasting Glucose resu lt greater than or equal to 126 mg/dL suggests DIABETES MELLITUS per A.D.A. criteria. Potassium [Moles/Vol] 3.9 mmol/L 3.5-5.1 [facility] Protein [Mass/Vol] 7.5 g/dL 6.4-8.2 [facility] Sodium [Moles/Vol] 137 mmol/L 136-145 [facility] Laboratory - Chemistry and C hemistry - challengeOrdered By: Adri Bolaños on 06-13-2023 Albumin/Globulin [Mass ratio] 1.2 {ratio} 0.9-2.4 [facility] ALP [Catalytic activity/Vol] 65 U/L 45-117 [facility] ALT [Catalytic activity/Vol] 32 U/L 16-61 [facility] CO2 [Moles/Vol] 27.0 mmol/L 21.0-32.0 [facility] Globulin (S) [Mass/Vol] 3.4 g/dL 2.2-4.2 [facility] Urea nitrogen/Creatinine [Mass ratio] 19.4 mg/mg 10-20 [facility] No Panel InformationOrdered By: Adri Bolaños on 06-13-2023 Estimated GFR (MDRD) Amer 113 mL/min >60 [facility] Comment on above: GFR Calc Estimated GFR (MDRD) Non-Af Amer 93 mL/min >60 [facility] Comment on above: Non- GFR Calc Urine Microalbumin/Creatinine Ratio 15.9 mg/g CRE <30 [facility] Serum or plasma calcium nohemy urement (mass/volume)Ordered By: Adri Bolaños on 06-13-2023 Calcium [Mass/Vol] 9.3 mg/dL 8.5-10.1 [facility] Serum or plasma creatinine m easurement (mass/volume)Ordered By: Adri Bolaños on 06-13-2023 Creatinine [Mass/Vol] 0.88 mg/dL 0.70-1.30 [facility] Comment on above: The validity of the calculated GFR & GFRAA in patients over 70 years has not been determined. Clinical correlation is essential. Serum or plasma urea nitroge n measurement (mass/volume)Ordered By: Adri Bolaños on 06-13-2023 Urea nitrogen [Mass/Vol] 17 mg/dL 7-18 [facility] Thin prep Papanicolaou smear with manual screeningOrdered By: Adri Bolaños on 06-13-2023 Thin prep Papanicolaou smear with manual screening 4.1 g/dL 3.2-5.0 [facility] Thin prep Papanicolaou smear with manual screening 19 U/L 15-37 [facility] Thin prep Papanicolaou smear with manual screening 6 5-15 [facility] Thin prep Papanicolaou smear with manual screening 9.9 mg/L NO RANGE EST. [facility] Urine creatinine measurement (mass/volume)Ordered By: Adri Bolaños on 06-13-2023 Creatinine (U) [Mass/Vol] 62.70 mg/dL NO RANGE EST. [facility] Whole blood hemoglobin A1c/t otal hemoglobin ratio (mass fraction)Ordered By: Adri Bolaños on 06-13-2023 HbA1c (Bld) [Mass fraction] 6.9 % 3.8-5.6 [facility] Comment on above: Normal < 5.7 % Predi abetic 5.7 - 6.4 % Diabetic >or= 6.5 % Please note range changes. Basophil percentageOrdered B y: Adri Bolaños on 03-14-2023 Bilirubin [Mass/Vol] 0.40 mg/dL 0.20-1.00 [facility] Comment on above: For patients on eltr ombopag therapy, use of Dimension [place] TBIL is not recommended. Chloride [Moles/Vol] 108 mmol/L 98-107 [facility] Glucose [Mass/Vol] 221 mg/dL 74-106 [facility] Comment on above: Glucose result great er than or equal to 200 mg/dLsuggests DIABETES MELLITUS per A.D.A. criteria. Potassium [Moles/Vol] 4.0 mmol/L 3.5-5.1 [facility] Protein [Mass/Vol] 7.1 g/dL 6.4-8.2 [facility] Sodium [Moles/Vol] 140 mmol/L 136-145 [facility] Laboratory - Chemistry and C hemistry - challengeOrdered By: Adri Bolaños on 03-14-2023 ALP [Catalytic activity/Vol] 69 U/L 45-117 [facility] ALT [Catalytic activity/Vol] 35 U/L 16-61 [facility] CO2 [Moles/Vol] 27.0 mmol/L 21.0-32.0 [facility] Globulin (S) [Mass/Vol] 3.3 g/dL 2.2-4.2 [facility] Urea nitrogen/Creatinine [Mass ratio] 17.5 mg/mg 10-20 [facility] [facility] No Panel InformationOrdered By: Adri Bolaños on 03-14-2023 Estimated GFR (MDRD) Amer 101 mL/min >60 [facility] Comment on above: GFR Calc Estimated GFR (MDRD) Non-Af Amer 83 mL/min >60 [facility] Comment on above: Non- GFR Calc Urine Microalbumin/Creatinine Ratio 192.1 mg/g CRE <30 [facility] Serum or plasma albumin nohemy urement (mass/volume)Ordered By: Adri Bolaños on 03-14-2023 Albumin [Mass/Vol] 3.8 g/dL 3.2-5.0 [facility] Serum or plasma albumin/glob ulin mass ratioOrdered By: Adri Bolaños on 03-14-2023 Albumin/Globulin [Mass ratio] 1.2 {ratio} 0.9-2.4 [facility] Serum or plasma calcium nohemy urement (mass/volume)Ordered By: Adri Bolaños on 03-14-2023 Calcium [Mass/Vol] 9.6 mg/dL 8.5-10.1 [facility] Serum or plasma creatinine m easurement (mass/volume)Ordered By: Adri Bolaños on 03-14-2023 Creatinine [Mass/Vol] 0.97 mg/dL 0.70-1.30 [facility] Comment on above: The validity of the calculated GFR & GFRAA in patients over 70 years has not been determined. Clinical correlation is essential. Serum or plasma urea nitroge n measurement (mass/volume)Ordered By: Adri Bolaños on 03-14-2023 Urea nitrogen [Mass/Vol] 17 mg/dL 7-18 [facility] Thin prep Papanicolaou smear with manual screeningOrdered By: Adri Bolaños on 03-14-2023 Thin prep Papanicolaou smear with manual screening 18 U/L 15-37 [facility] Thin prep Papanicolaou smear with manual screening 5 5-15 [facility] Thin prep Papanicolaou smear with manual screening 181.0 mg/L NO RANGE EST. [facility] Urine creatinine measurement (mass/volume)Ordered By: Adri Bolaños on 03-14-2023 Creatinine (U) [Mass/Vol] 94.20 mg/dL NO RANGE EST. [facility] Whole blood hemoglobin A1c/t otal hemoglobin ratio (mass fraction)Ordered By: Adri Bolaños on 03-14-2023 HbA1c (Bld) [Mass fraction] 6.6 % 3.8-5.6 [facility] Comment on above: Normal < 5.7 % Predi abetic 5.7 - 6.4 % Diabetic >or= 6.5 % Please note range changes. Basophil percentageOrdered B y: Adri Bolaños on 01-10-2023 Bilirubin [Mass/Vol] 0.50 mg/dL 0.20-1.00 [facility] Comment on above: For patients on eltr ombopag therapy, use of Dimension [place] TBIL is not recommended. Chloride [Moles/Vol] 104 mmol/L 98-107 [facility] Glucose [Mass/Vol] 167 mg/dL 74-106 [facility] Comment on above: Fasting Glucose resu lt greater than or equal to 126 mg/dL suggests DIABETES MELLITUS per A.D.A. criteria. Potassium [Moles/Vol] 4.0 mmol/L 3.5-5.1 [facility] Protein [Mass/Vol] 7.5 g/dL 6.4-8.2 [facility] Sodium [Moles/Vol] 137 mmol/L 136-145 [facility] Laboratory - Chemistry and C hemistry - challengeOrdered By: Adri Bolaños on 01-10-2023 ALP [Catalytic activity/Vol] 57 U/L 45-117 [facility] ALT [Catalytic activity/Vol] 39 U/L 16-61 [facility] CO2 [Moles/Vol] 28.0 mmol/L 21.0-32.0 [facility] Globulin (S) [Mass/Vol] 3.6 g/dL 2.2-4.2 [facility] Urea nitrogen/Creatinine [Mass ratio] 17.8 mg/mg 10-20 [facility] No Panel InformationOrdered By: Adri Bolaños on 01-10-2023 Estimated GFR (MDRD) Amer 102 mL/min >60 [facility] Comment on above: GFR Calc Estimated GFR (MDRD) Non-Af Amer 85 mL/min >60 [facility] Comment on above: Non- GFR Calc Serum or plasma albumin nohemy urement (mass/volume)Ordered By: Adri Bolaños on 01-10-2023 Albumin [Mass/Vol] 3.9 g/dL 3.2-5.0 [facility] Serum or plasma albumin/glob ulin mass ratioOrdered By: Adri Bolaños on 01-10-2023 Albumin/Globulin [Mass ratio] 1.1 {ratio} 0.9-2.4 [facility] Serum or plasma calcium nohemy urement (mass/volume)Ordered By: Adri Bolaños on 01-10-2023 Calcium [Mass/Vol] 9.9 mg/dL 8.5-10.1 [facility] Serum or plasma creatinine m easurement (mass/volume)Ordered By: Adri Bolaños on 01-10-2023 Creatinine [Mass/Vol] 0.96 mg/dL 0.70-1.30 [facility] Comment on above: The validity of the calculated GFR & GFRAA in patients over 70 years has not been determined. Clinical correlation is essential. Serum or plasma urea nitroge n measurement (mass/volume)Ordered By: Adri Bolaños on 01-10-2023 Urea nitrogen [Mass/Vol] 17 mg/dL 7-18 [facility] Thin prep Papanicolaou smear with manual screeningOrdered By: Adri Bolaños on 01-10-2023 Thin prep Papanicolaou smear with manual screening 15 U/L 15-37 [facility] Thin prep Papanicolaou smear with manual screening 5 5-15 [facility] Whole blood hemoglobin A1c/t otal hemoglobin ratio (mass fraction)Ordered By: Adri Bolaños on 01-10-2023 HbA1c (Bld) [Mass fraction] 6.4 % 3.8-5.6 [facility] Comment on above: Normal < 5.7 % Predi abetic 5.7 - 6.4 % Diabetic >or= 6.5 % Please note range changes. Basophil percentageOrdered B y: Adri Bolaños on 10-12-2022 Bilirubin [Mass/Vol] 0.50 mg/dL 0.20-1.00 [facility] Comment on above: For patients on eltr ombopag therapy, use of Dimension [place] TBIL is not recommended. Chloride [Moles/Vol] 105 mmol/L 98-107 [facility] Glucose [Mass/Vol] 146 mg/dL 74-106 [facility] Comment on above: Fasting Glucose resu lt greater than or equal to 126 mg/dL suggests DIABETES MELLITUS per A.D.A. criteria. Potassium [Moles/Vol] 4.1 mmol/L 3.5-5.1 [facility] Protein [Mass/Vol] 7.4 g/dL 6.4-8.2 [facility] Sodium [Moles/Vol] 138 mmol/L 136-145 [facility] Laboratory - Chemistry and C hemistry - challengeOrdered By: Adri Bolaños on 10-12-2022 ALP [Catalytic activity/Vol] 62 U/L 45-117 [facility] ALT [Catalytic activity/Vol] 42 U/L 16-61 [facility] CO2 [Moles/Vol] 27.0 mmol/L 21.0-32.0 [facility] Globulin (S) [Mass/Vol] 3.5 g/dL 2.2-4.2 [facility] Urea nitrogen/Creatinine [Mass ratio] 22.9 mg/mg 10-20 [facility] No Panel InformationOrdered By: Adri oBlaños on 10-12-2022 Estimated GFR (MDRD) Amer 128 mL/min >60 [facility] Comment on above: GFR Calc Estimated GFR (MDRD) Non-Af Amer 106 mL/min >60 [facility] Comment on above: Non- GFR Calc Serum or plasma albumin noehmy urement (mass/volume)Ordered By: Adri Bolaños on 10-12-2022 Albumin [Mass/Vol] 3.9 g/dL 3.2-5.0 [facility] Serum or plasma albumin/glob ulin mass ratioOrdered By: Adri Boalños on 10-12-2022 Albumin/Globulin [Mass ratio] 1.1 {ratio} 0.9-2.4 [facility] Serum or plasma calcium nohemy urement (mass/volume)Ordered By: Adri Bolaños on 10-12-2022 Calcium [Mass/Vol] 9.1 mg/dL 8.5-10.1 [facility] Serum or plasma creatinine m easurement (mass/volume)Ordered By: Adri Bolaños on 10-12-2022 Creatinine [Mass/Vol] 0.79 mg/dL 0.70-1.30 [facility] Comment on above: The validity of the calculated GFR & GFRAA in patients over 70 years has not been determined. Clinical correlation is essential. Serum or plasma urea nitroge n measurement (mass/volume)Ordered By: Adri Bolaños on 10-12-2022 Urea nitrogen [Mass/Vol] 18 mg/dL 7-18 [facility] Thin prep Papanicolaou smear with manual screeningOrdered By: Adri Bolaños on 10-12-2022 Thin prep Papanicolaou smear with manual screening 18 U/L 15-37 [facility] Thin prep Papanicolaou smear with manual screening 6 5-15 [facility] Whole blood hemoglobin A1c/t otal hemoglobin ratio (mass fraction)Ordered By: Adri Bolaños on 10-12-2022 HbA1c (Bld) [Mass fraction] 6.6 % 3.8-5.6 [facility] Comment on above: Normal < 5.7 % Predi abetic 5.7 - 6.4 % Diabetic >or= 6.5 % Please note range changes. Basophil percentageOrdered B y: Dr. Bolaños on 07-13-2022 Bilirubin [Mass/Vol] 0.40 mg/dL 0.20-1.00 [facility] Comment on above: For patients on eltr ombopag therapy, use of Dimension [place] TBIL is not recommended. Chloride [Moles/Vol] 107 mmol/L 98-107 [facility] Cholesterol [Mass/Vol] 170 mg/dL <200 [facility] Comment on above: <200 mg/dL Desirable 200-240 mg/dL Borderline >240 mg/dL High Risk Glucose [Mass/Vol] 182 mg/dL 74-106 [facility] Comment on above: Fasting Glucose resu lt greater than or equal to 126 mg/dL suggests DIABETES MELLITUS per A.D.A. criteria. Potassium [Moles/Vol] 4.2 mmol/L 3.5-5.1 [facility] Protein [Mass/Vol] 7.1 g/dL 6.4-8.2 [facility] Sodium [Moles/Vol] 139 mmol/L 136-145 [facility] Triglyceride [Mass/Vol] 154 mg/dL <199 [facility] Comment on above: The drugs N-Acetylcy steine and Metamizole may falsely depress this assay.Serum Triglycerides Reference Interval Normal <150 mg/dL Borderline high 150 - 199 mg/dL High 200 - 499 mg/dL Very High > or = 500 mg/dL Laboratory - Chemistry and C hemistry - challengeOrdered By: Dr. Bolaños on 07-13-2022 ALP [Catalytic activity/Vol] 63 U/L 45-117 [facility] ALT [Catalytic activity/Vol] 44 U/L 16-61 [facility] CO2 [Moles/Vol] 25.0 mmol/L 21.0-32.0 [facility] Globulin (S) [Mass/Vol] 3.3 g/dL 2.2-4.2 [facility] Urea nitrogen/Creatinine [Mass ratio] 20.0 mg/mg 10-20 [facility] No Panel InformationOrdered By: Dr. Bolaños on 07-13-2022 Estimated GFR (MDRD) Amer 110 mL/min >60 [facility] Comment on above: GFR Calc Estimated GFR (MDRD) Non-Af Amer 91 mL/min >60 [facility] Comment on above: Non- GFR Calc Serum or plasma albumin nohemy urement (mass/volume)Ordered By: Dr. Bolaños on 07-13-2022 Albumin [Mass/Vol] 3.8 g/dL 3.2-5.0 [facility] Serum or plasma albumin/glob ulin mass ratioOrdered By: Dr. Bolaños on 07-13-2022 Albumin/Globulin [Mass ratio] 1.2 {ratio} 0.9-2.4 [facility] Serum or plasma calcium nohemy urement (mass/volume)Ordered By: Dr. Bolaños on 07-13-2022 Calcium [Mass/Vol] 8.9 mg/dL 8.5-10.1 [facility] Serum or plasma cholesterol in HDL measurement (mass/volume)Ordered By: Dr. Bolaños on 07-13-2022 Cholesterol in HDL [Mass/Vol] 39 mg/dL >40 [facility] Comment on above: The drugs N-Acetylcy steine and Metamizole may falsely depress this assay. Reference Range HDL <40 mg/dL Low HDL Cholesterol HDL >or= 60 mg/dL High HDL Cholesterol Serum or plasma cholesterol in VLDL measurement (mass/volume)Ordered By: Dr. Bolaños on 07-13-2022 Cholesterol in VLDL [Mass/Vol] 31 mg/dL 5-40 [facility] Serum or plasma creatinine m easurement (mass/volume)Ordered By: Dr. Bolaños on 07-13-2022 Creatinine [Mass/Vol] 0.90 mg/dL 0.70-1.30 [facility] Comment on above: The validity of the calculated GFR & GFRAA in patients over 70 years has not been determined. Clinical correlation is essential. Serum or plasma low density lipoprotein (LDL) cholesterol measurement (mass/volume)Ordered By: Dr. Bolaños on 07-13-2022 Cholesterol in LDL [Mass/Vol] 100 mg/dL 0-130 [facility] Serum or plasma urea nitroge n measurement (mass/volume)Ordered By: Dr. Bolaños on 07-13-2022 Urea nitrogen [Mass/Vol] 18 mg/dL 7-18 [facility] Thin prep Papanicolaou smear with manual screeningOrdered By: Dr. Bolaños on 07-13-2022 Thin prep Papanicolaou smear with manual screening 22 U/L 15-37 [facility] Thin prep Papanicolaou smear with manual screening 7 5-15 [facility] Whole blood hemoglobin A1c/t otal hemoglobin ratio (mass fraction)Ordered By: Dr. Bolaños on 07-13-2022 HbA1c (Bld) [Mass fraction] 7.9 % 3.8-5.6 [facility] Comment on above: Normal < 5.7 % Predi abetic 5.7 - 6.4 % Diabetic >or= 6.5 % Please note range changes. Basophil percentageOrdered B y: Dr. Bolaños on 04-13-2022 Chloride [Moles/Vol] 105 mmol/L 98-107 [facility] Glucose [Mass/Vol] 143 mg/dL 74-106 [facility] Comment on above: Fasting Glucose resu lt greater than or equal to 126 mg/dL suggests DIABETES MELLITUS per A.D.A. criteria. Potassium [Moles/Vol] 4.4 mmol/L 3.5-5.1 [facility] Sodium [Moles/Vol] 138 mmol/L 136-145 [facility] Laboratory - Chemistry and C hemistry - challengeOrdered By: Dr. Bolaños on 04-13-2022 CO2 [Moles/Vol] 27.0 mmol/L 21.0-32.0 [facility] Urea nitrogen/Creatinine [Mass ratio] 19.3 mg/mg 10-20 [facility] No Panel InformationOrdered By: Dr. Bolaños on 04-13-2022 Estimated GFR (MDRD) Amer 106 mL/min >60 [facility] Comment on above: GFR Calc Estimated GFR (MDRD) Non-Af Amer 87 mL/min >60 [facility] Comment on above: Non- GFR Calc Urine Microalbumin/Creatinine Ratio 15.7 mg/g CRE <30 [facility] Serum or plasma calcium nohemy urement (mass/volume)Ordered By: Dr. Bolaños on 04-13-2022 Calcium [Mass/Vol] 9.1 mg/dL 8.5-10.1 [facility] Serum or plasma creatinine m easurement (mass/volume)Ordered By: Dr. Bolaños on 04-13-2022 Creatinine [Mass/Vol] 0.93 mg/dL 0.70-1.30 [facility] Comment on above: The validity of the calculated GFR & GFRAA in patients over 70 years has not been determined. Clinical correlation is essential. Serum or plasma urea nitroge n measurement (mass/volume)Ordered By: Dr. Bolaños on 04-13-2022 Urea nitrogen [Mass/Vol] 18 mg/dL 7-18 [facility] Thin prep Papanicolaou smear with manual screeningOrdered By: Dr. Bolaños on 04-13-2022 Thin prep Papanicolaou smear with manual screening 6 5-15 [facility] Thin prep Papanicolaou smear with manual screening 18.7 mg/L NO RANGE EST. [facility] Urine creatinine measurement (mass/volume)Ordered By: Dr. Bolaños on 04-13-2022 Creatinine (U) [Mass/Vol] 119.00 mg/dL NO RANGE EST. [facility] Whole blood hemoglobin A1c/t otal hemoglobin ratio (mass fraction)Ordered By: Dr. Bolaños on 04-13-2022 HbA1c (Bld) [Mass fraction] 7.3 % 3.8-5.6 [facility] Comment on above: Normal < 5.7 % Predi abetic 5.7 - 6.4 % Diabetic >or= 6.5 % Please note range changes. Basophil percentageon 2021 Bilirubin [Mass/Vol] 0.70 mg/dL 0.20-1.00 [facility] Work Phone: Comment on above: For patients on eltr ombopag therapy, use of Dimension [place] TBIL is not recommended. Chloride [Moles/Vol] 105 mmol/L 98-107 [facility] Work Phone: Cholesterol [Mass/Vol] 185 mg/dL <200 [facility] Work Phone: Comment on above: <200 mg/dL Desirable 200-240 mg/dL Borderline >240 mg/dL High Risk Glucose [Mass/Vol] 151 mg/dL 74-106 [facility] Work Phone: Comment on above: Fasting Glucose resu lt greater than or equal to 126 mg/dL suggests DIABETES MELLITUS per A.D.A. criteria. Potassium [Moles/Vol] 4.2 mmol/L 3.5-5.1 [facility] Work Phone: Protein [Mass/Vol] 7.6 g/dL 6.4-8.2 [facility] Work Phone: Sodium [Moles/Vol] 137 mmol/L 136-145 [facility] Work Phone: Triglyceride [Mass/Vol] 159 mg/dL <199 [facility] Work Phone: Comment on above: The drugs N-Acetylcy steine and Metamizole may falsely depress this assay.Serum Triglycerides Reference Interval Normal <150 mg/dL Borderline high 150 - 199 mg/dL High 200 - 499 mg/dL Very High > or = 500 mg/dL Laboratory - Chemistry and C hemistry - challengeon 01-16-2022 ALP [Catalytic activity/Vol] 76 U/L 45-117 [facility] Work Phone: ALT [Catalytic activity/Vol] 38 U/L 16-61 [facility] Work Phone: CO2 [Moles/Vol] 27.0 mmol/L 21.0-32.0 [facility] Work Phone: Globulin (S) [Mass/Vol] 3.5 g/dL 2.2-4.2 [facility] Work Phone: Urea nitrogen/Creatinine [Mass ratio] 16.7 mg/mg 10-20 [facility] Work Phone: No Panel Informationon 01-16 Estimated GFR (MDRD) Amer 120 mL/min >60 [facility] Work Phone: Comment on above: GFR Calc Estimated GFR (MDRD) Non-Af Amer 99 mL/min >60 [facility] Work Phone: Comment on above: Non- GFR Calc Serum or plasma albumin nohemy urement (mass/volume)on 01-16-2022 Albumin [Mass/Vol] 4.1 g/dL 3.2-5.0 [facility] Work Phone: Serum or plasma albumin/glob ulin mass ratioon 01-16-2022 Albumin/Globulin [Mass ratio] 1.2 {ratio} 0.9-2.4 [facility] Work Phone: Serum or plasma calcium nohemy urement (mass/volume)on 01-16-2022 Calcium [Mass/Vol] 9.3 mg/dL 8.5-10.1 [facility] Work Phone: Serum or plasma cholesterol in HDL measurement (mass/volume)on 01-16-2022 Cholesterol in HDL [Mass/Vol] 42 mg/dL >40 [facility] Work Phone: Comment on above: The drugs N-Acetylcy steine and Metamizole may falsely depress this assay. Reference Range HDL <40 mg/dL Low HDL Cholesterol HDL >or= 60 mg/dL High HDL Cholesterol Serum or plasma cholesterol in VLDL measurement (mass/volume)on 01-16-2022 Cholesterol in VLDL [Mass/Vol] 32 mg/dL 5-40 [facility] Work Phone: Serum or plasma creatinine m easurement (mass/volume)on 01-16-2022 Creatinine [Mass/Vol] 0.84 mg/dL 0.70-1.30 [facility] Work Phone: Comment on above: The validity of the calculated GFR & GFRAA in patients over 70 years has not been determined. Clinical correlation is essential. Serum or plasma low density lipoprotein (LDL) cholesterol measurement (mass/volume)on 01-16-2022 Cholesterol in LDL [Mass/Vol] 111 mg/dL 0-130 [facility] Work Phone: Serum or plasma urea nitroge n measurement (mass/volume)on 01-16-2022 Urea nitrogen [Mass/Vol] 14 mg/dL 7-18 [facility] Work Phone: Thin prep Papanicolaou smear with manual screeningon 01-16-2022 Thin prep Papanicolaou smear with manual screening 19 U/L 15-37 [facility] Work Phone: Thin prep Papanicolaou smear with manual screening 5 5-15 [facility] Work Phone: Whole blood hemoglobin A1c/t otal hemoglobin ratio (mass fraction)on 01-16-2022 HbA1c (Bld) [Mass fraction] 6.9 % 3.8-5.6 [facility] Work Phone: Comment on above: Normal < 5.7 % Predi abetic 5.7 - 6.4 % Diabetic >or= 6.5 % Please note range changes. Basophil percentageon 2021 Chloride [Moles/Vol] 105 mmol/L 98-107 [facility] Work Phone: Cholesterol [Mass/Vol] 169 mg/dL <200 [facility] Work Phone: Comment on above: <200 mg/dL Desirable 200-240 mg/dL Borderline >240 mg/dL High Risk Glucose [Mass/Vol] 154 mg/dL 74-106 [facility] Work Phone: Comment on above: Fasting Glucose resu lt greater than or equal to 126 mg/dL suggests DIABETES MELLITUS per A.D.A. criteria. Potassium [Moles/Vol] 4.0 mmol/L 3.5-5.1 [facility] Work Phone: Sodium [Moles/Vol] 138 mmol/L 136-145 [facility] Work Phone: Triglyceride [Mass/Vol] 99 mg/dL <199 [facility] Work Phone: Comment on above: The drugs N-Acetylcy steine and Metamizole may falsely depress this assay.Serum Triglycerides Reference Interval Normal <150 mg/dL Borderline high 150 - 199 mg/dL High 200 - 499 mg/dL Very High > or = 500 mg/dL Laboratory - Chemistry and C hemistry - challengeon 10-27-2021 CO2 [Moles/Vol] 28.0 mmol/L 21.0-32.0 [facility] Work Phone: Urea nitrogen/Creatinine [Mass ratio] 21.9 mg/mg 10-20 [facility] Work Phone: No Panel Informationon 10-27 Estimated GFR (MDRD) Amer 103 mL/min >60 [facility] Work Phone: Comment on above: GFR Calc Estimated GFR (MDRD) Non-Af Amer 85 mL/min >60 [facility] Work Phone: Comment on above: Non- GFR Calc Serum or plasma calcium nohemy urement (mass/volume)on 10-27-2021 Calcium [Mass/Vol] 9.4 mg/dL 8.5-10.1 [facility] Work Phone: Serum or plasma cholesterol in HDL measurement (mass/volume)on 10-27-2021 Cholesterol in HDL [Mass/Vol] 41 mg/dL >40 [facility] Work Phone: Comment on above: The drugs N-Acetylcy steine and Metamizole may falsely depress this assay. Reference Range HDL <40 mg/dL Low HDL Cholesterol HDL >or= 60 mg/dL High HDL Cholesterol Serum or plasma cholesterol in VLDL measurement (mass/volume)on 10-27-2021 Cholesterol in VLDL [Mass/Vol] 20 mg/dL 5-40 [facility] Work Phone: Serum or plasma creatinine m easurement (mass/volume)on 10-27-2021 Creatinine [Mass/Vol] 0.96 mg/dL 0.70-1.30 [facility] Work Phone: Comment on above: The validity of the calculated GFR & GFRAA in patients over 70 years has not been determined. Clinical correlation is essential. Serum or plasma low density lipoprotein (LDL) cholesterol measurement (mass/volume)on 10-27-2021 Cholesterol in LDL [Mass/Vol] 108 mg/dL 0-130 [facility] Work Phone: Serum or plasma urea nitroge n measurement (mass/volume)on 10-27-2021 Urea nitrogen [Mass/Vol] 21 mg/dL - [facility] Work Phone: Thin prep Papanicolaou smear with manual screeningon 10-27-2021 Thin prep Papanicolaou smear with manual screening 5 5-15 [facility] Work Phone: Whole blood hemoglobin A1c/t otal hemoglobin ratio (mass fraction)on 10-27-2021 HbA1c (Bld) [Mass fraction] 7.5 % 3.8-5.6 [facility] Work Phone: Comment on above: Normal < 5.7 % Predi abetic 5.7 - 6.4 % Diabetic >or= 6.5 % Please note range changes. SURGICAL PATHOLOGY, [place] Don 10-16-2008 [facility] Vital Signs Date Time Vital Sign Value Performing Clinician Adilia yousif 12-10-2024 09:49-0400 Body height 177.[address] Dodie Bertrand DO Work Phone: [facility] 12-10-2024 09:49-0400 Body mass index (BMI) [Ratio] 26.4 kg/m2 Dr. Dodie Bertrand DO Work Phone: [facility] 12-10-2024 09:49-0400 Body weight 83.[address] Dodie Bertrand DO Work Phone: [facility] 12-10-2024 09:49-0400 Diastolic blood pressure 81 mm[Hg] Dr. Dodie Bertrand DO Work Phone: [facility] 12-10-2024 09:49-0400 Heart rate 73 /min Dr. Dodie Bertrand DO Work Phone: [facility] 12-10-2024 09:49-0400 Respiratory rate 18 /min Dr. Dodie Bertrand DO Work Phone: [facility] 12-10-2024 09:49-0400 SaO2% (BldA) [Mass fraction] 96 % Dr. Dodie Bertrand DO Work Phone: [facility] 12-10-2024 09:49-0400 Systolic blood pressure 131 mm[Hg] Dr. Dodie Bertrand DO Work Phone: [facility] 11-20-2024 13:40-0400 Diastolic blood pressure 82 mm[Hg] Dr. Dodie Berrtand DO Work Phone: [facility] 11-20-2024 13:40-0400 Heart rate 80 /min Dr. Dodie Bertrand DO Work Phone: [facility] 11-20-2024 13:40-0400 Respiratory rate 18 /min Dr. Dodie Bertrand DO Work Phone: [facility] 11-20-2024 13:40-0400 Systolic blood pressure 124 mm[Hg] Dr. Dodie Bertrand DO Work Phone: [facility] 11-20-2024 13:04-0400 Body height 177.[address] Dodie Bertrand DO Work Phone: [facility] 11-05-2024 09:11-0400 Body temperature 98.6 [degF] Jennifer Catalan DATA PROCESSING SPECIALIST.MEMBERSHIP ASSISTANT Work Phone: [facility] 11-05-2024 09:11-0400 Body weight 82.2 kg Jennifer Catalan DATA PROCESSING SPECIALIST.MEMBERSHIP ASSISTANT Work Phone: [facility] 11-05-2024 09:11-0400 Diastolic blood pressure 72 mm[Hg] Jennifer Catalan DATA PROCESSING SPECIALIST.MEMBERSHIP ASSISTANT Work Phone: [facility] 11-05-2024 09:11-0400 Heart rate 80 /min Jennifer Catalan DATA PROCESSING SPECIALIST.MEMBERSHIP ASSISTANT Work Phone: [facility] 11-05-2024 09:11-0400 Respiratory rate 16 /min Jennifer Catalan DATA PROCESSING SPECIALIST.MEMBERSHIP ASSISTANT Work Phone: [facility] 11-05-2024 09:11-0400 SaO2% (BldA) [Mass fraction] 99 % Jennifer Catalan DATA PROCESSING SPECIALIST.MEMBERSHIP ASSISTANT Work Phone: [facility] 11-05-2024 09:11-0400 Systolic blood pressure 122 mm[Hg] Jennifer Catalan DATA PROCESSING SPECIALIST.MEMBERSHIP ASSISTANT Work Phone: [facility] Encounters Encounter Date Encounter Type Care Provider Facility Start: 12-26-2024 [facility] Start: 12-10-2024 End: 12-10-[address] Mika Ross MD -[facility] Work Phone: Start: 12-10-2024 End: 12-10-[address] Dodie Bertrand DO Work Phone: -[facility] Start: 12-05-2024 [facility] Start: 12-04-2024 ambulatory [facility] Facility: [place] Start: 12-04-2024 Non-patient / Non-visit Dr. Hernandez madrigal MD -[facility] Start: 12-04-2024 Non-patient / Non-visit Dr. Scott mary MD -[facility] Start: 12-04-2024 End: 12-04-[address] Dodie Bertrand DO Work Phone: -[facility] Start: 12-04-2024 End: 12-04-[address] Mika Ross MD -[facility] Work Phone: Start: 12-04-2024 End: 12-04-2024 ambulatory Dodie Bertrand Facility:[facility] Start: 11-20-2024 End: 11-20-[address] Mika Ross MD -[facility] Work Phone: Start: 11-20-2024 End: 11-20-[address] Dodie Bertrand DO Work Phone: -[facility] Start: 11-05-2024 End: 11-05-2024 Patient encounter procedure Jennifer Catalan PIPER.MEMBERSHIP ASSISTANT Work Phone: [facility] Comment on above: Diarrhea, unspecifie d type (Primary Dx); Lower abdominal pain Start: 11-05-2024 End: 11-05-2024 ambulatory DODIE BERTRAND Facility:[facility] Start: 10-24-2024 End: 10-24-[address] Dodie Bertrand DO -Laboratory Work Phone: Start: 10-24-2024 Non-patient / Non-visit Dr. Dane PINEDA -[facility] Work Phone: Start: 10-24-[address] Dodie Bertrand D O -Cat Scan [facility] Work Phone: Start: 10-24-2024 End: 10-24-[address] Dodie Bertrand DO Work Phone: -Laboratory Start: 10-24-2024 End: 10-24-2024 ambulatory Dodie Bertrand Facility:[facility] Start: 09-26-2024 End: 09-26-[address] Dodie Bertrand DO Work Phone: -Laboratory Start: 09-26-2024 End: 09-26-[address] Adri Bolaños MD -Laboratory Work Phone: Start: 09-26-2024 End: 09-26-2024 [facility] Start: 09-09-2024 End: 09-09-2024 ambulatory Rigoberto Acuna PT Work Phone: [facility] Comment on above: Lumbar radiculopathy (Primary Dx); Degeneration of intervertebral disc of lumbar region with discogenic back pain and lower extremity pain Start: 09-02-2024 End: 09-02-2024 ambulatory Rigoberto Acuna PT Work Phone: [facility] Comment on above: Lumbar radiculopathy (Primary Dx) Start: 08-26-2024 End: 08-26-2024 ambulatory Rigoberto Acuna PT Work Phone: [facility] Comment on above: Lumbar radiculopathy (Primary Dx); Degeneration of intervertebral disc of lumbar region with discogenic back pain and lower extremity pain Start: 08-19-2024 End: 08-19-2024 ambulatory Rigoberto Acuna PT Work Phone: [facility] Comment on above: Degeneration of inte rvertebral disc of lumbar region with discogenic back pain and lower extremity pain (Primary Dx); Lumbar radiculopathy Start: 08-08-2024 End: 08-08-2024 ambulatory Rigoberto Acuna PT Work Phone: [facility] Comment on above: Degeneration of inte rvertebral disc of lumbar region with discogenic back pain and lower extremity pain (Primary Dx); Lumbar radiculopathy Start: 06-26-2024 End: 06-26-[address] Dodie Bertrand DO Work Phone: [facility] Work Phone: Start: 06-26-2024 End: 06-26-[address] Adri Bolaños MD -Laboratory Work Phone: Start: 06-26-2024 End: 06-26-2024 ambulatory Dodie Bertrand Facility:[facility] Start: 06-18-2024 End: 06-18-[address] Dodie Bertrand DO Work Phone: [facility] Work Phone: Start: 06-18-2024 End: 06-18-[address] Dodie Bertrand DO -Radiology, [facility] Work Phone: Start: 06-18-2024 End: 06-18-2024 ambulatory Dodie Bertrand Facility:[facility] Start: 02-18-2024 End: 02-18-2024 ambulatory Charles Peres Facility:[facility] Start: 06-13-2023 End: 06-13-2023 ambulatory [facility] Work Phone: Start: 06-13-2023 End: 06-13-2023 Patient encounter procedure [facility] Work Phone: Start: 03-14-2023 End: 03-14-2023 ambulatory [facility] Work Phone: Start: 03-14-2023 End: 03-14-2023 Patient encounter procedure [facility] Work Phone: Start: 01-10-2023 End: 01-10-2023 ambulatory [facility] Work Phone: Start: 01-10-2023 End: 01-10-2023 Patient encounter procedure [facility] Work Phone: Start: 10-12-2022 End: 10-12-2022 ambulatory [facility] Work Phone: Start: 10-12-2022 End: 10-12-2022 Patient encounter procedure [facility] Work Phone: Start: 07-13-2022 End: 07-13-2022 ambulatory [facility] Work Phone: Start: 07-13-2022 End: 07-13-2022 Patient encounter procedure [facility] Start: 04-13-2022 End: 04-13-2022 Patient encounter procedure [facility] Start: 01-16-2022 End: 01-16-2022 ambulatory [facility] Work Phone: Start: 01-16-2022 End: 01-16-2022 Patient encounter procedure [facility] Start: 10-27-2021 End: 10-27-2021 ambulatory [facility] Work Phone: Start: 10-27-2021 End: 10-27-2021 Patient encounter procedure [facility] Start: 10-16-2008 Documentation procedure Gibson Pelayo MD Work Phone: [facility] Start: 10-16-2008 Historic EMR Gibson Pelayo MD Work Phone: [facility] Procedures Date Procedure Procedure Detail Performing Clinician Start: 10-24-2024 CT angiography of co ronary arteries Dr. Dodie Bertrand DO Work Phone: Start: 06-26-2024 Vitamin D, 25-hydrox y measurement [...] RSV Vaccine (1 - 1-dose 75+ series) [facility] Start: 10-24-2025 Urine microalbumin profile DTaP,Tdap,Td Vaccine (2 - Td or Tdap) [facility] Start: 12-10-2024 Catheterization of l eft heart [facility] Start: 12-10-2024 Prothrombin time [facility] Start: 11-20-2024 Evaluation of diagno stic study results [facility] Start: 11-10-2024 Influenza vaccination [facility] Start: 09-09-2024 End: 09-09-2024 ambulatory 09/09/2024 7:45 AM EDT OT/PT/Speech Visit [facility] [address] [place] [address] Rigoberto Acuna, PT [address] [place], [place] [id number] BACK PAIN [facility] Comment on above: BACK PAIN Start: 09-02-2024 End: 09-02-2024 ambulatory 09/02/2024 7:45 AM EDT OT/PT/Speech Visit [facility] [address] [place] [address] Rigoberto Acuna, PT [address] [place] [address] BACK PAIN [facility] Comment on above: BACK PAIN Start: 08-26-2024 End: 08-26-2024 ambulatory 08/26/2024 7:45 AM EDT OT/PT/Speech Visit [facility] [address] [place] [address] Rigoberto Acuna, PT [address] [place], [place] [id number] BACK PAIN [facility] Comment on above: BACK PAIN Start: 08-19-2024 End: 08-19-2024 ambulatory 08/19/2024 7:00 AM EDT OT/PT/Speech Visit [facility] [address] [place] [address] Rigoberto Acuna, PT [address] [place] [address] BACK PAIN [facility] Comment on above: BACK PAIN Start: 11-11-2023 Covid-19 Vaccine () Covid-19 Vaccine ( season) [facility] Start: 11-10-2022 Influenza vaccination Influenza Vacc ine (#1) [facility] Start: 03-12-2022 Depression Assessment Depression Ass essment [facility] Start: 06-17-2021 Lipid 1996 panel - S brigido or Plasma Lipid Screening [facility] Start: 06-17-2021 Lipid panel Lipid Screening [facility] Start: 06-17-2021 Prostate Cancer Scre ening Discussion Prostate Cancer Screening Discussion [facility] Start: 06-17-2021 Prostate specific an tigen measurement Prostate Cancer Screening Discussion [facility] Start: 2020 RSV Vaccine (1 - Ris k 60-74 years 1-dose series) RSV Vaccine (1 - Risk 60-74 years 1-dose series) [facility] Start: 06-18-2019 Diabetes Screening Diabetes Screenin g [facility] Start: 2010 Pneumococcal Vaccine : 50+ (1 of 1 - PCV) Pneumococcal Vaccine: 50+ (1 of 1 - PCV) [facility] Start: 2010 Shingrix Vaccine (1 of 2) Bacon grix Vaccine (1 of 2) [facility] Start: 2005 Cologuard (FIT-DNA) Cologuard (FIT-D NA) [facility] Start: 2005 Colonoscopy Colonoscopy [facility] Start: 2005 Colorectal Cancer Screening Colorectal Cancer Screening [facility] Start: [address] COLONOGRAPHY [facility] Start: 2005 Fecal Occult Blood Fecal Occult Bloo d [facility] Start: 2005 Screening for malign ant neoplasm of colon [facility] Start: 2005 SIGMOIDOSCOPY SIGMOIDOSCOPY [facility] Start: 1979 Urine microalbumin profile DTaP,Tdap,Td Vaccine (1 - Tdap) [facility] Start: 1978 Anxiety Screening Anxiety Screening [facility] Start: 1978 Depression Screening Depression Scre ening [facility] Start: 1978 Hepatitis C Screening Hepatitis C [facility] Start: 1978 Hepatitis C screening Hepatitis C [facility] Start: 1978 HIV Screening HIV Screening [facility] Start: 1978 HIV screening HIV Screening [facility] Start: 1960 Covid-19 Vaccine (#1) Covid-19 Vacci ne (#1) [facility] Abdominal aortic ane urysm screening [facility] Basic metabolic 2008 panel with ionized calcium - Serum or Plasma [facility] Cardiovascular stres s testing [facility] CBC W Auto Different ial panel - Blood [facility] XR Chest PA and Lateral [facility] Immunizations Immunization Date Immunization Notes Care Provider Mirella zhang 02-20-2022 influenza virus vacc ine, unspecified formulation Rigoberto Acuna PT Work Phone: [facility] Payers Date Payer Category Payer Unknown 2024 Self-pay [id number] 2021 Private Health Insurance MMO SU[employer] PPO [id number] 2021 [id number] Unknown [id number] Unknown [id number] Unknown [id number] Unknown [id number] Unknown [id number] 462 Unknown [id number] 462 Unknown [id number] 462 Unknown [id number] 462 Unknown [id number] 462 Unknown [id number] 462 Unknown [id number]. 462 Unknown [id number]. 462 Unknown [id number] 462 Unknown [id number] 462 Unknown [id number] 462 Unknown [id number] 462 Social History Date Type Detail Facility Start: 05-19-2019 End: 05-19-2019 Tobacco smoking status NHIS Unknown if ever smoked [facility] Start: 05-19-2019 Non-smoker [facility] Start: 1960 Sex Assigned At Male [facility] Start: 05-27-2020 End: 11-05-2024 History of Social function [facility] Start: 05-27-2020 End: 11-05-2024 Tobacco use panel [facility] Start: 01-30-2016 National Score (1-10 0), lower number is lower risk Not on file [facility] Start: 1960 Sex Assigned At Not on file [facility] Start: 04-27-2020 End: 05-27-2020 Exposure to SARS-CoV-2 (event) Not sure [facility] Start: 02-28-2017 End: 05-19-2019 Tobacco smoking status NHIS Never smoked tobacco (finding) [facility] Start: 06-24-2024 End: 07-01-2024 Sex Male (finding) [facility] Start: 02-28-2017 Tobacco use and exposure Smokeless tobacco non-user [facility] Start: 05-27-2020 Alcoholic beverage intake Not Asked [facility] Goals Date Patient Goal Desired Activity /State Clinical Notes 06-19-2024 to 12-10-2024 Note Date & Type Note Facility 12-10-2024 Progress note [facility] 11-20-2024 Evaluation note Diagnosis Onset Date Resolution 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 Author Type: Nurse Practitioner Type: Progress Notes Filed: 11/05/2024 09:31 Note Text: [facility] Tracee Larios is a 64 year old male. Patient presents with: Diarrhea: nausea and vomiting x last night, hx of diverticulitis Diarrhea The patient is a 64-year-old male with a history of diverticulitis and type 2 diabetes, presenting with acute onset abdominal pain, nausea, vomiting, and diarrhea. Diverticulitis: - History of diverticulitis, with known trigger being tomatoes. - Consumed alegre tomatoes, spaghetti sauce, and salsa recently. States they are gardening and has had surplus of tomatoes. - Onset of symptoms last night, including abdominal pain, nausea, vomiting, and diarrhea. - Abdominal pain localized to the lower abdomen, with gurgling - Using a heating pad for symptom relief. - Passing flatus; denies hematemesis. Type 2 Diabetes: - Managed with Ozempic and Jardiance. - Recently discontinued Metformin due to adverse effects. Lumbar Degenerative Disc Disease: - Recent fall in March resulted in compression of L2, L3, and L4. - Experiencing inflammation; no fractures reported. Fatigue: - Persistent fatigue, particularly around 1500. - Recent cardiac calcium score performed; awaiting consultation on November 20. Lifestyle: - Adheres to a healthy diet. - Denies tobacco and alcohol use. No past medical history on file. No past surgical history on file. ALLERGIES Patient has no known allergies. MEDICATIONS celecoxib (CELEBREX) 200 mg capsule take 1 capsule by mouth 2 times a day with food cholecalciferol (VITAMIN D3) 1,000 unit tab tablet Cholecalciferol (Vitamin D3) 1,000 UNIT tablet Active 1000 U PO DAILY May 19, 2019 12:00am JARDIANCE 25 mg tablet pioglitazone (ACTOS) 15 mg tablet OZEMPIC 2 mg/dose (8 mg/3 mL) pen injector inject 2mg subcutaneously once weekly atorvastatin (LIPITOR) 20 mg tablet metroNIDAZOLE (FLAGYL) 500 mg tablet Take 1 tablet by mouth every 8 hours for 7 days. cefdinir (OMNICEF) 300 mg capsule Take 1 capsule by mouth two times a day for 7 days. metFORMIN (GLUCOPHAGE) 500 mg tablet Take 500 mg by mouth twice daily with meals. (Patient not taking: Reported on 11/05/2024) omeprazole (PRILOSEC) 20 mg capsule Take 20 mg by mouth once daily. (Patient not taking: Reported on 11/05/2024) albuterol HFA (PROAIR HFA) 90 mcg/actuation inhaler Inhale 2 Puffs as instructed every 4 hours as needed. (Patient not taking: Reported on 11/05/2024) benzonatate (TESSALON PERLE) 100 mg capsule Take 1-2 capsules by mouth three times daily as needed. (Patient not taking: Reported on 05/10/2018 ) ROSUVASTATIN CALCIUM (CRESTOR ORAL) Take by mouth. (Patient not taking: Reported on 11/05/2024) METOPROLOL SUCCINATE ORAL Take by mouth. (Patient not taking: Reported on 11/05/2024) LISINOPRIL ORAL Take by mouth. (Patient not taking: Reported on 11/05/2024) albuterol HFA (VENTOLIN HFA) 90 mcg/actuation inhaler Inhale 2 Puffs as instructed every 4 hours as needed for Wheezing/Shortness of Breath. (Patient not taking: Reported on 05/10/2018 ) fluticasone (FLONASE) 50 mcg/actuation nasal spray Use 2 Sprays in each nostril once daily. Rinse mouth after use. (Patient not taking: Reported on 05/10/2018 ) No family history on file. SOCIAL HISTORY[1] Review of Systems Gastrointestinal: Positive for diarrhea. Constitutional: (+) fatigue Gastrointestinal: (+) abdominal pain, (+) nausea, (+) vomiting, (+) diarrhea, (+) abdominal gurgling, (+) flatulence, (-) coffee-ground emesis Objective BP 122/72 Pulse 80 Temp 37 ?C (98.6 ?F) Resp 16 Wt 82.2 kg (181 lb 3.5 oz) SpO2 99% Physical Exam Vitals and nursing note reviewed. Constitutional: General: He is not in acute distress. Appearance: Normal appearance. He is not ill-appearing, toxic-appearing or diaphoretic. HENT: Head: Normocephalic and atraumatic. Right Ear: External ear normal. Left Ear: External ear normal. Nose: Nose normal. No congestion or rhinorrhea. Mouth/Throat: Mouth: Mucous membranes are moist. Pharynx: Oropharynx is clear. No oropharyngeal exudate or posterior oropharyngeal erythema. Eyes: General: Right eye: No discharge. Left eye: No discharge. Extraocular Movements: Extraocular movements intact. Conjunctiva/sclera: Conjunctivae normal. Pupils: Pupils are equal, round, and reactive to light. Cardiovascular: Rate and Rhythm: Normal rate and regular rhythm. Pulses: Normal pulses. Heart sounds: Normal heart sounds. No murmur heard. No friction rub. No gallop. Pulmonary: Effort: Pulmonary effort is normal. No respiratory distress. Breath sounds: Normal breath sounds. No stridor. No wheezing, rhonchi or rales. Chest: Chest wall: No tenderness. Abdominal: General: Abdomen is flat. There is no distension. Palpations: Abdomen is soft. There is no mas (more content not included)... [facility]08-27-2025 History of Present illness Narrative* Jennifer Catalan APRN.MEMBERSHIP ASSISTANT - 11/05/2024 9:25 AM EDT [facility] Trinidad R Rue is a 64 year old male. Patient presents with: Diarrhea: nausea and vomiting x last night, hx of diverticulitis Diarrhea The patient is a 64-year-old male with a history of diverticulitis and type 2 diabetes, presenting with acute onset abdominal pain, nausea, vomiting, and diarrhea. Diverticulitis: - History of diverticulitis, with known trigger being tomatoes. - Consumed alegre tomatoes, spaghetti sauce, and salsa recently. States they are gardening and has had surplus of tomatoes. - Onset of symptoms last night, including abdominal pain, nausea, vomiting, and diarrhea. - Abdominal pain localized to the lower abdomen, with gurgling - Using a heating pad for symptom relief. - Passing flatus; denies hematemesis. Type 2 Diabetes: - Managed with Ozempic and Jardiance. - Recently discontinued Metformin due to adverse effects. Lumbar Degenerative Disc Disease: - Recent fall in March resulted in compression of L2, L3, and L4. - Experiencing inflammation; no fractures reported. Fatigue: - Persistent fatigue, particularly around 1500. - Recent cardiac calcium score performed; awaiting consultation on November 20. Lifestyle: - Adheres to a healthy diet. - Denies tobacco and alcohol use. No past medical history on file. No past surgical history on file. ALLERGIES Patient has no known allergies. MEDICATIONS celecoxib (CELEBREX) 200 mg capsule take 1 capsule by mouth 2 times a day with food cholecalciferol (VITAMIN D3) 1,000 unit tab tablet Cholecalciferol (Vitamin D3) 1,000 UNIT tablet Active 1000 U PO DAILY May 19, 2019 12:00am JARDIANCE 25 mg tablet pioglitazone (ACTOS) 15 mg tablet OZEMPIC 2 mg/dose (8 mg/3 mL) pen injector inject 2mg subcutaneously once weekly atorvastatin (LIPITOR) 20 mg tablet metroNIDAZOLE (FLAGYL) 500 mg tablet Take 1 tablet by mouth every 8 hours for 7 days. cefdinir (OMNICEF) 300 mg capsule Take 1 capsule by mouth two times a day for 7 days. metFORMIN (GLUCOPHAGE) 500 mg tablet Take 500 mg by mouth twice daily with meals. (Patient not taking: Reported on 11/05/2024) omeprazole (PRILOSEC) 20 mg capsule Take 20 mg by mouth once daily. (Patient not taking: Reported on 11/05/2024) albuterol HFA (PROAIR HFA) 90 mcg/actuation inhaler Inhale 2 Puffs as instructed every 4 hours as needed. (Patient not taking: Reported on 11/05/2024) benzonatate (TESSALON PERLE) 100 mg capsule Take 1-2 capsules by mouth three times daily as needed.(Patient not taking: Reported on 05/10/2018 ) ROSUVASTATIN CALCIUM (CRESTOR ORAL) Take by mouth. (Patient not taking: Reported on 11/05/2024) METOPROLOL SUCCINATE ORAL Take by mouth. (Patient not taking: Reported on 11/05/2024) LISINOPRIL ORAL Take by mouth. (Patient not taking: Reported on 11/05/2024) albuterol HFA (VENTOLIN HFA) 90 mcg/actuation inhaler Inhale 2 Puffs as instructed every 4 hours asneeded for Wheezing/Shortness of Breath. (Patient not taking: Reported on 05/10/2018 ) fluticasone (FLONASE) 50 mcg/actuation nasal spray Use 2 Sprays in each nostril once daily. Rinse mouth after use. (Patient not taking: Reported on 05/10/2018 ) No family history on file. SOCIAL HISTORY[1] Review of Systems Gastrointestinal: Positive for diarrhea. Constitutional: (+) fatigue Gastrointestinal: (+) abdominal pain, (+) nausea, (+) vomiting, (+) diarrhea, (+) abdominal gurgling, (+) flatulence, (-) coffee-ground emesis Objective BP 122/72 Pulse 80 Temp 37 C (98.6 F) Resp 16 Wt 82.2 kg (181 lb 3.5 oz) SpO2 99% Physical Exam Vitals and nursing note reviewed. Constitutional: General: He is not in acute distress. Appearance: Normal appearance. He is not ill-appearing, toxic-appearing or diaphoretic. HENT: Head: Normocephalic and atraumatic. Right Ear: External ear normal. Left Ear: External ear normal. Nose: Nose normal. No congestion or rhinorrhea. Mouth/Throat: Mouth: Mucous membranes are moist. Pharynx: Oropharynx is clear. No oropharyngeal exudate or posterior oropharyngeal erythema. Eyes: General: Right eye: No discharge. Left eye: No discharge. Extraocular Movements: Extraocular movements intact. Conjunctiva/sclera: Conjunctivae normal. Pupils: Pupils are equal, round, and reactive to light. Cardiovascular: Rate and Rhythm: Normal rate and regular rhythm. Pulses: Normal pulses. Heart sounds: Normal heart sounds. No murmur heard. No friction rub. No gallop. Pulmonary: Effort: Pulmonary effort is normal. No respiratory distress. Breath sounds: Normal breath sounds. No stridor. No wheezing, rhonchi or rales. Chest: Chest wall: No tenderness. Abdominal: General: Abdomen is flat. There is no distension. Palpations: Abdomen is soft. There is no mass. Tenderness: There is abdominal tenderness (mild lower abdominal TTP). There is no guarding or rebound. Hernia: No hernia is present. Musculoskeletal: General: No swelling, tenderness, deformity or signs of injury. Normal range of motion. Cervical back: Normal range of motion and neck supple. No rigidity or tenderness. Right lower leg: No edema. Left lower leg: No edema. Lymphadenopathy: Cervical: No cervical adenopathy. Skin: General: Skin is warm and dry. Capillary Refill: Capillary refill takes less than 2 seconds. Coloration: Skin is not jaundiced or pale. Findings: No bruising, lesion or rash. Neurological: General: No focal deficit present. Mental Status: He is alert and oriented to person, place, and time. Cranial Nerves: No cranial nerve deficit. Sensory: No sensory deficit. Motor: No weakness. Coordination: Coordination normal. Gait: Gait normal. Deep Tendon Reflexes: Reflexes normal. Psychiatric: Mood and Affect: Mood normal. Behavior: Behavior normal. Thought Content: Thought content normal. { 1. Lower abdominal pain (R10.30) 2. Diarrhea, unspecified type (R19.7) - History of diverticulitis with known trigger (tomatoes); acute onset of lower abdominal pain, nausea, vomiting, and diarrhea following tomato consumption. -Discussed limitations of urgent care and no imaging to rule in and our out other process -Endorses this feels like his prior episodes - Start Omnicef and Flagyl for presumed early diverticulitis. - Advised gentle, liquid diet during healing phase; yogurt not contraindicated, but dairy may be difficult to process during acute episode. - Instructed to seek urgent care if abdominal pain becomes severe or if unable to tolerate oral intake. and Recording using [employer] software for draft documentation of the visit was discussed withthe patient/authorized advertising representative; all questions welcomed and answered. Patient/authorized repre sentative agreed to proceed MDM Procedures [1] Social History Tobacco Use Smoking status: Never Smokeless tobacco: Never documented [facility] Instructions* Patient Instructions* Jennifer Catalan APRN.CNP - 11/05/2024 9:22 AM EDT What are diverticulosis and diverticulitis? Many people have small pouches in their colons that bulge outward through weak spots, like an innertube that pokes through weak places in a tire. Each pouch is called a diverticulum. Pouches (plural) are called diverticula. The condition of having diverticula is called diverticulosis. About 10 percent of Americans over the age of 40 have diverticulosis. The condition becomes more common as people age. About half of all people over the age of 60 have diverticulosis. When the pouches become infected or inflamed, the condition is called diverticulitis. This happens in 10 to 25 percent of people with diverticulosis. Diverticulosis and diverticulitis are also calleddiverticular disease. What are the symptoms? Diverticulosis Most people with diverticulosis do not have any discomfort or symptoms. However, symptoms may include mild cramps, bloating, and constipation. Other diseases such as irritable bowel syndrome (IBS) and stomach ulcers cause similar problems, so these symptoms do not always mean a person has diverticulosis. You should visit your doctor if you have these troubling symptoms. Diverticulitis The most common symptom of diverticulitis is abdominal pain. The most common sign is tenderness around the left side of the lower abdomen. If infection is the cause, fever, nausea, vomiting, chills, cramping, and constipation may occur as well. The severity of symptoms depends on the extent of the infection and complications. What are the complications? Diverticulitis can lead to bleeding, infections, perforations or tears, or blockages. These complications always require treatment to prevent them from progressing and causing serious illness. Bleeding Bleeding from diverticula is a rare complication. When diverticula bleed, blood may appear in the toilet or in your stool. Bleeding can be severe, but it may stop by itself and not require treatment.Doctors believe bleeding diverticula are caused by a small blood vessel in a diverticulum that weakens and finally bursts. If you have bleeding from the rectum, you should see your doctor. If the bleeding does not stop, surgery may be necessary. Abscess, Perforation, and Peritonitis The infection causing diverticulitis often clears up after a few days of treatment with antibiotics. If the condition gets worse, an abscess may form in the colon. An abscess is an infected area with pus that may cause swelling and destroy tissue. Sometimes the infected diverticula may develop small holes, called perforations. These perforations allow pus to leak out of the colon into the abdominal area. If the abscess is small and remains in the colon, it may clear up after treatment with antibiotics. If the abscess does not clear up with antibiotics, the doctor may need to drain it. To drain the abscess, the doctor uses a needle and a small tube called a catheter. The doctor inserts the needle through the skin and drains the fluid through the catheter. This procedure is called percutaneous catheter drainage. Sometimes surgery is needed to clean the abscess and, if necessary, remove part of the colon. A large abscess can become a serious problem if the infection leaks out and contaminates areas outside the colon. Infection that spreads into the abdominal cavity is called peritonitis. Peritonitis requires immediate surgery to clean the abdominal cavity and remove the damaged part of the colon. Without surgery, peritonitis can be fatal. Fistula A fistula is an abnormal connection of tissue between two organs or between an organ and the skin. When damaged tissues come into contact with each other during infection, they sometimes stick together. If they heal that way, a fistula forms. When diverticulitis-related infection spreads outside the colon, the colon's tissue may stick to nearby tissues. The organs usually involved are the bladder, small intestine, and skin. The most common type of fistula occurs between the bladder and the colon. It affects men more than women. This type of fistula can result in a severe, long- lasting infection of the urinary tract. Theproblem can be corrected with surgery to remove the fistula and the affected part of the colon. Intestinal Obstruction The scarring caused by infection may cause partial or total blockage of the large intestine. When this happens, the colon is unable to move bowel contents normally. When the obstruction totally blocks the intestine, emergency surgery is necessary. Partial blockage is not an emergency, so the surgery to correct it can be planned. What causes diverticular disease? Although not proven, the dominant theory is that a low-fiber diet is the main cause of diverticulardisease. The disease was first noticed in the [place] in the early 1900s. At about the same time, processed foods were introduced into the [place] diet. Many processed foods contain refined, low-fiber flour. Unlike whole-wheat flour, refined flour has no wheat bran. Diverticular disease is common in developed or industrialized countries--particularly the [place], [place], and [place]--where low- fiber diets are common. The disease is rare in countries of [place], where people eat high-fiber vegetable diets. Fiber is the part of fruits, vegetables, and grains that the body cannot digest. Some fiber dissolves easily in water (soluble fiber). It takes on a soft, jelly-like texture in the intestines. Some fiber passes almost unchanged through the intestines (insoluble fiber). Both kinds of fiber help makestools soft and easy to pass. Fiber also prevents constipation. Constipation makes the muscles strain to move stool that is too hard. It is the main cause of increased pressure in the colon. This excess pressure might cause the weak spots in the colon to bulge out and become diverticula. Diverticulitis occurs when diverticula become infected or inflamed. Doctors are not certain what causes the infection. It may begin when stool or bacteria are caught in the diverticula. An attack of diverticulitis can develop suddenly and without warning. How does the doctor diagnose diverticular disease? To diagnose diverticular disease, the doctor asks about medical history, does a physical exam, and may perform one or more diagnostic tests. Because most people do not have symptoms, diverticulosis is often found through tests ordered for another ailment. When taking a medical history, the doctor may ask about bowel habits, symptoms, pain, diet, and medications. The physical exam usually involves a digital rectal exam. To perform this test, the doctorinserts a gloved, lubricated finger into the rectum to detect tenderness, blockage, or blood. The doctor may check stool for signs of bleeding and test blood for signs of infection. The doctor may also order x rays or other tests. What is the treatment for diverticular disease? A high-fiber diet and, occasionally, mild pain medications will help relieve symptoms in most cases. Sometimes an attack of diverticulitis is serious enough to require a hospital stay and possibly surgery. Diverticulosis Increasing the amount of fiber in the diet may reduce symptoms of diverticulosis and prevent complications such as diverticulitis. Fiber keeps stool soft and lowers pressure inside the colon so that bowel contents can move through easily. The [place] [employer] recommends 20 to 35 grams of fiber each day. The table below shows the amount of fiber in some foods that you can easily add to your diet. Amount of Fiber in Some Foods Fruits Apple, raw, with skin 1 medium = 3.3 grams [place], raw 1 medium = 1.5 grams Pear, raw 1 medium = 5.1 grams [place], raw 1 medium = 1.9 grams Vegetables Asparagus, fresh, cooked 4 george = 1.2 grams Broccoli, fresh, cooked 1/2 cup = 2.6 grams [place] sprouts, fresh, cooked 1/2 cup = 2 grams Cabbage, fresh, cooked 1/2 cup = 1.5 grams Carrot, fresh, cooked 1/2 cup = 2.3 grams Cauliflower, fresh, cooked 1/2 cup = 1.7 grams Howie lettuce 1 cup = 1.2 grams Spinach, fresh, cooked 1/2 cup = 2.2 grams Summer squash, cooked 1 cup = 2.5 grams Tomato, raw 1 = 1 gram Winter squash, cooked 1 cup = 5.7 grams Starchy Vegetables Baked beans, canned, plain 1/2 cup = 6.3 grams Kidney beans, fresh, cooked 1/2 cup = 5.7 grams [place] beans, fresh, cooked 1/2 cup = 6.6 grams Potato, fresh, cooked 1 = 2.3 grams Grains Bread, whole-wheat 1 slice = 1.9 grams Brown rice, cooked 1 cup = 3.5 grams Cereal, bran flake 3/4 cup = 5.3 grams Oatmeal, plain, cooked 3/4 cup = 3 grams White rice, cooked 1 cup = 0.6 grams Source: [place] Department of Agriculture (USDA). USDA Nutrient Database for Standard Reference Release 15. Available at www.nal.usda.gov/fnic/cgi- bin/nut_search.pl. Accessed June 15, 2003. The doctor may also recommend taking a fiber product such as Citrucel or Metamucil once a day. These products are mixed with water and provide about 2 to 3.5 grams of fiber per tablespoon, mixed with8 ounces of water. Avoidance of nuts, popcorn, and sunflower, pumpkin, imelda, and sesame seeds has been recommended by physicians out of fear that food particles could enter, block, or irritate the diverticula. However, no scientific data support this treatment measure. Eating a high-fiber diet is the only requirement highly emphasized across the literature and eliminating specific foods is not necessary. The seeds in tomatoes, zucchini, cucumbers, strawberries, and raspberries, as well as poppy seeds, are generally considered harmless. People differ in the amounts and types of foods they can eat. Decisions about diet should be made based on what works best for each person. Keeping a food diary may help identify individual items in one's diet. If cramps, bloating, and constipation are problems, the doctor may prescribe a short course of painmedication. However, many medications affect emptying of the colon, an undesirable side effect for people with diverticulosis. Diverticulitis Treatment for diverticulitis focuses on clearing up the infection and inflammation, resting the colon, and preventing or minimizing complications. An attack of diverticulitis without complications may respond to antibiotics within a few days if treated early. To help the colon rest, the doctor may recommend bed rest and a liquid diet, along with a pain reliever. An acute attack with severe pain or severe infection may require a hospital stay. Most acute cases of diverticulitis are treated with antibiotics and a liquid diet. The antibiotics are given by injection into a vein. In some cases, however, surgery may be necessary. When is surgery necessary? If attacks are severe or frequent, the doctor may advise surgery. The surgeon removes the affected part of the colon and joins the remaining sections. This type of surgery, called colon resection, aims to keep attacks from coming back and to prevent complications. The doctor may also recommend surgery for complications of a fistula or intestinal obstruction. If antibiotics do not correct an attack, emergency surgery may be required. Other reasons for emergency surgery include a large abscess, perforation, peritonitis, or continued bleeding. Emergency surgery usually involves two operations. The first surgery will clear the infected abdominal cavity and remove part of the colon. Because of infection and sometimes obstruction, it is not safe to rejoin the colon during the first operation. Instead, the surgeon creates a temporary hole, or stoma, in the abdomen. The end of the colon is connected to the hole, a procedure called a colostomy, to allow normal eating and bowel movements. The stool goes into a bag attached to the opening inthe abdomen. In the second operation, the surgeon rejoins the ends of the colon. Points to Remember Diverticulosis occurs when small pouches, called diverticula, bulge outward through weak spots in the colon (large intestine). The pouches form when pressure inside the colon builds, usually because of constipation. Most people with diverticulosis never have any discomfort or symptoms. The most likely cause of diverticulosis is a low-fiber diet because it increases constipation and pressure inside the colon. For most people with diverticulosis, eating a high-fiber diet is the only treatment needed. You can increase your fiber intake by eating these foods: whole grain breads and cereals; fruit like apples and peaches; vegetables like broccoli, cabbage, spinach, carrots, asparagus, and squash; and starchy vegetables like kidney beans and norwood beans. Diverticulitis occurs when the pouches become infected or inflamed and cause pain and tenderness around the left side of the lower abdomen. Additional Readings Diverticular disease. In: Michelle ML, Lillie SI, Juan TERRI. Handbook of Colon and Rectal Surgery. MD Nik: Lm, Abiel & Javed; 2002: 637-653. Diverticular disease. In: King ANNIE, ed. [facility] on Digestive Health. [place], [place]: [facility];2000: 125-132. Yayo NAVAS. Understanding diverticular disease. Ostomy Quarterly. 2002;39(2):56-57. For More Information International [employer]astrointestinal [employer] [address] [place] [address] Phone: or [phone] Email: Internet: www.iffgd.org The U.S. Government does not endorse or favor any specific commercial product or company. Trade, proprietary, or company names appearing in this document are used only because they are considered necessary in the context of the information provided. If a product is not mentioned, the omission does not mean or imply that the product is unsatisfactory. National Digestive Diseases Information Clearinghouse [address] [place] [address] Phone: Email: Internet: www.digestive.niddk.nih.gov The National Digestive Diseases Information Clearinghouse (NDDIC) is a service of the National [place] of Diabetes and Digestive and Kidney Diseases (NIDDK). The NIDDK is part of the National Institutes of Health of the U.S. Department of Health and Human Services. Established in 1979, the Clearinghouse provides information about digestive diseases to people with digestive disorders and to their families, health day care provider, and the public. The NDDIC answers inquiries, develops and distributes publications, and works closely with professional and patient organizations and Government agencies to coordinate resources about digestive diseases. Publications produced by the Clearinghouse are carefully reviewed by both NIDDK scientists and outside experts. This publication is not copyrighted. The Clearinghouse encourages users of this publication to duplicate and distribute as many copies as desired. [employer]UST Publication No. [id number] December 2005 documented in this encounterAv[facility] NoteHNO ID: [id number] Author: RIGOBERTO ACUNA PT Service: ? Author Type: Physical Therapist Type: Progress Notes Filed: 09/09/2024 08:19 Note Text: Episode Visit Count: 5 Therapist That Will Accept/Oversee The Plan Of Care: Rigoberto Acuna PT Start of Care Date: 08/08/24 Onset Date: 03/21/24 REHABILITATION AND SPORTS THERAPY PHYSICAL THERAPY DISCONTINUANCE OF CARE PLAN OF CARE UPDATE: Assessment: Amos Larios is discontinued from Physical Therapy services [...] : 750 Session Stop Time : 817 Rigoberto Acuna [facility]07-01-2025 History of Present illness Narrative* Rigoberto Acuna, PT - 09/09/2024 7:56 AM EDT Images from the original note were not included. Episode Visit Count: 5 Therapist That Will Accept/Oversee The Plan Of Care: Rigoberto Acuna PT Start of Care Date: 08/08/24 Onset Date: 03/21/24 REHABILITATION AND SPORTS THERAPY PHYSICAL THERAPY DISCONTINUANCE OF CARE PLAN OF CARE UPDATE: Assessment: Amos Larios is discontinued from Physical Therapy services [...] : 075 Session Stop Time : 817 Rigoberto Acuna PT documented in this encounterAv[facility]06-24-2025 NoteHNO ID: [id number] Author: RIGOBERTO ACUNA PT Service: ? Author Type: Physical Therapist Type: Progress Notes Filed: 09/02/2024 08:26 Note Text: Episode Visit Count: 4 Therapist That Will Accept/Oversee The Plan Of Care: Rigoberto Acuna PT Start of Care Date: 08/08/24 Onset Date: 03/21/24 Patient Identified by Name and Date of : Yes REHABILITATION AND SPORTS THERAPY PHYSICAL THERAPY TREATMENT NOTE ASSESSMENT: Amos Larios tolerated the session with expected muscle [...] : 745 Session Stop Time : 825 Rigoberto Acuna [facility]06-24-2025 History of Present illness Narrative* Rigoberto Acuna PT - 09/02/2024 7:46 AM EDT Episode Visit Count: 4 Therapist That Will Accept/Oversee The Plan Of Care: Rigoberto Acuna PT Start of Care Date: 08/08/24 Onset Date: 03/21/24 Patient Identified by Name and Date of : Yes REHABILITATION AND SPORTS THERAPY PHYSICAL THERAPY TREATMENT NOTE ASSESSMENT: Amos Larios tolerated the session with expected muscle soreness. He demonstrated good form with all therapeutic exercises. The patient will continue to benefit from ongoing skilled physicaltherapy to progress toward set goals. PLAN FOR [...] : 745 Session Stop Time : 825 Rigoberto Acuna PT documented in this encounterAvita [facility]06-17-2025 NoteHNO ID: [id number] Author: RIGOBERTO ACUNA PT Service: ? Author Type: Physical Therapist Type: Progress Notes Filed: 08/26/2024 08:24 Note Text: Episode Visit Count: 3 Therapist That Will Accept/Oversee The Plan Of Care: Rigoberto Acuna PT Start of Care Date: 08/08/24 Onset Date: 03/21/24 Patient Identified by Name and Date of : Yes REHABILITATION AND SPORTS THERAPY PHYSICAL THERAPY TREATMENT NOTE ASSESSMENT: Amos Larios tolerated the session with expected muscle [...] : 742 Session Stop Time : 823 Rigoberto Acuna [facility]06-17-2025 History of Present illness Narrative* Rgioberto Acuna PT - 08/26/2024 7:43 AM EDT Episode Visit Count: 3 Therapist That Will Accept/Oversee The Plan Of Care: Rigoberto Acuna PT Start of Care Date: 08/08/24 Onset Date: 03/21/24 Patient Identified by Name and Date of : Yes REHABILITATION AND SPORTS THERAPY PHYSICAL THERAPY TREATMENT NOTE ASSESSMENT: Amos Larios tolerated the session with expected muscle soreness. He demonstrated good form with all therapeutic exercises. The patient will continue to benefit from ongoing skilled physicaltherapy to progress toward set goals. PLAN FOR [...] : 742 Session Stop Time : 823 Rigoberto Acuna PT documented in this encounterAvita [facility]06-10-2025 NoteHNO ID: [id number] Author: RIGOBERTO ACUNA PT Service: ? Author Type: Physical Therapist Type: Progress Notes Filed: 08/19/2024 07:48 Note Text: Episode Visit Count: 2 Therapist That Will Accept/Oversee The Plan Of Care: Rigoberto Acuna PT Start of Care Date: 08/08/24 Onset Date: 03/21/24 Patient Identified by Name and Date of : Yes REHABILITATION AND SPORTS THERAPY PHYSICAL THERAPY TREATMENT NOTE ASSESSMENT: Amos Larios tolerated the session with no issues. [...] : 702 Session Stop Time : 742 Rigoberto Acuna [facility]06-10-2025 History of Present illness Narrative* Rigoberto Acuna, PT - 08/19/2024 7:03 AM EDT Episode Visit Count: 2 Therapist That Will Accept/Oversee The Plan Of Care: Rigoberto Acuna PT Start of Care Date: 08/08/24 Onset Date: 03/21/24 Patient Identified by Name and Date of : Yes REHABILITATION AND SPORTS THERAPY PHYSICAL THERAPY TREATMENT NOTE ASSESSMENT: Amos Larios tolerated the session with no issues. [...] : 702 Session Stop Time : 742 Rigoberto Acuna PT documented in this encounterAvita [facility]05-30-2025 NoteHNO ID: [id number] Author: RIGOBERTO ACUNA PT Service: ? Author Type: Physical Therapist Type: Progress Notes Filed: 08/08/2024 10:24 Note Text: Episode Visit Count: Visit count could not be calculated. Make sure you are using a visit which is associated with an episode. Therapist That Will Accept/Oversee The Plan Of Care: Rigoberto Acuna PT Start of Care Date: 08/08/24 Onset Date: 03/21/24 Patient Identified by Name and Date of : Yes REHABILITATION AND SPORTS THERAPY PHYSICAL THERAPY EVALUATION PLAN OF CARE: Assessment: Amos Larios presents with chief complaint of LBP [...] Planned: 4 Planned Treatment Interventions: Therapeutic exercise (62998), Neuromuscular re-education (87454), Manual therapy (77570), Therapeutic activities (67039), Patient/Family/Caregiver Education PLAN FOR NEXT VISIT: Increase Lumbar extensor flexibility Patient demonstrates good understanding of plan of care and treatment. The above goals and plan of care were discussed and agreed upon by patient/family. 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 Broke bones in the hands, the L clavicle, and has had some strains. Pt has a difficult time sitting still. Has a [employer]. X-rays showed some degeneration of the [...] x 30 sec 3: (more content not included)...[facility]05-30-2025 History of Present illness Narrative* Rigoberto Acuna, PT - 08/08/2024 7:50 AM EDT Episode Visit Count: Visit count could not be calculated. Make sure you are using a visit which is associated with an episode. Therapist That Will Accept/Oversee The Plan Of Care: Rigoberto Acuna PT Start of Care Date: 08/08/24 Onset Date: 03/21/24 Patient Identified by Name and Date of : Yes REHABILITATION AND SPORTS THERAPY PHYSICAL THERAPY EVALUATION PLAN OF CARE: Assessment: Amos Larios presents with chief complaint of LBP that interferes with bending . The patient presents with impairments in ADL's, flexibility, independence in exercise, and tissue tenderness.PROMIS (Patient-Reported Outcomes Measurement Information System) scores were reviewed and identified as a rehabilitation concern. Prognosis for therapy is Good due to: current objective clinical presentation . The patient will benefit from skilled therapy services to meet the goals established [facility] plan of care as noted below. Classification [...] Planned: 4 Planned Treatment Interventions: Therapeutic exercise (86668), Neuromuscular re- education (02715), Manual therapy (04144), Therapeutic activities (68697), Patient/Family/Caregiver Education PLAN FOR NEXT VISIT: Increase Lumbar extensor flexibility Patient demonstrates good understanding of plan of care and treatment. The above goals and plan of care were discussed and agreed upon by patient/family. 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 Broke bones in the hands, the L clavicle, and has had some strains. Pt has a difficult time sitting still. Has a [employer]. X-rays showed some degeneration of the [...] : 0750 Session Stop Time : 0839 Rigoberto Acuna PT [facility] Radiology Diagnostic study note [facility] Imaging Services [address] [place], [place] [address] L/S Spine w Bend Min 6 Vw MR#: [id number] Acct: [id number] Name: AMOS LARIOS Rep #: [id number] : 1960 M 64 From: Ethan Miranda MD PCP: Dr. Dodie Bertrand, Status: REG CLI Study:L/S Spine w Bend Min 6 Vw Date of Exam: 06/18/24 Exam# [id number] Ordering Dr: Stefani Bertrand sa DO PROCEDURE: L/S SPINE W BEND MIN [...] acute fracture or traumatic malalignment. Reading Location: [id number] CC: Dr. Dodie Bertrand, DO ~ [employer]: Signed [facility] noteNo assessment information available [facility] Work Phone: Evaluation note* Diagnosis Degeneration of intervertebral disc of lumbar region with discogenic back pain and lower extremity pain- Primary Lumbar radiculopathy Thoracic or lumbosacral neuritis or radiculitis, unspecified documented [facility] [place] [facility] Diagnosis Degeneration of intervertebral disc of lumbar region with discogenic back pain and lower extremity pain- Primary Lumbar radiculopathy Thoracic or lumbosacral neuritis or radiculitis, unspecified documented in this encounter [facility] note* Diagnosis Lumbar radiculopathy- Primary Thoracic or lumbosacral neuritis or radiculitis, unspecified Degeneration of intervertebral disc of lumbar region with discogenic back pain and lower extremity pain documented in this encounter [facility] note* Diagnosis Lumbar radiculopathy- Primary Thoracic or lumbosacral neuritis or radiculitis, unspecified documented in this encounter [facility] [place] [facility]* Diagnosis Lumbar radiculopathy- Primary Thoracic or lumbosacral neuritis or radiculitis, unspecified Degeneration of intervertebral disc of lumbar region with discogenic back pain and lower extremity pain documented in this encounter [facility] note* Diagnosis Diarrhea, unspecified type- Primary Lower abdominal pain Abdominal pain, other specified site documented in this encounter [facility] note* Diagnosis Onset Date Resolution Status Admit Date HTN (hypertension) chronic Sept2024 1:02pm [facility] Work Phone: Progress note Author Mika Ross [facility] Note Date/Time December 10, 2024 10 :16am [facility] [address] [place], [place] [address]. [address] [place] [address] OFFICE VISIT Date of Service: 12/10/24 MR#: [id number] Acct: [id number] Name: AMOS LARIOS Rep #: [id number] : 1960 Provider: Dr. Emerson Ross MD Age/Sex: 64/M Location: [facility] Status: Signed HPI HPI History of Present Illness Details: Patient is a very pleasant 64-year-old white male that comes in today to discussresults of his stress test. The patient did a good level of exercise on his ECG stress he got greater than 85% of age-predicted heart rate his blood pressure did go up and was exaggeratedwith exercise at peak exercise ECG had ischemic ST changes in the inferior lateral leads there was no cardiac arrhythmias during exercise or recovery. Thepatient had normal ECG at rest. The stress test was done due to the patient complaining of fatigability that occurs daily after noon time. He denied any chest tightness or squeezing denied any syncope or near syncope denies any significant dyspnea on exertion he is just wiped out afternoon. 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 This has been going on for the last 6 months. He had a calcium score done October 24, 2024 which the total score was 468 LAD was 309 circumflex 76 and right coronary 82. He also had abdominal aortic screening done the aorta was normal in caliber there was mild ectasia in both iliac arteries. Given the patient's abnormal stress test and his high calcium score along with his history of diabetes hypertension and hyperlipidemia I feel that he should undergo left heart catheterization to definitively rule out significant coronarydisease. The patient is in agreement he wants to be certain what is going on because he wants to continue working his construction job it is his livelihood and his own business. Intake Vital Signs 11/20/24 13:04 12/10/24 09:49 Height 5 ft 10 in 5 ft 10 in Weight: 184 lb BMI 26.4 BP 131/81 H Blood Pressure Location Lt brachial Position Sitting Respiration 18 Pulse 73 Pulse Source Monitor Pulse Oximetry (%) 96 Oxygen Delivery Method room air Intake Visit Reasons: DISCUSS RECENT TESTING PER Joint Supervisor Required: No Accompanied by: Self Is patient in pain?: No Allergies No Known Allergies Allergy (Verified 12/10/24 09:49) Medications ?Medication ?Instructions ?Recorded ?Confirmed ?Type cholecalciferol (vitamin D3) 25 1,000 unit PO DAILY 12/10/24 History mcg (1,000 unit) tablet atorvastatin 20 mg tablet (Lipitor) 20 mg PO QDAY 11/0312/10/24 History empagliflozin 25 mg tablet 25 mg PO QDAY 11/17/2404/05 History (Jardiance) pioglitazone 15 mg tablet 15 mg PO QDAY 11/17/2412/10 History semaglutide 1 mg/dose (4 mg/3 mL) 1 mg subcut QWEEK 12/10/24 History subcutaneous pen injector (Ozempic) aspirin 81 mg chewable tablet 81 mg PO QDAY #30 tabs 1 12/10/24 Rx Have you fallen in the past year?: No PFSH Medical History Heart attack Diabetes 1.5, managed as type 2 HTN (hypertension) Hx of fracture of wrist History of broken collarbone History of torn meniscus of right knee High cholesterol Surgical History S/P right heart catheterization Family History Other Breast cancer CVA (cerebral vascular accident) High cholesterol Social History Smoking Status: Never smoker alcohol intake: current alcohol intake frequency: a few times a month substance use type: does not use what type of physical activity do you participate in: walking frequency: 5-6 times per week ROS Const Const: Positive for fatigue; Negative for weakness ENT ENT: Negative for dizziness or balance problems Cardio Chest Pain: No Palpitations: No Edema: None Muscle aches with walking: None Resp Respiratory: Negative for SOB with activity, SOB at rest or SOB orthopnea\SOB lying down GI GI: Negative nausea, vomiting or heartburn Musc Musc: Negative for muscle weakness or balance problems Neuro Neuro: Negative for dizziness, lightheadedness, near syncope, syncope or weakness Endo Endo: Positive for fatigue Cardiology Exam Const Appearance: cooperative, healthy appearing, comfortable, no acute distress and well developed Head Head: normal to inspection Eyes General: appearance normal, both eyes and all related structures Neck Neck: normal visual inspection and no JVD Carotids: Negative bruit Chest Chest inspection: normal inspection of the chest Auscultation: Bilateral: Clear to Auscultation Cardio Rate: regular rate Rhythm: regular rhythm Heart sounds: S1 normal and S2 normal; Negative rub, gallop or murmur GI GI: normal to inspection Neuro General: patient alert and patient oriented x3 Extremities Pulses: Normal: Right Radial Pulse and Left Radial Pulse Lower Extremity Edema: None: Bilateral Psych Psychological: normal affect Supplemental Info Supplemental Information Labs: LDL Cholesterol, (0-130) 102 mg/dL HDL Cholesterol, (40-) 54 mg/dL Cholesterol, (<=200) 138 mg/dL Triglycerides, (-199) 71 mg/dL Diagnostics: Electrocardiogram Stress Test Coronary Angiography CT Past Visits: Cardiology Visit Today Assessment and Plan Assessment and Plan (1) Coronary artery calcification of upper [place] artery: Status: Acute Plan: Patient has coronary disease diagnosed by coronary calcification score of 468. He also has progressive fatigability started about 6 months ago. And his stresstest was abnormal showing ECG changes at a good level of exercise. (2) HTN (hypertension): Status: Chronic Qualifiers: Hypertension type: primary hypertension Qualified Code(s): I10 - Essential (primary) hypertension Plan: Patient's blood pressure in office today is well-controlled at 131/81. (3) Abnormal stress ECG: Status: Acute Plan: The patient went 10 minutes on the treadmill 8-1/2 minutes with a good heart rate response of 96% age-predicted however his blood pressure went up significantly and he had ST segment changes in the inferior leads consistent with ischemia. Given the patient's hypertension diabetes and hyperlipidemia I would recommend the patient proceed with left heart catheterization. We discussed the procedurerisk/benefit and alternatives in detail the patient voiced understanding and wishes to definitively rule out coronary artery disease as etiology of his symptoms. The patient will have a chest x-ray and his lab work done 2 to 3 weeks prior to the scheduled date of his heart cath. This will be scheduled with Dr. Lucero. Patient was instructed to start aspirin 81 mg daily. (4) Diabetes 1.5, managed as type 2: Status: Acute Plan: Diabetes managed by the primary service. He is on Jardiance and pioglitazone heis also on Ozempic. Orders: Orders Basic Metabolic Profile (BMP) Today I25.10 - Atherosclerotic heart disease of upper [place] coronary artery without angina pectoris, I25.84 - Coronary atherosclerosis due to calcified coronary lesion CBC W/Diff, Automated Today I25.10 - Atherosclerotic heart disease of upper [place] coronary artery without angina pectoris, I25.84 - Coronary atherosclerosis due to calcified coronary lesion Prothrombin Time w/INR Today I25.10 - Atherosclerotic heart disease of upper [place] coronary artery without angina pectoris, I25.84 - Coronary atherosclerosis due to calcified coronary lesion Chest PA and Lateral Today I25.10 - Atherosclerotic heart disease of upper [place] coronary artery without angina pectoris, I25.84 - Coronary atherosclerosis due to calcified coronary lesion Left Heart Cath/COR/LV Percut Today I25.10 - Atherosclerotic heart disease of upper [place] coronary artery without angina pectoris, I25.84 - Coronary atherosclerosis due to calcified coronary lesion, R94.39 - Abnormal result of other cardiovascular function study Medications: New aspirin 81 mg PO QDAY 30 tabs 11RF Plan 1. Recommend left heart catheterization will schedule at the patient's convenience. 2. Start aspirin 81 mg daily. 3. Continue current medical therapy. 4. Will follow-up with the patient pending recommendations following the left heart catheterization. Plan Details Additional Comments: Thank you for allowing me to participate in the care of your patient. Please don't hesitate to call if any issues arise. This note was generated using a voice recognition system and there may be incorrect words, spelling, or punctuation that were not noted when reviewing theoffice note prior to saving. Portions of this documentation were copied and pasted from previous office visitnotes to provide a cohesive continuity of the history. The note has been reviewed, edited, and updated, as necessary. 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 Lucero) Coding Level of Care Code Off vis,est,level 3 Diagnoses Coronary artery calcification of upper [place] artery I25.10; I25.84 Primary hypertension I10 Hypertension type: primary hypertension Abnormal stress ECG R94.39 Diabetes 1.5, managed as type 2 E13.9 Coding Level of Care Code Off vis,est,level 3 Diagnoses Coronary artery calcification of upper [place] artery I25.10; I25.84 Primary hypertension I10 Hypertension type: primary hypertension Abnormal stress ECG 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 Dodie Bertrand, DO ~ [facility] Work Phone: Reason for referral (narrative)No reason for referral information availableWOhioHealth [facility] Work Phone: Family History No Family History Records Found Relationship Condition Age at Onset Recorded Date/T danny Not Specified High blood cholesterol Unknown Malignant neoplasm of breast Unknown Cerebrovascular accident (CVA) Unknown Advance Directives No Advanced Directives Records Found Advance Directive Response Recorded Date/ Time Living Will Yes May 19, 2019 8:36am Power of [employer] Asc[employer] Consultant Yes May 18 0 8:36am Advance Directive Response Recorded Date/ Time Living Will Yes May 19, 2019 9:36am Power of [employer] Asc[employer] Consultant Yes May 18 0 9:36am Chief Complaint and Reason for Visit Chief Complaint Admit Date Family history of ischemic heart disease and other October 24, 2024 6:42am Chief Complaint Admit Date Family history of ischemic heart disease and other October 24, 2024 6:42am CT CALCIUM SCORING October 24, 2024 6: 43am ABN CCTA (MALYS) November 20, 2024 1:02pm Reason for Visit Admit Date HTN (hypertension) November 20, 2024 1:02pm Chief Complaint Admit Date Family history of ischemic heart disease and other October 24, 2024 6:42am CT CALCIUM SCORING October 24, 2024 6: 43am ABN CCTA (MALYS) November 20, 2024 1:02pm DYSPNEA, SOB December 04, 2024 9:43am DYSPNEA, SOB December 04, 2024 1:14pm DISCUSS RECENT TESTING PER December 9:43am Reason for Visit Admit Date Coronary artery calcification of upper [place] artery November 20, 2024 1:02pm Diabetes 1.5, managed as type 2 Septembe r 2024 1:02pm High cholesterol November 20, 2024 1:02pm HTN (hypertension) November 20, 2024 1:02pm Abnormal stress ECG December 10, 2024 9: 43am Coronary artery calcification of upper [place] artery December 10, 2024 9:43am Diabetes 1.5, managed as type 2 December 10, 2024 9:43am HTN (hypertension) December 10, 2024 9: 43am Summary Purpose Additional Source Comments Care Teams (unrecognized sec tion and content) Team Status: Active Member Role Status Dates Dr. Dodie Bertrand DO Family Provider Active Dr. Dodie Bertrand DO Primary Care Provider Active Team Status: Inactive Member Role Status Dates Dr. Dodie Bertrand DO Primary Care Provider Active Dr. Adri Bolaños MD Attending Provider, Referring Pr ovider Active Tetryl Wringer Operator Relationship Specialty Start Date End Date Ora Samuel APRN PCP - General 01/30/16 08/09/16 Serjio Mitchell [...] June 26, 2024 End: June 26, 2024 Tetryl Wringer Operator Relationship Specialty Start Date End Date Serjio Mitchell PCP - General Family Medicine 01/22/17 Tetryl Wringer Operator Relationship Specialty Start Date End Date Serjio Mitchell PCP - General Family Medicine 01/22/17 Tetryl Wringer Operator Relationship Specialty Start Date End Date Serjio Mitchell PCP - General Family Medicine 01/22/17 Tetryl Wringer Operator Relationship Specialty Start Date End Date Serjio Mitchell PCP - [facility] 01/22/17 Team Status: Active Member [...] 26, 2024 End: September 26, 2024 Dr. dAri Bolaños MD Attending Provider Active Start: September 26, 2024 End: September 26, 2024 Dr. Adri Bolaños MD Referring Provider Active Start: September 26, 2024 End: September 26, 2024 Team Status: Active Member Role/Relationship Status Dates [...] September 26, 2024 End: September 26, 2024 Team Status: Active Member Role/Relationship Status Dates Dr. Dodie Bertrand DO Primary Care Provider Active Start: October 24, 2024 Dr. Dodie Bertrand DO Attending Provider Active St art: October 24, 2024 Dr. Dodie Bertrand DO Referring Provider Active St art: October 24, 2024 Team Status: Inactive Member Role/Relationship Status Dates Dr. Dodie Bertrand DO Primary Care Provider Active Start: October 24, 2024 End: October 24, 2024 Dr. Dodie Bertrand DO Attending Provider Active St art: October 24, 2024 End: October 24, 2024 Dr. Dodie Bertrand DO Referring Provider Active St art: October 24, 2024 End: October 24, 2024 Tetryl Wringer Operator Relationship Specialty Start Date End Date Dodie Bertrand DO [address] [facility] [facility] [address] PCP - General Family Medicine 11/05/24 Team Status: Active Member Role/Relationship Status Dates Dr. Dodie Bertrand DO Primary Care Provider Active Start: October 24, 2024 Dr. Dodie Bertrand DO Referring Provider Active St art: October 24, 2024 Dr. Silviano Lucero MD Attending Provider Active S tart: October 24, 2024 Team Status: Inactive Member Role/Relationship Status Dates Dr. Dodie Bertrand DO Primary Care Provider Active Start: October 24, 2024 End: October 24, 2024 Dr. Dodie Bertrand DO Attending Provider Active St art: October 24, 2024 End: October 24, 2024 Dr. Dodie Bertrand DO Referring Provider Active St art: October 24, 2024 End: October 24, 2024 Team Status: Inactive Member Role/Relationship Status Dates Dr. Dodie Bertrand DO Primary Care Provider Active Start: November 20, 2024 End: November 20, 2024 Dr. Dodie Bertrand DO Referring Provider Active St art: November 20, 2024 End: November 20, 2024 Dr. Mika Ross MD Attending Provider Active Start: November 20, 2024 End: November 20, 2024 Team Status: Active Member Role/Relationship Status Dates Dr. Dodie Bertrand DO Primary care physician Active Team Status: Inactive Member Role/Relationship Status Dates Dr. Dodie Bertrand DO Primary care physician Active Start: September 26, 2024 End: September 26, 2024 Dr. Adri Bolaños MD Attending physician Active Start: September 26, 2024 End: September 26, 2024 Dr. Adri Bolaños MD Referring Provider Active Start: September 26, 2024 End: September 26, 2024 Team Status: Active Member Role/Relationship Status Dates Dr. Dodie Bertrand DO Primary care physician Active Start: October 24, 2024 Dr. Dodie Bertrand DO Attending physician Active S tart: October 24, 2024 Dr. Dodie Bertrand DO Referring Provider Active St art: October 24, 2024 Team Status: Active Member Role/Relationship Status Dates Dr. Dodie Bertrand DO Primary care physician Active Start: October 24, 2024 Dr. Dodie Bertrand DO Referring Provider Active St art: October 24, 2024 Dr. Silviano Lucero MD Attending physician Active Start: October 24, 2024 Team Status: Inactive Member Role/Relationship Status Dates Dr. Dodie Bertrand DO Primary care physician Active Start: October 24, 2024 End: October 24, 2024 Dr. Dodie Bertrand DO Attending physician Active S tart: October 24, 2024 End: October 24, 2024 Dr. Dodie Bertrand DO Referring Provider Active St art: October 24, 2024 End: October 24, 2024 Team Status: Inactive Member Role/Relationship Status Dates Dr. Dodie Bertrand DO Primary care physician Active Start: November 20, 2024 End: November 20, 2024 Dr. Dodie Bertrand DO Referring Provider Active St art: November 20, 2024 End: November 20, 2024 Dr. Mika Ross MD Attending physician Active Start: November 20, 2024 End: November 20, 2024 Team Status: Inactive Member Role/Relationship Status Dates Dr. Dodie Bertrand DO Primary care physician Active Start: December 04, 2024 End: December 04, 2024 Dr. Mika Ross MD Attending physician Active Start: December 04, 2024 End: December 04, 2024 Dr. Mika Ross MD Referring Provider Active Start: December 04, 2024 End: December 04, 2024 Team Status: Active Member Role/Relationship Status Dates Dr. Dodie Bertrand DO Primary care physician Active Start: December 04, 2024 Dr. Scott Jara MD Attending physician Active Start: December 04, 2024 Team Status: Active Member Role/Relationship Status Dates Dr. Dodie Bertrand DO Primary care physician Active Start: December 04, 2024 Dr. Mika Ross MD Referring Provider Active Start: December 04, 2024 Dr. Mika Ross MD Nurse Practitioner Active Start: December 04, 2024 Dr. Hernandez Sierra MD Attending physician Active Start: December 04, 2024 Team Status: Inactive Member Role/Relationship Status Dates Dr. Dodie Bertrand DO Primary care physician Active Start: December 10, 2024 End: December 10, 2024 Dr. Dodie Bertrand DO Referring Provider Active St art: December 10, 2024 End: December 10, 2024 Dr. Mika Ross MD Attending physician Active Start: December 10, 2024 End: December 10, 2024 Source Comments (unrecognize d section and content) In the event this informatio n is protected by the Federal Confidentiality of Alcohol and Drug Abuse Patient Records regulations: The Federal rules restrict any use of the information to criminally investigate or prosecute any alcohol or drug abuse patient.[facility] the event this information is protected by the Federal Confidentiality of Alcohol and Drug Abuse Patient Records regulations: The Federal rules restrict any use of the information to criminally investigate or prosecute any alcohol or drug abuse patient.[facility] Hospital[facility] the event this information is protected by the Federal Confidentiality of Alcohol and Drug Abuse Patient Records regulations: The Federal rules restrict any use of the information to criminally investigate or prosecute any alcohol or drug abuse patient.[facility] Hospital[facility] the event this information is protected by the Federal Confidentiality of Alcohol and Drug Abuse Patient Records regulations: The Federal rules restrict any use of the information to criminally investigate or prosecute any alcohol or drug abuse patient.[facility] Hospital[facility] the event this information is protected by the Federal Confidentiality of Alcohol and Drug Abuse Patient Records regulations: The Federal rules restrict any use of the information to criminally investigate or prosecute any alcohol or drug abuse patient.[facility] Hospital[facility] the event this information is protected by the Federal Confidentiality of Alcohol and Drug Abuse Patient Records regulations: The Federal rules restrict any use of the information to criminally investigate or prosecute any alcohol or drug abuse patient.[facility] Hospital[facility] the event this information is protected by the Federal Confidentiality of Alcohol and Drug Abuse Patient Records regulations: The Federal rules restrict any use of the information to criminally investigate or prosecute any alcohol or drug abuse patient.[facility] Reason for Visit (unrecogniz ed section and content) Reason Comments PT Discharge Specialty Diagnoses / Procedures Referred By Contac t Referred To Contact Physical Therapy / PHYSICAL THERAPY Diagnoses BACK PAIN Procedures PHYSICAL THERAPY EVALUATION HIGH COMPLEX 45 MINS NEW RS PT SPINE Clayton Latif PA-C [address] [place] [address] Phone: tel: fax: Rigoberto Acuna, PT [address] [place] [address] Phone: tel: Referral ID Status Reason Start Date Expiration Date V isits Requested Visits Authorized [id number] Authorized 03/12/2024 03/11/2025 99 99 Reason Comments Physical Therapy Reason Comments PT Eval Reason Comments Diarrhea nausea and vomiting x last night, hx of diverticulitis (unrecognized sect ion and content) No Status Records FoundNo Status Records Found INFORMATION SOURCE (unrecogn ized section and content) DATE CREATED AUTHOR 11/07/2024 [facility] DATE CREATED AUTHOR AUTHOR'S ORGANIZ ATION 12/17/2024 [facility] FOR RECORDS PERTAINING TO PATIENTS WHO [...] BE BASED ON THE PRIMARY CLINICAL RECORDS. [employer] [facility]. provides no warranty or guarantee of the accuracy or completeness of information in this document.
--- NOTE | 2024-12-26 08:37 | CL.D_ITS ---
Patient Name: IGNACIO ABREU Study Date: 12/26/2024 Performing: Silviano Lucero MD Ht: 70 inches 177.8 cm : 1960 Wt: 184 lbs 83.46 kg Age: 64 Gender: male BSA: 2.01 PROCEDURE(S) PERFORMED [id number])LHC/COR/LV CLINICAL PROFILE AND INDICATIONS Indications: Worsening Angina Heart Failure: None Stress/Imaging Date: 12/04/24 CAD Presentations: Other: fatigue CONCLUSIONS Severe single-vessel disease involving the left anterior descending artery mild disease involving the right coronary artery. RECOMMENDATIONS Referred for immediate PCI DESCRIPTION OF PROCEDURE The patient arrived to the procedure lab. The risks and benefits of the procedure as well as a full description of our services here and current unavailability of surgical backup were fully explained to the patient and/or their significant other prior to the catheterization. The Timeout was completed, verifying the correct patient and procedure. The patient's procedural site was prepped and draped in the usual fashion. Local anesthetic was given subcutaneously to right radial region with Lidocaine 2%. Using a modified Seldinger technique, arterial access was obtained via the right radial artery, a 6Fr sheath was inserted. Right Coronary Artery selective angiography was then performed in multiple views using a 5 Fr. 4.0 [place] catheter. Left Coronary Artery selective angiography was performed in multiple views using a 5 Fr. 4.0 [place] catheter. Left Ventriculography was performed in SMITH projection using a 5 Fr. Pigtail catheter. LV to AO pullback pressures were then recorded. CORONARY ANGIOGRAPHY DOMINANCE: Right Dominant LEFT HEART ASSESSMENT Normal Left Ventricular systolic function LEFT MAIN: Angiographically normal LEFT ANTERIOR DESCENDING ARTERY: Medium size vessel with proximal eccentric 80% mid 30% and distal 80% stenosis. 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 CIRCUMFLEX ARTERY: Mild luminal irregularities RAMUS: Mild luminal irregularities RIGHT CORONARY ARTERY: Mild luminal irregularities less than 30% Moderate calcification COMPLICATIONS PROCEDURE MEDICATIONS Versed 1 mg IV Fentanyl 50 mcg IV Versed 1 mg IV Oxygen: 2 L/min via nasal cannula Brilinta 180 mg PO @ 12/26/2024 08:20:22 Heparin given IA 12/26/2024 07:59:58 Verapamil 2.5mg, Ntg 100mcgs, 3000 units of Heparin given IA 12/26/2024 07:59:58 SUMMARY OF HEMODYNAMIC DATA Time AIR REST ECG 07:23:36 AO 143/82 (110) SA 08:10:08 LV 132/3, 13 08:16:48 LV 133/9, 16 08:16:54 LV 131/11, 19 08:17:25 LVp 139/10, 17 08:17:33 AOp 151/80 (112) 08:17:38 Art 153/75 (103) 08:28:27 Signed By Silviano Lucero MD On 12/26/2024 08:36:59 Silviano Lucero MD
--- NOTE | 2024-12-26 10:14 | EKG12_ITS ---
Test Reason : POST PCI Blood Pressure : */* mmHG Vent. Rate : 69 BPM Atrial Rate : 69 BPM P-R Int : 178 ms QRS Dur : 96 ms QT Int : 380 ms P-R-T Axes : 51 -9 38 degrees QTcB Int : 407 ms Normal sinus rhythm Normal ECG When compared with ECG of 20-Nov-2024 13:12, No significant change was found Confirmed by RESHMA PINEDA, SILVIANO ([id number]), editor in chief newspaper MICHELLE DAILY ([id number]) on 12/29/2024 10:05:44 AM Referred By: Silviano Lucero Confirmed By: SILVIANO LUCERO MD
[2024-12-26] MEDS: Pioglitazone Hydrochloride 15 MG Tablet PO (10:35)
--- NOTE | 2024-12-26 10:37 | CL.I_ITS ---
Patient Name: IGNACIO ABREU Study Date: 12/26/2024 Performing: Ana Daniel MD Ht: 70 inches 177.8 cm : 1960 Wt: 184.2 lbs 83.46 kg Age: 64 Gender: male BSA: 2.01 PROCEDURE(S) PERFORMED IC12-([id number])JCARLOS W/WO PTCA, SINGLE CORONARY ARTERY CLINICAL PROFILE AND CO-MORBIDITIES Indications: Worsening Angina Heart Failure: None Stress/Imaging Date: 12/04/24 CAD Presentations: Other: fatigue CONCLUSIONS Successful JCARLOS to mLAD RECOMMENDATIONS DESCRIPTION OF PROCEDURE The patient arrived to the procedure lab. The risks and benefits of the procedure as well as a full description of our services here and current unavailability of surgical backup were fully explained to the patient and/or their significant other prior to the catheterization. The Timeout was completed, verifying the correct patient and procedure. The patient's procedural site was prepped and draped in the usual fashion. Local anesthetic was given subcutaneously to right radial region with Lidocaine 2% Using a modified Seldinger technique,arterial access was obtained via the right radial artery, a 6Fr sheath was inserted. Right Coronary Artery selective angiography was then performed in multiple views using a 5 Fr. 4.0 [place] catheter. Left Coronary Artery selective angiography was performed in multiple views using a 5 Fr. 4.0 [place] catheter. Left Ventriculography was performed in SMITH projection using a 5 Fr. Pigtail catheter. LV to AO pullback pressures were then recorded.The images were reviewed and options discussed. A decision was then made to proceed with an Intervention, IVUS or other adjunct procedure. XB 3.0 Guide catheter was inserted and engaged into the LCA. [employer] [place] Guide wire was advanced to the LAD. Emerge 2.0 x 8 Balloon catheter was inserted. Balloon catheter was advanced across lesion in the LAD, mid. PTCA balloon inflated at 6 atms for 5 secs. PTCA balloon inflated at 8 atms for 23 secs. Angiogram performed post balloon dilatation. [place] 2.25 x 15 Drug Eluting stent was inserted. Drug Eluting stent was advanced across the lesion in the LAD, mid. Angiogram performed post stent deployment. The arterial sheath was pulled and a TR Band was applied for hemostasis INTERVENTION INFORMATION LESION SITE: LAD (Mid) Lesion Complexity: High/C, chronic total occlusion: No, lesion at bifurcation: Yes, thrombus present: No, lesion length: 12 mm, culprit lesion: Yes, Previously treated lesion: No Pre Stenosis: 95 % Pre intervention QASIM flow: 3 PROCEDURE: Drug Eluting Stent with pre dilatation. Post Stenosis: 0 % Post intervention QASIM flow: 3 Lesion Devices: Cordis 6 Fr XB3.0 100cm Guide Catheter Amor .014 190cm [employer] Straight [place] Sci EMERGE MR 2.00x08 [place] Medtronic 2.25 x 15 WALTER FRONTIER JCARLOS COMPLICATIONS No Complications PROCEDURE MEDICATIONS Versed 1 mg IV Fentanyl 50 mcg IV Versed 1 mg IV Versed 1 mg IV Oxygen: 2 L/min via nasal cannula Brilinta 180 mg PO @ 12/26/2024 08:20:22 Heparin given IA 12/26/2024 07:59:58 Heparin 5000 unit(s) IV 12/26/2024 09:21:21 Verapamil 2.5mg, Ntg 100mcgs, 3000 units of Heparin given IA 12/26/2024 07:59:58 SUMMARY OF HEMODYNAMIC DATA Time AIR REST ECG 07:23:36 AO 143/82 (110) SA 08:10:08 LV 132/3, 13 08:16:48 LV 133/9, 16 08:16:54 LV 131/11, 19 08:17:25 LVp 139/10, 17 08:17:33 AOp 151/80 (112) 08:17:38 Art 153/75 (103) 08:28:27 Signed By Ana Daniel MD On 12/26/2024 10:36:53 Ana Daniel MD
--- OUTSIDE RECORDS SUMMARY | 2024-12-26 10:41 | XMS RPT_ITS | CCD ---
Author Organization [facility] Care Team Providers Care Roofer Metal Name Role Phone Pcp PIPER, Ora Primary Care Provider Unavailabl e Serjio Mitchell Primary Care Provider Unavail able Elza MAGANA, Dr. Stoll Primary Care Provider Elza MAGANA, Dr. Sotll Attending Provider Elza MAGANA, Dr. Stoll Referring Provider Miky PINEDA, Dr. Rush Attending Provider Miky PINEDA, Dr. Rush Referring Provider Serjio Mitchell Primary Care Provider Unavail able Elza MAGANA, Dr. Stoll Primary Care Provider Dr. Adri Bolaños MD Attending Provider [phone] Adri Bolaños MD Referring Provider Dr. Dodie Bertrand DO Attending Provider Dr. Dodie Bertrand DO Referring Provider Dodie Bertrand DO Primary Care Provider RIGOBERTO ACUNA Attending Unavailable SERJIO MITCHELL Primary [...] Elza MAGANA, Dr. Stoll Attending Physician Nic PNIEDA, Dr. Shore Attending Physician Vandana PINEDA, Dr. [...] Attending Unavailable Malys, Dodie Primary Care Unavailable Mkia Ross Referring Unavailable Mika Ross Attending Unavailable [...] Drug Class(es) Dates Sig (Normalized) Sig (Original) [id number] 200 actuat albuterol 0.09 mg/actuat metered dose [...] 1:13pm Start: 10-09-2024 take 1 capsule by [facility] twice daily at mealtime celecoxib (CELEBREX) [...] coronary artery; Translations: [Atherosclerotic heart disease of [place] coronary artery without angina pectoris] Onset: 12-10-2024 [...] )on 12-15-2024 BUN/CRE 23.8 RATIO High 12-29 [facility] Comment on above: Performed By: #### L 500.2500, L100.0100, L300.3900 ####[facility] [address] [place], [address] Calcium [Mass/Vol] 9.6 mg/dL Normal 7.6-11.0 [facility] Comment on above: Performed By: #### L 500.2500, L100.0100, L300.3900 ####[facility] [address] [place], [address] Chloride [Moles/Vol] 106 mmol/L Normal 98-108 [facility] Comment on above: Performed By: #### L 500.2500, L100.0100, L300.3900 ####[facility] [address] [place], [address] CO2 [Moles/Vol] 23.1 mmol/L Normal 21.0-32.0 [facility] Comment on above: Performed By: #### L 500.2500, L100.0100, L300.3900 ####[facility] [address] [place], [address] Creatinine [Mass/Vol] 0.71 mg/dL Normal 0.70-1.20 [facility] Comment on above: Performed By: #### L 500.2500, L100.0100, L300.3900 ####[facility] [address] [place], [address] GAP 13 Normal 5-15 [facility] Comment on above: Performed By: #### L 500.2500, L100.0100, L300.3900 ####[facility] [address] [place], [address] GFR/1.73 sq M.predicted among non-blacks MDRD (S/P/Bld) [Vol rate/Area] 102 mL/min/{1.73_m2} Normal >60 [facility] Comment on above: Result Comment: mL/m in/1.73m2 CKD-EPI Creatinine Equation (2020) Performed By: #### L 500.2500, L100.0100, L300.3900 ####[facility] [address] [place], [address] Glucose [Mass/Vol] 133 mg/dL High 70-99 [facility] Comment on above: Performed By: #### L 500.2500, L100.0100, L300.3900 ####[facility] [address] [place], [address] Potassium [Moles/Vol] 4.0 mmol/L Normal 3.3-5.1 [facility] Comment on above: Performed By: #### L 500.2500, L100.0100, L300.3900 ####[facility] [address] [place], [address] Sodium [Moles/Vol] 141 mmol/L Normal 133-145 [facility] Comment on above: Performed By: #### L 500.2500, L100.0100, L300.3900 ####[facility] [address] [place], [address] Urea nitrogen [Mass/Vol] 17 mg/dL Normal 4-19 [facility] Comment on above: Performed By: #### L 500.2500, L100.0100, L300.3900 ####[facility] [address] [place], [address] CBC W/Diff, Automatedon 10-0 -2024 Absolute Lymph 1.49 X10 3/uL Normal 0.83-4.51 [facility] Comment on above: Performed By: #### L 500.2500, L100.0100, L300.3900 ####[facility] [address] [place], [address] Absolute Neut 2.8 X10 3/uL Normal 2.0-7.7 [facility] Comment on above: Performed By: #### L 500.2500, L100.0100, L300.3900 ####[facility] [address] [place], [address] Basophils/100 WBC (Bld) 0.6 % Normal 0-1 [facility] Comment on above: Performed By: #### L 500.2500, L100.0100, L300.3900 ####[facility] [address] [place], [address] Eosinophils/100 WBC (Bld) 4.7 % Normal 0-5 [facility] Comment on above: Performed By: #### L 500.2500, L100.0100, L300.3900 ####[facility] [address] [place], [address] Erythrocyte distribution width (RBC) [Ratio] 13.2 % Normal 11.6-14.6 [facility] Comment on above: Performed By: #### L 500.2500, L100.0100, L300.3900 ####[facility] [address] [place], [address] Hematocrit (Bld) [Volume fraction] 42.3 % Normal 40-54 [facility] Comment on above: Performed By: #### L 500.2500, L100.0100, L300.3900 ####[facility] [address] [place], [address] Hemoglobin (Bld) [Mass/Vol] 14.0 g/dL Normal 13.0-16.5 [facility] Comment on above: Performed By: #### L 500.2500, L100.0100, L300.3900 ####[facility] [address] [place], [address] IG% 0.400 Normal 0.0-0.9 [facility] Comment on above: Result Comment: IG% - Immature Granulocytes (promyelocytes, myelocytes and metamyelocytes) > 1% indicates that a LEFT SHIFT is Present. Performed By: #### L 500.2500, L100.0100, L300.3900 ####[facility] [address] [place], [address] Lymphocytes/100 WBC (Bld) 27.7 % Normal 19-41 [facility] Comment on above: Performed By: #### L 500.2500, L100.0100, L300.3900 ####[facility] [address] [place], [address] MCH (RBC) [Entitic mass] 30.1 pg Normal 27.0-32.0 [facility] Comment on above: Performed By: #### L 500.2500, L100.0100, L300.3900 ####[facility] [address] [place], [address] MCHC (RBC) [Mass/Vol] 33.1 g/dL Normal 32-36 [facility] Comment on above: Performed By: #### L 500.2500, L100.0100, L300.3900 ####[facility] [address] [place], [address] MCV (RBC) [Entitic vol] 91.0 fL Normal 80-94 [facility] Comment on above: Performed By: #### L 500.2500, L100.0100, L300.3900 ####[facility] [address] [place], [address] Monocytes/100 WBC (Bld) 14.2 % High 0-10 [facility] Comment on above: Performed By: #### L 500.2500, L100.0100, L300.3900 ####[facility] [address] [place], [address] Neutrophils/100 WBC (Bld) 52.4 % Normal 47-70 [facility] Comment on above: Performed By: #### L 500.2500, L100.0100, L300.3900 ####[facility] [address] [place], [address] Nucleated RBC (Bld) [#/Vol] 0 10*3/uL Normal 0-5 [facility] Comment on above: Performed By: #### L 500.2500, L100.0100, L300.3900 ####[facility] [address] [place], [address] Platelet mean volume (Bld) [Entitic vol] 9.9 fL Normal 6.2-12.0 [facility] Comment on above: Performed By: #### L 500.2500, L100.0100, L300.3900 ####[facility] [address] [place], [address] Platelets (Bld) [#/Vol] 190 10*3/uL Normal 150-450 [facility] Comment on above: Performed By: #### L 500.2500, L100.0100, L300.3900 ####[facility] [address] [place], [address] RBC (Bld) [#/Vol] 4.65 10*6/uL Normal 4.6-6.2 [facility] Comment on above: Performed By: #### L 500.2500, L100.0100, L300.3900 ####[facility] [address] [place], [address] RDW SD 43.8 fl Normal 35.1-43.9 [facility] Comment on above: Performed By: #### L 500.2500, L100.0100, L300.3900 ####[facility] [address] [place], [address] WBC (Bld) [#/Vol] 5.4 10*3/uL Normal 4.4-11.0 [facility] Comment on above: Performed By: #### L 500.2500, L100.0100, L300.3900 ####[facility] [address] [place], [address] Chest PA and Lateralon 12-15 Chest PA and Lateral [facility] Imaging Services [address] [place] [address] Chest PA and Lateral MR#: [id number] Acct: [id number] Name: AMOS LARIOS Rep #: [id number] : 1960 M 64 From: Arnold Rose MD PCP: Dr. Dodie Bertrand DO Status: PRE [facility] Study: Chest PA and Lateral Date of Exam: 12/15/24 Exam# [id number] Ordering Dr: Mika Ross MD PROCEDURE: CHEST [...] evidence of acute cardiopulmonary pathology. Reading Location: PCR-GODQWX-LU CC: Dr. Dodie Bertrand DO; Dr. Mika Ross MD Gas Shovel Operator: Signed Normal [facility] Prothrombin Time w/INRon INR Coag (PPP) [Relative time] 0.9 {INR} Normal [facility] Comment on above: Performed By: #### L 500.2500, L100.0100, L300.3900 ####[facility] [address] [place], [address] PT Coag (PPP) [Time] 12.6 s Normal 11.7-14.9 [facility] Comment on above: Performed By: #### L 500.2500, L100.0100, L300.3900 ####[facility] [address] [place], [address] Cardiology Visit Reporton Cardiology Visit Report [facility] [address] [place] [address] OFFICE VISIT Date of Service: 12/10/24 MR#: [id number] Acct: [id number] Name: AMOS LARIOS Rep #: [id number] : 1960 Provider: Dr. Mika colindres MD Age/Sex: 64/M Location: [facility] Status: Signed HPI HPI History of Present [...] Intake Visit Reasons: DISCUSS RECENT TESTING PER Staffing Recruiter Required: No Accompanied by: Self Is patient [...] Cardio R (more content not included)... Normal [facility] AAA Screeningon 12-04-2024 AAA Screening [facility] [address] [place] [address] AAA Screening 12/04/24 1039 MR#: [id number] Acct: [id number] Name: AMOS LARIOS Rep #: [id number] : 1960 64 From: Scott Jara MD [...] Aorta IVC Iliac vasculature or bypass grafts 11124. Exam performed in department. VL/AAA Screening Interpretation [...] Date Dictated: 12/04/24 1039 Date Transcribed: 12/04/241642 Gas Shovel Operator: Signed Normal [facility] Cardiovascular stress test r eportOrdered By: Hernandez Sierra on 12-04-2024 Study report [facility] [address] [place] [address] MR#: [id number] Acct: [id number] Name: AMOS LARIOS Rep #: [id number] : 1960 64 From: Hernandez Sierra MD [...] or recovery This note was generated with Econodataation software. It may contain incorrectwords, spelling, and punctuation that were not noted in checking the note beforesigning. 12/04/248 Date _ Hernandez Sierra MD CC: Dr. Dodie Bertrand DO; Dr. Mika Ross MD ~ Date Dictated: 12/04/241313 Date Transcribed: 12/04/241313 Gas Shovel Operator: ADAMS Larsen [facility] Work Phone: Cardiovascular ultrasound re portOrdered By: Scott Jara on 12-04-2024 Study report [facility] Services [address] [facility] [place] [address] AAA Screening 12/04/24 1039 MR#: [id number] Acct: [id number] Name: AMOS LARIOS Rep #:[id number] : 1960 64 From: Scott Campos Attending [...] Aorta IVC Iliac vasculature or bypass grafts 71231. Exam performed in department. VL/AAA Screening Interpretation [...] Date Dictated: 12/04/24 1039 Date Transcribed: 12/04/241642 Gas Shovel Operator: Signed [facility] Work Phone: Stress Reporton 12-04-2024 Stress Report [facility] [address] [place] [address] MR#: [id number] Acct: [id number] Name: AMOS LARIOS Rep #: [id number] : 1960 64 From: Hernandez Sierra MD [...] or recovery This note was generated with [employer] dictation software. It may contain incorrect words, spelling, and punctuation that were not noted in checking the note before signing. 12/04/241317 Date Hernandez Sierra MD CC: Dr. Dodie Bertrand DO; Dr. Mika Ross MD Date Dictated: 12/04/241313 Date Transcribed: 12/04/241313 Gas Shovel Operator: ADAMS Signed Normal [facility] Cardiology Visit Reporton Cardiology Visit Report [facility] [address] [place] [address] OFFICE VISIT Date of Service: 11/20/24 MR#: [id number] Acct: [id number] Name: AMOS LARIOS Rep #: [id number] : 1960 Provider: Dr. Mkia colindres MD Age/Sex: 64/M Location: [facility] Status: Signed HPI HPI History of [...] a divorce dispute. He was cathed in [place] by Dr. Locke and his coronaries were [...] NIBP Intake Visit Reasons: ABN CCTA (MALYS) Staffing Recruiter Required: No Accompanied by: Is patient in [...] x3 Ski (more content not included)... [facility] Office Visit ([facility]) AMOS LARIOS ([id number]) 1960 M Date Time Provider Department 11/05/24 9:00 AM JENNIFER CATALAN During your visit today, we recorded the following information about you: Temperature Pulse Respiration Blood pressure 98.6 degrees 80/minute 16/minute 122/72 Weight 82.2 kg Jennifer Catalan APRN.DRUM BUILDER 11/05/2024 9:22 AM Signed What are diverticulosis [...] totally b (more content not included)... Normal [facility] Coronary Angiography CTon Coronary Angiography CT [facility] Imaging Services [address] [facility] [place] [address] 10/24/24 1820 MR#: [id number] Acct: [id number] Name: AMOS LARIOS Rep #: [id number] : 1960 64 From: Silviano Lucero MD [...] MD; Dr. Dodie Bertrand DO Signed Normal [facility] Free T3on 10-24-2024 Free T3 [Mass/Vol] 2.9 pg/mL Normal 2.18-3.98 [facility] Comment on above: Performed By: #### L 501.77251, L501.9520, L506.0400 ####[facility] [address] [place], [place], [address] Free Q0Rcwlwko By: Dodie jenkins on 10-24-2024 Free T3 [Mass/Vol] 2.9 pg/mL 2.18-3.98 [facility] Limited Chest CT Cardiac Onl yon 10-24-[address] Cardiac Only [facility] Imaging Services [address] [place], [place] [address] Limited Chest CT Cardiac Only MR#: [id number] Acct: [id number] Name: AMOS LARIOS Rep #: [id number] : 1960 M 64 From: Tommy palma MD PCP: Dr. Dodie Bertrand DO Status: REG REF Study: Limited Chest CT Cardiac Only Date of Exam: Exam# [id number] Ordering Dr: Dodie Bertrand DO PROCEDURE: LIMITED [...] Only IMPRESSION: Coronary artery calcification. Reading Location: [place] [address] CC: Dr. Dodie Bertrand DO Gas Shovel Operator: Signed Normal [facility] T4 Free Directon 10-24-2024 T4 FREE DIRECT 1.00 ng/dL Normal 0.76-1.46 [facility] Comment on above: Performed By: #### L 501.46356, L501.9520, L506.0400 ####[facility] [address] [place], [place], [address] T4 freeOrdered By: Dodie jenkins on 10-24-2024 Free T4 [Mass/Vol] 1.00 ng/dL 0.76-1.46 [facility] TSH DL <= 0.005 mIU/L QnOrde red By: Dodie Bertrand on 10-24-2024 TSH Qn 1.870 uIU/mL 0.300-4.200 [facility] Thyroid Stim Hormone (TSH)on 10-24-2024 TSH 1.870 uIU/mL Normal 0.300-4.200 [facility] Comment on above: Performed By: #### L 501.56116, L501.9520, L506.0400 ####[facility] [address] [place], [place], [address] Anion gap in Serum or Plasma Ordered By: Adri Bolaños on 09-26-2024 Anion gap [Moles/Vol] 11 mmol/L 07-24 [facility] BUN/creatinine ratioOrdered By: Adri Bolaños on 09-26-2024 Urea nitrogen/Creatinine [Mass ratio] 21.0 mg/mg High 10-20 [facility] Bilirubin, totalOrdered By: Adri Bolaños on 09-26-2024 Bilirubin [Mass/Vol] 0.38 mg/dL 0.00-1.30 [facility] Calculated very low density lipoprotein (VLDL) cholesterol measurementOrdered By: Adri Bolaños on 09-26-2024 Calculated very low density lipoprotein (VLDL) cholesterol measurement 14 mg/dL 5-40 [facility] Carbon dioxide, total [Moles /volume] in Central venous bloodOrdered By: Adri Bolaños on 09-26-2024 CO2 [Moles/Vol] 22.3 mmol/L 21.0-32.0 [facility] Chloride assayOrdered By: Devora Bolaños on 09-26-2024 Chloride [Moles/Vol] 106 mmol/L 98-108 [facility] Comprehensive Metabolic Prof ilon 09-26-2024 Albumin [Mass/Vol] 4.4 g/dL Normal 3.4-4.8 [facility] Comment on above: Order Comment: LIPID Performed By: #### L 500.4100, L501.9985, L500.4050 #### [facility] Laboratory [address] [place], [address] Albumin/Globulin [Mass ratio] 1.7 {ratio} Normal 0.9-2.4 [facility] Comment on above: Order Comment: LIPID Performed By: #### L 500.4100, L501.9985, L500.4050 #### [facility] Laboratory [address] [place], [address] ALK PHOS 66 U/L Normal 40-129 [facility] Comment on above: Order Comment: LIPID Performed By: #### L 500.4100, L501.9985, L500.4050 #### [facility] Laboratory [address] [place], [address] ALT [Catalytic activity/Vol] 26 U/L Normal <=46 [facility] Comment on above: Order Comment: LIPID Performed By: #### L 500.4100, L501.9985, L500.4050 #### [facility] [address] [place], [address] AST [Catalytic activity/Vol] 23 U/L Normal <=37 [facility] Comment on above: Order Comment: LIPID Performed By: #### L 500.4100, L501.9985, L500.4050 #### [facility] [address] [place], [address] Bilirubin [Mass/Vol] 0.38 mg/dL Normal 0.00-1.30 [facility] Comment on above: Order Comment: LIPID Performed By: #### L 500.4100, L501.9985, L500.4050 #### [facility] [address] [place], [address] BUN/CRE 21.0 RATIO High 10-20 [facility] Comment on above: Order Comment: LIPID Performed By: #### L 500.4100, L501.9985, L500.4050 #### [facility] [address] [place], [address] Calcium [Mass/Vol] 9.4 mg/dL Normal 7.6-11.0 [facility] Comment on above: Order Comment: LIPID Performed By: #### L 500.4100, L501.9985, L500.4050 #### [facility] [address] [place], [address] Chloride [Moles/Vol] 106 mmol/L Normal 98-108 [facility] Comment on above: Order Comment: LIPID Performed By: #### L 500.4100, L501.9985, L500.4050 #### [facility] [address] [place], [address] CO2 [Moles/Vol] 22.3 mmol/L Normal 21.0-32.0 [facility] Comment on above: Order Comment: LIPID Performed By: #### L 500.4100, L501.9985, L500.4050 #### [facility] Laboratory [address] [place], [address] Creatinine [Mass/Vol] 0.72 mg/dL Normal 0.70-1.20 [facility] Comment on above: Order Comment: LIPID Performed By: #### L 500.4100, L501.9985, L500.4050 #### [facility] Laboratory [address] [place], [address] GAP 11 Normal 5-15 [facility] Comment on above: Order Comment: LIPID Performed By: #### L 500.4100, L501.9985, L500.4050 #### [facility] Laboratory [address] [place], [address] GFR/1.73 sq M.predicted among non-blacks MDRD (S/P/Bld) [Vol rate/Area] 102 mL/min/{1.73_m2} Normal >60 [facility] Comment on above: Order Comment: LIPID Result Comment: mL/m in/1.73m2 CKD-EPI Creatinine Equation (2020) Performed By: #### L 500.4100, L501.9985, L500.4050 #### [facility] Laboratory [address] [place], [address] Globulin (S) [Mass/Vol] 2.6 g/dL Normal 2.2-4.2 [facility] Comment on above: Order Comment: LIPID Performed By: #### L 500.4100, L501.9985, L500.4050 #### [facility] Laboratory [address] [place], [address] Glucose [Mass/Vol] 109 mg/dL High 70-99 [facility] Comment on above: Order Comment: LIPID Performed By: #### L 500.4100, L501.9985, L500.4050 #### [facility] Laboratory [address] [place], [address] Potassium [Moles/Vol] 4.1 mmol/L Normal 3.3-5.1 [facility] Comment on above: Order Comment: LIPID Performed By: #### L 500.4100, L501.9985, L500.4050 #### [facility] Laboratory [address] [place], [address] Sodium [Moles/Vol] 140 mmol/L Normal 133-145 [facility] Comment on above: Order Comment: LIPID Performed By: #### L 500.4100, L501.9985, L500.4050 #### [facility] Laboratory [address] [place], [address] T PROT 7.0 g/dL Normal 5.9-8.4 [facility] Comment on above: Order Comment: LIPID Performed By: #### L 500.4100, L501.9985, L500.4050 #### [facility] Laboratory [address] [place], [address] Urea nitrogen [Mass/Vol] 15 mg/dL Normal 4-19 [facility] Comment on above: Order Comment: LIPID Performed By: #### L 500.4100, L501.9985, L500.4050 #### [facility] Laboratory [address] [place], [address] Glomerular filtration rate ( GFR) estimation/1.73 sq m using serum, plasma, or whole bOrdered By: Adri Bolaños on 09-26-2024 GFR/1.73 sq M.predicted among non-blacks MDRD (S/P/Bld) [Vol rate/Area] 102 mL/min/{1.73_m2} >60 [facility] Comment on above: mL/min/1.73m2 CKD-EP I Creatinine Equation (2020) Hemoglobin A1con 09-26-2024 HbA1c (Bld) [Mass fraction] 6.3 % High <=5.6 [facility] Comment on above: Result Comment: Norm al < 5.7 % Prediabetic 5.7 - 6.4 % Diabetic >or= 6.5 % Please note range changes. Performed By: #### L 500.4100, L501.9985, L500.4050 #### [facility] Laboratory [address] [place], [address] Hemoglobin A1c percentageOrd ered By: Adri Bolaños on 09-26-2024 HbA1c (Bld) [Mass fraction] 6.3 % High <5.7 [facility] Comment on above: Normal < 5.7 % Predi abetic 5.7 - 6.4 % Diabetic >or= 6.5 % Please note range changes. LDL calc ser/plasOrdered By: Adri Bolaños on 09-26-2024 Cholesterol in LDL [Mass/Vol] 70 mg/dL [facility] Comment on above: Omxmwfynpi=907-080 m g/dL & Higher Mzuf=034 mg/dL or greater Laboratory - Chemistry and C hemistry - challengeOrdered By: Adri Bolaños on 09-26-2024 AST [Catalytic activity/Vol] 23 U/L <38 [facility] Lipid Profileon 09-26-2024 CHOL:HDL 2.56 Normal [facility] Comment on above: Performed By: #### L 500.4100, L501.9985, L500.4050 #### [facility] Laboratory [address] [place], [address] Cholesterol [Mass/Vol] 138 mg/dL Normal <=200 [facility] Comment on above: Result Comment: Chol esterol level, Desirable <200 mg/dL Borderline high cholesterol 200-239 mg/dL High cholesterol >=240 mg/dL Recommendations of the NCEP Adult Treatment Panel for the following risk-cutoff thresholds for the [place] population. Performed By: #### L 500.4100, L501.9985, L500.4050 #### [facility] Laboratory [address] [place], [address] Cholesterol in HDL [Mass/Vol] 54 mg/dL Normal [facility] Comment on above: Result Comment: Karely onal Cholesterol Education Program (NCEP) guidelines: <40 mg/dL: Low HDL-cholesterol (major risk factor for CHD) >= 60 mg/dL: High HDL-cholesterol (negative risk factor for CHD) HDL-cholesterol is affected by a number of factors, e.g. smoking, exercise, hormones, sex and age. Performed By: #### L 500.4100, L501.9985, L500.4050 #### [facility] Laboratory [address] [place], [address] Cholesterol in LDL [Mass/Vol] 70 mg/dL Normal [facility] Comment on above: Result Comment: Bord yxqrzt=466-124 mg/dL Higher Ocbt=635 mg/dL or greater Performed By: #### L 500.4100, L501.9985, L500.4050 #### [facility] Laboratory [address] [place], [address] Cholesterol in VLDL [Mass/Vol] 14 mg/dL Normal 5-40 [facility] Comment on above: Performed By: #### L 500.4100, L501.9985, L500.4050 #### [facility] Laboratory [address] [place], [address] Triglyceride [Mass/Vol] 71 mg/dL Normal [facility] Comment on above: Result Comment: The drugs N-Acetylcysteine and Metamizole may falsely depress this assay. Normal range: <150 mg/dL Borderline High: 150-199 mg/dL High: 200-499 mg/dL Very High: >500 mg/dL Performed By: #### L 500.4100, L501.9985, L500.4050 #### [facility] Laboratory [address] [place], [address] Potassium measurement (mass/ volume)Ordered By: Adri Bolaños on 09-26-2024 Potassium (Unsp spec) [Mass/Vol] 4.1 mmol/L 3.3-5.1 [facility] Screening total cholesterol/ high density lipoprotein (HDL) cholesterol ratioOrdered By: Adri Bolaños on 09-26-2024 Cholesterol.total/Korina sterol in HDL [Mass ratio] 2.56 {ratio} [facility] Serum creatinine measurement (mass/volume)Ordered By: Adri Bolaños on 09-26-2024 Creatinine [Mass/Vol] 0.72 mg/dL 0.70-1.20 [facility] Serum globulin measurementOr dered By: Adri Bolaños on 09-26-2024 Globulin (S) [Mass/Vol] 2.6 g/dL 2.2-4.2 [facility] Serum glucose measurement (m ass/volume)Ordered By: Adri Bolaños on 09-26-2024 Glucose [Mass/Vol] 109 mg/dL High 70-99 [facility] Serum or plasma alanine mandel otransferase (ALT) measurementOrdered By: Adri Bolaños on 09-26-2024 ALT [Catalytic activity/Vol] 26 U/L <47 [facility] Serum or plasma albumin nohemy urement (mass/volume)Ordered By: Adri Bolaños on 09-26-2024 Albumin [Mass/Vol] 4.4 g/dL 3.4-4.8 [facility] Serum or plasma albumin/glob ulin mass ratioOrdered By: Adri Bolaños on 09-26-2024 Albumin/Globulin [Mass ratio] 1.7 {ratio} 0.9-2.4 [facility] Serum or plasma alkaline gilma sphatase measurementOrdered By: Adri Bolaños on 09-26-2024 ALP [Catalytic activity/Vol] 66 U/L 40-129 [facility] Serum or plasma calcium nohemy urement (mass/volume)Ordered By: Adri Bolaños on 09-26-2024 Calcium [Mass/Vol] 9.4 mg/dL 7.6-11.0 [facility] Serum or plasma cholesterol in HDL measurement (mass/volume)Ordered By: Adri Bolaños on 09-26-2024 Cholesterol in HDL [Mass/Vol] 54 mg/dL >40 [facility] Comment on above: National Cholesterol Education Program (NCEP) guidelines:<40 mg/dL: Low HDL-cholesterol (major risk factor for CHD)>= 60 mg/dL: High HDL-cholesterol (negative risk factor for CHD)HDL-cholesterol is affected by a number of factors, e.g. smoking, exercise, hormones, sex and age. Serum or plasma cholesterol measurement (mass/volume)Ordered By: Adri Bolaños on 09-26-2024 Cholesterol [Mass/Vol] 138 mg/dL <201 [facility] Comment on above: Cholesterol level, D esirable <200 mg/dLBorderline high cholesterol 200-239 mg/dLHigh cholesterol >=240 mg/dLRecommendations of the NCEP Adult Treatment Panel for the following risk-cutoff thresholds for the [place] population. Serum or plasma urea nitroge n measurement (mass/volume)Ordered By: Adri Bolaños on 09-26-2024 Urea nitrogen [Mass/Vol] 15 mg/dL 4-19 [facility] Sodium levelOrdered By: Sea Bolaños on 09-26-2024 Sodium [Moles/Vol] 140 mmol/L 133-145 [facility] Total proteinOrdered By: Ivonne Bolaños on 09-26-2024 Protein [Mass/Vol] 7.0 g/dL 5.9-8.4 [facility] Triglycerides measurementOrd ered By: Adri Bolaños on 09-26-2024 Triglyceride [Mass/Vol] 71 mg/dL <199 [facility] Comment on above: The drugs N-Acetylcy steine and Metamizole may falsely depress this assay. 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 Rinse mouth after use. Normal [facility] CNTHERAPYon 09-02-2024 CNTHERAPY OT/PT/Speech Visit (PTWS) AMOS LARIOS ([id number]) 1960 M Date Time Provider Department 09/02/24 7:45 AM RIGOBERTO ACUNA Date Time Provider Department Center 09/02/2024 7:45 AM [id number] OLIVA Reason for Visit: Physical Therapy [503] Primary Visit Diagnosis:Lumbar radiculopathy [M54.16] Allergies As of Date: 09/02/2024 (No Known Allergies) Date Reviewed: 05/27/2020 Reviewed by: Andrés Salazar ([facility]) - Fully Assessed Prescriptions as of [...] once daily. Rinse mouth after use. 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 Rinse mouth after use. 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 Rinse mouth after use. 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 Rinse mouth after use. Normal [facility] Anion gap in Serum or Plasma Ordered By: Adri Bolaños on 06-26-2024 Anion gap [Moles/Vol] 12 mmol/L 5-15 [facility] BUN/creatinine ratioOrdered By: Adri Bolaños on 06-26-2024 Urea nitrogen/Creatinine [Mass ratio] 19.2 mg/mg 10-20 [facility] Bilirubin, totalOrdered By: Adri Bolaños on 06-26-2024 Bilirubin [Mass/Vol] 0.59 mg/dL 0.00-1.30 [facility] Calculated very low density lipoprotein (VLDL) cholesterol measurementOrdered By: Adri Bolaños on 06-26-2024 Calculated very low density lipoprotein (VLDL) cholesterol measurement 24 mg/dL 5-40 [facility] VLDL Cholesterol 24 mg/dL 5-40 [facility] Carbon dioxide, total [Moles /volume] in Central venous bloodOrdered By: Adri Bolaños on 06-26-2024 CO2 [Moles/Vol] 23.9 mmol/L 21.0-32.0 [facility] Chloride assayOrdered By: Devora Bolaños on 06-26-2024 Chloride [Moles/Vol] 103 mmol/L 98-108 [facility] Comprehensive Metabolic Prof ilon 06-26-2024 Albumin [Mass/Vol] 4.4 g/dL Normal 3.4-4.8 [facility] Comment on above: Performed By: #### L 500.4100, L500.4050, L503.0106, L506.1001, L503.6150, L501.9985 ####[facility] [address] [place], [address] Albumin/Globulin [Mass ratio] 1.6 {ratio} Normal 0.9-2.4 [facility] Comment on above: Performed By: #### L 500.4100, L500.4050, L503.0106, L506.1001, L503.6150, L501.9985 ####[facility] [address] [place], [address] ALK PHOS 75 U/L Normal 40-129 [facility] Comment on above: Performed By: #### L 500.4100, L500.4050, L503.0106, L506.1001, L503.6150, L501.9985 ####[facility] [address] [place], [address] ALT [Catalytic activity/Vol] 25 U/L Normal <=46 [facility] Comment on above: Performed By: #### L 500.4100, L500.4050, L503.0106, L506.1001, L503.6150, L501.9985 ####[facility] [address] [place], [address] AST [Catalytic activity/Vol] 22 U/L Normal <=37 [facility] Comment on above: Performed By: #### L 500.4100, L500.4050, L503.0106, L506.1001, L503.6150, L501.9985 ####[facility] [address] [place], [address] Bilirubin [Mass/Vol] 0.59 mg/dL Normal 0.00-1.30 [facility] Comment on above: Performed By: #### L 500.4100, L500.4050, L503.0106, L506.1001, L503.6150, L501.9985 ####[facility] [address] [place], [address] BUN/CRE 19.2 RATIO Normal 10-20 [facility] Comment on above: Performed By: #### L 500.4100, L500.4050, L503.0106, L506.1001, L503.6150, L501.9985 ####[facility] [address] [place], [address] Calcium [Mass/Vol] 9.5 mg/dL Normal 7.6-11.0 [facility] Comment on above: Performed By: #### L 500.4100, L500.4050, L503.0106, L506.1001, L503.6150, L501.9985 ####[facility] [address] [place], [address] Chloride [Moles/Vol] 103 mmol/L Normal 98-108 [facility] Comment on above: Performed By: #### L 500.4100, L500.4050, L503.0106, L506.1001, L503.6150, L501.9985 ####[facility] [address] [place], [address] CO2 [Moles/Vol] 23.9 mmol/L Normal 21.0-32.0 [facility] Comment on above: Performed By: #### L 500.4100, L500.4050, L503.0106, L506.1001, L503.6150, L501.9985 ####[facility] [address] [place], [address] Creatinine [Mass/Vol] 0.85 mg/dL Normal 0.70-1.20 [facility] Comment on above: Performed By: #### L 500.4100, L500.4050, L503.0106, L506.1001, L503.6150, L501.9985 ####[facility] [address] [place], [address] GAP 12 Normal 5-15 [facility] Comment on above: Performed By: #### L 500.4100, L500.4050, L503.0106, L506.1001, L503.6150, L501.9985 ####[facility] [address] [place], [address] GFR/1.73 sq M.predicted among non-blacks MDRD (S/P/Bld) [Vol rate/Area] 97 mL/min/{1.73_m2} Normal >60 [facility] Comment on above: Result Comment: mL/m in/1.73m2 CKD-EPI Creatinine Equation (2020) Performed By: #### L 500.4100, L500.4050, L503.0106, L506.1001, L503.6150, L501.9985 ####[facility] [address] [place], [address] Globulin (S) [Mass/Vol] 2.8 g/dL Normal 2.2-4.2 [facility] Comment on above: Performed By: #### L 500.4100, L500.4050, L503.0106, L506.1001, L503.6150, L501.9985 ####[facility] [address] [place], [address] Glucose [Mass/Vol] 150 mg/dL High 70-99 [facility] Comment on above: Performed By: #### L 500.4100, L500.4050, L503.0106, L506.1001, L503.6150, L501.9985 ####[facility] [address] [place], [address] Potassium [Moles/Vol] 4.1 mmol/L Normal 3.3-5.1 [facility] Comment on above: Performed By: #### L 500.4100, L500.4050, L503.0106, L506.1001, L503.6150, L501.9985 ####[facility] [address] [place], [address] Sodium [Moles/Vol] 140 mmol/L Normal 133-145 [facility] Comment on above: Performed By: #### L 500.4100, L500.4050, L503.0106, L506.1001, L503.6150, L501.9985 ####[facility] [address] [place], [address] T PROT 7.2 g/dL Normal 5.9-8.4 [facility] Comment on above: Performed By: #### L 500.4100, L500.4050, L503.0106, L506.1001, L503.6150, L501.9985 ####[facility] [address] [place], [address] Urea nitrogen [Mass/Vol] 16 mg/dL Normal 4-19 [facility] Comment on above: Performed By: #### L 500.4100, L500.4050, L503.0106, L506.1001, L503.6150, L501.9985 ####[facility] [address] [place], [address] GFR/1.73 sq M.predicted wolfgang g non-blacks MDRD (S/P/Bld) [Vol rate/Area]Ordered By: Adri Bolaños on 06-26-2024 Estimated GFR (MDRD) Non-Af Amer 97 >60 [facility] Comment on above: mL/min/1.73m2 CKD-EP I Creatinine Equation (2020) Glomerular filtration rate ( GFR) estimation/1.73 sq m using serum, plasma, or whole bOrdered By: Adri Bolaños on 06-26-2024 GFR/1.73 sq M.predicted among non-blacks MDRD (S/P/Bld) [Vol rate/Area] 97 mL/min/{1.73_m2} >60 [facility] Comment on above: mL/min/1.73m2 CKD-EP I Creatinine Equation (2020) Hemoglobin A1con 06-26-2024 HbA1c (Bld) [Mass fraction] 7.2 % High <=5.6 [facility] Comment on above: Result Comment: Norm al < 5.7 % Prediabetic 5.7 - 6.4 % Diabetic >or= 6.5 % Please note range changes. Performed By: #### L 500.4100, L500.4050, L503.0106, L506.1001, L503.6150, L501.9985 ####[facility] [address] [place], [address] Hemoglobin A1c percentageOrd ered By: Adri Bolaños on 06-26-2024 HbA1c (Bld) [Mass fraction] 7.2 % High <5.7 [facility] Comment on above: Normal < 5.7 % Predi abetic 5.7 - 6.4 % Diabetic >or= 6.5 % Please note range changes. Ironon 06-26-2024 Iron [Mass/Vol] 88 ug/dL Normal 65-175 [facility] Comment on above: Performed By: #### L 500.4100, L500.4050, L503.0106, L506.1001, L503.6150, L501.9985 ####[facility] [address] [place], [place], [phone] Iron (Unsp spec) [Mass/Mass] Ordered By: Adrijuanita Bolaños on 06-26-2024 Iron [Mass/Vol] 88 ug/dL 65-175 [facility] Iron measurement (mass/mass) Ordered By: Adri Paulleonel on 06-26-2024 Iron (Unsp spec) [Mass/Mass] 88 ug/dL 65-175 [facility] LDL calc ser/plasOrdered By: Adri Bolaños on 06-26-2024 Cholesterol in LDL [Mass/Vol] 106 mg/dL [facility] Comment on above: Hllenojmzs=753-004 m g/dL & Higher Uadh=471 mg/dL or greater LDL Cholesterol, Calculated 106 mg/dL [facility] Comment on above: Gcrrnfsoaw=412-382 m g/dL & Higher Xwvj=998 mg/dL or greater Laboratory - Chemistry and C hemistry - challengeOrdered By: Adri Bolaños on 06-26-2024 AST [Catalytic activity/Vol] 22 U/L <38 [facility] Lipid Profileon 06-26-2024 CHOL:HDL 3.95 Normal [facility] Comment on above: Performed By: #### L 500.4100, L500.4050, L503.0106, L506.1001, L503.6150, L501.9985 ####[facility] [address] [place], [address] Cholesterol [Mass/Vol] 174 mg/dL Normal <=200 [facility] Comment on above: Result Comment: Chol esterol level, Desirable <200 mg/dL Borderline high cholesterol 200-239 mg/dL High cholesterol >=240 mg/dL Recommendations of the NCEP Adult Treatment Panel for the following risk-cutoff thresholds for the [place] population. Performed By: #### L 500.4100, L500.4050, L503.0106, L506.1001, L503.6150, L501.9985 ####[facility] [address] [place], [address] Cholesterol in HDL [Mass/Vol] 44 mg/dL Normal [facility] Comment on above: Result Comment: Karely onal Cholesterol Education Program (NCEP) guidelines: <40 mg/dL: Low HDL-cholesterol (major risk factor for CHD) >= 60 mg/dL: High HDL-cholesterol (negative risk factor for CHD) HDL-cholesterol is affected by a number of factors, e.g. smoking, exercise, hormones, sex and age. Performed By: #### L 500.4100, L500.4050, L503.0106, L506.1001, L503.6150, L501.9985 ####[facility] [address] [place], [address] Cholesterol in LDL [Mass/Vol] 106 mg/dL Normal [facility] Comment on above: Result Comment: Bord ogzhyo=033-257 mg/dL Higher Wpgq=693 mg/dL or greater Performed By: #### L 500.4100, L500.4050, L503.0106, L506.1001, L503.6150, L501.9985 ####[facility] [address] [place], [address] Cholesterol in VLDL [Mass/Vol] 24 mg/dL Normal 5-40 [facility] Comment on above: Performed By: #### L 500.4100, L500.4050, L503.0106, L506.1001, L503.6150, L501.9985 ####[facility] [address] [place], [address] Triglyceride [Mass/Vol] 118 mg/dL Normal [facility] Comment on above: Result Comment: The drugs N-Acetylcysteine and Metamizole may falsely depress this assay. Normal range: <150 mg/dL Borderline High: 150-199 mg/dL High: 200-499 mg/dL Very High: >500 mg/dL Performed By: #### L 500.4100, L500.4050, L503.0106, L506.1001, L503.6150, L501.9985 ####[facility] [address] [place], [address] Potassium (Unsp spec) [Mass/ Vol]Ordered By: Adri Bolaños on 06-26-2024 Potassium [Moles/Vol] 4.1 mmol/L 3.3-5.1 [facility] Potassium measurement (mass/ volume)Ordered By: Adri Bolaños on 06-26-2024 Potassium (Unsp spec) [Mass/Vol] 4.1 mmol/L 3.3-5.1 [facility] Screening total cholesterol/ high density lipoprotein (HDL) cholesterol ratioOrdered By: Adri Bolaños on 06-26-2024 Cholesterol.total/Korina sterol in HDL [Mass ratio] 3.95 {ratio} [facility] Serum creatinine measurement (mass/volume)Ordered By: Adri Bolaños on 06-26-2024 Creatinine [Mass/Vol] 0.85 mg/dL 0.70-1.20 [facility] Serum globulin measurementOr dered By: Adri Bolaños on 06-26-2024 Globulin (S) [Mass/Vol] 2.8 g/dL 2.2-4.2 [facility] Serum glucose measurement (m ass/volume)Ordered By: Adri Bolaños on 06-26-2024 Glucose [Mass/Vol] 150 mg/dL High 70-99 [facility] Serum or plasma alanine mandel otransferase (ALT) measurementOrdered By: Adri Bolaños on 06-26-2024 ALT [Catalytic activity/Vol] 25 U/L <47 [facility] Serum or plasma albumin nohemy urement (mass/volume)Ordered By: Adri Bolaños on 06-26-2024 Albumin [Mass/Vol] 4.4 g/dL 3.4-4.8 [facility] Serum or plasma albumin/glob ulin mass ratioOrdered By: Adri Bolaños on 06-26-2024 Albumin/Globulin [Mass ratio] 1.6 {ratio} 0.9-2.4 [facility] Serum or plasma alkaline gilma sphatase measurementOrdered By: Adri Bolaños on 06-26-2024 ALP [Catalytic activity/Vol] 75 U/L 40-129 [facility] Serum or plasma calcium nohemy urement (mass/volume)Ordered By: Adri Bolaños on 06-26-2024 Calcium [Mass/Vol] 9.5 mg/dL 7.6-11.0 [facility] Serum or plasma cholesterol in HDL measurement (mass/volume)Ordered By: Adri Bolaños on 06-26-2024 Cholesterol in HDL [Mass/Vol] 44 mg/dL >40 [facility] Comment on above: National Cholesterol Education Program (NCEP) guidelines:<40 mg/dL: Low HDL-cholesterol (major risk factor for CHD)>= 60 mg/dL: High HDL-cholesterol (negative risk factor for CHD)HDL-cholesterol is affected by a number of factors, e.g. smoking, exercise, hormones, sex and age. Serum or plasma cholesterol measurement (mass/volume)Ordered By: Adri Bolaños on 06-26-2024 Cholesterol [Mass/Vol] 174 mg/dL <201 [facility] Comment on above: Cholesterol level, D esirable <200 mg/dLBorderline high cholesterol 200-239 mg/dLHigh cholesterol >=240 mg/dLRecommendations of the NCEP Adult Treatment Panel for the following risk-cutoff thresholds for the [place] population. Serum or plasma urea nitroge n measurement (mass/volume)Ordered By: Adri Bolaños on 06-26-2024 Urea nitrogen [Mass/Vol] 16 mg/dL 4-19 [facility] Sodium levelOrdered By: Sea Bolaños on 06-26-2024 Sodium [Moles/Vol] 140 mmol/L 133-145 [facility] Total proteinOrdered By: Ivonne Bolaños on 06-26-2024 Protein [Mass/Vol] 7.2 g/dL 5.9-8.4 [facility] Triglycerides measurementOrd ered By: Adri Bolaños on 06-26-2024 Triglyceride [Mass/Vol] 118 mg/dL <199 [facility] Comment on above: The drugs N-Acetylcy steine and Metamizole may falsely depress this assay. Normal range: <150 mg/dLBorderline High: 150-199 mg/dLHigh: 200-499 mg/dLVery High: >500 mg/dL Vitamin B12on 06-26-2024 Cobalamin (Vitamin B12) [Mass/Vol] 528 pg/mL Normal 180-914 [facility] Comment on above: Performed By: #### L 500.4100, L500.4050, L503.0106, L506.1001, L503.6150, L501.9985 ####[facility] [address] [place], [address] Vitamin B12 ser/plasOrdered By: Adri Bolaños on 06-26-2024 Cobalamin (Vitamin B12) [Mass/Vol] 528 pg/mL 180-914 [facility] Vitamin D, 25-hydroxyOrdered By: Adri Bolaños on 06-26-2024 Vitamin D 25-Hydroxy 21.4 ng/mL Low 30-100 [facility] Comment on above: Vitamin D StatusDefi ciency: <20 ng/mL (50nmol/L)Insufficiency: 20-30 ng/mL (50-75 nmol/L)Sufficiency: 30-100 ng/mL (75-250 nmol/L)Toxicity: >100 ng/mL (>250 nmol/L) Vitamin D,25 Hydroxyon 06-26 Vitamin D 25-OH 21.4 ng/mL Low 30-100 [facility] Comment on above: Result Comment: Carmen min D Status Deficiency: <20 ng/mL (50nmol/L) Insufficiency: 20-30 ng/mL (50-75 nmol/L) Sufficiency: 30-100 ng/mL (75-250 nmol/L) Toxicity: >100 ng/mL (>250 nmol/L) Performed By: #### L 500.4100, L500.4050, L503.0106, L506.1001, L503.6150, L501.9985 ####[facility] [address] [place], [address] L/S Spine w Bend Min 6 Vwon 06-18-2024 L/S Spine w Bend Min 6 [facility] [address] [place] [address] L/S Spine w Bend Min 6 Vw MR#: [id number] Acct: [id number] Name: AMOS LARIOS Rep #: [id number] : 1960 M 64 From: Jessica Fairbanks MD PCP: Dr. Dodie Bertrand DO Status: REG CLI Study: L/S Spine w Bend Min 6 Vw Date of Exam: Exam# [id number] Ordering Dr: Dodie Bertrand DO PROCEDURE: L/S [...] acute fracture or traumatic malalignment. Reading Location: [facility] CC: Dr. 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 Charles Peres MD Status: REG CLI Ordering Dr: Charles Peres MD Date: 02/18/24 Location: [facility] Sex: M C Admitted: Test Reason : PRE OP Blood Pressure : */* mmHG Vent. Rate : 74 BPM Atrial Rate : 74 BPM P-R Int : 164 ms QRS Dur : 90 ms QT Int : 376 ms P-R-T Axes : 61 26 68 degrees QTcB Int : 417 ms Normal sinus rhythm Normal ECG Confirmed by NIC PINEDA, SILVIANO ([id number]), material expeditor BRIAN SPENCER ([id number]) on 02/18/2024 2:11:16 PM Referred By: Charles Peres Confirmed By: SILVIANO LUCERO MD 02/18/24 1411 Date Silviano Lucero MD CC: Dr. Dodie Bertrand DO; Dr. Charles Peres MD Signed Normal [facility] Comprehensive Metabolic Prof ilon 02-18-2024 Albumin [Mass/Vol] 4.3 g/dL Normal 3.2-5.0 [facility] Comment on above: Order Comment: DR.SH FOSTER ORDERED A BMP Performed By: #### L 500.4050, L502.0250, L501.9985, L500.4100 #### [facility] Laboratory [address] [place], [address] Albumin/Globulin [Mass ratio] 1.3 {ratio} Normal 0.9-2.4 [facility] Comment on above: Order Comment: DR.SH FOSTER ORDERED A BMP Performed By: #### L 500.4050, L502.0250, L501.9985, L500.4100 #### [facility] [address] [place], [address] ALK P 71 U/L Normal 45-117 [facility] Comment on above: Order Comment: DR.SH FOSTER ORDERED A BMP Performed By: #### L 500.4050, L502.0250, L501.9985, L500.4100 #### [facility] [address] [place], [address] ALT [Catalytic activity/Vol] 30 U/L Normal 16-61 [facility] Comment on above: Order Comment: DR.SH FOSTER ORDERED A BMP Performed By: #### L 500.4050, L502.0250, L501.9985, L500.4100 #### [facility] [address] [place], [address] AST [Catalytic activity/Vol] 23 U/L Normal 15-37 [facility] Comment on above: Order Comment: DR.SH FOSTER ORDERED A BMP Performed By: #### L 500.4050, L502.0250, L501.9985, L500.4100 #### [facility] [address] [place], [address] Bilirubin [Mass/Vol] 0.60 mg/dL Normal 0.20-1.00 [facility] Comment on above: Order Comment: DR.SH FOSTER ORDERED A BMP Result Comment: For patients on eltrombopag therapy, use of Dimension [place] TBIL is not recommended. Performed By: #### L 500.4050, L502.0250, L501.9985, L500.4100 #### [facility] [address] [place], [address] BUN/CRE 21.9 RATIO High 10-20 [facility] Comment on above: Order Comment: DR.SH FOSTER ORDERED A BMP Performed By: #### L 500.4050, L502.0250, L501.9985, L500.4100 #### [facility] [address] [place], [address] CA,Total 9.9 mg/dL Normal 8.5-10.1 [facility] Comment on above: Order Comment: DR.SH FOSTER ORDERED A BMP Performed By: #### L 500.4050, L502.0250, L501.9985, L500.4100 #### [facility] [address] [place], [address] Chloride [Moles/Vol] 107 mmol/L Normal 98-107 [facility] Comment on above: Order Comment: DR.SH FOSTER ORDERED A BMP Performed By: #### L 500.4050, L502.0250, L501.9985, L500.4100 #### [facility] [address] [place], [address] CO2 [Moles/Vol] 27.0 mmol/L Normal 21.0-32.0 [facility] Comment on above: Order Comment: DR.SH FOSTER ORDERED A BMP Performed By: #### L 500.4050, L502.0250, L501.9985, L500.4100 #### [facility] [address] [place], [address] Creatinine [Mass/Vol] 0.87 mg/dL Normal 0.70-1.30 [facility] Comment on above: Order Comment: DR.SH FOSTER ORDERED A BMP Result Comment: The validity of the calculated GFR GFRAA in patients over 70 years has not been determined. Clinical correlation is essential. Performed By: #### L 500.4050, L502.0250, L501.9985, L500.4100 #### [facility] [address] [place], [address] EST GFR - AA 114 mL/min Normal >60 [facility] Comment on above: Order Comment: DR.SH FOSTER ORDERED A BMP Result Comment: Afri can [place] GFR Calc Performed By: #### L 500.4050, L502.0250, L501.9985, L500.4100 #### [facility] [address] [place], [address] GAP 6 Normal 5-15 [facility] Comment on above: Order Comment: DR.SH FOSTER ORDERED A BMP Performed By: #### L 500.4050, L502.0250, L501.9985, L500.4100 #### [facility] [address] [place], [address] GFR/1.73 sq M.predicted among non-blacks MDRD (S/P/Bld) [Vol rate/Area] 95 mL/min/{1.73_m2} Normal >60 [facility] Comment on above: Order Comment: DR.SH FOSTER ORDERED A BMP Result Comment: Non- GFR Calc Performed By: #### L 500.4050, L502.0250, L501.9985, L500.4100 #### [facility] [address] [place], [address] Globulin (S) [Mass/Vol] 3.2 g/dL Normal 2.2-4.2 [facility] Comment on above: Order Comment: DR.SH FOSTER ORDERED A BMP Performed By: #### L 500.4050, L502.0250, L501.9985, L500.4100 #### [facility] [address] [place], [address] Glucose [Mass/Vol] 146 mg/dL High 74-106 [facility] Comment on above: Order Comment: DR.SH FOSTER ORDERED A BMP Result Comment: Fast ing Glucose result greater than or equal to 126 mg/dL suggests DIABETES MELLITUS per A.D.A. criteria. Performed By: #### L 500.4050, L502.0250, L501.9985, L500.4100 #### [facility] [address] [place], [address] Potassium [Moles/Vol] 4.2 mmol/L Normal 3.5-5.1 [facility] Comment on above: Order Comment: DR.SH FOSTER ORDERED A BMP Performed By: #### L 500.4050, L502.0250, L501.9985, L500.4100 #### [facility] [address] [place], [address] Sodium [Moles/Vol] 140 mmol/L Normal 136-145 [facility] Comment on above: Order Comment: DR.SH FOSTER ORDERED A BMP Performed By: #### L 500.4050, L502.0250, L501.9985, L500.4100 #### [facility] [address] [place], [address] T PROT 7.5 g/dL Normal 6.4-8.2 [facility] Comment on above: Order Comment: DR.SH FOSTER ORDERED A BMP Performed By: #### L 500.4050, L502.0250, L501.9985, L500.4100 #### [facility] [address] [place], [address] Urea nitrogen [Mass/Vol] 19 mg/dL High 7-18 [facility] Comment on above: Order Comment: DR.SH FOSTER ORDERED A BMP Performed By: #### L 500.4050, L502.0250, L501.9985, L500.4100 #### [facility] [address] [place], [address] Hemoglobin A1con 02-18-2024 HbA1c (Bld) [Mass fraction] 6.4 % High 3.8-5.6 [facility] Comment on above: Result Comment: Norm al < 5.7 % Prediabetic 5.7 - 6.4 % Diabetic >or= 6.5 % Please note range changes. Performed By: #### L 500.4050, L502.0250, L501.9985, L500.4100 #### [facility] [address] [place], [address] Lipid Profileon 02-18-2024 Cholesterol [Mass/Vol] 190 mg/dL Normal 200 [facility] Comment on above: Order Comment: DR.SH FOSTER ORDERED A BMP Result Comment: <200 mg/dL Desirable 200-240 mg/dL Borderline >240 mg/dL High Risk Performed By: #### L 500.4050, L502.0250, L501.9985, L500.4100 #### [facility] [address] [place], [address] Cholesterol in HDL [Mass/Vol] 41 mg/dL Normal [facility] Comment on above: Order Comment: DR.SH FOSTER ORDERED A BMP Result Comment: The drugs N-Acetylcysteine and Metamizole may falsely depress this assay. Reference Range HDL <40 mg/dL Low HDL Cholesterol HDL >or= 60 mg/dL High HDL Cholesterol Performed By: #### L 500.4050, L502.0250, L501.9985, L500.4100 #### [facility] [address] [place], [address] Cholesterol in LDL [Mass/Vol] 102 mg/dL Normal 0-130 [facility] Comment on above: Order Comment: DR.SH FOSTER ORDERED A BMP Performed By: #### L 500.4050, L502.0250, L501.9985, L500.4100 #### [facility] [address] [place], [address] Cholesterol in VLDL [Mass/Vol] 47 mg/dL High 5-40 [facility] Comment on above: Order Comment: DR.SH FOSTER ORDERED A BMP Performed By: #### L 500.4050, L502.0250, L501.9985, L500.4100 #### [facility] [address] [place], [address] Triglyceride [Mass/Vol] 233 mg/dL High [facility] Comment on above: Order Comment: DR.SH FOSTER ORDERED A BMP Result Comment: The drugs N-Acetylcysteine and Metamizole may falsely depress this assay. Serum Triglycerides Reference Interval Normal <150 mg/dL Borderline high 150 - 199 mg/dL High 200 - 499 mg/dL Very High > or = 500 mg/dL Performed By: #### L 500.4050, L502.0250, L501.9985, L500.4100 #### [facility] [address] [place], [address] Microalb:Creat Ratio,Random URon 02-18-2024 Creatinine [Mass/Vol] 84.40 mg/dL Normal NO RANGE EST. [facility] Comment on above: Performed By: #### L 500.4050, L502.0250, L501.9985, L500.4100 ####[facility] [address] [place], [address] MALB:CRE 21.2 mg/g CRE Normal <30 mg/g CRE [facility] Comment on above: Performed By: #### L 500.4050, L502.0250, L501.9985, L500.4100 ####[facility] [address] [place], [address] MICROALBUMIN,UR 17.9 mg/L Normal NO RANGE EST. [facility] Comment on above: Performed By: #### L 500.4050, L502.0250, L501.9985, L500.4100 ####[facility] [address] [place], [place], [address] Basophil percentageOrdered B y: Adri Bolaños on 06-13-2023 Bilirubin [Mass/Vol] 0.60 mg/dL 0.20-1.00 [facility] Comment on above: For patients on eltr ombopag therapy, use of Dimension [place] TBIL is not recommended. Chloride [Moles/Vol] 104 mmol/L 98-107 [facility] Glucose [Mass/Vol] 139 mg/dL 74-106 [facility] Comment on above: Fasting Glucose resu lt greater than or equal to 126 mg/dL suggests DIABETES MELLITUS per A.D.A. criteria. Potassium [Moles/Vol] 3.9 mmol/L 3.5-5.1 [facility] Protein [Mass/Vol] 7.5 g/dL 6.4-8.2 [facility] Sodium [Moles/Vol] 137 mmol/L 136-145 [facility] Laboratory - Chemistry and C hemistry - challengeOrdered By: Adri Bolaños on 06-13-2023 Albumin/Globulin [Mass ratio] 1.2 {ratio} 0.9-2.4 [facility] ALP [Catalytic activity/Vol] 65 U/L 45-117 [facility] ALT [Catalytic activity/Vol] 32 U/L 16-61 [facility] CO2 [Moles/Vol] 27.0 mmol/L 21.0-32.0 [facility] Globulin (S) [Mass/Vol] 3.4 g/dL 2.2-4.2 [facility] Urea nitrogen/Creatinine [Mass ratio] 19.4 mg/mg 10-20 [facility] No Panel InformationOrdered By: Adri Bolaños on 06-13-2023 Estimated GFR (MDRD) Amer 113 mL/min >60 [facility] Comment on above: GFR Calc Estimated GFR (MDRD) Non-Af Amer 93 mL/min >60 [facility] Comment on above: Non- GFR Calc Urine Microalbumin/Creatinine Ratio 15.9 mg/g CRE <30 [facility] Serum or plasma calcium nohemy urement (mass/volume)Ordered By: Adri Bolaños on 06-13-2023 Calcium [Mass/Vol] 9.3 mg/dL 8.5-10.1 [facility] Serum or plasma creatinine m easurement (mass/volume)Ordered By: Adri Bolaños on 06-13-2023 Creatinine [Mass/Vol] 0.88 mg/dL 0.70-1.30 [facility] Comment on above: The validity of the calculated GFR & GFRAA in patients over 70 years has not been determined. Clinical correlation is essential. Serum or plasma urea nitroge n measurement (mass/volume)Ordered By: Adri Bolaños on 06-13-2023 Urea nitrogen [Mass/Vol] 17 mg/dL 7-18 [facility] Thin prep Papanicolaou smear with manual screeningOrdered By: Adri Bolaños on 06-13-2023 Thin prep Papanicolaou smear with manual screening 4.1 g/dL 3.2-5.0 [facility] Thin prep Papanicolaou smear with manual screening 19 U/L 15-37 [facility] Thin prep Papanicolaou smear with manual screening 6 5-15 [facility] Thin prep Papanicolaou smear with manual screening 9.9 mg/L NO RANGE EST. [facility] Urine creatinine measurement (mass/volume)Ordered By: Adri Bolaños on 06-13-2023 Creatinine (U) [Mass/Vol] 62.70 mg/dL NO RANGE EST. [facility] Whole blood hemoglobin A1c/t otal hemoglobin ratio (mass fraction)Ordered By: Adri Bolaños on 06-13-2023 HbA1c (Bld) [Mass fraction] 6.9 % 3.8-5.6 [facility] Comment on above: Normal < 5.7 % Predi abetic 5.7 - 6.4 % Diabetic >or= 6.5 % Please note range changes. Basophil percentageOrdered B y: Adri Bolaños on 03-14-2023 Bilirubin [Mass/Vol] 0.40 mg/dL 0.20-1.00 [facility] Comment on above: For patients on eltr ombopag therapy, use of Dimension [place] TBIL is not recommended. Chloride [Moles/Vol] 108 mmol/L 98-107 [facility] Glucose [Mass/Vol] 221 mg/dL 74-106 [facility] Comment on above: Glucose result great er than or equal to 200 mg/dLsuggests DIABETES MELLITUS per A.D.A. criteria. Potassium [Moles/Vol] 4.0 mmol/L 3.5-5.1 [facility] Protein [Mass/Vol] 7.1 g/dL 6.4-8.2 [facility] Sodium [Moles/Vol] 140 mmol/L 136-145 [facility] Laboratory - Chemistry and C hemistry - challengeOrdered By: Adri Bolaños on 03-14-2023 ALP [Catalytic activity/Vol] 69 U/L 45-117 [facility] ALT [Catalytic activity/Vol] 35 U/L 16-61 [facility] CO2 [Moles/Vol] 27.0 mmol/L 21.0-32.0 [facility] Globulin (S) [Mass/Vol] 3.3 g/dL 2.2-4.2 [facility] Urea nitrogen/Creatinine [Mass ratio] 17.5 mg/mg 10-20 [facility] No Panel InformationOrdered By: Adri Bolaños on 03-14-2023 Estimated GFR (MDRD) Amer 101 mL/min >60 [facility] Comment on above: GFR Calc Estimated GFR (MDRD) Non-Af Amer 83 mL/min >60 [facility] Comment on above: Non- GFR Calc Urine Microalbumin/Creatinine Ratio 192.1 mg/g CRE <30 [facility] Serum or plasma albumin nohemy urement (mass/volume)Ordered By: Adri Bolaños on 03-14-2023 Albumin [Mass/Vol] 3.8 g/dL 3.2-5.0 [facility] Serum or plasma albumin/glob ulin mass ratioOrdered By: Adri Bolaños on 03-14-2023 Albumin/Globulin [Mass ratio] 1.2 {ratio} 0.9-2.4 [facility] Serum or plasma calcium nohemy urement (mass/volume)Ordered By: Adri Bolaños on 03-14-2023 Calcium [Mass/Vol] 9.6 mg/dL 8.5-10.1 [facility] Serum or plasma creatinine m easurement (mass/volume)Ordered By: Adri Bolaños on 03-14-2023 Creatinine [Mass/Vol] 0.97 mg/dL 0.70-1.30 [facility] Comment on above: The validity of the calculated GFR & GFRAA in patients over 70 years has not been determined. Clinical correlation is essential. Serum or plasma urea nitroge n measurement (mass/volume)Ordered By: Adri Bolaños on 03-14-2023 Urea nitrogen [Mass/Vol] 17 mg/dL 7-18 [facility] Thin prep Papanicolaou smear with manual screeningOrdered By: Adri Bolaños on 03-14-2023 Thin prep Papanicolaou smear with manual screening 18 U/L 15-37 [facility] Thin prep Papanicolaou smear with manual screening 5 5-15 [facility] Thin prep Papanicolaou smear with manual screening 181.0 mg/L NO RANGE EST. [facility] Urine creatinine measurement (mass/volume)Ordered By: Adri Bolaños on 03-14-2023 Creatinine (U) [Mass/Vol] 94.20 mg/dL NO RANGE EST. [facility] Whole blood hemoglobin A1c/t otal hemoglobin ratio (mass fraction)Ordered By: Adri Bolaños on 03-14-2023 HbA1c (Bld) [Mass fraction] 6.6 % 3.8-5.6 [facility] Comment on above: Normal < 5.7 % Predi abetic 5.7 - 6.4 % Diabetic >or= 6.5 % Please note range changes. Basophil percentageOrdered B y: Adri Bolaños on 01-10-2023 Bilirubin [Mass/Vol] 0.50 mg/dL 0.20-1.00 [facility] Comment on above: For patients on eltr ombopag therapy, use of Dimension [place] TBIL is not recommended. Chloride [Moles/Vol] 104 mmol/L 98-107 [facility] Glucose [Mass/Vol] 167 mg/dL 74-106 [facility] Comment on above: Fasting Glucose resu lt greater than or equal to 126 mg/dL suggests DIABETES MELLITUS per A.D.A. criteria. Potassium [Moles/Vol] 4.0 mmol/L 3.5-5.1 [facility] Protein [Mass/Vol] 7.5 g/dL 6.4-8.2 [facility] Sodium [Moles/Vol] 137 mmol/L 136-145 [facility] Laboratory - Chemistry and C hemistry - challengeOrdered By: Adri Bolaños on 01-10-2023 ALP [Catalytic activity/Vol] 57 U/L 45-117 [facility] ALT [Catalytic activity/Vol] 39 U/L 16-61 [facility] CO2 [Moles/Vol] 28.0 mmol/L 21.0-32.0 [facility] Globulin (S) [Mass/Vol] 3.6 g/dL 2.2-4.2 [facility] Urea nitrogen/Creatinine [Mass ratio] 17.8 mg/mg 10-20 [facility] No Panel InformationOrdered By: Adri Bolaños on 01-10-2023 Estimated GFR (MDRD) Amer 102 mL/min >60 [facility] Comment on above: GFR Calc Estimated GFR (MDRD) Non-Af Amer 85 mL/min >60 [facility] Comment on above: Non- GFR Calc Serum or plasma albumin nohemy urement (mass/volume)Ordered By: Adri Bolaños on 01-10-2023 Albumin [Mass/Vol] 3.9 g/dL 3.2-5.0 [facility] Serum or plasma albumin/glob ulin mass ratioOrdered By: Adri Bolaños on 01-10-2023 Albumin/Globulin [Mass ratio] 1.1 {ratio} 0.9-2.4 [facility] Serum or plasma calcium nohemy urement (mass/volume)Ordered By: Adri Bolaños on 01-10-2023 Calcium [Mass/Vol] 9.9 mg/dL 8.5-10.1 [facility] Serum or plasma creatinine m easurement (mass/volume)Ordered By: Adri Bolaños on 01-10-2023 Creatinine [Mass/Vol] 0.96 mg/dL 0.70-1.30 [facility] Comment on above: The validity of the calculated GFR & GFRAA in patients over 70 years has not been determined. Clinical correlation is essential. Serum or plasma urea nitroge n measurement (mass/volume)Ordered By: Adri Bolaños on 01-10-2023 Urea nitrogen [Mass/Vol] 17 mg/dL 7-18 [facility] Thin prep Papanicolaou smear with manual screeningOrdered By: Adri Bolaños on 01-10-2023 Thin prep Papanicolaou smear with manual screening 15 U/L 15-37 [facility] Thin prep Papanicolaou smear with manual screening 5 5-15 [facility] Whole blood hemoglobin A1c/t otal hemoglobin ratio (mass fraction)Ordered By: Adri Bolaños on 01-10-2023 HbA1c (Bld) [Mass fraction] 6.4 % 3.8-5.6 [facility] Comment on above: Normal < 5.7 % Predi abetic 5.7 - 6.4 % Diabetic >or= 6.5 % Please note range changes. Basophil percentageOrdered B y: Adri Bolaños on 10-12-2022 Bilirubin [Mass/Vol] 0.50 mg/dL 0.20-1.00 [facility] Comment on above: For patients on eltr ombopag therapy, use of Dimension [place] TBIL is not recommended. Chloride [Moles/Vol] 105 mmol/L 98-107 [facility] Glucose [Mass/Vol] 146 mg/dL 74-106 [facility] Comment on above: Fasting Glucose resu lt greater than or equal to 126 mg/dL suggests DIABETES MELLITUS per A.D.A. criteria. Potassium [Moles/Vol] 4.1 mmol/L 3.5-5.1 [facility] Protein [Mass/Vol] 7.4 g/dL 6.4-8.2 [facility] Sodium [Moles/Vol] 138 mmol/L 136-145 [facility] Laboratory - Chemistry and C hemistry - challengeOrdered By: Adri Bolaños on 10-12-2022 ALP [Catalytic activity/Vol] 62 U/L 45-117 [facility] ALT [Catalytic activity/Vol] 42 U/L 16-61 [facility] CO2 [Moles/Vol] 27.0 mmol/L 21.0-32.0 [facility] Globulin (S) [Mass/Vol] 3.5 g/dL 2.2-4.2 [facility] Urea nitrogen/Creatinine [Mass ratio] 22.9 mg/mg 10-20 [facility] No Panel InformationOrdered By: Adri Bolaños on 10-12-2022 Estimated GFR (MDRD) Amer 128 mL/min >60 [facility] Comment on above: GFR Calc Estimated GFR (MDRD) Non-Af Amer 106 mL/min >60 [facility] Comment on above: Non- GFR Calc Serum or plasma albumin nohemy urement (mass/volume)Ordered By: Adri Bolaños on 10-12-2022 Albumin [Mass/Vol] 3.9 g/dL 3.2-5.0 [facility] Serum or plasma albumin/glob ulin mass ratioOrdered By: Adir Bolaños on 10-12-2022 Albumin/Globulin [Mass ratio] 1.1 {ratio} 0.9-2.4 [facility] Serum or plasma calcium nohemy urement (mass/volume)Ordered By: Adri Bolaños on 10-12-2022 Calcium [Mass/Vol] 9.1 mg/dL 8.5-10.1 [facility] Serum or plasma creatinine m easurement (mass/volume)Ordered By: Adri Bolaños on 10-12-2022 Creatinine [Mass/Vol] 0.79 mg/dL 0.70-1.30 [facility] Comment on above: The validity of the calculated GFR & GFRAA in patients over 70 years has not been determined. Clinical correlation is essential. Serum or plasma urea nitroge n measurement (mass/volume)Ordered By: Adri Bolaños on 10-12-2022 Urea nitrogen [Mass/Vol] 18 mg/dL 7-18 [facility] Thin prep Papanicolaou smear with manual screeningOrdered By: Adri Bolaños on 10-12-2022 Thin prep Papanicolaou smear with manual screening 18 U/L 15-37 [facility] Thin prep Papanicolaou smear with manual screening 6 5-15 [facility] Whole blood hemoglobin A1c/t otal hemoglobin ratio (mass fraction)Ordered By: Adri Bolaños on 10-12-2022 HbA1c (Bld) [Mass fraction] 6.6 % 3.8-5.6 [facility] Comment on above: Normal < 5.7 % Predi abetic 5.7 - 6.4 % Diabetic >or= 6.5 % Please note range changes. Basophil percentageOrdered B y: Dr. Bolaños on 07-13-2022 Bilirubin [Mass/Vol] 0.40 mg/dL 0.20-1.00 [facility] Comment on above: For patients on eltr ombopag therapy, use of Dim[place] TBIL is not recommended. Chloride [Moles/Vol] 107 mmol/L 98-107 [facility] Cholesterol [Mass/Vol] 170 mg/dL <200 [facility] Comment on above: <200 mg/dL Desirable 200-240 mg/dL Borderline >240 mg/dL High Risk Glucose [Mass/Vol] 182 mg/dL 74-106 [facility] Comment on above: Fasting Glucose resu lt greater than or equal to 126 mg/dL suggests DIABETES MELLITUS per A.D.A. criteria. Potassium [Moles/Vol] 4.2 mmol/L 3.5-5.1 [facility] Protein [Mass/Vol] 7.1 g/dL 6.4-8.2 [facility] Sodium [Moles/Vol] 139 mmol/L 136-145 [facility] Triglyceride [Mass/Vol] 154 mg/dL <199 [facility] [...] 07-13-2022 ALP [Catalytic activity/Vol] 63 U/L 45-117 [facility] ALT [Catalytic activity/Vol] 44 U/L 16-61 [facility] CO2 [Moles/Vol] 25.0 mmol/L 21.0-32.0 [facility] Globulin (S) [Mass/Vol] 3.3 g/dL 2.2-4.2 [facility] Urea nitrogen/Creatinine [Mass ratio] 20.0 mg/mg 10-20 [facility] No Panel InformationOrdered By: Dr. Bolaños on 07-13-2022 Estimated GFR (MDRD) Amer 110 mL/min >60 [facility] Comment on above: GFR Calc Estimated GFR (MDRD) Non-Af Amer 91 mL/min >60 [facility] Comment on above: Non- GFR Calc Serum or plasma albumin nohemy urement (mass/volume)Ordered By: Dr. Bolaños on 07-13-2022 Albumin [Mass/Vol] 3.8 g/dL 3.2-5.0 [facility] Serum or plasma albumin/glob ulin mass ratioOrdered By: Dr. Bolaños on 07-13-2022 Albumin/Globulin [Mass ratio] 1.2 {ratio} 0.9-2.4 [facility] Serum or plasma calcium nohemy urement (mass/volume)Ordered By: Dr. Bolaños on 07-13-2022 Calcium [Mass/Vol] 8.9 mg/dL 8.5-10.1 [facility] Serum or plasma cholesterol in HDL measurement (mass/volume)Ordered By: Dr. Bolaños on 07-13-2022 Cholesterol in HDL [Mass/Vol] 39 mg/dL >40 [facility] Comment on above: The drugs N-Acetylcy steine and Metamizole may falsely depress this assay. Reference Range HDL <40 mg/dL Low HDL Cholesterol HDL >or= 60 mg/dL High HDL Cholesterol Serum or plasma cholesterol in VLDL measurement (mass/volume)Ordered By: Dr. Bolaños on 07-13-2022 Cholesterol in VLDL [Mass/Vol] 31 mg/dL 5-40 [facility] Serum or plasma creatinine m easurement (mass/volume)Ordered By: Dr. Bolaños on 07-13-2022 Creatinine [Mass/Vol] 0.90 mg/dL 0.70-1.30 [facility] Comment on above: The validity of the calculated GFR & GFRAA in patients over 70 years has not been determined. Clinical correlation is essential. Serum or plasma low density lipoprotein (LDL) cholesterol measurement (mass/volume)Ordered By: Dr. Bolaños on 07-13-2022 Cholesterol in LDL [Mass/Vol] 100 mg/dL 0-130 [facility] Serum or plasma urea nitroge n measurement (mass/volume)Ordered By: Dr. Bolaños on 07-13-2022 Urea nitrogen [Mass/Vol] 18 mg/dL 7-18 [facility] Thin prep Papanicolaou smear with manual screeningOrdered By: Dr. Bolaños on 07-13-2022 Thin prep Papanicolaou smear with manual screening 22 U/L 15-37 [facility] Thin prep Papanicolaou smear with manual screening 7 5-15 [facility] Whole blood hemoglobin A1c/t otal hemoglobin ratio (mass fraction)Ordered By: Dr. Bolaños on 07-13-2022 HbA1c (Bld) [Mass fraction] 7.9 % 3.8-5.6 [facility] Comment on above: Normal < 5.7 % Predi abetic 5.7 - 6.4 % Diabetic >or= 6.5 % Please note range changes. Basophil percentageOrdered B y: Dr. Bolaños on 04-13-2022 Chloride [Moles/Vol] 105 mmol/L 98-107 [facility] Glucose [Mass/Vol] 143 mg/dL 74-106 [facility] Comment on above: Fasting Glucose resu lt greater than or equal to 126 mg/dL suggests DIABETES MELLITUS per A.D.A. criteria. Potassium [Moles/Vol] 4.4 mmol/L 3.5-5.1 [facility] Sodium [Moles/Vol] 138 mmol/L 136-145 [facility] Laboratory - Chemistry and C hemistry - challengeOrdered By: Dr. Bolaños on 04-13-2022 CO2 [Moles/Vol] 27.0 mmol/L 21.0-32.0 [facility] Urea nitrogen/Creatinine [Mass ratio] 19.3 mg/mg 10-20 [facility] No Panel InformationOrdered By: Dr. Bolaños on 04-13-2022 Estimated GFR (MDRD) Amer 106 mL/min >60 [facility] Comment on above: GFR Calc Estimated GFR (MDRD) Non-Af Amer 87 mL/min >60 [facility] Comment on above: Non- GFR Calc Urine Microalbumin/Creatinine Ratio 15.7 mg/g CRE <30 [facility] Serum or plasma calcium nohemy urement (mass/volume)Ordered By: Dr. Bolaños on 04-13-2022 Calcium [Mass/Vol] 9.1 mg/dL 8.5-10.1 [facility] Serum or plasma creatinine m easurement (mass/volume)Ordered By: Dr. Bolaños on 04-13-2022 Creatinine [Mass/Vol] 0.93 mg/dL 0.70-1.30 [facility] Comment on above: The validity of the calculated GFR & GFRAA in patients over 70 years has not been determined. Clinical correlation is essential. Serum or plasma urea nitroge n measurement (mass/volume)Ordered By: Dr. Bolaños on 04-13-2022 Urea nitrogen [Mass/Vol] 18 mg/dL 7-18 [facility] Thin prep Papanicolaou smear with manual screeningOrdered By: Dr. Bolaños on 04-13-2022 Thin prep Papanicolaou smear with manual screening 6 5-15 [facility] Thin prep Papanicolaou smear with manual screening 18.7 mg/L NO RANGE EST. [facility] Urine creatinine measurement (mass/volume)Ordered By: Dr. Bolaños on 04-13-2022 Creatinine (U) [Mass/Vol] 119.00 mg/dL NO RANGE EST. [facility] Whole blood hemoglobin A1c/t otal hemoglobin ratio (mass fraction)Ordered By: Dr. Bolaños on 04-13-2022 HbA1c (Bld) [Mass fraction] 7.3 % 3.8-5.6 [facility] Comment on above: Normal < 5.7 % Predi abetic 5.7 - 6.4 % Diabetic >or= 6.5 % Please note range changes. Basophil percentageon 2021 Bilirubin [Mass/Vol] 0.70 mg/dL 0.20-1.00 [facility] Work Phone: Comment on above: For patients on eltr ombopag therapy, use of Dim[place] TBIL is not recommended. Chloride [Moles/Vol] 105 mmol/L 98-107 [facility] Work Phone: Cholesterol [Mass/Vol] 185 mg/dL <200 [facility] Work Phone: Comment on above: <200 mg/dL Desirable 200-240 mg/dL Borderline >240 mg/dL High Risk Glucose [Mass/Vol] 151 mg/dL 74-106 [facility] Work Phone: Comment on above: Fasting Glucose resu lt greater than or equal to 126 mg/dL suggests DIABETES MELLITUS per A.D.A. criteria. Potassium [Moles/Vol] 4.2 mmol/L 3.5-5.1 [facility] Work Phone: Protein [Mass/Vol] 7.6 g/dL 6.4-8.2 [facility] Work Phone: Sodium [Moles/Vol] 137 mmol/L 136-145 [facility] Work Phone: Triglyceride [Mass/Vol] 159 mg/dL <199 [facility] Work Phone: Comment on above: The drugs N-Acetylcy steine and Metamizole may falsely depress this assay.Serum Triglycerides Reference Interval Normal <150 mg/dL Borderline high 150 - 199 mg/dL High 200 - 499 mg/dL Very High > or = 500 mg/dL Laboratory - Chemistry and C hemistry - challengeon 01-16-2022 ALP [Catalytic activity/Vol] 76 U/L 45-117 [facility] Work Phone: ALT [Catalytic activity/Vol] 38 U/L 16-61 [facility] Work Phone: CO2 [Moles/Vol] 27.0 mmol/L 21.0-32.0 [facility] Work Phone: Globulin (S) [Mass/Vol] 3.5 g/dL 2.2-4.2 [facility] Work Phone: Urea nitrogen/Creatinine [Mass ratio] 16.7 mg/mg 10-20 [facility] Work Phone: No Panel Informationon 01-16 Estimated GFR (MDRD) Amer 120 mL/min >60 [facility] Work Phone: Comment on above: GFR Calc Estimated GFR (MDRD) Non-Af Amer 99 mL/min >60 [facility] Work Phone: Comment on above: Non- GFR Calc Serum or plasma albumin nohemy urement (mass/volume)on 01-16-2022 Albumin [Mass/Vol] 4.1 g/dL 3.2-5.0 [facility] Work Phone: Serum or plasma albumin/glob ulin mass ratioon 01-16-2022 Albumin/Globulin [Mass ratio] 1.2 {ratio} 0.9-2.4 [facility] Work Phone: Serum or plasma calcium nohemy urement (mass/volume)on 01-16-2022 Calcium [Mass/Vol] 9.3 mg/dL 8.5-10.1 [facility] Work Phone: Serum or plasma cholesterol in HDL measurement (mass/volume)on 01-16-2022 Cholesterol in HDL [Mass/Vol] 42 mg/dL >40 [facility] Work Phone: Comment on above: The drugs N-Acetylcy steine and Metamizole may falsely depress this assay. Reference Range HDL <40 mg/dL Low HDL Cholesterol HDL >or= 60 mg/dL High HDL Cholesterol Serum or plasma cholesterol in VLDL measurement (mass/volume)on 01-16-2022 Cholesterol in VLDL [Mass/Vol] 32 mg/dL 5-40 [facility] Work Phone: Serum or plasma creatinine m easurement (mass/volume)on 01-16-2022 Creatinine [Mass/Vol] 0.84 mg/dL 0.70-1.30 [facility] Work Phone: Comment on above: The validity of the calculated GFR & GFRAA in patients over 70 years has not been determined. Clinical correlation is essential. Serum or plasma low density lipoprotein (LDL) cholesterol measurement (mass/volume)on 01-16-2022 Cholesterol in LDL [Mass/Vol] 111 mg/dL 0-130 [facility] Work Phone: Serum or plasma urea nitroge n measurement (mass/volume)on 01-16-2022 Urea nitrogen [Mass/Vol] 14 mg/dL 7-18 [facility] Work Phone: Thin prep Papanicolaou smear with manual screeningon 01-16-2022 Thin prep Papanicolaou smear with manual screening 19 U/L 15-37 [facility] Work Phone: Thin prep Papanicolaou smear with manual screening 5 5-15 [facility] Work Phone: Whole blood hemoglobin A1c/t otal hemoglobin ratio (mass fraction)on 01-16-2022 HbA1c (Bld) [Mass fraction] 6.9 % 3.8-5.6 [facility] Work Phone: Comment on above: Normal < 5.7 % Predi abetic 5.7 - 6.4 % Diabetic >or= 6.5 % Please note range changes. Basophil percentageon 2021 Chloride [Moles/Vol] 105 mmol/L 98-107 [facility] Work Phone: Cholesterol [Mass/Vol] 169 mg/dL <200 [facility] Work Phone: Comment on above: <200 mg/dL Desirable 200-240 mg/dL Borderline >240 mg/dL High Risk Glucose [Mass/Vol] 154 mg/dL 74-106 [facility] Work Phone: Comment on above: Fasting Glucose resu lt greater than or equal to 126 mg/dL suggests DIABETES MELLITUS per A.D.A. criteria. Potassium [Moles/Vol] 4.0 mmol/L 3.5-5.1 [facility] Work Phone: Sodium [Moles/Vol] 138 mmol/L 136-145 [facility] Work Phone: Triglyceride [Mass/Vol] 99 mg/dL <199 [facility] Work Phone: Comment on above: The drugs N-Acetylcy steine and Metamizole may falsely depress this assay.Serum Triglycerides Reference Interval Normal <150 mg/dL Borderline high 150 - 199 mg/dL High 200 - 499 mg/dL Very High > or = 500 mg/dL Laboratory - Chemistry and C hemistry - challengeon 10-27-2021 CO2 [Moles/Vol] 28.0 mmol/L 21.0-32.0 [facility] Work Phone: Urea nitrogen/Creatinine [Mass ratio] 21.9 mg/mg 10-20 [facility] Work Phone: No Panel Informationon 10-27 Estimated GFR (MDRD) Amer 103 mL/min >60 [facility] Work Phone: Comment on above: GFR Calc Estimated GFR (MDRD) Non-Af Amer 85 mL/min >60 [facility] Work Phone: Comment on above: Non- GFR Calc Serum or plasma calcium nohemy urement (mass/volume)on 10-27-2021 Calcium [Mass/Vol] 9.4 mg/dL 8.5-10.1 [facility] Work Phone: Serum or plasma cholesterol in HDL measurement (mass/volume)on 10-27-2021 Cholesterol in HDL [Mass/Vol] 41 mg/dL >40 [facility] Work Phone: Comment on above: The drugs N-Acetylcy steine and Metamizole may falsely depress this assay. Reference Range HDL <40 mg/dL Low HDL Cholesterol HDL >or= 60 mg/dL High HDL Cholesterol Serum or plasma cholesterol in VLDL measurement (mass/volume)on 10-27-2021 Cholesterol in VLDL [Mass/Vol] 20 mg/dL 5-40 [facility] Work Phone: Serum or plasma creatinine m easurement (mass/volume)on 10-27-2021 Creatinine [Mass/Vol] 0.96 mg/dL 0.70-1.30 [facility] Work Phone: Comment on above: The validity of the calculated GFR & GFRAA in patients over 70 years has not been determined. Clinical correlation is essential. Serum or plasma low density lipoprotein (LDL) cholesterol measurement (mass/volume)on 10-27-2021 Cholesterol in LDL [Mass/Vol] 108 mg/dL 0-130 [facility] Work Phone: Serum or plasma urea nitroge n measurement (mass/volume)on 10-27-2021 Urea nitrogen [Mass/Vol] 21 mg/dL - [facility] Work Phone: Thin prep Papanicolaou smear with manual screeningon 10-27-2021 Thin prep Papanicolaou smear with manual screening 5 5-15 [facility] Work Phone: Whole blood hemoglobin A1c/t otal hemoglobin ratio (mass fraction)on 10-27-2021 HbA1c (Bld) [Mass fraction] 7.5 % 3.8-5.6 [facility] Work Phone: Comment on above: Normal < 5.7 % Predi abetic 5.7 - 6.4 % Diabetic >or= 6.5 % Please note range changes. SURGICAL PATHOLOGY, [place] Don 10-16-2008 [facility] Vital Signs Date Time Vital Sign Value Performing Clinician Adilia yousif 12-10-2024 09:49-0400 Body height 177.[address] Dodie Bertrand DO Work Phone: [facility] 12-10-2024 09:49-0400 Body mass index (BMI) [Ratio] 26.4 kg/m2 Dr. Dodie Bertrand DO Work Phone: [facility] 12-10-2024 09:49-0400 Body weight 83.[address] Dodie Bertrand DO Work Phone: [facility] 12-10-2024 09:49-0400 Diastolic blood pressure 81 mm[Hg] Dr. Dodie Bertrand DO Work Phone: [facility] 12-10-2024 09:49-0400 Heart rate 73 /min Dr. Dodie Bertrand DO Work Phone: [facility] 12-10-2024 09:49-0400 Respiratory rate 18 /min Dr. Dodie Bertrand DO Work Phone: [facility] 12-10-2024 09:49-0400 SaO2% (BldA) [Mass fraction] 96 % Dr. Dodie Bertrand DO Work Phone: [facility] 12-10-2024 09:49-0400 Systolic blood pressure 131 mm[Hg] Dr. Dodie Bertrand DO Work Phone: [facility] 11-20-2024 13:40-0400 Diastolic blood pressure 82 mm[Hg] Dr. Dodie Bertrand DO Work Phone: [facility] 11-20-2024 13:40-0400 Heart rate 80 /min Dr. Dodie Bertrand DO Work Phone: [facility] 11-20-2024 13:40-0400 Respiratory rate 18 /min Dr. Dodie Bertrand DO Work Phone: [facility] 11-20-2024 13:40-0400 Systolic blood pressure 124 mm[Hg] Dr. Dodie Bertrand DO Work Phone: [facility] 11-20-2024 13:04-0400 Body height 177.[address] 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.[employer] BU[employer] Work Phone: [facility] 11-05-2024 09:11-0400 Diastolic blood pressure 72 mm[Hg] Jennifer Catalan HOME AP[employer] WASHING MACHINE MECHANIC.[employer] BU[employer] Work Phone: [facility] 11-05-2024 09:11-0400 Heart rate 80 /min Jennifer Catalan HOME [employer]PLI[employer] WASHING MACHINE MECHANIC.[employer] BU[employer] Work Phone: [facility] 11-05-2024 09:11-0400 Respiratory rate 16 /min Jennifer Catalan HOME APPLIANCE WASHING MACHINE MECHANIC.[employer] BU[employer]DER Work Phone: [facility] 11-05-2024 09:11-0400 SaO2% (BldA) [Mass fraction] 99 % Jennifer Catalan HOME 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 Mika Ross MD -[facility] Work Phone: Start: 12-10-2024 End: 12-10-[address] Dodie Bertrand DO Work Phone: -[facility] [employer] [facility] Start: 12-05-2024 [facility] Start: 12-04-2024 ambulatory [facility] Facility: [place] Start: 12-04-2024 Non-patient / Non-visit Dr. Hernandez madrigal MD -[facility] Start: 12-04-2024 Non-patient / Non-visit Dr. Scott mary MD -[facility] Start: 12-04-2024 End: 12-04-[address] Dodie Bertrand DO Work Phone: -[facility] Start: 12-04-2024 End: 12-04-[address] Mika Ross MD -[facility] Work Phone: Start: 12-04-2024 End: 12-04-2024 ambulatory Dodie Bertrand Facility:[facility] Start: 11-20-2024 End: 11-20-[address] Mika Ross MD -[facility] Work Phone: Start: 11-20-2024 End: 11-20-[address] Dodie Bertrand DO Work Phone: -[facility] Start: 11-05-2024 End: 11-05-2024 Patient encounter procedure Jennifer Catalan PIPER.DRUM BUILDER Work Phone: [facility] Comment on above: Diarrhea, unspecifie d type (Primary Dx); Lower abdominal pain Start: 11-05-2024 End: 11-05-2024 ambulatory DODIE BERTRAND Facility:[facility] Start: 10-24-2024 End: 10-24-[address] Dodie Bertrand DO -Laboratory Work Phone: Start: 10-24-2024 Non-patient / Non-visit Dr. Dane PINEDA -[facility] Work Phone: Start: 10-24-[address] Dodie Bertrand D O -[facility] Work Phone: Start: 10-24-2024 End: 10-24-[address] Dodie Bertrand DO Work Phone: -Laboratory Start: 10-24-2024 End: 10-24-2024 ambulatory Dodie Bertrand Facility:[facility] Start: 09-26-2024 End: 09-26-[address] Dodie Bertrand DO Work Phone: -Laboratory Start: 09-26-2024 End: 09-26-[address] Adri Bolaños MD -Laboratory Work Phone: Start: 09-26-2024 End: 09-26-2024 [facility] Start: 09-09-2024 End: 09-09-2024 ambulatory Rigoberto Acuna PT Work Phone: [facility] Comment on above: Lumbar radiculopathy (Primary Dx); Degeneration of intervertebral disc of lumbar region with discogenic back pain and lower extremity pain Start: 09-02-2024 End: 09-02-2024 ambulatory Rigoberto Acuna PT Work Phone: [facility] Comment on above: Lumbar radiculopathy (Primary Dx) Start: 08-26-2024 End: 08-26-2024 ambulatory Rigoberto Acuna PT Work Phone: [facility] Comment on above: Lumbar radiculopathy (Primary Dx); Degeneration of intervertebral disc of lumbar region with discogenic back pain and lower extremity pain Start: 08-19-2024 End: 08-19-2024 ambulatory Rigoberto Acuna PT Work Phone: [facility] Comment on above: Degeneration of inte rvertebral disc of lumbar region with discogenic back pain and lower extremity pain (Primary Dx); Lumbar radiculopathy Start: 08-08-2024 End: 08-08-2024 ambulatory Rigoberto Acuna PT Work Phone: [facility] Comment on above: Degeneration of inte rvertebral disc of lumbar region with discogenic back pain and lower extremity pain (Primary Dx); Lumbar radiculopathy Start: 06-26-2024 End: 06-26-[address] Dodie Bertrand DO Work Phone: [facility] Work Phone: Start: 06-26-2024 End: 06-26-[address] Adri Bolaños MD -Laboratory Work Phone: Start: 06-26-2024 End: 06-26-2024 ambulatory Dodie Bertrand Facility:[facility] Start: 06-18-2024 End: 06-18-[address] Dodie Bertrand DO Work Phone: [facility] Work Phone: Start: 06-18-2024 End: 06-18-[address] Dodie Bertrand DO -Radiology, [facility] Work Phone: Start: 06-18-2024 End: 06-18-2024 ambulatory Dodie Bertrand Facility:[facility] Start: 02-18-2024 End: 02-18-2024 ambulatory Charles Peres Facility:[facility] Start: 06-13-2023 End: 06-13-2023 ambulatory [facility] Work Phone: Start: 06-13-2023 End: 06-13-2023 Patient encounter procedure [facility]-Laboratory Work Phone: Start: 03-14-2023 End: 03-14-2023 ambulatory [facility] Work Phone: Start: 03-14-2023 End: 03-14-2023 Patient encounter procedure [facility]Labor[facility] Work Phone: Start: 01-10-2023 End: 01-10-2023 ambulatory [facility] Work Phone: Start: 01-10-2023 End: 01-10-2023 Patient encounter procedure [facility]Labor[facility] Work Phone: Start: 10-12-2022 End: 10-12-2022 ambulatory [facility] Work Phone: Start: 10-12-2022 End: 10-12-2022 Patient encounter procedure [facility]-Labor[facility] Work Phone: Start: 07-13-2022 End: 07-13-2022 ambulatory [facility] Work Phone: Start: 07-13-2022 End: 07-13-2022 Patient encounter procedure [facility]Labor[facility] Start: 04-13-2022 End: 04-13-2022 Patient encounter procedure [facility] Start: 01-16-2022 End: 01-16-2022 ambulatory [facility] Work Phone: Start: 01-16-2022 End: 01-16-2022 Patient encounter procedure [facility]-Labor[facility] Start: 10-27-2021 End: 10-27-2021 ambulatory [facility] Work Phone: Start: 10-27-2021 End: 10-27-2021 Patient encounter procedure [facility]Labor[facility] Start: 10-16-2008 Documentation procedure Gibson Pelayo MD Work Phone: [facility] Start: 10-16-2008 Historic EMR Gibson Pelayo MD Work Phone: [facility] Procedures Date Procedure Procedure Detail Performing [...] RSV Vaccine (1 - 1-dose 75+ series) [facility] Start: 10-24-2025 Urine microalbumin profile DTaP,Tdap,Td Vaccine (2 - Td or Tdap) [facility] Start: 12-10-2024 Catheterization of l eft heart [facility] Start: 12-10-2024 Prothrombin time [facility] Start: 11-20-2024 Evaluation of diagno stic study results [facility] Start: 11-10-2024 Influenza vaccination [facility] Start: 09-09-2024 End: 09-09-2024 ambulatory 09/09/2024 7:45 AM EDT OT/PT/Speech Visit [facility] [address] [place] [address] Rigoberto Acuna, PT [address] [place], [place] [address] BACK PAIN [facility] Comment on above: BACK PAIN Start: 09-02-2024 End: 09-02-2024 ambulatory 09/02/2024 7:45 AM EDT OT/PT/Speech Visit [facility] [address] [place] [address] Rigoberto Acuna, PT [address] [place] [address] BACK PAIN [facility] Comment on above: BACK PAIN Start: 08-26-2024 End: 08-26-2024 ambulatory 08/26/2024 7:45 AM EDT OT/PT/Speech Visit [facility] [address] [place] [address] Rigoberto Acuna, PT [address] [place], [place] [id number] BACK PAIN [facility] Comment on above: BACK PAIN Start: 08-19-2024 End: 08-19-2024 ambulatory 08/19/2024 7:00 AM EDT OT/PT/Speech Visit [facility] [address] [place] [address] Rigoberto Acuna, PT [address] [place] [address] BACK PAIN [facility] Comment on above: BACK PAIN Start: 11-11-2023 Covid-19 Vaccine () Covid-19 Vaccine ( season) [facility] Start: 11-10-2022 Influenza vaccination Influenza Vacc ine (#1) [facility] Start: 03-12-2022 Depression Assessment Depression Ass essment [facility] Start: 06-17-2021 Lipid 1996 panel - S brigido or Plasma Lipid Screening [facility] Start: 06-17-2021 Lipid panel Lipid Screening [facility] Start: 06-17-2021 Prostate Cancer Scre ening Discussion Prostate Cancer Screening Discussion [facility] Start: 06-17-2021 Prostate specific an tigen measurement Prostate Cancer Screening Discussion [facility] Start: 2020 RSV Vaccine (1 - Ris k 60-74 years 1-dose series) RSV Vaccine (1 - Risk 60-74 years 1-dose series) [facility] Start: 06-18-2019 Diabetes Screening Diabetes Screenin g [facility] Start: 2010 Pneumococcal Vaccine : 50+ (1 of 1 - PCV) Pneumococcal Vaccine: 50+ (1 of 1 - PCV) [facility] Start: 2010 Shingrix Vaccine (1 of 2) Bacon grix Vaccine (1 of 2) [facility] Start: 2005 Cologuard (FIT-DNA) Cologuard (FIT-D NA) [facility] Start: 2005 Colonoscopy Colonoscopy [facility] Start: 2005 Colorectal Cancer Screening Colorectal Cancer Screening [facility] Start: [address] COLONOGRAPHY [facility] Start: 2005 Fecal Occult Blood Fecal Occult Bloo d [facility] Start: 2005 Screening for malign ant neoplasm of colon [facility] Start: 2005 SIGMOIDOSCOPY SIGMOIDOSCOPY [facility] Start: 1979 Urine microalbumin profile DTaP,Tdap,Td Vaccine (1 - Tdap) [facility] Start: 1978 Anxiety Screening Anxiety Screening [facility] Start: 1978 Depression Screening Depression Scre ening [facility] Start: 1978 Hepatitis C Screening Hepatitis C [facility] Start: 1978 Hepatitis C screening Hepatitis C [facility] Start: 1978 HIV Screening HIV Screening [facility] Start: 1978 HIV screening HIV Screening [facility] Start: 1960 Covid-19 Vaccine (#1) Covid-19 Vacci ne (#1) [facility] Abdominal aortic ane urysm screening [facility] Basic metabolic 2008 panel with ionized calcium - Serum or Plasma [facility] Cardiovascular stres s testing [facility] CBC W Auto Different ial panel - Blood [facility] XR Chest PA and Lateral [facility] Immunizations Immunization Date Immunization Notes Care Provider Mirella zhang 02-20-2022 influenza virus vacc ine, unspecified formulation Rigoberto Acuna PT Work Phone: [facility] Payers Date Payer Category Payer Unknown 2024 Self-pay [id number] 2021 Private Health Insurance MMO SUP [employer] PPO [id number] 2021 Unknown [id number] Unknown [id number] Unknown [id number] Unknown [id number]. 462 Unknown [id number]. 462 Unknown [id number] [id number]. 462 Unknown [id number]. 462 Unknown [id number] [id number]. 462 Unknown [id number] [id number]. 462 Unknown [id number] [id number]. 462 Unknown [id number] [id number]. 462 Unknown [id number] [id number]. 462 Unknown [id number] [id number]. 462 Unknown [id number] [id number]. 462 Unknown [id number] [id number]. 462 Unknown [id number] [id number]. 462 Unknown [id number] [id number]. 462 Social History Date Type Detail Facility Start: 05-19-2019 End: 05-19-2019 Tobacco smoking status NHIS Unknown if ever smoked [facility] Start: 05-19-2019 Non-smoker [facility] Start: 1960 Sex Assigned At Male [facility] Start: 05-27-2020 End: 11-05-2024 History of Social function [facility] Start: 05-27-2020 End: 11-05-2024 Tobacco use panel [facility] Start: 01-30-2016 National Score (1-10 0), lower number is lower risk Not on file [facility] Start: 1960 Sex Assigned At Not on file [facility] Start: 04-27-2020 End: 05-27-2020 Exposure to SARS-CoV-2 (event) Not sure [facility] Start: 02-28-2017 End: 05-19-2019 Tobacco smoking status NHIS Never smoked tobacco (finding) [facility] Start: 06-24-2024 End: 07-01-2024 Sex Male (finding) [facility] Start: 02-28-2017 Tobacco use and exposure Smokeless tobacco non-user [facility] Start: 05-27-2020 Alcoholic beverage intake Not Asked [facility] Goals Date Patient Goal Desired Activity /State Clinical Notes 06-19-2024 to 12-10-2024 Note Date & Type Note Facility 12-10-2024 Progress note [facility] 11-20-2024 Evaluation note Diagnosis Onset Date Resolution Coronary artery calcification of minto artery acute November 20, 2024 1:02pm Diabetes 1.5, 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 Author Type: Nurse Practitioner Type: Progress Notes Filed: 11/05/2024 09:31 Note Text: [facility] Tracee Larios is a 64 year old [...] is no mas (more content not included)... [facility]08-27-2025 History of Present illness Narrative* Jennifer Catalan APRN.DRUM BUILDER - 11/05/2024 9:25 AM EDT URGENT CARE [...] to tolerate oral intake. and Recording using Izz[employer] software for draft documentation of the visit was discussed withthe patient/authorized sales representative marine supplies; all questions welcomed and answered. Patient/authorized repre sentative agreed to proceed MDM Procedures [1] Social History Tobacco Use Smoking status: Never Smokeless tobacco: Never documented in [facility] Instructions* Patient Instructions* Jennifer Catalan APRN.CNP [...] time, processed foods were introduced into the [place] diet. Many processed foods contain refined, low-fiber flour. Unlike whole-wheat flour, refined flour has no wheat bran. Diverticular disease is common in developed or industrialized countries--particularly the [place], [place], and [place]--where low- fiber diets [...] bowel contents can move through easily. The [place] Dietetic Association recommends 20 to 35 grams of fiber each day. The table below shows the amount of fiber in some foods that you can easily add to your diet. Amount of Fiber in Some Foods Fruits Apple, raw, with skin 1 medium = 3.3 grams [place], raw 1 medium = 1.5 grams Pear, raw 1 medium = 5.1 grams [place], raw 1 medium = 1.9 grams Vegetables Asparagus, fresh, cooked 4 george = 1.2 grams Broccoli, fresh, cooked 1/2 cup = 2.6 grams Errol sprouts, fresh, cooked 1/2 cup = 2 [...] [facility]. [place], [place]: [facility];2000: 125-132. [place] NAVAS. Understanding diverticular disease. Ostomy Quarterly. 2002;39(2):56-57. For More Information International Foundation for Functional Gastrointestinal Disorders [address] [place] [address] Phone: or [phone] Email: Internet: www.iffgd.org The U.S. Government does [...] Digestive Diseases Information Clearinghouse [address] [place] [address] Phone: Email: Internet: www.digestive.niddk.nih.gov The National Digestive Diseases Information Clearinghouse (NDDIC) is a service of the National [place] of Diabetes and Digestive and Kidney Diseases (NIDDK). The NIDDK is part of the National Institutes of Health of the U.S. Department of Health and Human Services. Established in 1979, the Clearinghouse provides information about digestive diseases to people with digestive disorders and to their families, health daycare worker, and the public. The NDDIC answers inquiries, [...] and distribute as many copies as desired. [facility] Publication No. 07-1163 December 2005 documented in this encounter[facility]-2025 NoteHNO ID: [id number] Author: RIGOBERTO ACUNA PT Service: ? Author [...] Session Stop Time : 817 Rigoberto Acuna [facility]07-01-2025 History of Present illness Narrative* Rigoberto Acuna, PT - 09/09/2024 7:56 AM EDT Images from the original note were not included. Episode Visit Count: 5 Therapist That Will Accept/Oversee The Plan Of Care: Rigoberto Acuna PT Start of Care Date: 08/08/24 Onset Date: 03/21/24 [facility]ER[facility] PHYSICAL THERAPY DISCONTINUANCE OF CARE PLAN OF CARE UPDATE: Assessment: Amos Lairos is discontinued from Physical Therapy services due [...] 817 Rigoberto Acuna PT documented in this encounterB[facility]06-[facility]-2025 NoteHNO ID: [id number] Author: RIGOBERTO ACUNA PT Service: ? Author [...] Session Stop Time : 825 Rigoberto Acuna [facility]06-24-2025 History of Present illness Narrative* Rigoberto Acuna [...] 825 Rigoberto Acuna PT documented in this encounter[facility]-2025 NoteHNO ID: [id number] Author: RIGOBERTO ACUNA PT Service: ? Author [...] Session Stop Time : 823 Rigoberto Acuna [facility]06-17-2025 History of Present illness Narrative* Rigoberto Acuna PT - 08/26/2024 7:43 AM EDT [...] 823 Rigoberto Acuna PT documented in this encounterB[facility]06-10-2025 NoteHNO ID: [id number] Author: RIGOBERTO ACUNA PT Service: ? Author [...] Session Stop Time : 742 Rigoberto Acuna [facility]06-10-2025 History of Present illness Narrative* Rigoberto Acuna, [...] 742 Rigoberto Acuna PT documented in this encounterBrec[facility]05-30-2025 NoteHNO ID: [id number] Author: RIGOBERTO ACUNA PT Service: ? Author [...] Planned: 4 Planned Treatment Interventions: Therapeutic exercise (98072), Neuromuscular re-education (19727), Manual therapy (89991), Therapeutic activities (45713), Patient/Family/Caregiver Education PLAN FOR NEXT VISIT: Increase Lumbar extensor flexibility Patient demonstrates good understanding of plan of care and treatment. The above goals and plan of care were discussed and agreed upon by patient/family. 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 Broke bones in the hands, the L clavicle, and has had some strains. Pt has a difficult time sitting still. Has a [employer]. X-rays showed some degeneration of the [...] x 30 sec 3: (more content not included)...[facility]05-30-2025 History of Present illness Narrative* Rigoberto [...] therapy services to meet the goals established [facility] plan of care as noted below. Classification [...] Planned: 4 Planned Treatment Interventions: Therapeutic exercise (13030), Neuromuscular re- education (45242), Manual therapy (76042), Therapeutic activities (72856), Patient/Family/Caregiver Education PLAN FOR NEXT VISIT: Increase Lumbar extensor flexibility Patient demonstrates good understanding of plan of care and treatment. The above goals and plan of care were discussed and agreed upon by patient/family. 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 Broke bones in the hands, the L clavicle, and has had some strains. Pt has a difficult time sitting still. Has a [employer]. X-rays showed some degeneration of the [...] 0839 Rigoberto Acuna PT documented in this encounterBrecksville [facility]04-10-2025 Radiology Diagnostic study note [facility] Imaging Services [address] [place], [place] [address] L/S Spine w Bend Min 6 Vw MR#: [id number] Acct: [id number] Name: AMOS LARIOS Rep #: [id number] : 1960 M 64 From: Ethan Miranda MD PCP: Dr. Dodie Bertrand, Status: REG CLI Study:L/S Spine w Bend Min 6 Vw Date of Exam: 06/18/24 Exam# [id number] Ordering Dr: Stefani Bertrand sa DO PROCEDURE: [...] acute fracture or traumatic malalignment. Reading Location: [id number] CC: Dr. Dodie Bertrand, DO ~ Gas Shovel Operator: Signed [facility] noteNo assessment information available [facility] Work Phone: Evaluation note* Diagnosis Degeneration of intervertebral disc of lumbar region with discogenic back pain and lower extremity pain- Primary Lumbar radiculopathy Thoracic or lumbosacral neuritis or radiculitis, unspecified [facility]* Diagnosis Degeneration of intervertebral disc of lumbar region with discogenic back pain and lower extremity pain- Primary Lumbar radiculopathy Thoracic or lumbosacral neuritis or radiculitis, unspecified documented in this encounter [facility] note* Diagnosis Lumbar radiculopathy- Primary Thoracic or lumbosacral neuritis or radiculitis, unspecified Degeneration of intervertebral disc of lumbar region with discogenic back pain and lower extremity pain documented in this encounter [facility] note* Diagnosis Lumbar radiculopathy- Primary Thoracic or lumbosacral neuritis or radiculitis, unspecified [facility]* Diagnosis Lumbar radiculopathy- Primary Thoracic or lumbosacral neuritis or radiculitis, unspecified Degeneration of intervertebral disc of lumbar region with discogenic back pain and lower extremity pain documented in this encounter [facility] note* Diagnosis Diarrhea, unspecified type- Primary Lower abdominal pain Abdominal pain, other specified site documented in this encounter [facility] note* Diagnosis Onset Date Resolution Status Admit Date HTN (hypertension) chronic Sept2024 1:02pm [facility] Work Phone: Progress note Author Mika Ross [facility] Note Date/Time December 10, 2024 10 :16am [facility] [address] [place], [place] [address]. [address] [place] [address] OFFICE VISIT Date of Service: 12/10/24 MR#: [id number] Acct: [id number] Name: AMOS LARIOS Rep #: [id number] : 1960 Provider: Dr. Emerson Ross MD Age/Sex: 64/M Location: [facility] [facility] Status: Signed HPI HPI History of [...] Intake Visit Reasons: DISCUSS RECENT TESTING PER Staffing Recruiter Required: No Accompanied by: Self Is patient [...] and Plan (1) Coronary artery calcification of minto artery: Status: Acute Plan: Patient has coronary [...] Today I25.10 - Atherosclerotic heart disease of minto coronary artery without angina pectoris, I25.84 - Coronary atherosclerosis due to calcified coronary lesion CBC W/Diff, Automated Today I25.10 - Atherosclerotic heart disease of minto coronary artery without angina pectoris, I25.84 - Coronary atherosclerosis due to calcified coronary lesion Prothrombin Time w/INR Today I25.10 - Atherosclerotic heart disease of minto coronary artery without angina pectoris, I25.84 - Coronary atherosclerosis due to calcified coronary lesion Chest PA and Lateral Today I25.10 - Atherosclerotic heart disease of minto coronary artery without angina pectoris, I25.84 - Coronary atherosclerosis due to calcified coronary lesion Left Heart Cath/COR/LV Percut Today I25.10 - Atherosclerotic heart disease of minto coronary artery without angina pectoris, I25.84 - [...] vis,est,level 3 Diagnoses Coronary artery calcification of minto artery I25.10; I25.84 Primary hypertension I10 Hypertension type: primary hypertension Abnormal stress ECG R94.39 Diabetes 1.5, managed as type 2 E13.9 Coding Level of Care Code Off vis,est,level 3 Diagnoses Coronary artery calcification of minto artery I25.10; I25.84 Primary hypertension I10 Hypertension type: primary hypertension Abnormal stress ECG 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 Dodie Bertrand, DO ~ [facility] Work Phone: Reason for referral (narrative)No reason for referral information [facility] Work Phone: Family History No Family History Records Found Relationship Condition Age at Onset Recorded Date/T danny Not Specified High blood cholesterol Unknown Malignant neoplasm of breast Unknown Cerebrovascular accident (CVA) Unknown Advance Directives No Advanced Directives Records Found Advance Directive Response Recorded Date/ Time Living Will Yes May 19, 2019 8:36am Power of Community Specialist Yes May 18 0 8:36am Advance Directive Response Recorded Date/ Time Living Will Yes May 19, 2019 9:36am Power of Community Specialist Yes May 18 0 9:36am Chief Complaint [...] Visit Admit Date Coronary artery calcification of minto artery November 20, 2024 1:02pm Diabetes 1.5, managed as type 2 Septembe r 2024 1:02pm High cholesterol November 20, 2024 1:02pm HTN (hypertension) November 20, 2024 1:02pm Abnormal stress ECG December 10, 2024 9: 43am Coronary artery calcification of minto artery December 10, 2024 9:43am Diabetes 1.5, [...] MD Attending Provider, Referring Pr ovider Active 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 Specialty Start Date End Date Ora [...] June 26, 2024 End: June 26, 2024 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 Specialty Start Date End Date Serjio Mitchell PCP - General Family Medicine 01/22/17 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 Specialty Start Date End Date Serjio Mitchell PCP - General Family Medicine 01/22/17 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 Specialty Start Date End Date Serjio Mitchell PCP - General Family Medicine 01/22/17 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 Specialty Start Date End Date Serjio Mitchell PCP - [facility] 01/22/17 Team Status: Active [...] October 24, 2024 End: October 24, 2024 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 Specialty Start Date End Date Dodie Bertrand DO [id number] [facility] [place] [address] PCP - General Family Medicine 11/05/24 Team [...] or prosecute any alcohol or drug abuse patient.[facility] the event this information is protected by the Federal Confidentiality of Alcohol and Drug Abuse Patient Records regulations: The Federal rules restrict any use of the information to criminally investigate or prosecute any alcohol or drug abuse patient.[facility] the event this information is protected by the Federal Confidentiality of Alcohol and Drug Abuse Patient Records regulations: The Federal rules restrict any use of the information to criminally investigate or prosecute any alcohol or drug abuse patient.[facility] the event this information is protected by the Federal Confidentiality of Alcohol and Drug Abuse Patient Records regulations: The Federal rules restrict any use of the information to criminally investigate or prosecute any alcohol or drug abuse patient.[facility] the event this information is protected by the Federal Confidentiality of Alcohol and Drug Abuse Patient Records regulations: The Federal rules restrict any use of the information to criminally investigate or prosecute any alcohol or drug abuse patient.[facility] the event this information is protected by the Federal Confidentiality of Alcohol and Drug Abuse Patient Records regulations: The Federal rules restrict any use of the information to criminally investigate or prosecute any alcohol or drug abuse patient.[facility] the event this information is protected by the Federal Confidentiality of Alcohol and Drug Abuse Patient Records regulations: The Federal rules restrict any use of the information to criminally investigate or prosecute any alcohol or drug abuse patient.[facility] Reason for Visit (unrecogniz ed section and content) Reason Comments PT Discharge Specialty Diagnoses / Procedures Referred By Contac t Referred To Contact Physical Therapy / PHYSICAL THERAPY Diagnoses BACK PAIN Procedures PHYSICAL THERAPY EVALUATION HIGH COMPLEX 45 MINS NEW RS PT SPINE Clayton Latif PA-C [address] [place] [address] Phone: tel: fax: Rigoberto Acuna, PT [address] [place] [address] Phone: tel: Referral ID Status Reason Start Date Expiration Date V isits Requested Visits Authorized [id number] Authorized 03/12/2024 03/11/2025 99 99 Reason Comments Physical Therapy Reason Comments PT Eval Reason Comments Diarrhea nausea and vomiting x last night, hx of diverticulitis (unrecognized sect ion and content) No Status Records FoundNo Status Records Found INFORMATION SOURCE (unrecogn ized section and content) DATE CREATED AUTHOR 11/07/2024 [facility] DATE CREATED AUTHOR AUTHOR'S ORGANIZ ATION 12/17/2024 [facility] FOR RECORDS PERTAINING TO PATIENTS WHO ARE [...] BE BASED ON THE PRIMARY CLINICAL RECORDS. [employer] [facility]. provides no warranty or guarantee of the accuracy or completeness of information in this document.
--- NOTE | 2024-12-26 10:56 | CRPHASE1_ITS ---
Patient Communication Patient Information PHII Cardiac Rehab Discussed with Patient:: Yes Guide to Cardiac Rehab Given to Patient:: Yes Cardiac Rehab Facility Choice List Given to Patient:: Yes Communication to Cardiac Rehab Choice Program [facility] CR PHII:: Communication Given to CR Principal Java Software Engineer:: jono French Phase II Cardiac Rehab:: Yes Sessions:: 36 sessions - 3 days/wk, 12 weeks Cardiac Rehabilitation Info Program Information Cardiac Rehabilitation Program Information: Cardiac Rehab The cardiac rehab team at [facility] consists of highly skilled exercise physiologists, nurses, respiratory therapists and physicians working together with you. Our purpose is to help you have a full recovery and achieve the goals you set for yourself. Over the years many of our patients have returned to activities they assumed they would never do again! We can help restore your confidence and motivation to make lifestyle changes that can have a significant impact on your health and quality of life! We can help answer questions and concerns you may have about exercise, lifestyle, medications, diet, stress and anxiety which are common following a hospitalization. WE monitor ECG and vital signs during exercise and discuss your progress with you and report to your physician(s). Cardiac Rehab is proven to help reduce readmissions, improve functional capacity and lower recurrence of problems with your heart. Our Cardiac Rehab program is Certified by the [employer]io-Vascular and Pulmonary Rehabilitation (AACVPR) and Accredited by the [employer] through our [facility]. You can contact us at . We invite you to call us with your questions or to get started in our program. If you have other questions or concerns be sure to ask your physician/provider during your follow-up visit. WE look forward to seeing you!
--- NOTE | 2024-12-26 10:57 | CRPH1.INSTRU ---
General Education Discussed with Patient CAD and cardiac anatomy and function:: Patient communicates acknowledgment Explanation of diagnoses and procedures:: Patient communicates acknowledgment Sign/Symptoms of TX:: Patient communicates acknowledgment Antiplatelet therapy: Patient communicates acknowledgment Proper use of NTG-SL: Patient communicates acknowledgment Emergency procedures and activation of EMS: Patient communicates acknowledgment Compliance of all prescribed medications: Patient communicates acknowledgment Smoking Risk Factors Patient Nicotine/Smoking Risk Factors Are:: Non-smoker and Never smoked Dyslipidemia Risk Factors Patient Dyslipidemia Risk Factors Are:: Total Cholesterol, Triglycerides, HDL and LDL Recommendations Recommendations Include:: Lipid profile provided, Reviewed NCEP/ATP guidelines and Therapeutic Lifestyle Change dietary guidelines Response Code Dyslipidemia Response Code:: Patient communicates acknowledgment Overweight/Obesity Risk Factors Patient Overweight/Obesity Risk Factors Are:: Overweight = 26-29 Recommendations Recommendations Include:: Weight loss of 5-10%, Reduced calorie diet and Exercise 5-7 times/week Response Code Overweight/Obesity:: Patient communicates acknowledgment Hypertension Recommendations Recommendations Include:: BP <130/80 if diabetic, DASH dietary guidelines, Decrease/maintain normal body weight and Moderation of ETOH Response Code Hypertension:: Patient communicates acknowledgment Diabetes Risk Factors Patient Diabetes Risk Factors Are:: Elevated blood sugars Recommendations Recommendations Include:: Maintain fasting blood sugars 70-110 md/dL, Maintain HgbA1c of 6% or less, Monitor blood sugar as prescribed, Diabetic dietary guidelines and Decrease/maintain body weight Response Code Diabetes:: Patient communicates acknowledgment Metabolic Syndrome Recommendations Recommendations Include:: Patient is diabetic Sedentary Risk Factors Patient Sedentary Risk Factors Are:: Lack of regular exercise Recommendations Recommendations Include:: Aerobic exercise 5-7 times/week for 20-30 minutes continuously, Benefits of regular exercise, Discussed home walking program and Monitored Outpatient Cardiac Rehab Response Code Sedentary Response Code:: Patient communicates acknowledgment Stress Recommendations Recommendations Include:: Identification of stressors, and assessment of coping skills and Stress management techniques Response Code Stress Response Code:: Patient communicates acknowledgment
[2024-12-26] MEDS: TICAGRELOR 90 MG TABLET PO (21:43)
[2024-12-27 04:30] VITALS: BP 134/85; PULSE 71; RESP 16; TEMP 36.7; O2SAT 97
[2024-12-27 06:26] LABS: Hematocrit 43.6 % (40-54); Hemoglobin 14.9 g/dL (13.0-16.5); Mean Corp Hgb Conc 34.2 g/dL (32-36); Mean Corpuscular Volume 88.6 fL (80-94); Mean Platelet Vol. 9.4 fl (6.2-12.0); Platelet Count 194 K/mm3 (150-450); RBC Distribution Width CV 13.1 % (11.6-14.6); RBC Distribution Width SD 42.3 fl (35.1-43.9); Red Blood Count 4.92 M/mm3 (4.6-6.2); White Blood Count 5.9 K/mm3 (4.4-11.0)
[2024-12-27 06:45] LABS: AST(SGOT) 17 U/L (<=37); Alanine Aminotransfer ALT/SGPT 21 U/L (<=46); Albumin, Serum 4.3 g/dL (3.4-4.8); Alkaline Phosphatase 62 U/L (40-129); Anion Gap 11 (5-15); BUN 17 mg/dL (4-19); BUN/Creat Ratio 23.2 RATIO (10-20); Calcium,Total 9.4 mg/dL (7.6-11.0); Carbon Dioxide 21.9 mmol/L (21.0-32.0); Chloride 105 mmol/L (98-108); Estimated Creatinine Clearance 104.13 ml/min (50-250); Globulin 2.4 g/dL (2.2-4.2); Glucose 145 mg/dL (70-99); Potassium 4.5 mmol/L (3.3-5.1)
[2024-12-27 08:16] VITALS: BP 129/92; PULSE 80; RESP 18; O2SAT 98
[2024-12-27] MEDS: Cholecalciferol (VIT D3) 25 MCG TABLET (1,000 UNITS) PO (08:51)
[2024-12-27] MEDS: Pioglitazone Hydrochloride 15 MG Tablet PO (08:51)
[2024-12-27] MEDS: TICAGRELOR 90 MG TABLET PO (08:52)
--- NOTE | 2024-12-27 09:10 | PN.CARD_ITS ---
Subjective Subjective Patient seen and evaluated. Doing well this morning. Thinks he is breathing much better. Objective Data Vital Signs: Vital Signs Temp Pulse Resp BP Pulse Ox O2 Del Method 98.0 F 80 18 129/92 H 98 Room Air 12/27/24 04:30 12/27/24 08:16 12/27/24 08:16 12/27/24 08:16 12/27/24 08:16 12/27/24 08:16 Oxygen Delivery Method Room Air Weight: 184 lb Body Mass Index (BMI) 26.4 Lab / Micro Data 12/27/24 06:02 12/27/24 06:02 Labs: Laboratory Results - last 24 hr 12/26/24 10:42: POC Glucose 111 H 12/27/24 06:02: WBC 5.9, RBC 4.92, Hgb 14.9, Hct 43.6, MCV 88.6, MCH 30.3, MCHC 34.2, RDW Std Deviation 42.3, RDW Coeff of Meena 13.1, Plt Count 194, MPV 9.4, Sodium 138, Potassium 4.5, Chloride 105, Carbon Dioxide 21.9, Anion Gap 11, BUN 17, Creatinine 0.74, Estim Creat Clear Calc 104.13, Est GFR (MDRD) Non-Af 101, B UN/Creatinine Ratio 23.2 H, Glucose 145 H, Calcium 9.4, Total Bilirubin 0.68, AST 17, ALT 21, Alkaline Phosphatase 62, Total Protein 6.8, Albumin 4.3, Globulin 2.4, Albumin/Globulin Ratio 1.8 Cardiology Labs/Tests 12/27/24 06:02: WBC 5.9, RBC 4.92, Hgb 14.9, Hct 43.6, MCV 88.6, MCH 30.3, MCHC 34.2, Plt Count 194, MPV 9.4, Sodium 138, Potassium 4.5, Chloride 105, Carbon Dioxide 21.9, Anion Gap 11, BUN 17, Creatinine 0.74, Est GFR (MDRD) Non-Af 101, BUN/Creatinine Ratio 23.2 H, Glucose 145 H, Calcium 9.4, Total Bilirubin 0.68 Rhythm: EKG: ECHO: Stress Test: Cardiac Cath: PCI: CT Surgery: Holter monitor: EPS: PPM: CXR: Chest CT Scan: Physical Exam Const alert and oriented x3 HEENT normocephalic Neck full ROM Chest inspection of chest normal Resp normal respiratory effort Cardio regular rate and regular rhythm Heart Sounds: S1 normal and S2 normal GI normal to inspection, nondistended, normoactive bowel sounds Extremity no clubbing, cyanosis or edema Assessment & Plan Assessment/Plan (1) Stented coronary artery: PLAN: Patient is status post angioplasty and stenting of the proximal left anterior descending artery. Appears to be much better today. Patient will be discharged on guideline directed medical therapy, start cardiac rehabilitation, and follow-up in the heart group offices.
--- NOTE | 2024-12-27 09:15 | DCINST_ITS ---
Discharge Instructions DC O2, CPAP, BIPAP needs Home O2 Discharge instructions: No Dressing / Incision Discharge Activity: Return to Normal Activity Lifting Restrictions: 10 pounds and also avoid any pushing or pulling for 3 days after your test. Additional Activity Instructions:: You must have someone drive you home. Do not drive until instructed by your doctor. You must have someone stay with you all night after your test. Rest in bed or on the couch until the next morning. Limit the number of times you go up and down stairs the day of your test. Apply pressure to the puncture site if you sneeze or cough. Dressing / Incision Call your doctor if your incision/area has: Increased Pain/ Swelling, Increased Redness, Foul Smelling Discharge and Swelling at the incision site Call your doctor if you observe: Fever of 101 or Higher Additional Dressing/Incision Instructions:: Keep the dressing (bandage) on until the next morning. You may then shower, but do not take a tub bath for 5 days after your test. It is normal to have some tenderness and discomfort at the puncture site. Sometimes bruising also occurs. However, if pain, numbness, or coldness occurs below the puncture site (in your leg, toes, arms or fingers) call your doctor at once. You may have a small, marble sized knot at the puncture site. This is normal. Do not rub it. It will go away in 4-6 weeks. Bleeding can occur from the area where the puncture was done. Blood may spurt or drip from the site. If blood spurts, apply pressure right away to stop bleeding and call 911. Although rare, bleeding into the tissue (hematoma) can also occur. If this happens, a large, firm area goose egg under the skin will appear. If any of these occur, lie down as flat as you can and have someone apply firm pressure to the cath site with a gauze pad or a clean washcloth for 10-15 minutes. Call 911 or go to the Emergency Department. Follow Up Care When: The heart group will call with appointment Test Results: Test results from this visit will be discussed in further detail at your follow- up appointment, if applicable. Discharge Plan Admission Admit Date/Time: 12/26/24 10:07 Attending Provider: Silviano Lucero Primary Care Provider: Dodie Bertrand Discharge Orders/Prescriptions Prescriptions: New ticagrelor [Brilinta] 90 mg Tablet 90 mg PO BID Qty: 180 3RF Continued atorvastatin [Lipitor] 20 mg tablet 20 mg PO QDAY Jardiance 25 mg tablet 25 mg PO QDAY pioglitazone 15 mg tablet 15 mg PO QDAY Ozempic 1 mg/dose (4 mg/3 mL) pen injector 1 mg subcut QWEEK aspirin 81 mg tablet,chewable 81 mg PO QDAY Qty: 30 11RF cholecalciferol (vitamin D3) 1,000 UNIT tablet 1,000 unit PO DAILY Referrals / Follow Up: Dodie Bertrand DO [Primary Care Provider, Family Practice] Disposition Disposition (needs filled in before D/C Order can be placed): Home, Self Care
--- NOTE | 2024-12-27 10:00 | EKG12_ITS ---
Test Reason : Blood Pressure : */* mmHG Vent. Rate : 71 BPM Atrial Rate : 71 BPM P-R Int : 174 ms QRS Dur : 88 ms QT Int : 372 ms P-R-T Axes : 37 -6 33 degrees QTcB Int : 404 ms Normal sinus rhythm Normal ECG When compared with ECG of 26-Dec-2024 10:56, MANUAL COMPARISON REQUIRED DATA IS UNCONFIRMED Confirmed by RESHMA PINEDA, SILVIANO ([id number]), news videotape editor MICHELLE DAILY ([id number]) on 12/29/2024 10:04:48 AM Referred By: Silviano Lucero Confirmed By: SILVIANO LUCERO MD
[2024-12-27] MEDS: FLU VACCINE 2025-26(6MOS UP) 45 MCG/0.5 ML SYRINGE IM (10:21)
--- NOTE | 2024-12-27 11:56 | NURSING ---
Pt and given discharge instructions including medications, follow up appointments and all other discharge instructions. Pt denies any further questions or needs at this time. Telemetry removed and placed at nurses station. IV removed with catheter intact, clean dry dressing applied, pt tolerated well. Pt walking out with his at this time. Pt has medications that were brought up from pharmacy that he has with him to take home. pt denies any further questions or needs at this time.
== END 2024-12-27 11:56 | disposition home or self-care (01) ==
LOC: PCU 10:08 → CLSP 10:19 → PCU 10:19
PROVIDERS: Internal Medicine Cardiovascular Disease; Admitting Provider Specialist; PCP Family Medicine; Referring Provider Internal Medicine Cardiovascular Disease; Visit Provider Internal Medicine Cardiovascular Disease
DX: I25.119 Atherosclerotic heart disease of native coronary artery with unspecified angina pectoris (principal); E13.9 Other specified diabetes mellitus without complications; R94.39 Abnormal result of other cardiovascular function study; E78.00 Pure hypercholesterolemia, unspecified; I10 Essential (primary) hypertension; Z79.899 Other long term (current) drug therapy; Z79.82 Long term (current) use of aspirin; Z79.85 Long-term (current) use of injectable non-insulin antidiabetic drugs; I25.2 Old myocardial infarction; R94.31 Abnormal electrocardiogram [ECG] [EKG]
CPT/HCPCS: 36415; 71046; 80048; 80053; 82962; 85025; 85027; 85610; 92928; 93005; 93458; 99152; 99153; C1769; C1887; Q9967; C1894; C9600

== ENCOUNTER → 2025-01-06 | Outpatient (CLI) | payer OTHER, SELFPAY ==
--- NOTE | 2025-01-06 08:04 | CR.HP_ITS ---
CR - History & Physical
--- NOTE | 2025-01-06 08:04 | PCM.CR.HP2 ---
CR - History & Physical General Arrival date:: 01/06/25 Arrival time:: 08:04 Date of Referral:: 12/26/24 Date of CR Evaluation:: 01/06/25 Referring Physician: Dr. Ross Primary Diagnosis: PCI w/stenting History of Present Cardiac Event Onset Date PTCA or coronary stenting:: Yes (12/26/2024) Vessel: LAD Medications Ambulatory Orders ?Medication ?Instructions ?Recorded cholecalciferol (vitamin D3) 25 1,000 unit PO DAILY vitamin 05/19/19 mcg (1,000 unit) tablet atorvastatin 20 mg tablet (Lipitor) 20 mg PO QDAY cholesterol 11/17/24 empagliflozin 25 mg tablet 25 mg PO QDAY diabetes 11/17/24 (Jardiance) pioglitazone 15 mg tablet 15 mg PO QDAY diabetes 11/17/24 semaglutide 1 mg/dose (4 mg/3 mL) 1 mg subcut QWEEK diabetes 11/17/24 subcutaneous pen injector (Ozempic) aspirin 81 mg chewable tablet 81 mg PO QDAY heart health #30 tabs 12/10/24 ticagrelor 90 mg tablet (Brilinta) 90 mg PO BID #180 tabs 12/27/24 Allergies Allergies No Known Allergies Allergy (Verified 12/10/24 09:49) Sleep Disorder Evaluation Hx of Sleep Apnea: Yes Do you snore loudly (louder than talking or can be heard through closed doors)?: No Do you often feel tired/ fatigued/ sleepy during daytime?: No Has anyone observed you stop breathing during sleep?: No History of Hypertension (for STOP score): Yes STOP Results: Negative Advanced Directives Advanced Directives Do you have a Healthcare Power of Accounting Specialist?: Yes Living Will: Yes Advance Directives Information Provided: No Advance Directives on File: Yes DNR Order?:: No Past Medical History Covid-19 Screening Physicial Symptoms Other Clinical Concerns Exposure Risk Pertinent Comorbidities Has a serious heart condition:: Yes Diabetic:: Yes Past Medical Illness Medical History Heart attack Diabetes 1.5, managed as type 2 HTN (hypertension) Hx of fracture of wrist History of broken collarbone History of torn meniscus of right knee High cholesterol Past Surgical History Surgical History S/P right heart catheterization Family History Summary Family History Other Breast cancer CVA (cerebral vascular accident) High cholesterol Social History Smoking History Smoking Status: Never smoker Alcohol Use Alcohol Usage: Yes (rare) Occupation Occupation (List type of work in comments):: Employed Hours worked per day:: 9 Social Environment Status Marital Status: Current Living Arrangements Living Environment:: Spouse Children How many children do you have?: 6 Do any of your children live nearby?: Yes Safety Do you feel safe in your surroundings?: Yes Assistance Do you need any assistance at home?: no Review of Systems Review of Systems Hints Review of Present Symptoms: Reports Appetite - Normal, Appetite - Special Diet and Sleep - Normal; Denies Shortness of Breath at Rest, Shortness of Breath with Exertion, PVD, Operative Discomfort, Angina, Wound Healing, Dizziness/Lightheadedness, Fatigue, Heart Arrhythmia/Irregularities or Sexual Changes Pain Is Patient Pain Free?: No Pain Location: back and lower extremity Pain Level: 10/19 Risk Factor Assessment Chief Complaint Chief Complaint: PCI w/stenting Vital Signs Pulse Ox: 96 Blood Pressure: 138/80 Pulse Pulse Rate: 80 Pulse Rhythm: Regular Hypertension How long have you been treated?: not treated Blood Pressure Sitting - Right Arm: 138/80 Stress Stress: Work-related Diabetes Diabetic History: Type II (Type 1.5) Nutrition Referral for Diabetes: No Obesity Height: 5 ft 10 in Weight:: 184 lb Weight in Pounds: 184.0 lbs Body Mass Index (BMI): 26.4 Nutritional Referral for Obesity: No Physical Inactivity Physical Inactivity: Reg Exercise 30 min/day Risk Stratification Risk Guidelines: Moderate Risk: Risk Factor for Smoking, Risk Factor for Obesity, Risk Factor for Sedentary Lifestyle and Risk Factor for Depression and Highest Risk: Risk Factor for Dyslipidemia, Risk Factor for Diabetes and Risk Factor for Hypertension For Smoking Smoking Risk Guidelines For Dyslipidemia Dyslipidemia Risk Guidelines For Diabetes Mellitus Diabetes Risk Guidelines For Obesity/Overweight Obesity/Overweight Risk Guidelines For Hypertension Hypertension Risk Guidelines For Sedentary Lifestyle Sedentary Lifestyle Risk Guidelines For Depression Depression Risk Guidelines Family History Family History Other Breast cancer CVA (cerebral vascular accident) High cholesterol Motivation Motivation to Participate On a scale of 1 to 10, how prepared are you to commit to attending program?: 5 What do you see as barriers to successfully being able to complete the program?: nothing What do you see as the benefits of succesfully completing the program? In other words, what do you hope to get out of participating in the program?: improve energy Are there issues you are dealing with that will interfere with completing the program?: no Do you have a spouse or signficant other, family or friends who will help support you to complete the program?: yes
--- NOTE | 2025-01-06 08:10 | PCM.CR.ITP ---
Diagnosis General Information Admitting Diagnosis: PCI w/stenting Personal Learning Style:: Audio/Visual Barriers to Learning: No Barriers Stage of change r/t lifestyle modifications:: Contemplation Gave educational material for:: Treating Heart Disease, How The Heart Works, What it means to have Heart Disease, How Coronary Artery Disease is Diagnosed, Heart Procedures, What Heart Medications Do, Risk Factors & Modifications, Living an Active Life, Nutrition, Emotions & Heart Disease, Stress Management & Relaxation and Sleep Disorders & Heart Disease Education/Goals Cardiac Rehabilitation Goals Personal Goals: Initial Assessment: Improve management of stress and emotions, Improve energy level, Improve muscle strength and endurance and Improve diet and eating habits (eat healthier) Scale for measuring improvement of personal goals Diagnosis & Disease Process Outcomes/Goals: Pt IDs own risk factors & lifestyle modifications by Session 10, Verbalizes symptoms of angina & response by session 3., Pt independently manages and Other Additional Outcomes/Goals: Plan/Interventions: Assist Pt to ID & engage in lifestyle modification to reduce CVD risk, Instruct on individual risk factors, Review symptoms of angina & emergency actions, Review secondary diagnosis & identify educational needs. and Other see comment 30 day Reassessments:: Not Met 30 day Reassessments:: Not Met 30 day Reassessments:: Not Met 30 day Reassessments:: Not Met Final Reassessments:: Not Met Safety Referral to Physical Therapy: No Referral to [facility] Case Management: No Fall Risk Assessed:: Yes Assistive Devices:: None Exercise - Initial Assessment Visit Date of Eval: 01/06/25 (initial eval ) Mets: Pre-: >3 METS for 30 minutes by discharge, >5 METS for 30 minutes by discharge, >7 METS for 30 minutes by discharge and Unable to meet goal due to: (see comment below) Physician Prescribed Exercise Modalities: Treadmill, Rower, Schwinn Airdyne AD-7, SciFit Stepper, SciFit Pro-II Ergometer and SciFit Lateral Big Pool Frequency: 3x/week for 12 weeks [36 sessions] Intensity: 60-80% of age predicted maximum heart rate reserve Duration: 30 - 45 minutes Current METSs:: 3 Target Heart Rate:: 94-117 Resting Blood Pressure: 138/80 EKG Type: NSR Outcomes & Goals Goals:: Verbalizes understanding of THR, RPE & goal METS by session 6, Documents in home exercise log/reports 30 min aerobic 5 day/wk by DC, Demonstrates accurate pulse taking by DC and Other additional outcome/goals: see below Intervention & Plan Exercise Program Goals: Instruct on personal THR & RPE, Instruct on MET level & personal MET goal, Show patient to take own pulse /validate performance until accurate, Instruct on home exercise and Other additional plan/int Physical Activity Home Exercise Physical Activity - Home Exercise: Safe Exercise, Warm-up, Self-monitoring, Cool-Down, Home Exercise > 30 min Daily and Sitting Time <3 hours/daily Outcomes & Goals Outcomes/Goals: Demonstrates correct Warm-up/exercise Cool-Down (S3) if = 2.5 METs, Verbalizes symptoms of exercise intolerance by Session 3 (S3), Demonstrate safe equipment use (S3) & follows exercise prescrition (6) and Other: See below Intervention & Plan Plan/Intervention: Instruct warm-up & cool-down if exercising at > 2 METs, Instruct on symptoms of exercise intolerance & actions to take, Instruct & monitor on saf, Assess intial functional capacity & safety risk and Other See below Nutrition - Initial Assessment Program Goals Nutrition Program Goals Patient has diagnosis of Hyperlipidemia (ICD E78)?: Yes Visit Date of Eval: 01/06/25 Cholesterol/Lipids (Other Core Measures) Determine presence & major risk factors that modify LDL goal: Cigarette smoking, Hypertension or hypertensive medication, Low HDL cholesterol <40 mg/dL*, Family history of premature CHD in Male < 55 years: female <65 yearsFa and Age men > 45 years; women >/= 55 years Outcomes/Goals: Pt IDs own risk factors & lifestyle modifications by Session 10, Verbalizes symptoms of angina & response by session 3., Pt independently manages and Other Additional Outcomes/Goals: Intervention/Plan: Advocate for lipid panel cholesterol medication if applicable, Instruct on personal lipid levels & lipid goals/NCEP guidelines, Instruct on cholesterol and Other additional plan/int Referral to dietitian:: No (Nutrition score of 3.) Diabetes (Other Core Measures) 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) Non-Insulin Dependent?: Yes Referral to Diabetic Clinic:: No Weight Mgt (Other Care) Height: 5 ft 10 in Weight:: 184 lb BMI: 26.4 Diagnosis Overweight/Obesity BMI> 30% ICD-10 E66: No Diagnosis High BMI/Morbid Obesity BMI> 35% ICD-10 Z68: No Outcomes/Goals: Pt sets, maintains & shows weight loss goal & trend during rehab and Other additional outcomes/goals Intervention/Plan: Instruct on ideal BMI & set weight loss goal w/patient, Assist pt to ID & incorporate diet changes for weight loss by S9, Refer to Structured Weight Loss program as appropriate, Encourage goal of using 250-300dcal per session for weight loss and Other additional plan/interventions Healthy Eating Habits Will attend diet classes:: Yes Outcomes/Goals:: Consume diet rich in vegs,fruits,whole grain/high fiber,fish,lean meat, Limit sat/trans fats,cholesterol & added salts & sugars and Other additional outcome/goals: Intervention/Plan:: Assess current eating habits and Other Additional plan/interventions Education Gave educational materials for:: Signs & symptoms of hypoglycemia, Signs & symptoms of hyperglycemia, Relate diabetes to coronary artery disease and Healthy eating Core - Initial Assessment Visit Date of Eval: 01/06/25 (initial eval) Medication Compliance Preventative Medication(s):: Aspirin, Ticagrelor/P2Y12 inhibitor and Statin/lipid H/O mental health issues: depression, anxiety, or addiction?: No Doesn?t believe in the benefits of treatment?: No Believes medications are unnecessary or harmful?: No Has a concern about medication side effects?: No Expresses concern over the cost of medications?: No Outcomes/Goals: Verbalizes medications,desired effect & common side effects @ DC, Pt self-reports following medication regimen, Keeps card in wallet w/medications listed by DC and Other additional outcome/goals: Interventions/plans: Instruct on medication effects & side effects, Review medication list w/patient every two weeks, Instruct importance of taking meds as ordered & assist problem solving and Other additional Tobacco Use Tobacco Use: Non-smoker Hypertension Hypertension Diagnosis:: Hypertension ICD-10 I10 Resting Blood Pressure:: 138/80 [employer] Hypertension Guidelines Outcomes/Goals: Able to verbalize/achieve optimal blood pressure <130/80, Incorporates diet changes & exercise for blood pressure control by DC and Other additional outcomes/goals Interventions/plan: Instruct on optimal blood pressure, hypertension & medications, Instruct on effects of sodium, alcohol, stress, exercise &hypertension and Other additional plan/interventions Tobacco Cessation Referral Smoking Cessation Referral:: No Individual Education/Counseling:: No Education Schedule Given:: Yes Psychosocial - Initial Assess VIsit Date of Eval: 01/06/25 (initial eval) History of previous Mental disease:: No Psychosocial Test Tool Used:: Ferrans Power QOL Cardiac and PHQ-9 Questionnaire phq-9 Severity See PHQ-9 Score: 3 Referral to Behavioral Health PS - Interventions: Yes: Attend Stress Management Classes Outcomes/Goals: See list Psychosocial Outcomes/Goals:: ID's personal stressors & 2 strategies to manage stress by discharge and Other Additional outcome/goals: Intervention/Plan: See List Interventions/Plan:: Assess stressors,coping strategies & signs of derpression on admission, Instruct/assist pt to develop coping & personal stress Mgt strategies, Refer to Behavioral Health if appropriate, Refer to Physician if appropriate, Instruct patient to recognize signs & symptoms of depression, Instruct patient to recog and Other additional plan/intervention Patient Health Questionnaire PHQ-9 Screening Initial Assessment: 1. Little interest or pleasure in doing things: Several days 2. Feeling down, depressed, or hopeless: Not at all 3. Trouble falling or staying asleep, or sleeping too much: Not at all 4. Feeling tired or having little energy: Not at all 5. Poor appetite or overeating: Not at all 6. Feeling bad about yourself -- or that you are a failure or have let yourself or your family down: Several days 7. Trouble concentrating on things, such as reading the newspaper or watching television: Several days 8. Moving or speaking so slowly that other people could have noticed. Or the opposite - being so fidgety or restless that you have been moving around a lot more than usual: Not at all 9. Thoughts that you would be better off , or of hurting yourself in some way: Not at all How difficult have these problems made it for you to do your work, take care of things at home, or get along with other people?: Not difficult at all Total Score: 3 Nutrition Survey Nutrition Survey Initial: Have you lost >10 lbs over the past 2 months without trying?: No Are you following a special diet at home for diabetes, low fat, or low salt?: Yes Are you interested in meeting with a dietitian for help understanding your diet?: Yes Do you eat less than 3 meals a day?: No Do you eat fatty meats (kenny, sausage, ribs, etc), fried foods, desserts, large amounts of salad dressings, margarine, butter, or cheese most days?: Yes Do you have food allergies? [Enter types in comment field]: No Do you eat in restaurants more than 3 times a week?: No Do you season food with salt, seasoning salt, or garlic salt?: No Do you used canned, boxed, frozen meals, or soups, seasoning packets?: No Total Score:: 3 Exercise - 30-day Assessment Physician Prescribed Exercise Modalities: Treadmill, Rower, Schwinn Airdyne AD-7, SciFit Stepper, SciFit Pro-II Ergometer and SciFit Lateral Big Pool Exercise - 60-day Assessment Physician Prescribed Exercise Modalities: Treadmill, Rower, Schwinn Airdyne AD-7, SciFit Stepper, SciFit Pro-II Ergometer and SciFit Lateral Fur Floor Worker Exercise - 90-day Assessment Physician Prescribed Exercise Modalities: Treadmill, Rower, Schwinn Airdyne AD-7, SciFit Stepper, SciFit Pro-II Ergometer and SciFit Lateral Big Pool Exercise - Final/Discharge Physician Prescribed Exercise Modalities: Treadmill, Rower, Schwinn Airdyne AD-7, SciFit Stepper, SciFit Pro-II Ergometer and SciFit Lateral Big Pool Frequency: 3x/week for 12 weeks [36 sessions] Intensity: 60-80% of age predicted maximum heart rate reserve Current METSs:: 3 Target Heart Rate:: 94-117 Nutrition - 30-Day Assessment Weight Mgt (Other Care) Height: 5 ft 10 in Weight:: 184 lb BMI: 26.4 Nutrition - 60-Day Assessment Weight Mgt (Other Care) Height: 5 ft 10 in Weight:: 184 lb BMI: 26.4 Core - Final Assessment Hypertension Resting Blood Pressure:: 138/80 [employer] Hypertension Guidelines Core - 60-Day Assessment Hypertension Resting Blood Pressure:: 138/80 [employer] Hypertension Guidelines Psychosocial - 30-Day Assess Referral to Behavioral Health PS - Interventions: Yes: Attend Stress Management Classes Psychosocial - 60-Day Assess Referral to Behavioral Health PS - Interventions: Yes: Attend Stress Management Classes Psychosocial - 90-Day Assess Referral to Behavioral Health PS - Interventions: Yes: Attend Stress Management Classes Psychosocial - Final Assessmen Psychosocial Test phq-9 Severity See PHQ-9 Score: 3 Referral to Behavioral Health PS - Interventions: Yes: Attend Stress Management Classes Nutrition - 90-Day Assessment Weight Mgt (Other Care) Height: 5 ft 10 in Weight:: 184 lb BMI: 26.4 Nutrition - Final Assessment Program Goals Patient has diagnosis of Hyperlipidemia (ICD E78)?: Yes Weight Mgt (Other Care) Height: 5 ft 10 in Weight:: 184 lb BMI: 26.4
[2025-01-06 08:22] VITALS: BMI 26.4
[2025-01-06 08:27] VITALS: BP 138/80; PULSE 80; O2SAT 96
[2025-01-06 09:05] VITALS: BP 138/80; BMI 26.4
== END | disposition home or self-care (01) ==
LOC: CR 07:57
PROVIDERS: PCP Family Medicine; Referring Provider Internal Medicine Cardiovascular Disease; Visit Provider Internal Medicine Cardiovascular Disease
DX: I25.10 Atherosclerotic heart disease of native coronary artery without angina pectoris (principal); E13.9 Other specified diabetes mellitus without complications; I25.84 Coronary atherosclerosis due to calcified coronary lesion; I10 Essential (primary) hypertension; Z95.5 Presence of coronary angioplasty implant and graft

== ENCOUNTER → 2025-01-20 | Outpatient (CLI) | payer OTHER, SELFPAY ==
[2025-01-06 09:05] VITALS: BMI 26.4
[2025-01-20 12:11] LABS: Creatinine, Urine (random) 74.90 mg/dL (39.00-259.00); Microalbumin,Random Urine 115.0 mg/L (<20 mg/L)
[2025-01-20 12:57] LABS: AST(SGOT) 30 U/L (<=37); Alanine Aminotransfer ALT/SGPT 26 U/L (<=46); Albumin, Serum 4.8 g/dL (3.4-4.8); Alkaline Phosphatase 63 U/L (40-129); Anion Gap 11 (5-15); BUN 17 mg/dL (4-19); BUN/Creat Ratio 21.1 RATIO (10-20); Calcium,Total 10.0 mg/dL (7.6-11.0); Carbon Dioxide 24.9 mmol/L (21.0-32.0); Chloride 104 mmol/L (98-108); Cholesterol 157 mg/dL (<=200); Globulin 2.7 g/dL (2.2-4.2); Glucose 86 mg/dL (70-99); Low Density Lipoprotein Calc. 88 mg/dL; Potassium 4.1 mmol/L (3.3-5.1); Triglycerides 91 mg/dL; Very Low Density Lipoprotein 18 mg/dL (5-40); Vitamin D,25 Hydroxy 45.3 ng/mL (30-100); cholesterol:hdl ratio screen 3.01
== END | disposition home or self-care (01) ==
LOC: LAB 11:06
PROVIDERS: PCP Family Medicine; Referring Provider Internal Medicine Endocrinology, Diabetes & Metabolism; Visit Provider Internal Medicine Endocrinology, Diabetes & Metabolism
DX: E11.65 Type 2 diabetes mellitus with hyperglycemia (principal); E78.2 Mixed hyperlipidemia; E55.9 Vitamin D deficiency, unspecified
CPT/HCPCS: 36415; 80053; 80061; 82043; 82306; 82570; 83036

== ENCOUNTER 2025-02-04 08:00 | Outpatient (RCR) | payer OTHER, SELFPAY ==
[2025-01-06 09:05] VITALS: BMI 26.4
--- NOTE | 2025-02-03 10:16 | PCM.CR.ITP ---
Exercise - Initial Assessment Visit Session #:: 9 Physician Prescribed Exercise Modalities: Treadmill, Schwinn Airdyne AD-7 and SciFit Stepper Nutrition - Initial Assessment Weight Mgt (Other Care) Height: 5 ft 10 in Weight:: 182 lb 8 oz BMI: 26.2 Psychosocial - Initial Assess Referral to Behavioral Health PS - Interventions: Yes: Attend Stress Management Classes and No: Referral to Behavioral Health if PHQ-9 score >9:, No: Referral to [facility] and No: Referral to Physician if PHQ-9 if score is 5-9: Exercise - 30-day Assessment Visit Date of Eval: 02/03/25 Session #:: 9 Physician Prescribed Exercise Modalities: Treadmill, Schwinn Airdyne AD-7 and SciFit Stepper Frequency: 3x/week for 12 weeks [36 sessions] Intensity: 60-80% of age predicted maximum heart rate reserve Duration: 30 - 45 minutes Current METSs:: 6.5 Target Heart Rate:: 94-125 Current RPE:: 12-13 Maximum Excercise HR:: 136 Resting Blood Pressure: 144/72 Maximum Exercise Blood Pressure: 190/90 EKG Type: NSR-Sinus Tach, no ectopy noted Outcomes & Goals Goals:: Verbalizes understanding of THR, RPE & goal METS by session 6, Documents in home exercise log/reports 30 min aerobic 5 day/wk by DC, Demonstrates accurate pulse taking by DC and Other additional outcome/goals: see below Intervention & Plan Exercise Program Goals: Instruct on personal THR & RPE, Instruct on MET level & personal MET goal, Show patient to take own pulse /validate performance until accurate, Instruct on home exercise and Other additional plan/int 30-day Reassessments 30 day Reassessments:: Progressing Reassessment Notes & Comments:: Proper warm up and cool down demonstrated and explained to pt. Pt demonstrates understanding in his daily sessions. Physical Activity Home Exercise Physical Activity - Home Exercise: Safe Exercise, Warm-up, Self-monitoring, Cool-Down, Home Exercise > 30 min Daily and Sitting Time <3 hours/daily Outcomes & Goals Outcomes/Goals: Demonstrates correct Warm-up/exercise Cool-Down (S3) if = 2.5 METs, Verbalizes symptoms of exercise intolerance by Session 3 (S3), Demonstrate safe equipment use (S3) & follows exercise prescrition (6) and Other: See below Intervention & Plan Plan/Intervention: Instruct warm-up & cool-down if exercising at > 2 METs, Instruct on symptoms of exercise intolerance & actions to take, Instruct & monitor on saf, Assess intial functional capacity & safety risk and Other See below 30-day Reassessments 30 day Reassessments:: Progressing Reassessment Notes & Comments:: Pt is progressing in his exercise goals. Will continue to encourage and increase intensity as tolerated. Exercise - 60-day Assessment Physician Prescribed Exercise Modalities: Treadmill, Schwinn Airdyne AD-7 and SciFit Stepper Exercise - 90-day Assessment Physician Prescribed Exercise Modalities: Treadmill, Schwinn Airdyne AD-7 and SciFit Stepper Exercise - Final/Discharge Physician Prescribed Exercise Modalities: Treadmill, Schwinn Airdyne AD-7 and SciFit Stepper Nutrition - 30-Day Assessment Program Goals Nutrition Program Goals Patient has diagnosis of Hyperlipidemia (ICD E78)?: Yes Visit Date of Eval: 02/03/25 Session #:: 9 Cholesterol/Lipids (Other Core Measures) Determine presence & major risk factors that modify LDL goal: Cigarette smoking, Hypertension or hypertensive medication, Low HDL cholesterol <40 mg/dL*, Family history of premature CHD in Male < 55 years: female <65 yearsFa and Age men > 45 years; women >/= 55 years Outcomes/Goals: Pt IDs own risk factors & lifestyle modifications by Session 10, Verbalizes symptoms of angina & response by session 3., Pt independently manages and Other Additional Outcomes/Goals: Intervention/Plan: Advocate for lipid panel cholesterol medication if applicable, Instruct on personal lipid levels & lipid goals/NCEP guidelines, Instruct on cholesterol and Other additional plan/int 30-day Reassessments:: Progressing Reassessment Notes & Comments:: Pt has attended nutrition class with hospital commercial underwriter. Pt understands the benefits of a heart heathy diet. 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 Pt self monitors blood sugar and is able to relate it to cardiac health. Weight Mgt (Other Care) Height: 5 ft 10 in Weight:: 182 lb 8 oz BMI: 26.2 Diagnosis Overweight/Obesity BMI> 30% ICD-10 E66: No Diagnosis High BMI/Morbid Obesity BMI> 35% ICD-10 Z68: No Outcomes/Goals: Pt sets, maintains & shows weight loss goal & trend during rehab and Other additional outcomes/goals Intervention/Plan: Instruct on ideal BMI & set weight loss goal w/patient, Assist pt to ID & incorporate diet changes for weight loss by S9, Refer to Structured Weight Loss program as appropriate, Encourage goal of using 250-300dcal per session for weight loss and Other additional plan/interventions 30 day Reassessments:: Progressing Reassessment Notes & Comments:: Pt is at a healthy weight, will monitor weekly. Healthy Eating Habits Will attend diet classes:: Yes Outcomes/Goals:: Consume diet rich in vegs,fruits,whole grain/high fiber,fish,lean meat, Limit sat/trans fats,cholesterol & added salts & sugars and Other additional outcome/goals: Intervention/Plan:: Assess current eating habits and Other Additional plan/interventions 30-day Reassessments:: Progressing Reassessment Notes & Comments:: Pt has attended nutrition class with hospital commercial underwriter. Heart healthy low sodium diet encouraged. Education Gave educational materials for:: Signs & symptoms of hypoglycemia, Signs & symptoms of hyperglycemia, Relate diabetes to coronary artery disease and Healthy eating Nutrition - 60-Day Assessment Weight Mgt (Other Care) Height: 5 ft 10 in Weight:: 182 lb 8 oz BMI: 26.2 Core - 30-Day Assessment Visit Date of Eval: 02/03/25 Session #:: 9 Medication Compliance Preventative Medication(s):: Aspirin, Ticagrelor/P2Y12 inhibitor and Statin/lipid H/O mental health issues: depression, anxiety, or addiction?: No Doesn’t believe in the benefits of treatment?: No Believes medications are unnecessary or harmful?: No Has a concern about medication side effects?: No Expresses concern over the cost of medications?: No Outcomes/Goals: Verbalizes medications,desired effect & common side effects @ DC, Pt self-reports following medication regimen, Keeps card in wallet w/medications listed by DC and Other additional outcome/goals: Interventions/plans: Instruct on medication effects & side effects, Review medication list w/patient every two weeks, Instruct importance of taking meds as ordered & assist problem solving and Other additional 30-day Reassessments:: Progressing Reassessment Notes & Comments:: Pt is currently taking meds as prescribed, Pt to attend cardiac med class. Tobacco Use Tobacco Use: Non-smoker Do you use smokeless tobacco?: No Hypertension Hypertension Diagnosis:: Hypertension ICD-10 I10 Resting Blood Pressure:: 144/72 [place] [employer] Hypertension Guidelines Peak Exercise Blood Pressure:: 190/90 Outcomes/Goals: Able to verbalize/achieve optimal blood pressure <130/80, Incorporates diet changes & exercise for blood pressure control by DC and Other additional outcomes/goals Interventions/plan: Instruct on optimal blood pressure, hypertension & medications, Instruct on effects of sodium, alcohol, stress, exercise &hypertension and Other additional plan/interventions 30 day Reassessments:: Progressing Reassessment Notes & Comments:: Pt is aware of effects of sodium on blood pressure. Pt will attend cardiac meds class. Will continue to monitor BPs and report to physician as necessary. Tobacco Cessation Referral Smoking Cessation Referral:: No Individual Education/Counseling:: No Education Schedule Given:: Yes Psychosocial - 30-Day Assess VIsit Date of Eval: 02/03/25 Session #:: 9 History of previous Mental disease:: No Psychosocial Test Tool Used:: Ferr[employer] Power QOL Cardiac and PHQ-9 Questionnaire phq-9 Severity See PHQ-9 Score: 3 Referral to Behavioral Health PS - Interventions: Yes: Attend Stress Management Classes and No: Referral to Behavioral Health if PHQ-9 score >9:, No: Referral to [facility] and No: Referral to Physician if PHQ-9 if score is 5-9: Outcomes/Goals: See list Psychosocial Outcomes/Goals:: ID's personal stressors & 2 strategies to manage stress by discharge and Other Additional outcome/goals: Intervention/Plan: See List Interventions/Plan:: Assess stressors,coping strategies & signs of derpression on admission, Instruct/assist pt to develop coping & personal stress Mgt strategies, Refer to Behavioral Health if appropriate, Refer to Physician if appropriate, Instruct patient to recognize signs & symptoms of depression, Instruct patient to recog and Other additional plan/intervention 30-day Reassessments: 30 day Reassessments:: Progressing Reassessment Notes & Comments:: Pt denies any psychosocial issues at this time. Pt to attend stress management class. Will reassess every 30 days. Psychosocial - 60-Day Assess Referral to Behavioral Health PS - Interventions: Yes: Attend Stress Management Classes and No: Referral to Behavioral Health if PHQ-9 score >9:, No: Referral to [facility] and No: Referral to Physician if PHQ-9 if score is 5-9: Outcomes/Goals: See list Psychosocial Outcomes/Goals:: ID's personal stressors & 2 strategies to manage stress by discharge and Other Additional outcome/goals: Psychosocial - 90-Day Assess Referral to Behavioral Health PS - Interventions: Yes: Attend Stress Management Classes and No: Referral to Behavioral Health if PHQ-9 score >9:, No: Referral to [facility] and No: Referral to Physician if PHQ-9 if score is 5-9: Psychosocial - Final Assessmen Referral to Behavioral Health PS - Interventions: Yes: Attend Stress Management Classes and No: Referral to Behavioral Health if PHQ-9 score >9:, No: Referral to [facility] and No: Referral to Physician if PHQ-9 if score is 5-9: Nutrition - 90-Day Assessment Weight Mgt (Other Care) Height: 5 ft 10 in Weight:: 182 lb 8 oz BMI: 26.2 Nutrition - Final Assessment Weight Mgt (Other Care) Height: 5 ft 10 in Weight:: 182 lb 8 oz BMI: 26.2
[2025-02-03 10:22] VITALS: BP 144/72
[2025-02-03 10:42] VITALS: BMI 26.2
[2025-02-03 10:53] VITALS: BP 144/72
== END 2025-02-08 23:59 ==
LOC: CR 08:00
PROVIDERS: PCP Family Medicine; Referring Provider Internal Medicine Cardiovascular Disease; Visit Provider Internal Medicine Cardiovascular Disease
DX: I25.10 Atherosclerotic heart disease of native coronary artery without angina pectoris (principal); Z95.5 Presence of coronary angioplasty implant and graft; I25.84 Coronary atherosclerosis due to calcified coronary lesion; E13.9 Other specified diabetes mellitus without complications; I10 Essential (primary) hypertension
CPT/HCPCS: 93798

== ENCOUNTER 2025-02-20 08:00 | Outpatient (RCR) | payer OTHER, SELFPAY ==
[2025-02-03 10:42] VITALS: BMI 26.2
--- NOTE | 2025-03-03 07:07 | PCM.CR.ITP ---
Exercise - Initial Assessment Physician Prescribed Exercise Modalities: Treadmill, Schwinn Airdyne AD-7 and SciFit Stepper Nutrition - Initial Assessment Weight Mgt (Other Care) Height: 5 ft 10 in Weight:: 185 lb 8 oz BMI: 26.6 Core - Initial Assessment Hypertension Resting Blood Pressure:: 134/78 [place] [employer] Hypertension Guidelines Psychosocial - Initial Assess Referral to Behavioral Health PS - Interventions: Yes: Attend Stress Management Classes Exercise - 30-day Assessment Physician Prescribed Exercise Modalities: Treadmill, Schwinn Airdyne AD-7 and SciFit Stepper Exercise - 60-day Assessment Visit Date of Eval: 03/03/25 Session #:: 14 Physician Prescribed Exercise Modalities: Treadmill, Schwinn Airdyne AD-7 and SciFit Stepper Frequency: 3x/week for 12 weeks [36 sessions] Intensity: 60-80% of age predicted maximum heart rate reserve Duration: 30 - 45 minutes Current METSs:: 6.6 Target Heart Rate:: 94-125 Current RPE:: 13 Maximum Excercise HR:: 141 Resting Blood Pressure: 130/70 Maximum Exercise Blood Pressure: 178/88 EKG Type: NSR-ST rare PAC,PVC Outcomes & Goals Goals:: Verbalizes understanding of THR, RPE & goal METS by session 6, Documents in home exercise log/reports 30 min aerobic 5 day/wk by DC, Demonstrates accurate pulse taking by DC and Other additional outcome/goals: see below Intervention & Plan Exercise Program Goals: Instruct on personal THR & RPE, Instruct on MET level & personal MET goal, Show patient to take own pulse /validate performance until accurate, Instruct on home exercise and Other additional plan/int Physical Activity Home Exercise Physical Activity - Home Exercise: Safe Exercise, Warm-up, Self-monitoring, Cool-Down, Home Exercise > 30 min Daily and Sitting Time <3 hours/daily Outcomes & Goals Outcomes/Goals: Demonstrates correct Warm-up/exercise Cool-Down (S3) if = 2.5 METs, Verbalizes symptoms of exercise intolerance by Session 3 (S3), Demonstrate safe equipment use (S3) & follows exercise prescrition (6) and Other: See below Intervention & Plan Plan/Intervention: Instruct warm-up & cool-down if exercising at > 2 METs, Instruct on symptoms of exercise intolerance & actions to take, Instruct & monitor on saf, Assess intial functional capacity & safety risk and Other See below 30-day Reassessments 30 day Reassessments:: Progressing Reassessment Notes & Comments:: Proper warm up and cool down demonstrated and explained to pt. Pt is able to return demonstration in their daily sessions. Exercise - 90-day Assessment Physician Prescribed Exercise Modalities: Treadmill, Schwinn Airdyne AD-7 and SciFit Stepper Exercise - Final/Discharge Physician Prescribed Exercise Modalities: Treadmill, Schwinn Airdyne AD-7 and SciFit Stepper Nutrition - 30-Day Assessment Weight Mgt (Other Care) Height: 5 ft 10 in Weight:: 185 lb 8 oz BMI: 26.6 Nutrition - 60-Day Assessment Program Goals Nutrition Program Goals Patient has diagnosis of Hyperlipidemia (ICD E78)?: Yes Visit Date of Eval: 03/03/25 Session #:: 14 (Nutrition survey score of 3.) Cholesterol/Lipids (Other Core Measures) Determine presence & major risk factors that modify LDL goal: Cigarette smoking, Hypertension or hypertensive medication, Low HDL cholesterol <40 mg/dL*, Family history of premature CHD in Male < 55 years: female <65 yearsFa and Age men > 45 years; women >/= 55 years Outcomes/Goals: Pt IDs own risk factors & lifestyle modifications by Session 10, Verbalizes symptoms of angina & response by session 3., Pt independently manages and Other Additional Outcomes/Goals: Intervention/Plan: Advocate for lipid panel cholesterol medication if applicable, Instruct on personal lipid levels & lipid goals/NCEP guidelines, Instruct on cholesterol and Other additional plan/int Diabetes (Other Core Measures) 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 Heart healthy low sodium diet encouraged. Pt monitors their blood sugar at home as directed by their physician. Weight Mgt (Other Care) Height: 5 ft 10 in Weight:: 185 lb 8 oz BMI: 26.6 Diagnosis Overweight/Obesity BMI> 30% ICD-10 E66: No Diagnosis High BMI/Morbid Obesity BMI> 35% ICD-10 Z68: No Outcomes/Goals: Pt sets, maintains & shows weight loss goal & trend during rehab and Other additional outcomes/goals Intervention/Plan: Instruct on ideal BMI & set weight loss goal w/patient, Assist pt to ID & incorporate diet changes for weight loss by S9, Refer to Structured Weight Loss program as appropriate, Encourage goal of using 250-300dcal per session for weight loss and Other additional plan/interventions Healthy Eating Habits Will attend diet classes:: Yes Outcomes/Goals:: Consume diet rich in vegs,fruits,whole grain/high fiber,fish,lean meat, Limit sat/trans fats,cholesterol & added salts & sugars and Other additional outcome/goals: Intervention/Plan:: Assess current eating habits and Other Additional plan/interventions 30-day Reassessments:: Progressing Reassessment Notes & Comments:: Pt is at a healthy weight. Pt is scheduled to attend nutrition classes with our dairy cattle farmer. Heart healthy low sodium diet encouraged. Education Gave educational materials for:: Signs & symptoms of hypoglycemia, Signs & symptoms of hyperglycemia, Relate diabetes to coronary artery disease and Healthy eating Core - Final Assessment Hypertension Resting Blood Pressure:: 134/78 [place] [employer] Hypertension Guidelines Core - 60-Day Assessment Visit Date of Eval: 03/03/25 Session #:: 14 Medication Compliance Preventative Medication(s):: Aspirin, Ticagrelor/P2Y12 inhibitor and Statin/lipid H/O mental health issues: depression, anxiety, or addiction?: No Doesn?t believe in the benefits of treatment?: No Believes medications are unnecessary or harmful?: No Has a concern about medication side effects?: No Expresses concern over the cost of medications?: No Outcomes/Goals: Verbalizes medications,desired effect & common side effects @ DC, Pt self-reports following medication regimen, Keeps card in wallet w/medications listed by DC and Other additional outcome/goals: Interventions/plans: Instruct on medication effects & side effects, Review medication list w/patient every two weeks, Instruct importance of taking meds as ordered & assist problem solving and Other additional Tobacco Use Tobacco Use: Non-smoker Hypertension Hypertension Diagnosis:: Hypertension ICD-10 I10 Resting Blood Pressure:: 130/70 Resting Blood Pressure:: 134/78 [place] [employer] Hypertension Guidelines Peak Exercise Blood Pressure:: 178/88 Outcomes/Goals: Able to verbalize/achieve optimal blood pressure <130/80, Incorporates diet changes & exercise for blood pressure control by DC and Other additional outcomes/goals Interventions/plan: Instruct on optimal blood pressure, hypertension & medications, Instruct on effects of sodium, alcohol, stress, exercise &hypertension and Other additional plan/interventions 30 day Reassessments:: Progressing Reassessment Notes & Comments:: Pt's BP's are within AHA normal limits. Will continue to monitor and report to pt's physician if necessary. Tobacco Cessation Referral Smoking Cessation Referral:: No Individual Education/Counseling:: No Education Schedule Given:: Yes Psychosocial - 30-Day Assess Referral to Behavioral Health PS - Interventions: Yes: Attend Stress Management Classes Outcomes/Goals: See list Psychosocial Outcomes/Goals:: ID's personal stressors & 2 strategies to manage stress by discharge and Other Additional outcome/goals: Psychosocial - 60-Day Assess VIsit Date of Eval: 03/03/25 Session #:: 14 History of previous Mental disease:: No Psychosocial Test Tool Used:: [facility] QOL Cardiac and PHQ-9 Questionnaire phq-9 Severity See PHQ-9 Score: 3 Referral to Behavioral Health PS - Interventions: Yes: Attend Stress Management Classes Outcomes/Goals: See list Psychosocial Outcomes/Goals:: ID's personal stressors & 2 strategies to manage stress by discharge and Other Additional outcome/goals: Intervention/Plan: See List Interventions/Plan:: Assess stressors,coping strategies & signs of derpression on admission, Instruct/assist pt to develop coping & personal stress Mgt strategies, Refer to Behavioral Health if appropriate, Refer to Physician if appropriate, Instruct patient to recognize signs & symptoms of depression, Instruct patient to recog and Other additional plan/intervention 30-day Reassessments: 30 day Reassessments:: Progressing Reassessment Notes & Comments:: Pt denies any psychosocial issues at this time. Pt to attend stress management classes. Will reassess every 30 days. Psychosocial - 90-Day Assess Referral to Behavioral Health PS - Interventions: Yes: Attend Stress Management Classes Psychosocial - Final Assessmen Referral to Behavioral Health PS - Interventions: Yes: Attend Stress Management Classes Nutrition - 90-Day Assessment Weight Mgt (Other Care) Height: 5 ft 10 in Weight:: 185 lb 8 oz BMI: 26.6 Nutrition - Final Assessment Weight Mgt (Other Care) Height: 5 ft 10 in Weight:: 185 lb 8 oz BMI: 26.6
[2025-03-03 07:16] VITALS: BP 130/70; BP 134/78; BMI 26.6
== END 2025-03-11 23:59 ==
LOC: CR 08:00
PROVIDERS: PCP Family Medicine; Referring Provider Internal Medicine Cardiovascular Disease; Visit Provider Internal Medicine Cardiovascular Disease
DX: I25.10 Atherosclerotic heart disease of native coronary artery without angina pectoris (principal); Z95.5 Presence of coronary angioplasty implant and graft; I25.84 Coronary atherosclerosis due to calcified coronary lesion; E13.9 Other specified diabetes mellitus without complications; I10 Essential (primary) hypertension
CPT/HCPCS: 93798